=== PATIENT | male | born 1945 | race Caucasian/White ===

== ENCOUNTER 2018-08-02 16:50 | Inpatient (IN) | payer MEDICARE, MEDICAID ==
[2018-08-02 18:24] LABS: BASO % 0.2 % (0.0-1.0); EOS % 0.1 % (0.0-3.0); HEMATOCRIT 28.2 % (42.0-52.0); HEMOGLOBIN 9.2 g/dl (13.5-17.5); IMMATURE GRANULOCYTE % 0.4 % (0-3.0); LYMPH # 0.3 10^3/uL (1.5-4.5); LYMPH % 2.4 % (24.0-44.0); MEAN CORPUSCULAR HEMOGLOBIN 25.1 pg (27.0-33.0); MEAN CORPUSCULAR HGB CONC 32.6 g/dl (32.0-36.5); MONO # 0.5 10^3/uL (0.0-0.8); MONO % 4.7 % (0.0-5.0); NEUTROPHILS # 10.3 10^3/uL (1.8-7.7); NEUTROPHILS % 92.2 % (36.0-66.0); PLATELET COUNT, AUTOMATED 220 10^3/uL (150-450); RED BLOOD COUNT 3.66 10^6/uL (4.30-6.10); RED CELL DISTRIBUTION WIDTH 16.5 % (11.5-14.5); WHITE BLOOD COUNT 11.2 10^3/uL (4.0-10.0)
[2018-08-02 18:55] LABS: LACTIC ACID SEPSIS PROTOCOL 1.3 MMOL/L (0.4-2.0)
[2018-08-02] MEDS: ALBUTEROL SULFATE 2.5 MG/0.5 ML INH NEB SOLN NEB (18:57)
[2018-08-02 19:14] LABS: ALBUMIN 3.1 GM/DL (3.2-5.2); ALKALINE PHOSPHATASE 89 U/L (45-117); ALT/SGPT 19 U/L (12-78); ANION GAP 12 MEQ/L (8-16); AST/SGOT 11 U/L (7-37); BILIRUBIN,DIRECT 0.3 MG/DL (0.0-0.2); BILIRUBIN,TOTAL 0.9 MG/DL (0.2-1.0); BLOOD UREA NITROGEN 28 MG/DL (7-18); CALCIUM LEVEL 9.4 MG/DL (8.8-10.2); CARBON DIOXIDE LEVEL 23 MEQ/L (21-32); CHLORIDE LEVEL 99 MEQ/L (98-107); CPK CREATINE PHOSPHOKINASE 76 U/L (39-308); CREATININE FOR GFR 2.06 MG/DL (0.70-1.30); GLOMERULAR FILTRATION RATE 33.9 (>42); MB/CK RELATIVE INDEX 1.32 (< OR =4); NT-PRO BNP 3080 PG/ML (<125); POSITIVE DIFF POS FLAG; POTASSIUM SERUM 3.5 MEQ/L (3.5-5.1); SODIUM LEVEL 134 MEQ/L (136-145); TOTAL PROTEIN 7.3 GM/DL (6.4-8.2); TROPONIN I 0.03 NG/ML (< 0.10)
[2018-08-02 19:19] LABS: ALBUMIN/GLOBULIN RATIO 0.73 (1.00-1.93)
[2018-08-02 19:24] LABS: KETONE, URINE AUTO RFX NEGATIVE (NEGATIVE); LEUKOCYTE ESTERASE UR AUTO RFX 3+ (NEGATIVE); MUCUS, URINE RFX SMALL (NEGATIVE); NITRITE, URINE AUTO RFX NEGATIVE (NEGATIVE); RBC, URINE AUTO RFX 9 /HPF (0-3); SQUAM EPITHELIAL CELL UR AURFX 0 /HPF (0-6); WBC, URINE AUTO RFX 120 /HPF (0-3)
[2018-08-02] MEDS: PIPERACILLIN/TAZOBACTAM SOD 3.375 GM in D5W MINI-BAG PLUS 50 ML IV (19:48)
[2018-08-02 22:27] LABS: GLUCOSE, FASTING 111 MG/DL (70-100)
[2018-08-02] MEDS: VANCOMYCIN HCL 1,000 MG, VIAL MATE ADAPTER 1 EACH in D5W 250 ML IV (22:53)
[2018-08-03 00:14] LABS: ABG BASE EXCESS -0.8 (-2.0-2.0); ABG HCO3 22.8 MEQ/L (22.0-26.0); ABG O2 SATURATION 91.8 % (95.0-99.0); ABG PARTIAL PRESSURE CO2 32.8 mmHg (35.0-45.0); ABG PARTIAL PRESSURE O2 64.6 mmHg (75.0-100.0); ABG STANDARD HCO3 23.7 MEQ/L (22.0-26.0); ABG TOTAL CO2 23.8 MEQ/L (23.0-31.0); ABG pH (ARTERIAL) 7.459 UNITS (7.350-7.450)
[2018-08-03 01:59] LABS: ANION GAP 8 MEQ/L (8-16); BLOOD UREA NITROGEN 28 MG/DL (7-18); CALCIUM LEVEL 8.6 MG/DL (8.8-10.2); CARBON DIOXIDE LEVEL 27 MEQ/L (21-32); CHLORIDE LEVEL 100 MEQ/L (98-107); CREATININE FOR GFR 2.13 MG/DL (0.70-1.30); GLOMERULAR FILTRATION RATE 32.6 (>42); GLUCOSE, FASTING 119 MG/DL (70-100); POTASSIUM SERUM 3.5 MEQ/L (3.5-5.1); SODIUM LEVEL 135 MEQ/L (136-145)
[2018-08-03] MEDS: ACETAMINOPHEN TAB 650MG DOSE (2X325MG) PO ×3 (03:54→22:18)
[2018-08-03 04:55] LABS: BASO % 0.5 % (0.0-1.0); EOS % 0.1 % (0.0-3.0); HEMATOCRIT 27.2 % (42.0-52.0); HEMOGLOBIN 8.6 g/dl (13.5-17.5); IMMATURE GRANULOCYTE % 0.7 % (0-3.0); LYMPH # 0.3 10^3/uL (1.5-4.5); LYMPH % 3.1 % (24.0-44.0); MEAN CORPUSCULAR HEMOGLOBIN 24.6 pg (27.0-33.0); MEAN CORPUSCULAR HGB CONC 31.6 g/dl (32.0-36.5); MEAN CORPUSCULAR VOLUME 77.7 fl (80.0-96.0); MONO # 0.6 10^3/uL (0.0-0.8); MONO % 6.3 % (0.0-5.0); NEUTROPHILS # 7.9 10^3/uL (1.8-7.7); NEUTROPHILS % 89.3 % (36.0-66.0); PLATELET COUNT, AUTOMATED 183 10^3/uL (150-450); RED CELL DISTRIBUTION WIDTH 16.3 % (11.5-14.5); WHITE BLOOD COUNT 8.9 10^3/uL (4.0-10.0)
[2018-08-03 05:23] LABS: POSITIVE DIFF POS FLAG
[2018-08-03 05:28] LABS: ALBUMIN 2.7 GM/DL (3.2-5.2); ALKALINE PHOSPHATASE 75 U/L (45-117); ALT/SGPT 17 U/L (12-78); ANION GAP 12 MEQ/L (8-16); AST/SGOT 12 U/L (7-37); BILIRUBIN,TOTAL 0.8 MG/DL (0.2-1.0); BLOOD UREA NITROGEN 28 MG/DL (7-18); CALCIUM LEVEL 8.8 MG/DL (8.8-10.2); CARBON DIOXIDE LEVEL 21 MEQ/L (21-32); CHLORIDE LEVEL 101 MEQ/L (98-107); CK-MB VALUE MASS < 1.0 NG/ML (<3.6); CPK CREATINE PHOSPHOKINASE 78 U/L (39-308); CREATININE FOR GFR 2.06 MG/DL (0.70-1.30); GLOMERULAR FILTRATION RATE 33.9 (>42); GLUCOSE, FASTING 111 MG/DL (70-100); MB/CK RELATIVE INDEX 1.28 (< OR =4); POTASSIUM SERUM 3.4 MEQ/L (3.5-5.1); SODIUM LEVEL 134 MEQ/L (136-145); TOTAL PROTEIN 6.8 GM/DL (6.4-8.2); TROPONIN I 0.03 NG/ML (< 0.10)
[2018-08-03 05:37] LABS: ALBUMIN/GLOBULIN RATIO 0.63 (1.00-1.93)
[2018-08-03] MEDS: POTASSIUM CHLORIDE 10% LIQ 20 MEQ/15 ML UDC PO (06:00)
[2018-08-03] MEDS: HEPARIN SOD (PORCINE) 5000 UNITS/ML VIAL SC ×3 (06:00→22:00)
[2018-08-03] MEDS ORDERED: GLUCOSE 4 GM CHEW TABLET PO (07:00)
[2018-08-03] MEDS ORDERED: GLUCAGON FOR INJ 1 MG VIAL (J1610) SC (07:00)
[2018-08-03] MEDS ORDERED: DEXTROSE 50% 50 ML SYRINGE IV (07:00)
[2018-08-03] MEDS: SENOKOT S TAB PO ×2 (09:04→20:18)
[2018-08-03] MEDS: buPROPion **XL** TABLET 150MG (WELLBUTRIN XL) PO (09:05)
[2018-08-03] MEDS: LEVOTHYROXINE 100MCG TABLET (0.1MG) PO (09:05)
[2018-08-03] MEDS: ESCITALOPRAM OXALATE 10 MG TAB (LEXAPRO) PO (09:05)
[2018-08-03] MEDS: FAMOTIDINE 20 MG TAB PO (09:05)
[2018-08-03] MEDS: PANTOPRAZOLE 40MG TAB (PROTONIX) PO (09:05)
[2018-08-03] MEDS: VITAMIN D 1,000 INTERNATIONAL UNITS TABLET PO (09:06)
[2018-08-03] MEDS: HumaLOG INSULIN (NovoLOG) PER UNIT SC ×4 (09:06→20:18)
[2018-08-03] MEDS: PIPERACILLIN/TAZOBACTAM SOD 2.25 GM in D5W MINI-BAG PLUS 50 ML IV ×3 (09:06→20:18)
[2018-08-03] MEDS: TIOTROPIUM INHALER/CAPSULE (SPIRIVA) INH (10:00)
[2018-08-03 11:43] LABS: BEDSIDE GLUCOSE 119 MG/DL (83-110)
[2018-08-03 12:30] LABS: CPK CREATINE PHOSPHOKINASE 114 U/L (39-308); TROPONIN I 0.06 NG/ML (< 0.10)
[2018-08-03] MEDS: IPRATROPIUM 0.5MG/ALBUTEROL 2.5MG INH SOL UD 3ML (DUONEB)(J7620) NEB ×2 (14:00→20:48)
[2018-08-03 17:25] LABS: BEDSIDE GLUCOSE 104 MG/DL (83-110)
[2018-08-03 20:05] LABS: BEDSIDE GLUCOSE 110 MG/DL (83-110)
[2018-08-03] MEDS: TAMSULOSIN 0.4 MG CAP PO (20:18)
[2018-08-03 20:40] LABS: CPK CREATINE PHOSPHOKINASE 141 U/L (39-308); MB/CK RELATIVE INDEX 1.06 (< OR =4); TROPONIN I 0.02 NG/ML (< 0.10)
[2018-08-04] MEDS: PIPERACILLIN/TAZOBACTAM SOD 2.25 GM in D5W MINI-BAG PLUS 50 ML IV ×4 (01:53→20:27)
[2018-08-04] MEDS: IPRATROPIUM 0.5MG/ALBUTEROL 2.5MG INH SOL UD 3ML (DUONEB)(J7620) NEB ×4 (02:00→20:42)
[2018-08-04] MEDS ORDERED: SLF 3 ML SYR IV (05:15)
[2018-08-04 05:55] LABS: BASO # 0.1 10^3/uL (0.0-0.2); BASO % 1.6 % (0.0-1.0); EOS # 0.1 10^3/uL (0.0-0.50); EOS % 0.8 % (0.0-3.0); HEMATOCRIT 26.1 % (42.0-52.0); HEMOGLOBIN 8.2 g/dl (13.5-17.5); IMMATURE GRANULOCYTE % 0.5 % (0-3.0); LYMPH # 0.9 10^3/uL (1.5-4.5); LYMPH % 14.3 % (24.0-44.0); MEAN CORPUSCULAR HEMOGLOBIN 24.6 pg (27.0-33.0); MEAN CORPUSCULAR HGB CONC 31.4 g/dl (32.0-36.5); MEAN CORPUSCULAR VOLUME 78.4 fl (80.0-96.0); MONO # 0.9 10^3/uL (0.0-0.8); MONO % 14.4 % (0.0-5.0); NEUTROPHILS # 4.4 10^3/uL (1.8-7.7); NEUTROPHILS % 68.4 % (36.0-66.0); PLATELET COUNT, AUTOMATED 209 10^3/uL (150-450); RED BLOOD COUNT 3.33 10^6/uL (4.30-6.10); RED CELL DISTRIBUTION WIDTH 16.2 % (11.5-14.5); WHITE BLOOD COUNT 6.4 10^3/uL (4.0-10.0)
[2018-08-04] MEDS: HEPARIN SOD (PORCINE) 5000 UNITS/ML VIAL SC ×3 (05:59→22:00)
[2018-08-04] MEDS: SLF 3 ML SYR IV ×3 (05:59→22:00)
[2018-08-04 06:19] LABS: ALBUMIN 2.4 GM/DL (3.2-5.2); ALBUMIN/GLOBULIN RATIO 0.62 (1.00-1.93); ALKALINE PHOSPHATASE 73 U/L (45-117); ALT/SGPT 21 U/L (12-78); ANION GAP 9 MEQ/L (8-16); AST/SGOT 18 U/L (7-37); BILIRUBIN,TOTAL 0.4 MG/DL (0.2-1.0); BLOOD UREA NITROGEN 28 MG/DL (7-18); CALCIUM LEVEL 8.6 MG/DL (8.8-10.2); CARBON DIOXIDE LEVEL 23 MEQ/L (21-32); CHLORIDE LEVEL 104 MEQ/L (98-107); CREATININE FOR GFR 1.89 MG/DL (0.70-1.30); GLOMERULAR FILTRATION RATE 37.4 (>42); GLUCOSE, FASTING 88 MG/DL (70-100); POTASSIUM SERUM 3.2 MEQ/L (3.5-5.1); SODIUM LEVEL 136 MEQ/L (136-145); TOTAL PROTEIN 6.3 GM/DL (6.4-8.2)
[2018-08-04] MEDS: TIOTROPIUM INHALER/CAPSULE (SPIRIVA) INH (07:40)
[2018-08-04] MEDS: HumaLOG INSULIN (NovoLOG) PER UNIT SC ×4 (07:50→20:27)
[2018-08-04] MEDS: PANTOPRAZOLE 40MG TAB (PROTONIX) PO (08:53)
[2018-08-04] MEDS: VITAMIN D 1,000 INTERNATIONAL UNITS TABLET PO (08:54)
[2018-08-04] MEDS: SENOKOT S TAB PO ×2 (08:54→20:27)
[2018-08-04] MEDS: ESCITALOPRAM OXALATE 10 MG TAB (LEXAPRO) PO (08:54)
[2018-08-04] MEDS: POTASSIUM CHLORIDE 10 MEQ SR TABLET PO (08:54)
[2018-08-04] MEDS: buPROPion **XL** TABLET 150MG (WELLBUTRIN XL) PO (08:54)
[2018-08-04] MEDS: LEVOTHYROXINE 100MCG TABLET (0.1MG) PO (08:54)
[2018-08-04] MEDS: FAMOTIDINE 20 MG TAB PO (08:54)
[2018-08-04] MEDS: INFLUENZA VIRUS VACCINE HIGH DOSE 0.5 ML SYRINGE (90662) IM (08:55)
[2018-08-04 11:35] LABS: BEDSIDE GLUCOSE 100 MG/DL (83-110)
[2018-08-04 17:13] LABS: BEDSIDE GLUCOSE 90 MG/DL (83-110)
[2018-08-04 20:05] LABS: BEDSIDE GLUCOSE 118 MG/DL (83-110)
[2018-08-04] MEDS: TAMSULOSIN 0.4 MG CAP PO (20:27)
[2018-08-05] MEDS: IPRATROPIUM 0.5MG/ALBUTEROL 2.5MG INH SOL UD 3ML (DUONEB)(J7620) NEB ×4 (01:09→20:40)
[2018-08-05] MEDS: PIPERACILLIN/TAZOBACTAM SOD 2.25 GM in D5W MINI-BAG PLUS 50 ML IV ×2 (01:35→08:08)
[2018-08-05] MEDS: SLF 3 ML SYR IV ×3 (05:34→22:47)
[2018-08-05] MEDS: ACETAMINOPHEN TAB 650MG DOSE (2X325MG) PO (05:34)
[2018-08-05] MEDS: HEPARIN SOD (PORCINE) 5000 UNITS/ML VIAL SC ×3 (05:34→22:46)
[2018-08-05 06:03] LABS: BASO # 0.1 10^3/uL (0.0-0.2); BASO % 1.8 % (0.0-1.0); EOS # 0.2 10^3/uL (0.0-0.50); HEMATOCRIT 26.1 % (42.0-52.0); HEMOGLOBIN 8.3 g/dl (13.5-17.5); IMMATURE GRANULOCYTE % 0.8 % (0-3.0); LYMPH # 0.7 10^3/uL (1.5-4.5); LYMPH % 13.7 % (24.0-44.0); MEAN CORPUSCULAR HEMOGLOBIN 24.6 pg (27.0-33.0); MEAN CORPUSCULAR HGB CONC 31.8 g/dl (32.0-36.5); MEAN CORPUSCULAR VOLUME 77.2 fl (80.0-96.0); MONO # 0.8 10^3/uL (0.0-0.8); MONO % 16.3 % (0.0-5.0); NEUTROPHILS # 3.2 10^3/uL (1.8-7.7); NEUTROPHILS % 63.4 % (36.0-66.0); PLATELET COUNT, AUTOMATED 241 10^3/uL (150-450); RED BLOOD COUNT 3.38 10^6/uL (4.30-6.10); RED CELL DISTRIBUTION WIDTH 16.1 % (11.5-14.5)
[2018-08-05 06:51] LABS: ALBUMIN 2.2 GM/DL (3.2-5.2); ALBUMIN/GLOBULIN RATIO 0.54 (1.00-1.93); ALKALINE PHOSPHATASE 70 U/L (45-117); ALT/SGPT 26 U/L (12-78); ANION GAP 11 MEQ/L (8-16); AST/SGOT 21 U/L (7-37); BILIRUBIN,TOTAL 0.4 MG/DL (0.2-1.0); BLOOD UREA NITROGEN 20 MG/DL (7-18); CALCIUM LEVEL 8.5 MG/DL (8.8-10.2); CARBON DIOXIDE LEVEL 22 MEQ/L (21-32); CHLORIDE LEVEL 104 MEQ/L (98-107); GLOMERULAR FILTRATION RATE 52.9 (>42); GLUCOSE, FASTING 96 MG/DL (70-100); POTASSIUM SERUM 3.3 MEQ/L (3.5-5.1); SODIUM LEVEL 137 MEQ/L (136-145); TOTAL PROTEIN 6.3 GM/DL (6.4-8.2)
[2018-08-05] MEDS: TIOTROPIUM INHALER/CAPSULE (SPIRIVA) INH (07:45)
[2018-08-05] MEDS: HumaLOG INSULIN (NovoLOG) PER UNIT SC ×4 (08:06→21:29)
[2018-08-05] MEDS: ESCITALOPRAM OXALATE 10 MG TAB (LEXAPRO) PO (08:07)
[2018-08-05] MEDS: POTASSIUM CHLORIDE 10 MEQ SR TABLET PO (08:07)
[2018-08-05] MEDS: SENOKOT S TAB PO ×2 (08:07→21:28)
[2018-08-05] MEDS: VITAMIN D 1,000 INTERNATIONAL UNITS TABLET PO (08:07)
[2018-08-05] MEDS: FAMOTIDINE 20 MG TAB PO (08:07)
[2018-08-05] MEDS: LEVOTHYROXINE 100MCG TABLET (0.1MG) PO (08:07)
[2018-08-05] MEDS: buPROPion **XL** TABLET 150MG (WELLBUTRIN XL) PO (08:07)
[2018-08-05] MEDS: PANTOPRAZOLE 40MG TAB (PROTONIX) PO (08:07)
[2018-08-05] MEDS: cefTRIAXone SOD 2 GM in D5W MINI-BAG PLUS 50 ML IV (09:59)
[2018-08-05 11:45] LABS: BEDSIDE GLUCOSE 120 MG/DL (83-110)
[2018-08-05] MEDS: amLODIPine 5 MG TAB PO (13:57)
[2018-08-05 17:15] LABS: BEDSIDE GLUCOSE 119 MG/DL (83-110)
[2018-08-05] MEDS: TAMSULOSIN 0.4 MG CAP PO (21:28)
[2018-08-05] MEDS: ACETAMINOPHEN 500 MG TAB PO (21:29)
[2018-08-05 21:33] LABS: BEDSIDE GLUCOSE 145 MG/DL (83-110)
[2018-08-06] MEDS: IPRATROPIUM 0.5MG/ALBUTEROL 2.5MG INH SOL UD 3ML (DUONEB)(J7620) NEB ×4 (02:00→20:43)
[2018-08-06] MEDS: HEPARIN SOD (PORCINE) 5000 UNITS/ML VIAL SC ×3 (05:19→21:11)
[2018-08-06] MEDS: SLF 3 ML SYR IV ×3 (05:20→21:11)
[2018-08-06 05:46] LABS: BASO # 0.1 10^3/uL (0.0-0.2); BASO % 1.5 % (0.0-1.0); EOS # 0.6 10^3/uL (0.0-0.50); EOS % 8.4 % (0.0-3.0); HEMATOCRIT 27.4 % (42.0-52.0); HEMOGLOBIN 8.6 g/dl (13.5-17.5); IMMATURE GRANULOCYTE % 1.5 % (0-3.0); LYMPH % 15.2 % (24.0-44.0); MEAN CORPUSCULAR HEMOGLOBIN 24.4 pg (27.0-33.0); MEAN CORPUSCULAR HGB CONC 31.4 g/dl (32.0-36.5); MEAN CORPUSCULAR VOLUME 77.6 fl (80.0-96.0); MONO # 0.9 10^3/uL (0.0-0.8); MONO % 13.6 % (0.0-5.0); NEUTROPHILS # 3.9 10^3/uL (1.8-7.7); NEUTROPHILS % 59.8 % (36.0-66.0); PLATELET COUNT, AUTOMATED 289 10^3/uL (150-450); RED BLOOD COUNT 3.53 10^6/uL (4.30-6.10); WHITE BLOOD COUNT 6.6 10^3/uL (4.0-10.0)
[2018-08-06 06:06] LABS: ALBUMIN 2.3 GM/DL (3.2-5.2); ALBUMIN/GLOBULIN RATIO 0.55 (1.00-1.93); ALKALINE PHOSPHATASE 77 U/L (45-117); ALT/SGPT 31 U/L (12-78); ANION GAP 9 MEQ/L (8-16); AST/SGOT 21 U/L (7-37); BILIRUBIN,TOTAL 0.3 MG/DL (0.2-1.0); BLOOD UREA NITROGEN 17 MG/DL (7-18); CALCIUM LEVEL 8.6 MG/DL (8.8-10.2); CARBON DIOXIDE LEVEL 23 MEQ/L (21-32); CHLORIDE LEVEL 108 MEQ/L (98-107); CREATININE FOR GFR 1.26 MG/DL (0.70-1.30); GLOMERULAR FILTRATION RATE 59.7 (>42); GLUCOSE, FASTING 101 MG/DL (70-100); POTASSIUM SERUM 3.1 MEQ/L (3.5-5.1); SODIUM LEVEL 140 MEQ/L (136-145); TOTAL PROTEIN 6.5 GM/DL (6.4-8.2)
[2018-08-06] MEDS: TIOTROPIUM INHALER/CAPSULE (SPIRIVA) INH (07:27)
[2018-08-06] MEDS: HumaLOG INSULIN (NovoLOG) PER UNIT SC ×4 (07:30→21:00)
[2018-08-06] MEDS: VITAMIN D 1,000 INTERNATIONAL UNITS TABLET PO (09:00)
[2018-08-06] MEDS: cefTRIAXone SOD 2 GM in D5W MINI-BAG PLUS 50 ML IV (10:07)
[2018-08-06] MEDS: FAMOTIDINE 20 MG TAB PO (10:07)
[2018-08-06] MEDS: SENOKOT S TAB PO ×2 (10:08→21:12)
[2018-08-06] MEDS: amLODIPine 5 MG TAB PO (10:08)
[2018-08-06] MEDS: buPROPion **XL** TABLET 150MG (WELLBUTRIN XL) PO (10:08)
[2018-08-06] MEDS: LEVOTHYROXINE 100MCG TABLET (0.1MG) PO (10:08)
[2018-08-06] MEDS: PANTOPRAZOLE 40MG TAB (PROTONIX) PO (10:08)
[2018-08-06] MEDS: POTASSIUM CHLORIDE 10 MEQ SR TABLET PO ×3 (10:09→21:11)
[2018-08-06] MEDS: ESCITALOPRAM OXALATE 10 MG TAB (LEXAPRO) PO (10:09)
[2018-08-06] MEDS: ACETAMINOPHEN 500 MG TAB PO ×2 (10:09→21:12)
[2018-08-06 11:56] LABS: BEDSIDE GLUCOSE 123 MG/DL (83-110)
[2018-08-06 16:57] LABS: BEDSIDE GLUCOSE 101 MG/DL (83-110)
[2018-08-06 20:04] LABS: BEDSIDE GLUCOSE 148 MG/DL (83-110)
[2018-08-06] MEDS: TAMSULOSIN 0.4 MG CAP PO (21:12)
[2018-08-07] MEDS: IPRATROPIUM 0.5MG/ALBUTEROL 2.5MG INH SOL UD 3ML (DUONEB)(J7620) NEB ×4 (01:35→19:41)
[2018-08-07] MEDS: HEPARIN SOD (PORCINE) 5000 UNITS/ML VIAL SC ×3 (05:46→21:00)
[2018-08-07] MEDS: SLF 3 ML SYR IV ×3 (05:46→21:00)
[2018-08-07 06:40] LABS: BEDSIDE GLUCOSE 120 MG/DL (83-110)
[2018-08-07] MEDS: HumaLOG INSULIN (NovoLOG) PER UNIT SC ×4 (07:30→20:54)
[2018-08-07] MEDS: TIOTROPIUM INHALER/CAPSULE (SPIRIVA) INH (08:19)
[2018-08-07] MEDS: ACETAMINOPHEN 500 MG TAB PO ×2 (09:27→20:52)
[2018-08-07] MEDS: amLODIPine 5 MG TAB PO (09:27)
[2018-08-07] MEDS: ESCITALOPRAM OXALATE 10 MG TAB (LEXAPRO) PO (09:27)
[2018-08-07] MEDS: VITAMIN D 1,000 INTERNATIONAL UNITS TABLET PO (09:28)
[2018-08-07] MEDS: PANTOPRAZOLE 40MG TAB (PROTONIX) PO (09:28)
[2018-08-07] MEDS: buPROPion **XL** TABLET 150MG (WELLBUTRIN XL) PO (09:28)
[2018-08-07] MEDS: LEVOTHYROXINE 100MCG TABLET (0.1MG) PO (09:28)
[2018-08-07] MEDS: cefTRIAXone SOD 2 GM in D5W MINI-BAG PLUS 50 ML IV (09:28)
[2018-08-07] MEDS: POTASSIUM CHLORIDE 10 MEQ SR TABLET PO ×2 (09:28→20:51)
[2018-08-07] MEDS: SENOKOT S TAB PO ×2 (09:28→20:52)
[2018-08-07] MEDS: FAMOTIDINE 20 MG TAB PO (09:28)
[2018-08-07 11:48] LABS: BEDSIDE GLUCOSE 113 MG/DL (83-110)
[2018-08-07 16:23] LABS: BEDSIDE GLUCOSE 112 MG/DL (83-110)
[2018-08-07 20:13] LABS: BEDSIDE GLUCOSE 141 MG/DL (83-110)
[2018-08-07] MEDS: TAMSULOSIN 0.4 MG CAP PO (20:52)
[2018-08-08] MEDS: IPRATROPIUM 0.5MG/ALBUTEROL 2.5MG INH SOL UD 3ML (DUONEB)(J7620) NEB ×4 (01:41→20:12)
[2018-08-08] MEDS: SLF 3 ML SYR IV ×3 (05:09→21:15)
[2018-08-08] MEDS: HEPARIN SOD (PORCINE) 5000 UNITS/ML VIAL SC ×3 (05:09→21:14)
[2018-08-08 05:14] LABS: BEDSIDE GLUCOSE 107 MG/DL (83-110)
[2018-08-08] MEDS: HumaLOG INSULIN (NovoLOG) PER UNIT SC ×4 (07:30→21:00)
[2018-08-08] MEDS: TIOTROPIUM INHALER/CAPSULE (SPIRIVA) INH (08:37)
[2018-08-08] MEDS: MIRALAX *UNIT DOSE* 17GM PACKET PO (09:03)
[2018-08-08] MEDS: amLODIPine 5 MG TAB PO (09:03)
[2018-08-08] MEDS: SENOKOT S TAB PO ×2 (09:04→21:14)
[2018-08-08] MEDS: POTASSIUM CHLORIDE 10 MEQ SR TABLET PO ×2 (09:04→21:14)
[2018-08-08] MEDS: VITAMIN D 1,000 INTERNATIONAL UNITS TABLET PO (09:04)
[2018-08-08] MEDS: ACETAMINOPHEN 500 MG TAB PO ×2 (09:04→21:14)
[2018-08-08] MEDS: buPROPion **XL** TABLET 150MG (WELLBUTRIN XL) PO (09:04)
[2018-08-08] MEDS: LEVOTHYROXINE 100MCG TABLET (0.1MG) PO (09:04)
[2018-08-08] MEDS: ESCITALOPRAM OXALATE 10 MG TAB (LEXAPRO) PO (09:04)
[2018-08-08] MEDS: FAMOTIDINE 20 MG TAB PO (09:04)
[2018-08-08] MEDS: cefTRIAXone SOD 2 GM in D5W MINI-BAG PLUS 50 ML IV (09:05)
[2018-08-08] MEDS: PANTOPRAZOLE 40MG TAB (PROTONIX) PO (09:05)
[2018-08-08 11:16] LABS: BEDSIDE GLUCOSE 111 MG/DL (83-110)
[2018-08-08 16:41] LABS: BEDSIDE GLUCOSE 98 MG/DL (83-110)
[2018-08-08 20:50] LABS: BEDSIDE GLUCOSE 86 MG/DL (83-110)
[2018-08-08] MEDS: TAMSULOSIN 0.4 MG CAP PO (21:15)
[2018-08-09] MEDS: IPRATROPIUM 0.5MG/ALBUTEROL 2.5MG INH SOL UD 3ML (DUONEB)(J7620) NEB ×4 (01:19→20:26)
[2018-08-09] MEDS: SLF 3 ML SYR IV ×3 (05:18→20:59)
[2018-08-09] MEDS: HEPARIN SOD (PORCINE) 5000 UNITS/ML VIAL SC ×3 (05:28→20:58)
[2018-08-09 05:30] LABS: HEMATOCRIT 29.3 % (42.0-52.0); HEMOGLOBIN 9.4 g/dl (13.5-17.5); MEAN CORPUSCULAR HEMOGLOBIN 25.1 pg (27.0-33.0); MEAN CORPUSCULAR HGB CONC 32.1 g/dl (32.0-36.5); MEAN CORPUSCULAR VOLUME 78.3 fl (80.0-96.0); PLATELET COUNT, AUTOMATED 445 10^3/uL (150-450); RED BLOOD COUNT 3.74 10^6/uL (4.30-6.10); RED CELL DISTRIBUTION WIDTH 15.9 % (11.5-14.5); WHITE BLOOD COUNT 8.3 10^3/uL (4.0-10.0)
[2018-08-09 05:33] LABS: ADD MANUAL DIFFER YES; DIFF SLIDE NUMBER 96; POS COUNT POS FLAG; POSITIVE MORPH POS FLAG
[2018-08-09 05:50] LABS: ANION GAP 12 MEQ/L (8-16); BLOOD UREA NITROGEN 15 MG/DL (7-18); CALCIUM LEVEL 8.8 MG/DL (8.8-10.2); CARBON DIOXIDE LEVEL 24 MEQ/L (21-32); CHLORIDE LEVEL 108 MEQ/L (98-107); CREATININE FOR GFR 1.07 MG/DL (0.70-1.30); GLOMERULAR FILTRATION RATE > 60.0 (>42); GLUCOSE, FASTING 98 MG/DL (70-100); POTASSIUM SERUM 3.8 MEQ/L (3.5-5.1); SODIUM LEVEL 144 MEQ/L (136-145)
[2018-08-09 07:06] LABS: ANISOCYTOSIS 1+; ATYPICAL LYMPH 5 % (0-5); BASOPHILS 1 % (0-4); EOSINOPHILS 14 % (0-5); GIANT PLATELETS 1+; LYMPHOCYTES 25 % (16-52); METAMYELOCYTES 1 % (0-0); MONOCYTES 5 % (0-8); MYELOCYTES 3 % (0-0); NEUTROPHILS 46 % (35-75); PLATELET ESTIMATE NORMAL (NORMAL)
[2018-08-09] MEDS: HumaLOG INSULIN (NovoLOG) PER UNIT SC ×4 (07:42→20:39)
[2018-08-09] MEDS: TIOTROPIUM INHALER/CAPSULE (SPIRIVA) INH (07:42)
[2018-08-09] MEDS: buPROPion **XL** TABLET 150MG (WELLBUTRIN XL) PO (10:32)
[2018-08-09] MEDS: ESCITALOPRAM OXALATE 10 MG TAB (LEXAPRO) PO (10:32)
[2018-08-09] MEDS: FAMOTIDINE 20 MG TAB PO (10:32)
[2018-08-09] MEDS: SENOKOT S TAB PO ×2 (10:32→20:57)
[2018-08-09] MEDS: LEVOTHYROXINE 100MCG TABLET (0.1MG) PO (10:33)
[2018-08-09] MEDS: ACETAMINOPHEN 500 MG TAB PO ×2 (10:33→20:58)
[2018-08-09] MEDS: PANTOPRAZOLE 40MG TAB (PROTONIX) PO (10:33)
[2018-08-09] MEDS: POTASSIUM CHLORIDE 10 MEQ SR TABLET PO ×2 (10:33→20:57)
[2018-08-09] MEDS: amLODIPine 5 MG TAB PO (10:33)
[2018-08-09] MEDS: VITAMIN D 1,000 INTERNATIONAL UNITS TABLET PO (10:33)
[2018-08-09] MEDS: cefTRIAXone SOD 2 GM in D5W MINI-BAG PLUS 50 ML IV (10:34)
[2018-08-09] MEDS: BISACODYL 10 MG SUPP PR (10:34)
[2018-08-09 11:50] LABS: BEDSIDE GLUCOSE 121 MG/DL (83-110)
[2018-08-09] MEDS: FUROSEMIDE 40 MG/4 ML VIAL (J1940) IV (15:12)
[2018-08-09 17:24] LABS: BEDSIDE GLUCOSE 96 MG/DL (83-110)
[2018-08-09] MEDS: MIRALAX *UNIT DOSE* 17GM PACKET PO (20:57)
[2018-08-09] MEDS: TAMSULOSIN 0.4 MG CAP PO (20:58)
[2018-08-10] MEDS: IPRATROPIUM 0.5MG/ALBUTEROL 2.5MG INH SOL UD 3ML (DUONEB)(J7620) NEB ×3 (02:00→13:22)
[2018-08-10] MEDS: HEPARIN SOD (PORCINE) 5000 UNITS/ML VIAL SC ×2 (05:08→14:00)
[2018-08-10] MEDS: SLF 3 ML SYR IV ×2 (05:08→14:00)
[2018-08-10 05:49] LABS: HEMATOCRIT 30.6 % (42.0-52.0); HEMOGLOBIN 9.4 g/dl (13.5-17.5); MEAN CORPUSCULAR HEMOGLOBIN 24.2 pg (27.0-33.0); MEAN CORPUSCULAR HGB CONC 30.7 g/dl (32.0-36.5); MEAN CORPUSCULAR VOLUME 78.9 fl (80.0-96.0); PLATELET COUNT, AUTOMATED 456 10^3/uL (150-450); RED BLOOD COUNT 3.88 10^6/uL (4.30-6.10); WHITE BLOOD COUNT 10.4 10^3/uL (4.0-10.0)
[2018-08-10 05:54] LABS: ADD MANUAL DIFFER YES; DIFF SLIDE NUMBER 56; POS COUNT POS FLAG; POSITIVE MORPH POS FLAG
[2018-08-10 06:06] LABS: ANION GAP 10 MEQ/L (8-16); BLOOD UREA NITROGEN 16 MG/DL (7-18); CALCIUM LEVEL 9.1 MG/DL (8.8-10.2); CARBON DIOXIDE LEVEL 25 MEQ/L (21-32); CHLORIDE LEVEL 103 MEQ/L (98-107); CREATININE FOR GFR 1.32 MG/DL (0.70-1.30); GLOMERULAR FILTRATION RATE 56.6 (>42); GLUCOSE, FASTING 103 MG/DL (70-100); POTASSIUM SERUM 4.5 MEQ/L (3.5-5.1); SODIUM LEVEL 138 MEQ/L (136-145)
[2018-08-10 07:08] LABS: BEDSIDE GLUCOSE 137 MG/DL (83-110)
[2018-08-10] MEDS: HumaLOG INSULIN (NovoLOG) PER UNIT SC ×2 (07:30→12:00)
[2018-08-10 07:38] LABS: ANISOCYTOSIS 1+; BASOPHILS 2 % (0-4); EOSINOPHILS 11 % (0-5); LYMPHOCYTES 20 % (16-52); MICROCYTOSIS 1+; MONOCYTES 1 % (0-8); MYELOCYTES 1 % (0-0); NEUTROPHILS 65 % (35-75); PLATELET ESTIMATE NORMAL (NORMAL)
[2018-08-10] MEDS: TIOTROPIUM INHALER/CAPSULE (SPIRIVA) INH (08:00)
[2018-08-10] MEDS: FAMOTIDINE 20 MG TAB PO (08:40)
[2018-08-10] MEDS: PANTOPRAZOLE 40MG TAB (PROTONIX) PO (08:40)
[2018-08-10] MEDS: buPROPion **XL** TABLET 150MG (WELLBUTRIN XL) PO (08:40)
[2018-08-10] MEDS: SENOKOT S TAB PO (08:40)
[2018-08-10] MEDS: ESCITALOPRAM OXALATE 10 MG TAB (LEXAPRO) PO (08:40)
[2018-08-10] MEDS: POTASSIUM CHLORIDE 10 MEQ SR TABLET PO (08:40)
[2018-08-10] MEDS: amLODIPine 5 MG TAB PO (08:41)
[2018-08-10] MEDS: LEVOTHYROXINE 100MCG TABLET (0.1MG) PO (08:41)
[2018-08-10] MEDS: ACETAMINOPHEN 500 MG TAB PO (08:41)
[2018-08-10] MEDS: cefTRIAXone SOD 2 GM in D5W MINI-BAG PLUS 50 ML IV (08:41)
[2018-08-10] MEDS: VITAMIN D 1,000 INTERNATIONAL UNITS TABLET PO (08:41)
[2018-08-10] MEDS: BISACODYL 10 MG SUPP PR (08:42)
[2018-08-11 01:26] LABS: BEDSIDE GLUCOSE 106 MG/DL (83-110)
== END 2018-08-10 14:42 | disposition home or self-care (01) | DRG 690 ==
LOC: M ED INP 08-03 03:38 → M MSPAV 08-09 06:03 → M PCU 08-05 23:42 → M ED 16:50
DX: N39.0 Urinary tract infection, site not specified (principal); N17.9 Acute kidney failure, unspecified; R78.81 Bacteremia; I50.9 Heart failure, unspecified; E66.9 Obesity, unspecified; K21.9 Gastro-esophageal reflux disease without esophagitis; N13.9 Obstructive and reflux uropathy, unspecified; B96.20 Unspecified Escherichia coli [E. coli] as the cause of diseases classified elsewhere; F41.9 Anxiety disorder, unspecified; F32.9 Major depressive disorder, single episode, unspecified; J44.9 Chronic obstructive pulmonary disease, unspecified; E55.9 Vitamin D deficiency, unspecified; E03.9 Hypothyroidism, unspecified; E11.9 Type 2 diabetes mellitus without complications; N40.1 Benign prostatic hyperplasia with lower urinary tract symptoms; D64.9 Anemia, unspecified; Z79.51 Long term (current) use of inhaled steroids; Z79.84 Long term (current) use of oral hypoglycemic drugs; Z79.899 Other long term (current) drug therapy; Z96.652 Presence of left artificial knee joint; Z68.30 Body mass index [BMI] 30.0-30.9, adult

== ENCOUNTER 2018-08-16 09:26 | Inpatient (IN) | payer MEDICARE, MEDICAID ==
[2018-08-16] MEDS: NS 1,000 ML IV ×4 (09:45→22:50)
[2018-08-16 10:00] LABS: BASO # 0.1 10^3/uL (0.0-0.2); BASO % 0.8 % (0.0-1.0); EOS # 0.2 10^3/uL (0.0-0.50); EOS % 1.3 % (0.0-3.0); HEMATOCRIT 30.2 % (42.0-52.0); HEMOGLOBIN 9.3 g/dl (13.5-17.5); LYMPH # 1.2 10^3/uL (1.5-4.5); LYMPH % 9.2 % (24.0-44.0); MEAN CORPUSCULAR HEMOGLOBIN 24.9 pg (27.0-33.0); MEAN CORPUSCULAR HGB CONC 30.8 g/dl (32.0-36.5); MEAN CORPUSCULAR VOLUME 80.7 fl (80.0-96.0); MONO # 1.2 10^3/uL (0.0-0.8); MONO % 8.9 % (0.0-5.0); NEUTROPHILS # 10.6 10^3/uL (1.8-7.7); NEUTROPHILS % 78.8 % (36.0-66.0); PLATELET COUNT, AUTOMATED 320 10^3/uL (150-450); RED BLOOD COUNT 3.74 10^6/uL (4.30-6.10); RED CELL DISTRIBUTION WIDTH 17.3 % (11.5-14.5); WHITE BLOOD COUNT 13.4 10^3/uL (4.0-10.0)
[2018-08-16 10:26] LABS: ALBUMIN 3.3 GM/DL (3.2-5.2); ALBUMIN/GLOBULIN RATIO 0.75 (1.00-1.93); ALKALINE PHOSPHATASE 82 U/L (45-117); ALT/SGPT 22 U/L (12-78); ANION GAP 11 MEQ/L (8-16); AST/SGOT 12 U/L (7-37); BILIRUBIN,DIRECT 0.1 MG/DL (0.0-0.2); BILIRUBIN,TOTAL 0.5 MG/DL (0.2-1.0); BLOOD UREA NITROGEN 53 MG/DL (7-18); CALCIUM LEVEL 10.5 MG/DL (8.8-10.2); CARBON DIOXIDE LEVEL 24 MEQ/L (21-32); CHLORIDE LEVEL 98 MEQ/L (98-107); CK-MB VALUE MASS < 1.0 NG/ML (<3.6); CPK CREATINE PHOSPHOKINASE 42 U/L (39-308); CREATININE FOR GFR 4.35 MG/DL (0.70-1.30); FREE T4 1.38 NG/DL (0.76-1.46); GLOMERULAR FILTRATION RATE 14.3 (>42); GLUCOSE, FASTING 68 MG/DL (70-100); LIPASE 119 U/L (73-393); MB/CK RELATIVE INDEX 2.38 (< OR =4); POTASSIUM SERUM 5.4 MEQ/L (3.5-5.1); SODIUM LEVEL 133 MEQ/L (136-145); TOTAL PROTEIN 7.7 GM/DL (6.4-8.2); TROPONIN I < 0.02 NG/ML (< 0.10)
[2018-08-16] MEDS ORDERED: ACETAMINOPHEN TAB 650MG DOSE (2X325MG) PO (11:45)
[2018-08-16] MEDS ORDERED: traMADol 50 MG TAB PO (12:00)
[2018-08-16] MEDS ORDERED: GLUCAGON FOR INJ 1 MG VIAL (J1610) SC (15:45)
[2018-08-16] MEDS ORDERED: GLUCOSE 4 GM CHEW TABLET PO (15:45)
[2018-08-16] MEDS ORDERED: DEXTROSE 50% 50 ML SYRINGE IV (15:45)
[2018-08-16 15:46] LABS: AMORPHOUS SEDIMENT RFX SMALL (NEGATIVE); KETONE, URINE AUTO RFX NEGATIVE (NEGATIVE); MUCUS, URINE RFX SMALL (NEGATIVE); NITRITE, URINE AUTO RFX NEGATIVE (NEGATIVE); RBC, URINE AUTO RFX 4 /HPF (0-3); SPECIFIC GRAVITY UR AUTO RFX 1.011 (1.002-1.035); SQUAM EPITHELIAL CELL UR AURFX 0 /HPF (0-6); WBC, URINE AUTO RFX 6 /HPF (0-3)
[2018-08-16 15:47] LABS: LEUKOCYTE ESTERASE UR AUTO RFX 1+ (NEGATIVE)
[2018-08-16] MEDS: cefTRIAXone SOD 1 GM in D5W MINI-BAG PLUS 50 ML IV (16:28)
[2018-08-16 17:06] LABS: BEDSIDE GLUCOSE 84 MG/DL (83-110)
[2018-08-16] MEDS: HumaLOG INSULIN (NovoLOG) PER UNIT SC ×2 (17:30→21:00)
[2018-08-16 21:02] LABS: BEDSIDE GLUCOSE 158 MG/DL (83-110)
[2018-08-16] MEDS: ACETAMINOPHEN 500 MG TAB PO (21:02)
[2018-08-16] MEDS: FINASTERIDE 5 MG TAB PO (21:02)
[2018-08-16] MEDS: traMADol 50 MG TAB PO (21:03)
[2018-08-16] MEDS: MAGNESIUM OXIDE 400 MG TAB (MAG-OX) PO (21:03)
[2018-08-16] MEDS: ATORVASTATIN 20 MG TAB PO (21:03)
[2018-08-16] MEDS: ESCITALOPRAM OXALATE 10 MG TAB (LEXAPRO) PO (21:03)
[2018-08-16] MEDS: FLUTICASONE PROP 0.05% NASAL SPRAY 16 GM (FLONASE) (21:04)
[2018-08-16] MEDS: glipiZIDE *XL* 2.5MG TABLET PO (21:04)
[2018-08-16 21:48] LABS: MAGNESIUM LEVEL 2.6 MG/DL (1.8-2.4)
[2018-08-17 05:56] LABS: BASO # 0.1 10^3/uL (0.0-0.2); BASO % 1.1 % (0.0-1.0); EOS # 0.3 10^3/uL (0.0-0.50); EOS % 3.8 % (0.0-3.0); HEMATOCRIT 25.3 % (42.0-52.0); HEMOGLOBIN 7.9 g/dl (13.5-17.5); IMMATURE GRANULOCYTE % 0.8 % (0-3.0); LYMPH # 1.3 10^3/uL (1.5-4.5); LYMPH % 17.8 % (24.0-44.0); MEAN CORPUSCULAR HEMOGLOBIN 24.8 pg (27.0-33.0); MEAN CORPUSCULAR HGB CONC 31.2 g/dl (32.0-36.5); MEAN CORPUSCULAR VOLUME 79.3 fl (80.0-96.0); MONO % 13.1 % (0.0-5.0); NEUTROPHILS # 4.8 10^3/uL (1.8-7.7); NEUTROPHILS % 63.4 % (36.0-66.0); PLATELET COUNT, AUTOMATED 260 10^3/uL (150-450); RED BLOOD COUNT 3.19 10^6/uL (4.30-6.10); RED CELL DISTRIBUTION WIDTH 17.2 % (11.5-14.5); WHITE BLOOD COUNT 7.5 10^3/uL (4.0-10.0)
[2018-08-17 06:25] LABS: ANION GAP 7 MEQ/L (8-16); BLOOD UREA NITROGEN 42 MG/DL (7-18); CALCIUM LEVEL 8.9 MG/DL (8.8-10.2); CARBON DIOXIDE LEVEL 22 MEQ/L (21-32); CHLORIDE LEVEL 103 MEQ/L (98-107); CREATININE FOR GFR 2.91 MG/DL (0.70-1.30); GLOMERULAR FILTRATION RATE 22.7 (>42); GLUCOSE, FASTING 104 MG/DL (70-100); POTASSIUM SERUM 5.4 MEQ/L (3.5-5.1); SODIUM LEVEL 132 MEQ/L (136-145)
[2018-08-17] MEDS: HumaLOG INSULIN (NovoLOG) PER UNIT SC ×4 (08:31→20:14)
[2018-08-17] MEDS: buPROPion **XL** TABLET 150MG (WELLBUTRIN XL) PO (08:32)
[2018-08-17] MEDS: VITAMIN D 1,000 INTERNATIONAL UNITS TABLET PO (08:32)
[2018-08-17] MEDS: glipiZIDE *XL* 2.5MG TABLET PO ×2 (08:32→20:08)
[2018-08-17] MEDS: ACETAMINOPHEN 500 MG TAB PO ×2 (08:33→20:08)
[2018-08-17] MEDS: LEVOTHYROXINE 100MCG TABLET (0.1MG) PO (08:33)
[2018-08-17] MEDS: FLUTICASONE PROP 0.05% NASAL SPRAY 16 GM (FLONASE) ×2 (08:34→20:13)
[2018-08-17] MEDS: MAGNESIUM OXIDE 400 MG TAB (MAG-OX) PO ×2 (08:34→20:10)
[2018-08-17 09:03] LABS: CORTISOL AM 21.2 UG/DL (4.3-22.4)
[2018-08-17 11:15] LABS: BEDSIDE GLUCOSE 95 MG/DL (83-110)
[2018-08-17] MEDS: PATIROMER SORBITEX CALCIUM 8.4 GM POWDER PACKET (VELTASSA) PO (12:43)
[2018-08-17] MEDS: MOM 30ML SUSPENSION UDC PO (15:18)
[2018-08-17] MEDS: cefTRIAXone SOD 1 GM in D5W MINI-BAG PLUS 50 ML IV (15:18)
[2018-08-17 15:50] LABS: HEMATOCRIT 24.6 % (42.0-52.0); HEMOGLOBIN 7.8 g/dl (13.5-17.5)
[2018-08-17 17:01] LABS: BEDSIDE GLUCOSE 103 MG/DL (83-110)
[2018-08-17] MEDS: traMADol 50 MG TAB PO (20:07)
[2018-08-17] MEDS: ATORVASTATIN 20 MG TAB PO (20:07)
[2018-08-17] MEDS: FINASTERIDE 5 MG TAB PO (20:08)
[2018-08-17] MEDS: ESCITALOPRAM OXALATE 10 MG TAB (LEXAPRO) PO (20:10)
[2018-08-17 20:21] LABS: BEDSIDE GLUCOSE 126 MG/DL (83-110)
[2018-08-18 06:44] LABS: BASO # 0.1 10^3/uL (0.0-0.2); BASO % 1.4 % (0.0-1.0); EOS # 0.3 10^3/uL (0.0-0.50); EOS % 4.8 % (0.0-3.0); HEMATOCRIT 26.8 % (42.0-52.0); HEMOGLOBIN 8.4 g/dl (13.5-17.5); IMMATURE GRANULOCYTE % 0.6 % (0-3.0); LYMPH # 1.5 10^3/uL (1.5-4.5); LYMPH % 21.3 % (24.0-44.0); MEAN CORPUSCULAR HEMOGLOBIN 24.7 pg (27.0-33.0); MEAN CORPUSCULAR HGB CONC 31.3 g/dl (32.0-36.5); MEAN CORPUSCULAR VOLUME 78.8 fl (80.0-96.0); MONO # 0.9 10^3/uL (0.0-0.8); MONO % 13.5 % (0.0-5.0); NEUTROPHILS # 4.1 10^3/uL (1.8-7.7); NEUTROPHILS % 58.4 % (36.0-66.0); PLATELET COUNT, AUTOMATED 271 10^3/uL (150-450); WHITE BLOOD COUNT 6.9 10^3/uL (4.0-10.0)
[2018-08-18 07:02] LABS: ANION GAP 11 MEQ/L (8-16); BLOOD UREA NITROGEN 27 MG/DL (7-18); CALCIUM LEVEL 9.7 MG/DL (8.8-10.2); CARBON DIOXIDE LEVEL 21 MEQ/L (21-32); CHLORIDE LEVEL 105 MEQ/L (98-107); CREATININE FOR GFR 1.81 MG/DL (0.70-1.30); GLOMERULAR FILTRATION RATE 39.3 (>42); GLUCOSE, FASTING 88 MG/DL (70-100); MAGNESIUM LEVEL 2.3 MG/DL (1.8-2.4); POTASSIUM SERUM 4.6 MEQ/L (3.5-5.1); SODIUM LEVEL 137 MEQ/L (136-145)
[2018-08-18] MEDS: HumaLOG INSULIN (NovoLOG) PER UNIT SC ×4 (07:45→22:08)
[2018-08-18] MEDS: glipiZIDE *XL* 2.5MG TABLET PO ×2 (09:37→23:49)
[2018-08-18] MEDS: VITAMIN D 1,000 INTERNATIONAL UNITS TABLET PO (09:38)
[2018-08-18] MEDS: LEVOTHYROXINE 100MCG TABLET (0.1MG) PO (09:38)
[2018-08-18] MEDS: ACETAMINOPHEN 500 MG TAB PO ×2 (09:38→22:07)
[2018-08-18] MEDS: buPROPion **XL** TABLET 150MG (WELLBUTRIN XL) PO (09:38)
[2018-08-18] MEDS: FLUTICASONE PROP 0.05% NASAL SPRAY 16 GM (FLONASE) ×2 (09:39→22:08)
[2018-08-18] MEDS: PREVNAR 13 VACCINE SYRINGE (CPT CODE:90670) IM (09:48)
[2018-08-18] MEDS: MOM 30ML SUSPENSION UDC PO (12:05)
[2018-08-18 12:25] LABS: BEDSIDE GLUCOSE 94 MG/DL (83-110)
[2018-08-18 16:56] LABS: BEDSIDE GLUCOSE 66 MG/DL (83-110)
[2018-08-18 21:04] LABS: BEDSIDE GLUCOSE 84 MG/DL (83-110)
[2018-08-18 22:06] LABS: BEDSIDE GLUCOSE 90 MG/DL (83-110)
[2018-08-18] MEDS: ATORVASTATIN 20 MG TAB PO (22:06)
[2018-08-18] MEDS: ESCITALOPRAM OXALATE 10 MG TAB (LEXAPRO) PO (22:06)
[2018-08-18] MEDS: FINASTERIDE 5 MG TAB PO (22:06)
[2018-08-18] MEDS: traMADol 50 MG TAB PO (22:08)
[2018-08-19 05:47] LABS: BASO # 0.1 10^3/uL (0.0-0.2); BASO % 1.4 % (0.0-1.0); EOS # 0.3 10^3/uL (0.0-0.50); EOS % 3.9 % (0.0-3.0); HEMATOCRIT 26.8 % (42.0-52.0); HEMOGLOBIN 8.3 g/dl (13.5-17.5); IMMATURE GRANULOCYTE % 0.4 % (0-3.0); LYMPH # 1.6 10^3/uL (1.5-4.5); MEAN CORPUSCULAR HEMOGLOBIN 24.5 pg (27.0-33.0); MEAN CORPUSCULAR VOLUME 79.1 fl (80.0-96.0); MONO # 1.1 10^3/uL (0.0-0.8); MONO % 13.8 % (0.0-5.0); NEUTROPHILS # 4.5 10^3/uL (1.8-7.7); NEUTROPHILS % 59.5 % (36.0-66.0); PLATELET COUNT, AUTOMATED 283 10^3/uL (150-450); RED BLOOD COUNT 3.39 10^6/uL (4.30-6.10); RED CELL DISTRIBUTION WIDTH 16.7 % (11.5-14.5); WHITE BLOOD COUNT 7.6 10^3/uL (4.0-10.0)
[2018-08-19 06:21] LABS: ANION GAP 9 MEQ/L (8-16); BLOOD UREA NITROGEN 21 MG/DL (7-18); CALCIUM LEVEL 8.9 MG/DL (8.8-10.2); CARBON DIOXIDE LEVEL 23 MEQ/L (21-32); CHLORIDE LEVEL 101 MEQ/L (98-107); CREATININE FOR GFR 1.41 MG/DL (0.70-1.30); GLOMERULAR FILTRATION RATE 52.5 (>42); GLUCOSE, FASTING 93 MG/DL (70-100); POTASSIUM SERUM 4.3 MEQ/L (3.5-5.1); SODIUM LEVEL 133 MEQ/L (136-145)
[2018-08-19] MEDS: MOM 30ML SUSPENSION UDC PO (06:33)
[2018-08-19] MEDS: HumaLOG INSULIN (NovoLOG) PER UNIT SC ×4 (07:30→20:48)
[2018-08-19] MEDS: buPROPion **XL** TABLET 150MG (WELLBUTRIN XL) PO (09:04)
[2018-08-19] MEDS: VITAMIN D 1,000 INTERNATIONAL UNITS TABLET PO (09:04)
[2018-08-19] MEDS: LEVOTHYROXINE 100MCG TABLET (0.1MG) PO (09:04)
[2018-08-19] MEDS: glipiZIDE *XL* 2.5MG TABLET PO ×2 (09:04→20:48)
[2018-08-19] MEDS: ACETAMINOPHEN 500 MG TAB PO ×2 (09:04→20:47)
[2018-08-19] MEDS: FLUTICASONE PROP 0.05% NASAL SPRAY 16 GM (FLONASE) ×2 (09:05→20:55)
[2018-08-19] MEDS: FLEET ENEMA PR (14:09)
[2018-08-19] MEDS: FINASTERIDE 5 MG TAB PO (20:47)
[2018-08-19] MEDS: ESCITALOPRAM OXALATE 10 MG TAB (LEXAPRO) PO (20:47)
[2018-08-19] MEDS: traMADol 50 MG TAB PO (20:47)
[2018-08-19] MEDS: ATORVASTATIN 20 MG TAB PO (20:48)
[2018-08-20 06:10] LABS: BASO # 0.1 10^3/uL (0.0-0.2); BASO % 1.5 % (0.0-1.0); EOS # 0.2 10^3/uL (0.0-0.50); EOS % 2.9 % (0.0-3.0); HEMOGLOBIN 8.3 g/dl (13.5-17.5); IMMATURE GRANULOCYTE % 0.6 % (0-3.0); LYMPH # 1.7 10^3/uL (1.5-4.5); LYMPH % 23.4 % (24.0-44.0); MEAN CORPUSCULAR HEMOGLOBIN 24.6 pg (27.0-33.0); MEAN CORPUSCULAR HGB CONC 31.9 g/dl (32.0-36.5); MEAN CORPUSCULAR VOLUME 76.9 fl (80.0-96.0); MONO # 1.1 10^3/uL (0.0-0.8); MONO % 14.6 % (0.0-5.0); NEUTROPHILS # 4.2 10^3/uL (1.8-7.7); PLATELET COUNT, AUTOMATED 297 10^3/uL (150-450); RED BLOOD COUNT 3.38 10^6/uL (4.30-6.10); RED CELL DISTRIBUTION WIDTH 16.6 % (11.5-14.5); WHITE BLOOD COUNT 7.3 10^3/uL (4.0-10.0)
[2018-08-20 06:25] LABS: ANION GAP 10 MEQ/L (8-16); BLOOD UREA NITROGEN 17 MG/DL (7-18); CALCIUM LEVEL 8.4 MG/DL (8.8-10.2); CARBON DIOXIDE LEVEL 22 MEQ/L (21-32); CHLORIDE LEVEL 100 MEQ/L (98-107); CREATININE FOR GFR 1.28 MG/DL (0.70-1.30); GLOMERULAR FILTRATION RATE 58.6 (>42); GLUCOSE, FASTING 92 MG/DL (70-100); SODIUM LEVEL 132 MEQ/L (136-145)
[2018-08-20] MEDS: HumaLOG INSULIN (NovoLOG) PER UNIT SC ×2 (07:30→12:00)
[2018-08-20] MEDS: VITAMIN D 1,000 INTERNATIONAL UNITS TABLET PO (08:41)
[2018-08-20] MEDS: glipiZIDE *XL* 2.5MG TABLET PO (08:41)
[2018-08-20] MEDS: buPROPion **XL** TABLET 150MG (WELLBUTRIN XL) PO (08:41)
[2018-08-20] MEDS: ACETAMINOPHEN 500 MG TAB PO (08:42)
[2018-08-20] MEDS: LEVOTHYROXINE 100MCG TABLET (0.1MG) PO (08:42)
[2018-08-20] MEDS: FLUTICASONE PROP 0.05% NASAL SPRAY 16 GM (FLONASE) (09:00)
[2018-08-21 11:43] LABS: BEDSIDE GLUCOSE 111 MG/DL (83-110)
[2018-08-21 11:43] LABS: BEDSIDE GLUCOSE 121 MG/DL (83-110)
[2018-08-21 11:43] LABS: BEDSIDE GLUCOSE 87 MG/DL (83-110)
[2018-08-21 11:43] LABS: BEDSIDE GLUCOSE 122 MG/DL (83-110)
[2018-08-21 11:43] LABS: BEDSIDE GLUCOSE 116 MG/DL (83-110)
[2018-08-21 11:44] LABS: BEDSIDE GLUCOSE 102 MG/DL (83-110)
== END 2018-08-20 16:07 | disposition home or self-care (01) | DRG 315 ==
LOC: M MSPAV 08-17 22:42 → M ED 09:26 → M ED INP 11:53 → M PCU 13:15
DX: I95.9 Hypotension, unspecified (principal); N17.9 Acute kidney failure, unspecified; I50.32 Chronic diastolic (congestive) heart failure; I13.0 Hypertensive heart and chronic kidney disease with heart failure and stage 1 through stage 4 chronic kidney disease, or unspecified chronic kidney disease; E87.5 Hyperkalemia; N18.3 Chronic kidney disease, stage 3 (moderate); N40.1 Benign prostatic hyperplasia with lower urinary tract symptoms; N13.9 Obstructive and reflux uropathy, unspecified; J44.9 Chronic obstructive pulmonary disease, unspecified; M19.90 Unspecified osteoarthritis, unspecified site; G47.33 Obstructive sleep apnea (adult) (pediatric); E11.9 Type 2 diabetes mellitus without complications; K21.9 Gastro-esophageal reflux disease without esophagitis; F41.9 Anxiety disorder, unspecified; F32.9 Major depressive disorder, single episode, unspecified; E03.9 Hypothyroidism, unspecified; R33.9 Retention of urine, unspecified; Z96.0 Presence of urogenital implants; Z87.440 Personal history of urinary (tract) infections; Z96.652 Presence of left artificial knee joint; Z79.51 Long term (current) use of inhaled steroids; Z79.84 Long term (current) use of oral hypoglycemic drugs; Z79.891 Long term (current) use of opiate analgesic; Z79.899 Other long term (current) drug therapy

== ENCOUNTER → 2018-09-15 | Outpatient (CLI) | payer MEDICARE, MEDICAID ==
[2018-09-15 13:25] LABS: HEMATOCRIT 38.6 % (42.0-52.0); HEMOGLOBIN 12.2 g/dl (13.5-17.5); MEAN CORPUSCULAR HEMOGLOBIN 26.1 pg (27.0-33.0); MEAN CORPUSCULAR HGB CONC 31.6 g/dl (32.0-36.5); MEAN CORPUSCULAR VOLUME 82.5 fl (80.0-96.0); PLATELET COUNT, AUTOMATED 361 10^3/uL (150-450); RED BLOOD COUNT 4.68 10^6/uL (4.30-6.10); RED CELL DISTRIBUTION WIDTH 17.1 % (11.5-14.5); WHITE BLOOD COUNT 8.9 10^3/uL (4.0-10.0)
[2018-09-15 13:31] LABS: ANION GAP 10 MEQ/L (8-16); BLOOD UREA NITROGEN 23 MG/DL (7-18); CALCIUM LEVEL 10.6 MG/DL (8.8-10.2); CARBON DIOXIDE LEVEL 23 MEQ/L (21-32); CHLORIDE LEVEL 102 MEQ/L (98-107); GLOMERULAR FILTRATION RATE 52.9 (>42); GLUCOSE, FASTING 72 MG/DL (70-100); POTASSIUM SERUM 4.9 MEQ/L (3.5-5.1); SODIUM LEVEL 135 MEQ/L (136-145)
== END ==
LOC: M WUC 09:16
DX: D64.9 Anemia, unspecified (principal); I95.9 Hypotension, unspecified
CPT/HCPCS: 80048

== ENCOUNTER → 2018-09-27 | Outpatient (CLI) | payer MEDICARE, MEDICAID ==
[2018-09-27 08:52] LABS: BASO # 0.1 10^3/uL (0.0-0.2); BASO % 1.2 % (0.0-1.0); EOS # 0.3 10^3/uL (0.0-0.50); EOS % 5.1 % (0.0-3.0); HEMATOCRIT 36.3 % (42.0-52.0); HEMOGLOBIN 11.4 g/dl (13.5-17.5); IMMATURE GRANULOCYTE % 0.1 % (0-3.0); LYMPH # 1.5 10^3/uL (1.5-4.5); LYMPH % 21.9 % (24.0-44.0); MEAN CORPUSCULAR HEMOGLOBIN 25.6 pg (27.0-33.0); MEAN CORPUSCULAR HGB CONC 31.4 g/dl (32.0-36.5); MEAN CORPUSCULAR VOLUME 81.6 fl (80.0-96.0); MONO # 0.4 10^3/uL (0.0-0.8); MONO % 6.6 % (0.0-5.0); NEUTROPHILS # 4.4 10^3/uL (1.8-7.7); NEUTROPHILS % 65.1 % (36.0-66.0); PLATELET COUNT, AUTOMATED 338 10^3/uL (150-450); RED BLOOD COUNT 4.45 10^6/uL (4.30-6.10); RED CELL DISTRIBUTION WIDTH 16.5 % (11.5-14.5); WHITE BLOOD COUNT 6.7 10^3/uL (4.0-10.0)
[2018-09-27 09:21] LABS: ANION GAP 8 MEQ/L (8-16); BLOOD UREA NITROGEN 28 MG/DL (7-18); CALCIUM LEVEL 11.9 MG/DL (8.8-10.2); CARBON DIOXIDE LEVEL 29 MEQ/L (21-32); CHLORIDE LEVEL 100 MEQ/L (98-107); CREATININE FOR GFR 1.69 MG/DL (0.70-1.30); GLOMERULAR FILTRATION RATE 42.6 (>42); GLUCOSE, FASTING 142 MG/DL (70-100); POTASSIUM SERUM 3.7 MEQ/L (3.5-5.1); SODIUM LEVEL 137 MEQ/L (136-145)
== END ==
LOC: M WUC 08:20
DX: D64.9 Anemia, unspecified (principal); I10 Essential (primary) hypertension
CPT/HCPCS: 80048

== ENCOUNTER 2018-10-03 14:05 | Emergency (ER) | payer MEDICARE, MEDICAID ==
[2018-10-03] MEDS: NS 1,000 ML IV (14:45)
[2018-10-03 16:00] LABS: VENOUS BASE EXCESS 4.9 (-2.0-2.0); VENOUS O2 SATURATION 92.8 % (60.0-80.0); VENOUS PARTIAL PRESSURE CO2 46.9 mmHg (38.0-50.0); VENOUS PARTIAL PRESSURE O2 66.7 mmHg (30.0-50.0); VENOUS PH 7.424 UNITS (7.330-7.430); VENOUS STANDARD HCO3 28.8 MEQ/L; VENOUS TOTAL CO2 31.5 MEQ/L (24.0-28.0)
[2018-10-03 16:08] LABS: BASO # 0.1 10^3/uL (0.0-0.2); BASO % 1.4 % (0.0-1.0); EOS # 0.7 10^3/uL (0.0-0.50); EOS % 9.3 % (0.0-3.0); HEMATOCRIT 31.5 % (42.0-52.0); HEMOGLOBIN 10.7 g/dl (13.5-17.5); IMMATURE GRANULOCYTE % 2.4 % (0-3.0); MEAN CORPUSCULAR HEMOGLOBIN 26.2 pg (27.0-33.0); MONO # 0.8 10^3/uL (0.0-0.8); MONO % 10.3 % (0.0-5.0); NEUTROPHILS # 4.1 10^3/uL (1.8-7.7); NEUTROPHILS % 51.6 % (36.0-66.0); RED BLOOD COUNT 4.09 10^6/uL (4.30-6.10); RED CELL DISTRIBUTION WIDTH 16.6 % (11.5-14.5)
[2018-10-03 16:22] LABS: AMMONIA 43 uMOL/L (<32)
[2018-10-03 16:24] LABS: LACTIC ACID SEPSIS PROTOCOL 1.4 MMOL/L (0.4-2.0)
[2018-10-03 16:32] LABS: ALBUMIN 3.1 GM/DL (3.2-5.2); ALBUMIN/GLOBULIN RATIO 0.84 (1.00-1.93); ALKALINE PHOSPHATASE 75 U/L (45-117); ALT/SGPT 17 U/L (12-78); ANION GAP 8 MEQ/L (8-16); AST/SGOT 13 U/L (7-37); BILIRUBIN,DIRECT < 0.1 MG/DL (0.0-0.2); BILIRUBIN,TOTAL 0.3 MG/DL (0.2-1.0); BLOOD UREA NITROGEN 33 MG/DL (7-18); CALCIUM LEVEL 11.6 MG/DL (8.8-10.2); CARBON DIOXIDE LEVEL 29 MEQ/L (21-32); CHLORIDE LEVEL 101 MEQ/L (98-107); CK-MB VALUE MASS < 1.0 NG/ML (<3.6); CPK CREATINE PHOSPHOKINASE 35 U/L (39-308); CREATININE FOR GFR 2.24 MG/DL (0.70-1.30); GLOMERULAR FILTRATION RATE 30.7 (>42); GLUCOSE, FASTING 75 MG/DL (70-100); MB/CK RELATIVE INDEX 2.86 (< OR =4); POTASSIUM SERUM 3.9 MEQ/L (3.5-5.1); SODIUM LEVEL 138 MEQ/L (136-145); TOTAL PROTEIN 6.8 GM/DL (6.4-8.2); TROPONIN I < 0.02 NG/ML (< 0.10)
[2018-10-03 17:25] LABS: AMORPHOUS SEDIMENT RFX LARGE (NEGATIVE); KETONE, URINE AUTO RFX NEGATIVE (NEGATIVE); MUCUS, URINE RFX SMALL (NEGATIVE); NITRITE, URINE AUTO RFX NEGATIVE (NEGATIVE); RBC, URINE AUTO RFX 7 /HPF (0-3); SPECIFIC GRAVITY UR AUTO RFX 1.006 (1.002-1.035); SQUAM EPITHELIAL CELL UR AURFX 0 /HPF (0-6)
[2018-10-03 18:02] LABS: LEUKOCYTE ESTERASE UR AUTO RFX 3+ (NEGATIVE); WBC, URINE AUTO RFX 118 /HPF (0-3)
[2018-10-03] MEDS: cefTRIAXone SOD 1 GM in D5W MINI-BAG PLUS 50 ML IV (18:30)
== END 2018-10-03 19:45 | disposition home or self-care (01) ==
LOC: M ED 14:05
DX: N39.0 Urinary tract infection, site not specified (principal); E11.9 Type 2 diabetes mellitus without complications; J44.9 Chronic obstructive pulmonary disease, unspecified; I50.9 Heart failure, unspecified; E78.5 Hyperlipidemia, unspecified; G47.33 Obstructive sleep apnea (adult) (pediatric); F70 Mild intellectual disabilities; Z96.0 Presence of urogenital implants; Z79.899 Other long term (current) drug therapy; Z79.890 Hormone replacement therapy
CPT/HCPCS: J0696

== ENCOUNTER 2018-10-24 09:07 | Emergency (ER) | payer MEDICARE, MEDICAID ==
[2018-10-24 10:54] LABS: BILIRUBIN, URINE MANUAL NEGATIVE (NEGATIVE); BLOOD URINE MANUAL RFX POSITIVE (NEGATIVE); GLUCOSE, URINE (UA) MANUAL NEGATIVE (NEGATIVE); KETONE, URINE MANUAL NEGATIVE (NEGATIVE); NITRITE, URINE MANUAL RFX POSITIVE (NEGATIVE); PROTEIN, URINE MANUAL REFLEX 3+ mg/dL (NEGATIVE); UROBILINOGEN, URINE MANUAL NORMAL (NORMAL)
[2018-10-24 10:55] LABS: MICROSCOPIC INDICATED? RFX YES (NO)
[2018-10-24 11:01] LABS: WBC, URINE MAN RFX TNTC /hpf (0-3)
[2018-10-24 11:15] LABS: AMORPHOUS SEDIMENT, URINE SMALL AMOUNT (NEGATIVE); BACTERIA, URINE LARGE AMOUNT; HYALINE CAST, URINE NONE SEEN /lpf (0-1); MICROSCOPIC EXAM PERFORMED; SQUAMOUS EPITHELIAL CELL URINE NONE SEEN /hpf (SMALL AMT); TRIPLE PHOSPHATE CRYSTAL,URINE SMALL AMOUNT /hpf
[2018-10-24 11:26] LABS: ANION GAP 10 MEQ/L (8-16); BLOOD UREA NITROGEN 27 MG/DL (7-18); CARBON DIOXIDE LEVEL 28 MEQ/L (21-32); CHLORIDE LEVEL 104 MEQ/L (98-107); CREATININE FOR GFR 1.66 MG/DL (0.70-1.30); GLOMERULAR FILTRATION RATE 43.4 (>42); GLUCOSE, FASTING 118 MG/DL (70-100); POTASSIUM SERUM 3.4 MEQ/L (3.5-5.1); SODIUM LEVEL 142 MEQ/L (136-145)
== END 2018-10-24 11:44 | disposition home or self-care (01) ==
LOC: M ED 09:07
DX: N30.01 Acute cystitis with hematuria (principal); R33.9 Retention of urine, unspecified; E86.0 Dehydration; I50.9 Heart failure, unspecified; J44.9 Chronic obstructive pulmonary disease, unspecified; K21.9 Gastro-esophageal reflux disease without esophagitis; F41.9 Anxiety disorder, unspecified; F70 Mild intellectual disabilities; Z79.899 Other long term (current) drug therapy
CPT/HCPCS: 80048

== ENCOUNTER 2018-12-07 07:24 | Inpatient (IN) | payer MEDICARE, MEDICAID ==
[~2018-12-07] VITALS: Ht 172.7 cm; Wt 87.3 kg
[~2018-12-07 07:24] MED LIST: ACET500T15 PO; ALBU83IN INH; ALBU83IN NEB; AMLO5TAB6 PO; ATOR1TAB21 PO; BUPR150T3 PO; BUPR15TA PO; CALC1TAB30 PO; DAILTAB51 PO; FINA5TAB2 PO; FLOM0.4C39 PO; FLON1SPR; FLON1SPR NARES; FURO20TA2 PO; GLIP2.5T6 PO; GLUC100020 PO; INCR1INH INH; JANU100T PO; KEFL500C17 PO; LEVO100T5 PO; LEVO500T3 PO; LEXA1TAB2 PO; LISI-538 PO; MAGN400C3 PO; MAGN400T5 PO; METF500T13 PO; OYSCTAB3 PO; PEG1POW PO; PROAAER10 INH; RANI150T PO; RANI1TAB6 PO; RISP2TAB3 PO; RISP2TAB32 PO; SYNT100T PO; TRAM50TA2 PO; TYLE500T78 PO; VENTAER INH; VITA-182 PO; VITA100066 PO
[2018-12-07] MEDS ORDERED: ASPI81TA85 PO (07:53)
[2018-12-07] MEDS ORDERED: FURO20TA2 PO (07:53)
[2018-12-07] MEDS ORDERED: MIRA3350 PO (07:53)
[2018-12-07] MEDS ORDERED: LISI10TA4 PO ×2 (07:53→09:03)
[2018-12-07] MEDS ORDERED: FERR324T2 PO (07:53)
--- NOTE | 2018-12-07 08:37 | REP ---
CT Head without contrast HISTORY: Altered mental status COMPARISON: 10/03/2018 Areas of decreased attenuation are present in the basal ganglia and right thalamus. These represent old lacunar infarctions. Areas of decreased attenuation are present in the periventricular and subcortical white matter. This represents small-vessel ischemic disease. There is no intraparenchymal hemorrhage, acute infarct, mass or midline shift. The ventricular system and cortical sulci are dilated consistent with moderate volume loss. There is no extra cerebral collection. There is no fracture. The visualized sinuses are clear. IMPRESSION: 1. Old bilateral basal ganglia and right thalamic lacunar infarctions. 2. Small vessel ischemic disease. 3. Moderate volume loss. Electronically Signed by Rodger Kumar MD 12/07/2018 08:29 A
[2018-12-07 08:43] LABS: BASO # 0.1 10^3/uL (0.0-0.2); BASO % 1.2 % (0.0-1.0); EOS # 0.5 10^3/uL (0.0-0.50); EOS % 8.1 % (0.0-3.0); HEMATOCRIT 30.5 % (42.0-52.0); HEMOGLOBIN 10.1 g/dl (13.5-17.5); LYMPH # 1.6 10^3/uL (1.5-4.5); LYMPH % 24.7 % (24.0-44.0); MEAN CORPUSCULAR HEMOGLOBIN 27.7 pg (27.0-33.0); MEAN CORPUSCULAR HGB CONC 33.1 g/dl (32.0-36.5); MEAN CORPUSCULAR VOLUME 83.8 fl (80.0-96.0); MONO # 0.7 10^3/uL (0.0-0.8); MONO % 10.3 % (0.0-5.0); NEUTROPHILS # 3.6 10^3/uL (1.8-7.7); NEUTROPHILS % 55.4 % (36.0-66.0); PLATELET COUNT, AUTOMATED 373 10^3/uL (150-450); RED BLOOD COUNT 3.64 10^6/uL (4.30-6.10); WHITE BLOOD COUNT 6.4 10^3/uL (4.0-10.0)
--- NOTE | 2018-12-07 08:46 | REP ---
Portable chest x-ray: Single view. History: Chest pain. Comparison study: October 03, 2018. Findings: Moderate cardiomegaly is observed. EKG monitoring electrodes are seen. No infiltrate or pleural effusion is noted. Pulmonary vasculature is not increased. Impression: Cardiomegaly as before. Otherwise no acute disease. Electronically Signed by Av Isaacs MD 12/07/2018 10:45 A
[2018-12-07 08:53] LABS: INR 0.99; PROTHROMBIN TIME 13.2 SECONDS (12.1-14.4)
[2018-12-07] MEDS ORDERED: SYNT125T PO (08:59)
[2018-12-07] MEDS ORDERED: LISI-538 PO (08:59)
[2018-12-07] MEDS ORDERED: SENOKOT S TAB PO SCH (09:00)
[2018-12-07] MEDS ORDERED: cefTRIAXone SOD 1 GM in D5W MINI-BAG PLUS 50 ML IV ONE (09:00)
[2018-12-07 09:25] LABS: ALT/SGPT 15 U/L (12-78); BILIRUBIN,DIRECT 0.1 MG/DL (0.0-0.2); BILIRUBIN,TOTAL 0.3 MG/DL (0.2-1.0); BLOOD UREA NITROGEN 62 MG/DL (7-18); CALCIUM LEVEL 14.6 MG/DL (8.8-10.2); CARBON DIOXIDE LEVEL 33 MEQ/L (21-32); CHLORIDE LEVEL 94 MEQ/L (98-107); CK-MB VALUE MASS < 1.0 NG/ML (<3.6); CPK CREATINE PHOSPHOKINASE 96 U/L (39-308); CREATININE FOR GFR 4.84 MG/DL (0.70-1.30); FREE T4 1.19 NG/DL (0.76-1.46); GLOMERULAR FILTRATION RATE 12.6 (>42); GLUCOSE, FASTING 109 MG/DL (70-100); LIPASE 105 U/L (73-393); MAGNESIUM LEVEL 4.5 MG/DL (1.8-2.4); MB/CK RELATIVE INDEX 1.04 (< OR =4); SODIUM LEVEL 137 MEQ/L (136-145); THYROID STIMULATING HORMONE 0.596 uIU/ML (0.358-3.740); TOTAL PROTEIN 7.7 GM/DL (6.4-8.2); TROPONIN I < 0.02 NG/ML (< 0.10)
[2018-12-07] MEDS ORDERED: NS 1,000 ML IV ONE (10:00)
[2018-12-07] MEDS ORDERED: CALCITONIN SALMON (MIACALCIN) 400INTERNATIONAL UNITS/2ML INJ (J0630) SQ SCH ×2 (10:15→11:00)
[2018-12-07] MEDS ORDERED: BISACODYL 10 MG SUPP PR PRN (10:30)
[2018-12-07] MEDS ORDERED: JANU100T PO (10:33)
[2018-12-07 10:57] LABS: PHOSPHORUS LEVEL 4.5 MG/DL (2.5-4.9)
--- NOTE | 2018-12-07 11:02 | REP ---
CT abdomen and pelvis without IV or oral contrast: History: Rule out obstruction. Acute renal failure. Comparison CT study: August 16, 2018. CT findings: Preliminary digital college director radiograph demonstrates formed stool filling the pelvis in the dilated rectum. There is a moderate amount of formed stool in the remainder the colon consistent with obstipation. On axial CT images. The lung bases show no evidence of infiltrate or pleural effusion. There is however a small pericardial effusion visible. No focal hepatic or splenic lesion is seen on this noncontrast study. No adrenal lesion is observed. The pancreas is unremarkable. No definite abnormality is seen in the gallbladder. There is minimal fullness of the intrarenal collecting system and the ureter on the left side consistent with mild hydronephrosis and hydroureter. Normal caliber aorta. No retroperitoneal mass or adenopathy is seen. There is no evidence of free intraperitoneal air. A normal appendix is noted. Pelvic CT images confirm the presence of fecal impaction obstipation. Stool filled rectum occupies the entire pelvis. The urinary bladder is displaced anteriorly and contains a Rodriguez catheter. There is some edema in the perirectal fat and mild rectal wall thickening raise the question of stercoral colitis. No abdominal wall defect is seen. Bone window settings show degenerative spondylosis changes in the lumbar spine. No bony destructive lesion. Impression: Fecal impaction pattern. Perirectal fat streaking and mild rectal wall thickening suggestive of stercoral colitis. Mild hydronephrosis left kidney likely related to mass effect from the dilated rectum. No urinary tract calculus. Otherwise negative. Electronically Signed by Av Isaacs MD 12/07/2018 05:59 P
[2018-12-07] MEDS ORDERED: ALBUTEROL SULFATE 2.5 MG/0.5 ML INH NEB SOLN NEB PRN (11:15)
[2018-12-07 12:58] VITALS: BP 143/68
[2018-12-07] MEDS: SENOKOT S TAB PO SCH ×2 (13:26→21:31)
[2018-12-07] MEDS: HEPARIN SOD (PORCINE) 5000 UNITS/ML VIAL SC SCH ×2 (13:27→21:28)
[2018-12-07] MEDS: MIRALAX *UNIT DOSE* 17GM PACKET PO SCH ×2 (13:27→21:27)
[2018-12-07] MEDS: BISACODYL 10 MG SUPP PR SCH (13:27)
[2018-12-07 14:05] LABS: PTH INTACT 15.1 PG/ML (18.5-88.0)
[2018-12-07 14:06] LABS: TOTAL 25(OH) VITAMIN D 64.2 NG/ML (30.0-100.0)
[2018-12-07] MEDS ORDERED: GLUCOSE 4 GM CHEW TABLET PO PRN (14:45)
[2018-12-07] MEDS ORDERED: GLUCAGON FOR INJ 1 MG VIAL (J1610) SC PRN (14:45)
[2018-12-07] MEDS ORDERED: DEXTROSE 50% 50 ML SYRINGE IV PRN (14:45)
[2018-12-07] MEDS: NS 1,000 ML IV SCH ×2 (15:30→19:58)
[2018-12-07 16:00] VITALS: BP 187/86
[2018-12-07 16:44] VITALS: BP 130/60
[2018-12-07] MEDS: HumaLOG INSULIN (NovoLOG) PER UNIT SC SCH ×2 (17:30→21:00)
[2018-12-07 18:54] LABS: CREATININE FOR GFR 4.67 MG/DL (0.70-1.30); GLOMERULAR FILTRATION RATE 13.2 (>42); PHOSPHORUS LEVEL 4.9 MG/DL (2.5-4.9)
[2018-12-07] MEDS ORDERED: POTASSIUM CHLORIDE 10 MEQ SR TABLET PO ONE ×2 (19:15→20:15)
--- NOTE | 2018-12-07 19:54 | ECGEPIP ---
Stationary ECG Study [facility] - ED Test Date: 2018-12-07 Pat Name: STEVEN LOZOYA Department: Room: - Gender: M Splunk Architect: rosalee : 1945 Requested By: Maddison Webb Order Number: [id number] Reading MD: Maddison Webb Measurements Intervals [place] Rate: 47 P: 91 TX: 265 QRS: -38 QRSD: 176 T: 0 QT: 324 QTc: 288 Interpretive Statements SINUS BRADYCARDIA WITH SINUS ARRHYTHMIA WITH FIRST DEGREE AV BLOCK MARKED LEFT AXIS DEVIATION RIGHT BUNDLE BRANCH BLOCK CW 10/03/[address] T WAVE CHANGES Electronically Signed On 12-07-2018 19:54:29 EST by Maddison Webb
[2018-12-07 20:00] VITALS: BP 132/58
[2018-12-07] MEDS: ATORVASTATIN 20 MG TAB PO SCH (21:28)
[2018-12-07] MEDS: CALCITONIN SALMON (MIACALCIN) 400INTERNATIONAL UNITS/2ML INJ (J0630) SQ SCH (21:28)
[2018-12-07] MEDS: TAMSULOSIN 0.4 MG CAP PO SCH (21:29)
[2018-12-07] MEDS: ESCITALOPRAM OXALATE 10 MG TAB (LEXAPRO) PO SCH (21:29)
[2018-12-07] MEDS: ACETAMINOPHEN 500 MG TAB PO SCH (21:30)
[2018-12-07] MEDS: FINASTERIDE 5 MG TAB PO SCH (21:31)
[2018-12-07] MEDS: traMADol 50 MG TAB PO SCH (21:31)
[2018-12-07] MEDS ORDERED: FUROSEMIDE 20 MG/2 ML VIAL (J1940) IV ONE (21:45)
[2018-12-07] MEDS: KCL 20MEQ IN 0.45NS 1000ML 1,000 ML IV SCH (22:26)
[2018-12-07] MEDS: ALBUTEROL SULFATE 2.5 MG/0.5 ML INH NEB SOLN NEB SCH (22:46)
[2018-12-07] MEDS ORDERED: PILL CRUSHER/CUTTER 1 EACH XX PRN (23:45)
--- NOTE | 2018-12-07 23:50 | HPEPDOC ---
General Date of Admission Dec 07, 2018 at 10:19 Attending Physician: BEATRIZ CAPUTO MD Chief Complaint The patient is a 73-year-old male admitted with a reason for visit of Acute Kidney Injury Hypercalcemia. Source: Patient, [facility] Caregiver/Aid Exam Limitations: No limitations Associated Symptoms: Weakness History of Present Illness This is a 73-year-old obese male who is a resident of [facility] with PMH of COPD with chronic hypoxic respiratory failure, TEREZA, BPH with h/o acute urinary retention has chronic dumont in place last changed on 12/05/17, diabetes, GERD, hypothyroid, anxiety and depression , left knee osteoarthritis with h/o replacement several years back now with chronic pain and swelling for many months was supposed to have a second knee replacement done in August 2018 but surgery but has not yet been medically cleared for surgery, diastolic CHF was sent from [facility] for persistent bradycardia from yesterday. Pulse yesterday was noted to be in 40s but this morning was in 30s. Patient was also f elt to be a little confused by [facility] staff so was sent to the ED. In the ED he was in sinus bradycardia . Labs were significant for hypercalcemia and Isaac on CKD. Pateint admitted for hypercalcia and ISAAC on CKD. Home Medications Scheduled (Calcium 500+D 500-200 mg-Unit) 1 Tab Tab, 1 TAB PO BID, (Reported) (Risperidone) 2 Mg Tab, 2 MG PO QHS, (Reported) (Incruse Ellipta) 62.5 Mcg/Inh Inh, 62.5 MCG INH QPM, (Reported) (Daily [place]) 1 Tab Tab, 1 TAB PO DAILY, (Reported) Acetaminophen (Tylenol Extra Strength) 500 Mg Tab, 1,000 MG PO BID, (Reported) Albuterol Sulfate (Albuterol Sulfate) 2.5 Mg/3 Ml Nebu, 2.5 MG INH BID, (Repor mari) Aspirin (Aspir-81) 81 Mg Tab, 81 MG PO DAILY, (Reported) Atorvastatin Calcium (Atorvastatin Calcium) 20 Mg Tab, 20 MG PO QHS, (Reported) Bupropion Hcl (Bupropion HCl Xl) 150 Mg Tab, 150 MG PO DAILY, (Reported) Cholecalciferol (Vitamin D) 1,000 Unit Tab, 1,000 UNIT PO DAILY, (Reported) Escitalopram Oxalate (Lexapro) 20 Mg Tab, 20 MG PO QHS, (Reported) Ferrous Sulfate (Ferrous Sulfate) 324 Mg Tab, 324 MG PO DAILY, (Reported) Finasteride (Finasteride) 5 Mg Tab, 5 MG PO QHS, (Reported) Furosemide (Furosemide) 20 Mg Tab, 20 MG PO Q2D, (Reported) Glucosamine Sulfate (Glucosamine) 1,000 Mg Cap, 1,000 MG PO DAILY, (Reported) Levothyroxine Sodium (Synthroid) 125 Mcg Tab, 125 MCG PO DAILY, (Reported) Lisinopril (Lisinopril) 10 Mg Tab, 5 MG PO DAILY, (Reported) Magnesium Oxide (Magnesium Oxide 400) 400 Mg Tab, 400 MG PO BID, (Reported) Ranitidine HCl (Ranitidine HCl) 150 Mg Tab, 1 TAB PO DAILY, (Reported) Sitagliptin Phosphate (Januvia) 100 Mg Tab, 100 MG PO QHS, (Reported) Tamsulosin Hydrochloride (Flomax) 0.4 Mg Cap, 0.8 MG PO QHS, (Reported) Tramadol HCl (Tramadol HCl) 50 Mg Tab, 50 MG PO QHS, (Reported) Scheduled PRN Albuterol Sulfate (Ventolin Hfa) 108 Mcg/Act Aer, 2 PUFFS INH QID PRN for SHORTNESS OF BREATH, (Reported) Fluticasone Propionate (Flonase Allergy Relief) 50 Mcg/Act Spr, 1 SPRAY NA BID PRN for NASAL CONGESTION, (Reported) Polyethylene Glycol (Miralax) 1 Pow Pow, 17 GRAM PO DAILY PRN for CONSTIPATION, (Reported) Allergies Coded Allergies: No Known Drug Allergy (Verified Allergy, Unknown, 08/02/18) Past Medical History Medical History COPD with chronic hypoxic respiratory failure, TEREZA, BPH with h/o acute urinary retention has chronic dumont in place, diabetes, GERD, hypothyroid, anxiety and depression , left knee osteoarthritis with h/o replacement several years back now with chronic pain and swelling for many months, diastolic CHF Surgical History Left knee replacement x 3 Review of Systems Constitutional: Reports: Weakness, Fatigue; Denies: Chills, Fever, Malaise, Other Pulmonary: Denies: Dyspnea, Cough, Pleuritic Chest Pain Cardiovascular: Denies: Chest Pain, Palpitations, Orthopnea, Paroxysmal Noc. Dyspnea, Edema, Lt Headedness, Other Symptoms Gastrointestinal: Reports: Constipation; Denies: Nausea, Vomiting, Abdominal Pain, Diarrhea, Melena, Hematochezia, Other Symptoms Genitourinary: Reports: Retention Musculoskeletal: Reports: Arm Pain, Joint Pain (left knee joint) Neurological: Reports: Weakness Physical Examination General Exam: Positive: Alert, Cooperative, No Acute Distress Eye Exam: Positive: PERRLA, Conjunctiva & lids normal, EOMI; Negative: Sclera icteric ENT Exam: Positive: Atraumatic Neck Exam: Positive: Supple; Negative: JVD, thyromegaly Chest Exam: Positive: Clear to auscultation, Normal air movement Telemetry: Positive: Sinus, Bradycardia, AV Block Abdomen Exam: Positive: Normal bowel sounds, Soft Extremity Exam: Positive: Tenderness (left knee), Swelling (left knee); Negative: Clubbing, Cyanosis, Edema, Normal pulses, Other Neuro Exam: Positive: Normal Speech Vital Signs Vital Signs Date Time Temp Pulse Resp B/P (MAP) Pulse Ox O2 Delivery O2 Flow Rate FiO2 12/07/18 21:31 18 12/07/18 20:00 98.1 50 132/58 (82) 98 Nasal Cannula 2.0 Laboratory Data Labs 24H Laboratory Tests 2 12/07/18 07:51: Urine Color YELLOW, Urine Appearance TURBIDH, Urine pH 8.0, Urine Specific [place] 1.008, Urine Protein 1+H, Urine Glucose (UA) NEGATIVE, Urine Ketones NEGATIVE, Urine Blood 1+H, Urine Nitrite NEGATIVE, Urine Bilirubin NEGATIVE, Urine Urobilinogen 0.2, Urine Leukocyte Esterase 3+H, Urine WBC (Auto) 13H, Urine RBC (Auto) 14H, Urine Hyaline Casts (Auto) 0, Urine Bacteria (Auto) 1+H, Urine Squamous Epithelial Cells 0, Urine Triple Phosphate Cryst (Auto) LARGE, Urine Amorphous Sediment MODERATEH, Urine Mucus (Auto) SMALL, Urine Sperm (Auto) 12/07/18 08:05: Bedside Glucose (Misc Panel) 121H 12/07/18 08:30: Immature Granulocyte % (Auto) 0.3, White Blood Count 6.4, Red Blood Count 3.64L, Hemoglobin 10.1L, Hematocrit 30.5L, Mean Corpuscular Volume 83.8, Mean C orpuscular Hemoglobin 27.7, Mean Corpuscular Hemoglobin Concent 33.1, Red Cell Distribution Width 13.9, Platelet Count 373, Neutrophils (%) (Auto) 55.4, Lymphocytes (%) (Auto) 24.7, Monocytes (%) (Auto) 10.3H, Eosinophils (%) (Auto) 8.1H, Basophils (%) (Auto) 1.2H, Neutrophils # (Auto) 3.6, Lymphocytes # (Auto) 1.6, Monocytes # (Auto) 0.7, Eosinophils # (Auto) 0.5, Basophils # (Auto) 0.1, Nucleated Red Blood Cells % (auto) 0.0, Differential Slide Review Report, Peripheral Blood Smear Path Consult PERIPHERAL SMEAR, Prothrombin Time 13.2, Prothromb Time International Ratio 0.99, Activated Partial Thromboplast Time 20.0L, Anion Gap 10, Glomerular Filtration Rate 12.6L, Lactic Acid Level 1.5, Ca lcium Level 14.6*H, Phosphorus Level 4.5, Magnesium Level 4.5H, Aspartate Amino Transf (AST/SGOT) 11, Alanine Aminotransferase (ALT/SGPT) 15, Alkaline Phosphatase 76, Total Bilirubin 0.3, Direct Bilirubin 0.1, Ammonia 17, Total Creatine Kinase 96, Creatine Kinase MB < 1.0, Creatine Kinase MB Relative Index 1.04, Troponin I < 0.02, Total Protein 7.7, Albumin 4.0, Albumin/Globulin Ratio 1.08, Lipase 105, Thyroid Stimulating Hormone (TSH) 0.596, Free Thyroxine 1.19 12/07/18 10:43: Whole Blood Ionized Calcium 6.8*H, Total Protein (PEP) 7.0, 25-Hydroxy Vitamin D Total 64.2, Parathyroid Hormone (Intact) 15.1L 12/07/18 17:06: Bedside Glucose (Misc Panel) 98 12/07/18 18:13: Anion Gap 9, Glomerular Filtration Rate 13.2L, Blood Urea Nitrogen 56H, Creatinine 4.67H, Sodium Level 140, Potassium Level 3.0L, Chloride Level 100, Carbon Dioxide Level 31, Calcium Level 13.0H, Whole Blood Ionized Calcium 6.5*H, Phosphorus Level 4.9 12/07/18 21:26: Bedside Glucose (Misc Panel) 137H CBC/BMP Laboratory Tests 12/07/18 08:30 Red Blood Count 3.64 L, Mean Corpuscular Volume 83.8, Mean Corpuscular Hemoglob in 27.7, Mean Corpuscular Hemoglobin Concent 33.1, Red Cell Distribution Width 13.9, Neutrophils (%) (Auto) 55.4, Lymphocytes (%) (Auto) 24.7, Monocytes (%) (Auto) 10.3 H, Eosinophils (%) (Auto) 8.1 H, Basophils (%) (Auto) 1.2 H, Neutrophils # (Auto) 3.6, Lymphocytes # (Auto) 1.6, Monocytes # (Auto) 0.7, Eosinophils # (Auto) 0.5, Basophils # (Auto) 0.1 12/07/18 18:13 Calcium Level 13.0 H Microbiology Microbiology 12/07/18 Blood Culture, Received Pending 12/07/18 Blood Culture, Received Pending 12/07/18 Urine Culture, Received Pending Assessment/Plan This is a 73-year-old obese male who is a resident of [facility] with PMH of COPD with chronic hypoxic respiratory failure, TEREZA not on CPAP, BPH with h/o acute urinary retention has chronic dumont in place last changed on 12/05/17, diabetes, GERD, hypothyroid, anxiety and depression , left knee osteoarthritis with h/o replacement several years back now with chronic pain and swelling for many months was supposed to have a second knee replacement done in August 2018 but surgery but has not yet been medically cleared for surgery, diastolic CHF, chronic anemia, vit d deficiency was sent from [facility] for i ntermittent bradycardia from yesterday. Pulse yesterday was noted to be in 40s but this morning was in 30s. Patient was also felt to be a little confused by [facility] staff so was sent to the ED. In the ED he was in sinus bradycardia . Labs were significant for hypercalcemia and Isaac on CKD. Pateint admitted for hypercalcia and ISAAC on CKD. Sinus Bradycardia with 1st degree A-V block. this is probably due to hypercalcemia will stop magnesium, check phosphorus. continue treatment for hypercalcemia monitor on telemetry. Hypercalcemia will order work up stop calcium and vit d supplements. start IVF and calcitonin will add lasix later after hydration Metabolic encephalopathy due to hypercalcemia and dehydration now seems to be better. ISAAC on CKD CT abdomen pelvis no obstruction though there is mild left hydronephrosis which is felt to be due to loaded colon probably due to hypercalcemia and dehydration continue IVF and management of hypercalcemia need to rule out other causes like MM. stop lisinopril Nephrology consult. Rectal fecal stasis with stercoral colitis will start the patient on aggressive bowel regimen with miralax, senkot-s, dulcolax. Diastolic Congestive heart failure (CHF). at present pateint hypovolemic will hold diuretics and lisinopril COPD with chronic respiratory failure with hypoxia will continue albuterol nebs and give spiriva. with oxygen supplementation TEREZA on CPAP restart CPAP if available. Benign prostatic hypertrophy (BPH) with h/o urinary retention: Dumont catheter in place. Continue Flomax and finasteride. Last changed on 12/05/18. Had blockage 3 times in the past 1 month. Left knee status post history of replacement Now with chronic knee swelling and pain, WC bound, praveena lift. will continue with tylenol and tramadol for pain control. Diabetes Will hold januvia. Insulin as per sliding scale. Gastroesophageal reflux disease (GERD) on ranitidine at home , here will give famotidine Anxiety and depression Continue Lexapro, Wellbutrin. Hypothyroidism Continue Synthroid. TSH is therapeutic. Hyperlipidemia will continue statin Deep venous thrombosis (DVT) prophylaxis: Heparin subcutaneous. Plan / VTE VTE Prophylaxis Ordered?: Yes BEATRIZ CAPUTO MD Dec 07, 2018 23:50
[2018-12-08] VITALS: BP 137/66
[2018-12-08] MEDS: risperiDONE 2 MG TAB PO SCH ×2 (01:12→21:19)
[2018-12-08 04:00] VITALS: BP 150/72
[2018-12-08] MEDS: KCL 20MEQ IN 0.45NS 1000ML 1,000 ML IV SCH ×3 (05:18→19:38)
[2018-12-08] MEDS: LEVOTHYROXINE 125MCG TABLET (0.125MG) PO SCH (05:19)
[2018-12-08 05:34] LABS: HEMATOCRIT 27.4 % (42.0-52.0); MEAN CORPUSCULAR HEMOGLOBIN 27.9 pg (27.0-33.0); MEAN CORPUSCULAR HGB CONC 32.8 g/dl (32.0-36.5); MEAN CORPUSCULAR VOLUME 84.8 fl (80.0-96.0); PLATELET COUNT, AUTOMATED 330 10^3/uL (150-450); RED BLOOD COUNT 3.23 10^6/uL (4.30-6.10); WHITE BLOOD COUNT 7.7 10^3/uL (4.0-10.0)
[2018-12-08 05:58] LABS: CALCIUM LEVEL 12.3 MG/DL (8.8-10.2); CREATININE FOR GFR 4.65 MG/DL (0.70-1.30); GLOMERULAR FILTRATION RATE 13.2 (>42); POTASSIUM SERUM 3.2 MEQ/L (3.5-5.1)
[2018-12-08] MEDS: HumaLOG INSULIN (NovoLOG) PER UNIT SC SCH ×4 (07:16→21:00)
[2018-12-08 07:41] VITALS: BP 125/65
[2018-12-08] MEDS: FAMOTIDINE 20 MG TAB PO SCH (08:01)
[2018-12-08] MEDS: buPROPion **XL** TABLET 150MG (WELLBUTRIN XL) PO SCH (08:01)
[2018-12-08] MEDS: BISACODYL 10 MG SUPP PR SCH (08:01)
[2018-12-08] MEDS: SENOKOT S TAB PO SCH ×2 (08:01→20:21)
[2018-12-08] MEDS: HEPARIN SOD (PORCINE) 5000 UNITS/ML VIAL SC SCH ×2 (08:01→21:20)
[2018-12-08] MEDS: MIRALAX *UNIT DOSE* 17GM PACKET PO SCH ×2 (08:01→20:21)
[2018-12-08] MEDS: ACETAMINOPHEN 500 MG TAB PO SCH ×2 (08:02→21:19)
--- NOTE | 2018-12-08 08:33 | CR ---
DATE OF CONSULTATION: 12/07/2018 REQUESTING PHYSICIAN: Dr. Laura Olivas and the ER physician REASON FOR CONSULTATION: Management of hypercalcemia and acute renal failure. CHIEF COMPLAINT: Patient was sent for abnormal labs. Note history of was obtained from the chart and from medical team, patient was unable to provide any reliable history. HISTORY OF PRESENT ILLNESS: Mr. Gary Angeles is a 73-year-old male with past medical history of chronic kidney disease stage 3 at the best baseline creatinine of around 1.2, chronic indwelling Rodriguez catheter secondary to obstructive uropathy, recurrent urinary tract infections (UTIs), multiple other comorbidities as mentioned below, he was brought to the hospital with altered mental status, confusion, he was found to have brachycardia as well. Further evaluation in the emergency room showed that he was in renal failure with a creatinine of 4.8 and a calcium of 14.6. I was contacted by the emergency room (ER) physician for further help in the management of hypercalcemia. Case was discussed with the physician over the phone, decision was made without start the patient on IV fluid hydration with salvador saline and to give him small dose of Lasix if needed if he gets fluid overloaded because he has history of prior diastolic congestive heart failure as well. Patient was also started on calcitonin 4 units per kg subcutaneous 12 hours. Because of the acute renal failure the decision was made not to give the patient zoledronic acid and patient would also need secondary causes of hypercalcemia work-up. PAST MEDICAL HISTORY: Chronic kidney disease stage 3, best baseline creatinine of around 1.2. History of benign prostatic hyperplasia (BPH). Chronic obstructive uropathy and indwelling Rodriguez catheter. Recurrent urinary tract infections (UTIs). Diabetes mellitus type 2. Hypothyroidism. Chronic obstructive pulmonary artery disease (COPD). Arthritis. Chronic diastolic congestive heart failure. Obstructive sleep apnea. Anxiety and depression. PAST SURGICAL HISTORY: Status post left knee replacement. ALLERGIES: Patient has no known drug allergies. FAMILY HISTORY: No significant family history of end-stage renal disease requiring hemodialysis. SOCIAL HISTORY: Patient lives at [facility]. There is no history of illicit drug abuse or alcohol abuse. He is dependent on the Jorje lift. REVIEW OF SYSTEMS: Patient was unable to provide any reliable review of systems to me at this point. PHYSICAL EXAMINATION: GENERAL: The patient is awake, alert, oriented times two, sitting up in the bed, no apparent distress. VITAL SIGNS: Temperature is 98.1 degrees Fahrenheit, blood pressure 132/58, pulse is 50, respiratory rate of 18, saturating 98% on nasal cannula at 2 liters. HEAD AND NECK EXAM: Extraocular muscles intact. Pupils equal, round, and reactive to light. Mucous membranes are dry. NECK: Supple. There is mildly elevated jugular venous distention (JVD). CARDIOVASCULAR: S1, S2. Regular rate. EXTREMITIES: Trace edema of the bilateral lower extremities. RESPIRATORY: Mildly decreased breath sounds at the bases with mild crepitations with deep respiration. ABDOMEN: Soft, positive bowel sounds, nontender, no organomegaly. GENITOURINARY: He has an indwelling Rodriguez catheter. No hernia was noted. MUSCULOSKELETAL: No clubbing or stenosis. Pulses are 2+. CENTRAL NERVOUS SYSTEM (CODING ANALYST): Patient is oriented times two. He follows commands and moves extremities. SKIN: No rashes or ulcers. LABORATORY REVIEW: CBC showed a WBC of 6.4, hemoglobin is 10.1, platelets are 373. Urinalysis showed 1+ protein, 1+ blood, 3+ leukocyte esterase. BMP on arrival showed sodium 137, potassium 3, chloride 94, bicarbonate 33, BUN 62, creatinine 6.8, calcium 14.6, lactic acid 1.5, phosphorus 4.5, magnesium 4.52, TSH 0.5, lipase 105, free T4 is 1.19, ionized calcium was 6.8. PTS level is 15.1. IMMUNOLOGY: Pending. MICROBIOLOGY: Blood cultures and urine cultures are pending. IMAGING: A CAT scan of the abdomen and pelvis without contrast was done, it showed fecal impaction, mild left hydronephrosis likely related to fecal impaction. CAT scan of the head without contrast was done which showed old basal ganglia and right thalamic lacunar infarcts. HOME MEDICATIONS: Include: - Tylenol as needed - Ventolin as needed - aspirin 81 mg daily - Lipitor 20 mg at bedtime - Bupropion 150 mg daily - calcium one tablet by mouth twice a day - vitamin D 1000 units by mouth daily - multivitamin daily - Lexapro 20 mg at bedtime - iron tablets 324 mg by mouth daily - finasteride 5 mg at bedtime - Lasix 20 mg by mouth every other day - glucosamine 1000 milligram daily - Ellipta - levothyroxine 125 microgram daily - lisinopril 5 mg daily - magnesium 400 mg by mouth twice a day - polyethylene glycol - ranitidine one tablet by mouth daily - risperidone 2 mg at bedtime - Januvia 100 mg at bedtime - Flomax 0.8 mg at bedtime - tramadol 50 mg at bedtime ASSESSMENT: 73-year-old male with acute renal failure, hypercalcemia, metabolic encephalopathy, hyperkalemia. PLAN: 1. Hypercalcemia. Patient has severe hypercalcemia, serum calcium is more than 14. He was already started on IV normal saline, it was running at 200 mL an hour when I saw him. I have changed the fluid to KCl 20 mEq and half normal saline at 150 mL a hour because of hypercalcemia. I have also given the patient the patient a small dose of Lasix 20 mg IV because of history of diastolic congestive heart failure. I agree with starting the patient on calcitonin 300 units subcutaneous 12 hourly. He is not a candidate for zoledronic acid because of acute renal failure. If I do not see any improvement of the calcium levels over the next 24 hours I will give the patient a dose of denosumab 120 mg IV times one dose. 2. Acute renal failure. It is most likely secondary to a combination of use of ONIEL inhibitors, dehydration, and use of diuretic at home and hypercalcemia and dehydration. I stopped the ONIEL inhibitors at this time, stopped the diuretics daily dose. Patient would only need as needed diuretics because of aggressive IV fluid hydration. Continue the IV fluid. Continue the urine output monitoring. No urgent need of hemodialysis at this point. 3. Hypokalemia. Patient was also already given an order for potassium and I have added potassium to the IV fluids as well. 4. Metabolic alkalosis. It is secondary to dehydration. Bicarbonate level is already improving with IV fluid hydration. 5. Hypermagnesemia. It is secondary to user magnesium at rehabilitation center. Oral magnesium as been held. Magnesium level is expected to improve with IV fluid hydration. 6. Sinus bradycardia. Patient was bradycardiac on arrival because of hypercalcemia. Continue the treatment of the hypercalcemia as mentioned above. Patient is asymptomatic at this point. 7. Fecal stasis. He has been started on bowel regimen with MiraLAX, Senokot, and Doculax by primary team. 8. Chronic diastolic congestive heart failure. Patient is aggressively being hydrated. I have given him a dose of Lasix IV tonight, if needed he will be given another dose tomorrow morning. 9. Chronic urinary retention. Continue the Rodriguez catheter at this point. Patient is also on Flomax and finasteride. If patient is chronically is on Rodriguez, probably he does not need the Flomax, however, I would continue with it at this point until patient is reevaluated tomorrow morning. Thank you for involving me in the care of this patient. I shall be happy to follow the patient along with you tomorrow morning. MTDD
--- NOTE | 2018-12-08 08:45 | ECGEPIP ---
Stationary ECG Study [facility] Test Date: 2018-12-07 Pat Name: STEVEN LOZOYA Department: Room: [place] [address] Gender: M Shellfish Manager: JULIO : 1945 Requested By: BEATRIZ CAPUTO Order Number: [id number] Reading MD: David Lassiter Measurements Intervals [place] Rate: 45 P: [place]: 0 QRS: -44 QRSD: 165 T: 21 QT: 338 QTc: 294 Interpretive Statements Suspect sinus bradycardia with baseline artifact masking some low voltage p waves MARKED LEFT AXIS DEVIATION RIGHT BUNDLE BRANCH BLOCK Electronically Signed On 12-08-2018 8:45:19 EST by David Lassiter
[2018-12-08] MEDS ORDERED: ONDANSETRON 4MG/2ML VIAL (J2405) IV PRN (11:15)
[2018-12-08 11:41] VITALS: BP 112/62
[2018-12-08] MEDS: CALCITONIN SALMON (MIACALCIN) 400INTERNATIONAL UNITS/2ML INJ (J0630) SQ SCH (11:57)
[2018-12-08] MEDS: TIOTROPIUM INHALER/CAPSULE (SPIRIVA) INH SCH (12:02)
[2018-12-08] MEDS: ALBUTEROL SULFATE 2.5 MG/0.5 ML INH NEB SOLN NEB SCH ×2 (12:02→20:45)
--- NOTE | 2018-12-08 12:24 | IPNPDOC ---
Subjective Date Seen The patient was seen on 12/08/18. Subjective Chief Complaint/HPI bradycardia, confusion Events since last encounter Patient had a restless night requiring a sitter. No significant change in labs. Denies any SOB or cough, Denies any chest pain or palpitation , no abdominal pain though does complain of some nausea. had 2 smears of hard stool yesterday. Objective Physical Examination General Exam: Positive: Alert, Cooperative, No Acute Distress Eye Exam: Positive: PERRLA, Conjunctiva & lids normal, EOMI; Negative: Sclera icteric ENT Exam: Positive: Atraumatic Neck Exam: Positive: Supple; Negative: JVD, thyromegaly Chest Exam: Positive: Clear to auscultation, Normal air movement Telemetry: Positive: Sinus, Bradycardia, AV Block Abdomen Exam: Positive: Normal bowel sounds, Soft Extremity Exam: Positive: Tenderness (left knee), Swelling (left knee); Negative: Clubbing, Cyanosis, Edema, Normal pulses, Other Neuro Exam: Positive: Normal Speech Assessment /Plan Assessment This is a 73-year-old obese male who is a resident of [facility] with PMH of COPD with chronic hypoxic respiratory failure, TEREZA not on CPAP, BPH with h/o acute urinary retention has chronic dumont in place last changed on 12/05/17, diabetes, GERD, hypothyroid, anxiety and depression , left knee osteoarthritis with h/o replacement several years back now with chronic pain and swelling for many months was supposed to have a second knee replacement done in August 2018 but surgery but has not yet been medically cleared for surgery, diastolic CHF, chronic anemia, vit d deficiency was sent from [facility] for intermittent bradycardia from yesterday. Pulse yesterday was noted to be in 40s but this morning was in 30s. Patient was also felt to be a little confused by [facility] staff so was sent to the ED. In the ED he was in sinus bradycardia . Labs were significant for hypercalcemia and Isaac on CKD. Pateint admitted for hypercalcia and ISAAC on CKD. Sinus Bradycardia with 1st degree A-V block. this is probably due to hypercalcemia will stop magnesium, check phosphorus. continue treatment for hypercalcemia monitor on telemetry. Hypercalcemia will order work up stop calcium and vit d supplements. continue IVF and calcitonin Lasix prn as per volume status Metabolic encephalopathy due to hypercalcemia and dehydration now seems to be better. ISAAC on CKD CT abdomen pelvis no obstruction though there is mild left hydronephrosis which is felt to be due to loaded colon probably due to hypercalcemia and dehydration continue IVF and management of hypercalcemia need to rule out other causes like MM. stop lisinopril Nephrology consult. Rectal fecal stasis with stercoral colitis will start the patient on aggressive bowel regimen with miralax, senkot-s, dulcolax. Diastolic Congestive heart failure (CHF). at present patient is euvolemic diuretics as needed. COPD with chronic respiratory failure with hypoxia will continue albuterol nebs and give spiriva. with oxygen supplementation TEREZA on CPAP restart CPAP if available. Benign prostatic hypertrophy (BPH) with h/o urinary retention: Dumont catheter in place. Continue Flomax and finasteride. Last changed on 12/05/18. Had blockage 3 times in the past 1 month. Left knee status post history of replacement Now with chronic knee swelling and pain, WC bound, praveena lift. will continue with tylenol and tramadol for pain control. Diabetes Will hold januvia. Insulin as per sliding scale. Gastroesophageal reflux disease (GERD) on ranitidine at home , here will give famotidine Anxiety and depression Continue Lexapro, Wellbutrin. Hypothyroidism Continue Synthroid. TSH is therapeutic. Hyperlipidemia will continue statin Deep venous thrombosis (DVT) prophylaxis: Heparin subcutaneous. Plan/VTE VTE Prophylaxis Ordered?: Yes VS, I&O, 24H, Fishbone Vital Signs/I&O Vital Signs Date Time Temp Pulse Resp B/P (MAP) Pulse Ox O2 Delivery O2 Flow Rate FiO2 12/08/18 12:00 2.0 12/08/18 11:41 98.2 67 18 112/62 (79) 98 Nasal Cannula I&O- Last 24 Hours up to 6 AM 12/08/18 05:59 Intake Total 3010 ml Output Total 2400 ml Balance 610 ml Laboratory Data 24H LABS Laboratory Tests 2 12/07/18 17:06: Bedside Glucose (Misc Panel) 98 12/07/18 18:13: Anion Gap 9, Glomerular Filtration Rate 13.2L, Blood Urea Nitrogen 56H, Creatinine 4.67H, Sodium Level 140, Potassium Level 3.0L, Chloride Level 100, Carbon Dioxide Level 31, Calcium Level 13.0H, Whole Blood Ionized Calcium 6.5*H, Phosphorus Level 4.9 12/07/18 21:26: Bedside Glucose (Misc Panel) 137H 12/08/18 05:22: Anion Gap 8, Glomerular Filtration Rate 13.2L, Blood Urea Nitrogen 53H, Creatinine 4.65H, Sodium Level 142, Potassium Level 3.2L, Chloride Level 104, Carbon Dioxide Level 30, Calcium Level 12.3H, Whole Blood Ionized Calcium 6.3*H, Nucleated Red Blood Cells % (auto) 0.0 12/08/18 11:26: Bedside Glucose (Misc Panel) 104 CBC/BMP Laboratory Tests 12/07/18 18:13 Calcium Level 13.0 H 12/08/18 05:22 Calcium Level 12.3 H, Red Blood Count 3.23 L, Mean Corpuscular Volume 84.8, Mean Corpuscular Hemoglobin 27.9, Mean Corpuscular Hemoglobin Concent 32.8, Red Cell Distribution Width 14.0 Microbiology Microbiology 12/07/18 Blood Culture - Preliminary, Resulted No growth after 24 hours . All specim... 12/07/18 Blood Culture - Preliminary, Resulted No growth after 24 hours . All specim... 12/07/18 Urine Culture, Received Pending BEATRIZ CAPUTO MD Dec 08, 2018 12:24
[2018-12-08] MEDS ORDERED: POTASSIUM CHLORIDE 10% LIQ 20 MEQ/15 ML UDC PO ONE (12:45)
[2018-12-08] MEDS ORDERED: FUROSEMIDE 20 MG/2 ML VIAL (J1940) IV ONE (13:00)
[2018-12-08 15:48] VITALS: BP 130/77
[2018-12-08 18:03] LABS: CALCIUM LEVEL 11.7 MG/DL (8.8-10.2); CREATININE FOR GFR 4.51 MG/DL (0.70-1.30); GLOMERULAR FILTRATION RATE 13.7 (>42); POTASSIUM SERUM 3.4 MEQ/L (3.5-5.1)
[2018-12-08 20:00] VITALS: BP 128/63
[2018-12-08] MEDS: FINASTERIDE 5 MG TAB PO SCH (21:18)
[2018-12-08] MEDS: TAMSULOSIN 0.4 MG CAP PO SCH (21:19)
[2018-12-08] MEDS: ESCITALOPRAM OXALATE 10 MG TAB (LEXAPRO) PO SCH (21:20)
[2018-12-08] MEDS: ATORVASTATIN 20 MG TAB PO SCH (21:20)
[2018-12-08] MEDS: traMADol 50 MG TAB PO SCH (21:20)
[2018-12-09] VITALS (8 sets, daily range): BP systolic 132–168; BP diastolic 60–81
[2018-12-09 00:10] LABS: FREE KAPPA LIGHT CHAINS SERUM 62.7 mg/L (3.3-19.4); FREE LAMBDA LIGHT CHAINS SERUM 44.9 mg/L (5.7-26.3); KAPPA/LAMBDA RATIO SERUM 1.4 (0.26-1.65)
[2018-12-09] MEDS: CALCITONIN SALMON (MIACALCIN) 400INTERNATIONAL UNITS/2ML INJ (J0630) SQ SCH ×3 (00:19→23:00)
[2018-12-09] MEDS: KCL 20MEQ IN 0.45NS 1000ML 1,000 ML IV SCH ×4 (02:25→23:22)
[2018-12-09] MEDS: LEVOTHYROXINE 125MCG TABLET (0.125MG) PO SCH (05:42)
[2018-12-09 06:07] LABS: HEMATOCRIT 26.7 % (42.0-52.0); HEMOGLOBIN 8.8 g/dl (13.5-17.5); MEAN CORPUSCULAR HEMOGLOBIN 27.8 pg (27.0-33.0); MEAN CORPUSCULAR VOLUME 84.5 fl (80.0-96.0); PLATELET COUNT, AUTOMATED 342 10^3/uL (150-450); RED BLOOD COUNT 3.16 10^6/uL (4.30-6.10)
[2018-12-09 06:35] LABS: CALCIUM LEVEL 11.3 MG/DL (8.8-10.2); CREATININE FOR GFR 4.19 MG/DL (0.70-1.30); GLOMERULAR FILTRATION RATE 14.9 (>42); POTASSIUM SERUM 3.5 MEQ/L (3.5-5.1)
[2018-12-09] MEDS: HumaLOG INSULIN (NovoLOG) PER UNIT SC SCH ×4 (07:25→21:00)
[2018-12-09] MEDS: TIOTROPIUM INHALER/CAPSULE (SPIRIVA) INH SCH (07:29)
[2018-12-09] MEDS: ALBUTEROL SULFATE 2.5 MG/0.5 ML INH NEB SOLN NEB SCH ×2 (07:29→21:02)
[2018-12-09 07:30] LABS: MAGNESIUM LEVEL 3.6 MG/DL (1.8-2.4)
[2018-12-09] MEDS: buPROPion **XL** TABLET 150MG (WELLBUTRIN XL) PO SCH (08:06)
[2018-12-09] MEDS: ACETAMINOPHEN 500 MG TAB PO SCH ×2 (08:06→20:10)
[2018-12-09] MEDS: FAMOTIDINE 20 MG TAB PO SCH (08:06)
[2018-12-09] MEDS: SENOKOT S TAB PO SCH ×2 (08:07→21:00)
[2018-12-09] MEDS: MIRALAX *UNIT DOSE* 17GM PACKET PO SCH ×2 (08:07→20:00)
[2018-12-09] MEDS: HEPARIN SOD (PORCINE) 5000 UNITS/ML VIAL SC SCH ×2 (08:07→20:13)
[2018-12-09] MEDS: BISACODYL 10 MG SUPP PR SCH (08:08)
[2018-12-09] MEDS: cefTRIAXone SOD 1 GM in D5W MINI-BAG PLUS 50 ML IV SCH (09:59)
[2018-12-09] MEDS ORDERED: FUROSEMIDE 20 MG/2 ML VIAL (J1940) IV ONE ×2 (10:00→10:45)
--- NOTE | 2018-12-09 10:28 | IPN ---
DATE OF SERVICE: 12/08/2018 SUBJECTIVE: The patient was seen and examined at the bedside today morning. He continues on IV fluid hydration. His renal function is slightly improving today as compared with yesterday. Calcium level is also slowing coming down. He was given a small dose of Lasix yesterday because of history of diastolic congestive heart failure. The patient has persistent hypokalemia despite potassium in the IV fluids. He denies any active complaints at this time. OBJECTIVE: Vital Signs: Temperature 98.2 degrees Fahrenheit. Blood pressure 112/62. Pulse 67. Respiratory rate 18. Saturating 98% on nasal cannula at 2 liters. Intake and Output: Urine output recorded as 2.1 liters yesterday, 2.3 liters so far today since overnight. Weight on the bed scale is 90.4 kg. PHYSICAL EXAMINATION: General: The patient is awake, alert and oriented times two, sitting up in the bed in no apparent distress. Head and Neck Exam: Extraocular muscles intact. Pupils equally round and reactive to light. Mucous membranes are moist. Neck is supple. There is no jugular venous distention (JVD). Cardiovascular: S1, S2. Regular rate. No murmur, rub or gallop. Respiratory: Mildly decreased breath sounds at the bases with mild crepitations on deep inspiration. Abdomen: Soft. Positive bowel sounds. Nontender. No organomegaly. Genitourinary: He has an indwelling Rodriguez catheter. Musculoskeletal: No clubbing or stenosis. Pulses 2+. Central Nervous System: He is oriented times two, otherwise he follows commands and moves bilateral upper extremities. LAB REVIEW: CBC showed a WBC of 7.7, hemoglobin 9, and platelets 330. BMP showed sodium 140, potassium 3.4, chloride 104, bicarbonate 29, BUN 50, creatinine 4.5, calcium 11.7. MICROBIOLOGY: Blood cultures are negative so far. CURRENT INPATIENT MEDICATIONS: Patient's medications were all reviewed by me. He is currently on KCl 20 mEq and 1/2 normal saline at 150 mL/hr. He was given another dose of Lasix 20 mg IV times one dose. He continues to be on calcitonin 300 units subcutaneous every 12 hours. No other change in the medications today as compared with yesterday. ASSESSMENT AND PLAN: 1. Hypercalcemia. Patient had severe hypercalcemia on arrival. He continues to be on IV fluid with very small doses of Lasix. Calcium level is totally trending down. He is not a candidate for zoledronic acid because of acute renal failure. Since calcium level is improving, I would hold off on use of denosumab at this point. 2. Acute renal failure. It is secondary to a combination of hypercalcemia, dehydration and use of ONIEL inhibitors at home. The patient continues to be on IV fluid hydration. Renal function is very slowly improving. Continue to monitor for now. 3. Hypokalemia. It is secondary to aggressive use of IV fluids. The patient was given oral potassium 40 mEq today morning. He is also getting potassium in the IV fluids. 4. Anemia. Hemoglobin is 9, which is slightly suboptimal. His multiple myeloma work up is still pending. SPEP and UPEP have not arrived yet. [place] lambda light chain is still pending as well. 5. History of chronic diastolic congestive heart failure. The patient got a small dose of Lasix 20 mg IV yesterday. I also gave him another dose of Lasix 20 mg IV today to prevent congestive heart failure exacerbation because he is getting aggressive IV fluid hydration for hypercalcemia.
[2018-12-09 11:14] LABS: ALBUMIN 3.76 GM/DL (3.29-5.55); ALBUMIN % 53.7 % (55.8-66.1); ALPHA-1-GLOBULIN % 5.6 % (2.9-4.9); ALPHA-1-GLOBULINS 0.39 GM/DL (0.17-0.41); ALPHA-2-GLOBULINS 0.92 GM/DL (0.42-0.99); ALPHA-2-GLOBULINS % 13.1 % (7.1-11.8); BETA-1-GLOBULINS 0.34 GM/DL (0.28-0.60); BETA-1-GLOBULINS % 4.9 % (4.7-7.2); BETA-2-GLOBULINS 0.43 GM/DL (0.19-0.55); BETA-2-GLOBULINS % 6.1 % (3.2-6.5); GAMMA GLOBULIN % 16.6 % (11.1-18.8); GAMMA GLOBULINS 1.16 GM/DL (0.65-1.58)
--- NOTE | 2018-12-09 14:52 | IPNPDOC ---
Subjective Date Seen The patient was seen on 12/09/18. Subjective Chief Complaint/HPI confusion and bradycardia Events since last encounter Had a good night, slept better, no complaints this morning. Objective Physical Examination General Exam: Positive: Alert, Cooperative, No Acute Distress Eye Exam: Positive: PERRLA, Conjunctiva & lids normal, EOMI; Negative: Sclera icteric ENT Exam: Positive: Atraumatic Neck Exam: Positive: Supple; Negative: JVD, thyromegaly Chest Exam: Positive: Clear to auscultation, Normal air movement Telemetry: Positive: Sinus, Bradycardia, AV Block Abdomen Exam: Positive: Normal bowel sounds, Soft Extremity Exam: Positive: Tenderness (left knee), Swelling (left knee); Negative: Clubbing, Cyanosis, Edema, Normal pulses, Other Neuro Exam: Positive: Normal Speech Assessment /Plan Assessment This is a 73-year-old obese male who is a resident of [facility] with PMH of COPD with chronic hypoxic respiratory failure, TEREZA not on CPAP, BPH with h/o acute urinary retention has chronic dumont in place last changed on 12/05/17, diabetes, GERD, hypothyroid, anxiety and depression , left knee osteoarthritis with h/o replacement several years back now with chronic pain and swelling for many months was supposed to have a second knee replacement done in August 2018 but surgery but has not yet been medically cleared for surgery, diastolic CHF, chronic anemia, vit d deficiency was sent from [facility] for intermittent bradycardia from yesterday. Pulse yesterday was noted to be in 40s but this morning was in 30s. Patient was also felt to be a little confused by [facility] staff so was sent to the ED. In the ED he was in sinus bradycardia . Labs were significant for hypercalcemia and Isaac on CKD. Pateint admitted for hypercalcia and ISAAC on CKD. Sinus Bradycardia with 1st degree A-V block. this is probably due to hypercalcemia now improved with better calcium levels. Hypercalcemia work up in progress. stop calcium and vit d supplements. continue IVF and calcitonin Lasix prn as per volume status no monoclonal bands, kappa/ lamda ratio normal , ONIEL not elevated, Vit 25 D in normal range, PTh is appropriately low. Metabolic encephalopathy due to hypercalcemia and dehydration now seems to be better. ISAAC on CKD CT abdomen pelvis no obstruction though there is mild left hydronephrosis which is felt to be due to loaded colon probably due to hypercalcemia and dehydration continue IVF and management of hypercalcemia need to rule out other causes like MM. stop lisinopril Nephrology consult. Rectal fecal stasis with stercoral colitis will start the patient on aggressive bowel regimen with miralax, senkot-s, dulcolax. Diastolic Congestive heart failure (CHF). at present patient is euvolemic diuretics as needed. COPD with chronic respiratory failure with hypoxia will continue albuterol nebs and give spiriva. with oxygen supplementation TEREZA on CPAP restart CPAP if available. Benign prostatic hypertrophy (BPH) with h/o urinary retention: Dumont catheter in place. Continue Flomax and finasteride. Last changed on 12/05/18. Had blockage 3 times in the past 1 month. Left knee status post history of replacement Now with chronic knee swelling and pain, WC bound, praveena lift. will continue with tylenol and tramadol for pain control. Diabetes Will hold januvia. Insulin as per sliding scale. Gastroesophageal reflux disease (GERD) on ranitidine at home , here will give famotidine Anxiety and depression Continue Lexapro, Wellbutrin. Hypothyroidism Continue Synthroid. TSH is therapeutic. Hyperlipidemia will continue statin Deep venous thrombosis (DVT) prophylaxis: Heparin subcutaneous. Plan/VTE VTE Prophylaxis Ordered?: Yes VS, I&O, 24H, Fishbone Vital Signs/I&O Vital Signs Date Time Temp Pulse Resp B/P (MAP) Pulse Ox O2 Delivery O2 Flow Rate FiO2 12/09/18 12:00 2.0 12/09/18 11:20 99.1 74 19 134/70 (91) 98 Nasal Cannula I&O- Last 24 Hours up to 6 AM 12/09/18 06:00 Intake Total 3850 ml Output Total 4350 ml Balance -500 ml Laboratory Data 24H LABS Laboratory Tests 2 12/08/18 17:07: Bedside Glucose (Misc Panel) 115H 12/08/18 17:29: Anion Gap 7L, Glomerular Filtration Rate 13.7L, Blood Urea Nitrogen 50H, Creatinine 4.51H, Sodium Level 140, Potassium Level 3.4L, Chloride Level 104, Carbon Dioxide Level 29, Calcium Level 11.7H 12/08/18 21:10: Bedside Glucose (Misc Panel) 99 12/09/18 05:09: Anion Gap 8, Glomerular Filtration Rate 14.9L, Blood Urea Nitrogen 46H, Creatinine 4.19H, Sodium Level 140, Potassium Level 3.5, Chloride Level 104, Carbon Dioxide Level 28, Calcium Level 11.3H, Nucleated Red Blood Cells % (auto) 0.0, Whole Blood Ionized Calcium 6.1H, Magnesium Level 3.6H 12/09/18 11:44: Bedside Glucose (Misc Panel) 107 CBC/BMP Laboratory Tests 12/08/18 17:29 Calcium Level 11.7 H 12/09/18 05:09 Calcium Level 11.3 H, Red Blood Count 3.16 L, Mean Corpuscular Volume 84.5, Mean Corpuscular Hemoglobin 27.8, Mean Corpuscular Hemoglobin Concent 33.0, Red Cell Distribution Width 14.3 Microbiology Microbiology 12/07/18 Blood Culture - Preliminary, Resulted No Growth after 48 hours. All Specime... 12/07/18 Blood Culture - Preliminary, Resulted No Growth after 48 hours. All Specime... 12/07/18 Urine Culture - Final, Complete Proteus Mirabilis BEATRIZ CAPUTO MD Dec 09, 2018 14:52
[2018-12-09 17:40] LABS: CREATININE FOR GFR 3.85 MG/DL (0.70-1.30); GLOMERULAR FILTRATION RATE 16.5 (>42); POTASSIUM SERUM 3.1 MEQ/L (3.5-5.1)
[2018-12-09] MEDS ORDERED: POTASSIUM CHLORIDE 10 MEQ SR TABLET PO ONE (19:00)
[2018-12-09] MEDS: ESCITALOPRAM OXALATE 10 MG TAB (LEXAPRO) PO SCH (20:08)
[2018-12-09] MEDS: ATORVASTATIN 20 MG TAB PO SCH (20:10)
[2018-12-09] MEDS: FINASTERIDE 5 MG TAB PO SCH (20:10)
[2018-12-09] MEDS: risperiDONE 2 MG TAB PO SCH (20:13)
[2018-12-09] MEDS: traMADol 50 MG TAB PO SCH (21:00)
[2018-12-10] VITALS (7 sets, daily range): BP systolic 137–167; BP diastolic 72–91; O2SAT 94
[2018-12-10] MEDS ORDERED: ONDANSETRON 4MG/2ML VIAL (J2405) IV PRN (02:45)
[2018-12-10] MEDS: TAMSULOSIN 0.4 MG CAP PO SCH ×2 (03:10→20:31)
[2018-12-10] MEDS: KCL 20MEQ IN 0.45NS 1000ML 1,000 ML IV SCH ×2 (05:53→15:00)
[2018-12-10] MEDS: LEVOTHYROXINE 125MCG TABLET (0.125MG) PO SCH (05:57)
[2018-12-10 06:01] LABS: HEMATOCRIT 25.1 % (42.0-52.0); HEMOGLOBIN 8.2 g/dl (13.5-17.5); MEAN CORPUSCULAR HGB CONC 32.7 g/dl (32.0-36.5); MEAN CORPUSCULAR VOLUME 85.7 fl (80.0-96.0); PLATELET COUNT, AUTOMATED 300 10^3/uL (150-450); RED BLOOD COUNT 2.93 10^6/uL (4.30-6.10); WHITE BLOOD COUNT 11.9 10^3/uL (4.0-10.0)
[2018-12-10 06:23] LABS: CALCIUM LEVEL 10.4 MG/DL (8.8-10.2); CREATININE FOR GFR 3.49 MG/DL (0.70-1.30); GLOMERULAR FILTRATION RATE 18.4 (>42); POTASSIUM SERUM 3.1 MEQ/L (3.5-5.1)
[2018-12-10] MEDS: TIOTROPIUM INHALER/CAPSULE (SPIRIVA) INH SCH (07:59)
[2018-12-10] MEDS: ALBUTEROL SULFATE 2.5 MG/0.5 ML INH NEB SOLN NEB SCH ×2 (07:59→19:34)
[2018-12-10] MEDS: HumaLOG INSULIN (NovoLOG) PER UNIT SC SCH ×4 (08:53→20:33)
[2018-12-10] MEDS: HEPARIN SOD (PORCINE) 5000 UNITS/ML VIAL SC SCH ×2 (09:26→20:33)
[2018-12-10] MEDS: MIRALAX *UNIT DOSE* 17GM PACKET PO SCH (09:26)
[2018-12-10] MEDS: BISACODYL 10 MG SUPP PR SCH (09:27)
[2018-12-10] MEDS: SENOKOT S TAB PO SCH (09:27)
[2018-12-10] MEDS: ACETAMINOPHEN 500 MG TAB PO SCH ×2 (09:27→20:31)
[2018-12-10] MEDS: cefTRIAXone SOD 1 GM in D5W MINI-BAG PLUS 50 ML IV SCH (09:28)
[2018-12-10] MEDS: FAMOTIDINE 20 MG TAB PO SCH (09:28)
[2018-12-10] MEDS: buPROPion **XL** TABLET 150MG (WELLBUTRIN XL) PO SCH (09:28)
--- NOTE | 2018-12-10 09:53 | IPN ---
DATE: 12/09/2018 SUBJECTIVE: Patient was seen and examined at the bedside today morning. Patient is afebrile, hemodynamically stable. He continues to be on IV fluid hydration. His renal function is slowly improving. Creatinine is down to 4.1 today. Calcium is also slowly trending down. It is 11.3 today. Patient has a good urine output, and he is getting daily low-dose Lasix to prevent fluid overload. OBJECTIVE: Vital signs: Temperature is 99.1 degrees Fahrenheit, blood pressure 134/70, pulse is 74, respiratory rate of 19, saturating 98% on nasal cannula at 2 liters. Intake and output: Urine output recorded at 3.5 liters yesterday, 4.2 liters so far today since overnight. Weight on the bed scale is 90.9 kg. PHYSICAL EXAMINATION: General: Patient is awake, alert, oriented times two, sitting up in the bed, in no apparent distress. Head and neck exam: Extraocular muscles intact. Pupils equally round and reactive to light. Mucous membranes are moist. Neck: Is supple. There is no jugular venous distention (JVD). Cardiovascular: S1, S2. Regular rate. No edema of the bilateral lower extremities. Respiratory: Mildly decreased breath sounds at the bases. Mild crepitations at the bases on deep inspiration. Abdomen: Is soft. Positive bowel sounds. Nontender. No organomegaly. Genitourinary: He has an indwelling Rodriguez catheter. Musculoskeletal: No clubbing or cyanosis. Pulses are 2+. Central nervous system ([employer]): No focal deficit. Is oriented times two. Power is 5/5 in bilateral upper extremities. LAB REVIEW: CBC showed a WBC of 15, hemoglobin is 8.8, platelets are 342. BMP showed sodium 138, potassium 3.1, chloride 105, bicarbonate 28, BUN 44, creatinine is 3.8, calcium is 11. Whole blood ionized calcium today morning was 6.1. Immunology: Immunotyping showed no monoclonal band. Free kappa and lambda chain are high, but ratio is normal. Serum protein electrophoresis showed no M spike. PTH-related protein is pending. IMAGING: No new imaging is available. CURRENT INPATIENT MEDICATIONS: Patient's medications are all reviewed by me. He continues to be on IV fluid with potassium. He was again given a dose of furosemide 20 mg IV times two doses. He was given a dose of potassium chloride 40 mEq. ASSESSMENT AND PLAN: 1. Hypercalcemia. Patient came in with severe hypercalcemia. He continues to be on IV fluid hydration. Calcium level is slowly trending down. Continue current dose of IV fluids and intermittent Lasix dosages. Continue calcitonin 300 units subcutaneously every 12 hours. Serum protein electrophoresis (SPEP) and urine protein electrophoresis (UPEP) have been negative for multiple myeloma. I still highly suspect that patient has some malignancy going on. 2. Hypokalemia. Patient was already given potassium chloride 40 mEq by mouth. He is also getting potassium in the IV fluids as well. 3. Acute kidney injury superimposed on chronic kidney disease. Patient is getting IV fluid hydration and Lasix dosages. His creatinine level is slowly improving. 4. Chronic diastolic congestive heart failure. Patient is requiring IV fluids for hypercalcemia. He was given two doses of Lasix today morning. He has a good urine output. Volume status is optimized. 5. Anemia. I am going to check his iron levels, and I will given him Venofer if iron levels are low. SPEP and UPEP have been normal. No evidence of multiple myeloma on the workup so far.
[2018-12-10] MEDS: CALCITONIN SALMON (MIACALCIN) 400INTERNATIONAL UNITS/2ML INJ (J0630) SQ SCH (12:51)
[2018-12-10] MEDS: POTASSIUM CHLORIDE 10% LIQ 20 MEQ/15 ML UDC PO SCH ×2 (12:51→20:31)
[2018-12-10] MEDS ORDERED: LIDOCAINE 1% MDV 20ML VIAL As Ordered ONE (15:35)
--- NOTE | 2018-12-10 16:56 | IPNPDOC ---
Subjective Date Seen The patient was seen on 12/10/18. Subjective Chief Complaint/HPI confusion and bradycardia Events since last encounter Patient had a good night no issues overnight expect for multiple bowel movements. He is complaining of soreness of his bottom from the multiple bowel movements, Bradycardia has resolved, No events on telemetry, No chest pain ro sob. Continues to have left knee pain. Fecal impaction seems to have resolved. will dc laxatives and make them prn. Objective Physical Examination General Exam: Positive: Alert, Cooperative, No Acute Distress Eye Exam: Positive: PERRLA, Conjunctiva & lids normal, EOMI; Negative: Sclera icteric ENT Exam: Positive: Atraumatic Neck Exam: Positive: Supple; Negative: JVD, thyromegaly Chest Exam: Positive: Clear to auscultation, Normal air movement Telemetry: Positive: Sinus, Bradycardia, AV Block Abdomen Exam: Positive: Normal bowel sounds, Soft Extremity Exam: Positive: Tenderness (left knee), Swelling (left knee); Negative: Clubbing, Cyanosis, Edema, Normal pulses, Other Neuro Exam: Positive: Normal Speech Assessment /Plan Assessment This is a 73-year-old obese male who is a resident of [facility] with PMH of COPD with chronic hypoxic respiratory failure, TEREZA not on CPAP, BPH with h/o acute urinary retention has chronic dumont in place last changed on 12/05/17, diabetes, GERD, hypothyroid, anxiety and depression , left knee osteoarthritis with h/o replacement several years back now with chronic pain and swelling for many months was supposed to have a second knee replacement done in August 2018 but surgery but has not yet been medically cleared for surgery, diastolic CHF, chronic anemia, vit d deficiency was sent from [facility] for intermittent bradycardia from yesterday. Pulse yesterday was noted to be in 40s but this morning was in 30s. Patient was also felt to be a little confused by [facility] staff so was sent to the ED. In the ED he was in sinus bradycardia . Labs were significant for hypercalcemia and Isaac on CKD. Pateint admitted for hy percalcia and ISAAC on CKD. Sinus Bradycardia with 1st degree A-V block. this is probably due to hypercalcemia now improved with better calcium levels. Hypercalcemia work up in progress. stop calcium and vit d supplements. continue IVF and calcitonin Lasix prn as per volume status no monoclonal bands, kappa/ lamda ratio normal , ONIEL not elevated, Vit 25 D in normal range, PTh is appropriately low. Metabolic encephalopathy due to hypercalcemia and dehydration now seems to be better. ISAAC on CKD CT abdomen pelvis no obstruction though there is mild left hydronephrosis which is felt to be due to loaded colon probably due to hypercalcemia and dehydration continue IVF and management of hypercalcemia need to rule out other causes like MM. stop lisinopril Nephrology consult. Rectal fecal stasis with stercoral colitis will start the patient on aggressive bowel regimen with miralax, senkot-s, dulcolax. Diastolic Congestive heart failure (CHF). at present patient is euvolemic diuretics as needed. COPD with chronic respiratory failure with hypoxia will continue albuterol nebs and give spiriva. with oxygen supplementation TEREZA on CPAP restart CPAP if available. Benign prostatic hypertrophy (BPH) with h/o urinary retention: Dumont catheter in place. Continue Flomax and finasteride. Last changed on 12/05/18. Had blockage 3 times in the past 1 month. Left knee status post history of replacement Now with chronic knee swelling and pain, WC bound, praveena lift. will continue with tylenol and tramadol for pain control. Diabetes Will hold januvia. Insulin as per sliding scale. Gastroesophageal reflux disease (GERD) on ranitidine at home , here will give famotidine Anxiety and depression Continue Lexapro, Wellbutrin. Hypothyroidism Continue Synthroid. TSH is therapeutic. Hyperlipidemia will continue statin Deep venous thrombosis (DVT) prophylaxis: Heparin subcutaneous. Plan/VTE VTE Prophylaxis Ordered?: Yes VS, I&O, 24H, Fishbone Vital Signs/I&O Vital Signs Date Time Temp Pulse Resp B/P (MAP) Pulse Ox O2 Delivery O2 Flow Rate FiO2 12/10/18 12:00 99.3 69 18 137/72 (93) 97 Room Air 12/10/18 08:02 2.0 I&O- Last 24 Hours up to 6 AM 12/10/18 06:00 Intake Total 4630 ml Output Total 4475 ml Balance 155 ml Laboratory Data 24H LABS Laboratory Tests 2 12/09/18 16:58: Anion Gap 5L, Glomerular Filtration Rate 16.5L, Blood Urea Nitrogen 44H, Creatinine 3.85H, Sodium Level 138, Potassium Level 3.1L, Chloride Level 105, Carbon Dioxide Level 28, Calcium Level 11.0H 12/09/18 17:01: Bedside Glucose (Misc Panel) 89 12/09/18 20:05: Bedside Glucose (Misc Panel) 92 12/10/18 05:47: Anion Gap 7L, Glomerular Filtration Rate 18.4L, Blood Urea Nitrogen 40H, Creatinine 3.49H, Sodium Level 139, Potassium Level 3.1L, Chloride Level 107, Carbon Dioxide Level 25, Calcium Level 10.4H, Nucleated Red Blood Cells % (auto) 0.0, Whole Blood Ionized Calcium 5.5H, Iron Level 25L, Total Iron Binding Capacity 167L, Transferrin % Saturation 15.0L, Ferritin 272 12/10/18 11:24: Bedside Glucose (Misc Panel) 90 CBC/BMP Laboratory Tests 12/09/18 16:58 Calcium Level 11.0 H 12/10/18 05:47 Calcium Level 10.4 H, Red Blood Count 2.93 L, Mean Corpuscular Volume 85.7, Mean Corpuscular Hemoglobin 28.0, Mean Corpuscular Hemoglobin Concent 32.7, Red Cell Distribution Width 14.4 Microbiology Microbiology 12/07/18 Blood Culture - Preliminary, Resulted No Growth after 72 hours. All specime... 12/07/18 Blood Culture - Preliminary, Resulted No Growth after 72 hours. All specime... 12/10/18 Stool Occult Blood (ESVIN) - Final, Complete 12/07/18 Urine Culture - Final, Complete Proteus Mirabilis BEATRIZ CAPUTO MD Dec 10, 2018 16:56
[2018-12-10] MEDS ORDERED: SODIUM CHLORIDE 0.9% INJ 10 ML SYR IV PRN (17:15)
[2018-12-10] MEDS: SODIUM CHLORIDE 0.9% INJ 10 ML SYR IV SCH (18:00)
--- NOTE | 2018-12-10 19:56 | REP ---
Procedure: PICC line insertion with May The procedure was performed under the direct supervision of Dr. Isaacs. The risks and benefits of the procedure were explained and informed consent was obtained by the healthcare proxy. The right basilic vein was localized using ultrasound guidance. The skin was prepped and draped in a sterile fashion. 2% lidocaine was used as a local anesthetic. Using ultrasound guidance the basilic vein was cannulated and a 0.018 guidewire was inserted and advanced to the SVC using fluoroscopic guidance. The needle was removed and a 4.5 Argentine dilator and peel-away sheath was inserted over the guide wire. A 4.5 Argentine single lumen catheter was cut to length of 44 cm. The dilator was removed and the catheter was inserted over the guide wire with the tip ending in the SVC. The peel-away sheath was removed and the catheter was flushed with heparinized saline as per Hospital protocol. The catheter was affixed to the skin and a sterile dressing was applied. The patient tolerated the procedure well and there were no immediate complications. 0.2 minutes of fluoro time was utilized for this procedure. Reviewed by DINAH Brown 12/10/2018 05:09 P Electronically Signed by Av Isaacs MD 12/10/2018 07:47 P
[2018-12-10] MEDS: FINASTERIDE 5 MG TAB PO SCH (20:32)
[2018-12-10] MEDS: ESCITALOPRAM OXALATE 10 MG TAB (LEXAPRO) PO SCH (20:32)
[2018-12-10] MEDS: ATORVASTATIN 20 MG TAB PO SCH (20:32)
[2018-12-10] MEDS: risperiDONE 2 MG TAB PO SCH (20:32)
[2018-12-10] MEDS: traMADol 50 MG TAB PO SCH (20:33)
[2018-12-10] MEDS ORDERED: FUROSEMIDE 20 MG/2 ML VIAL (J1940) IV ONE (21:15)
[2018-12-11] VITALS (9 sets, daily range): BP systolic 122–166; BP diastolic 58–86
[2018-12-11] MEDS: KCL 20MEQ IN 0.45NS 1000ML 1,000 ML IV SCH ×2 (00:02→09:25)
[2018-12-11] MEDS: CALCITONIN SALMON (MIACALCIN) 400INTERNATIONAL UNITS/2ML INJ (J0630) SQ SCH (00:02)
[2018-12-11 00:07] LABS: PTH RELATED PEPTIDE < 2.0 pmol/L (.); VITAMIN D 1,25 DIHYDROXY 45.2 pg/mL (19.9-79.3)
[2018-12-11 05:06] LABS: HEMATOCRIT 24.8 % (42.0-52.0); HEMOGLOBIN 8.1 g/dl (13.5-17.5); MEAN CORPUSCULAR HEMOGLOBIN 28.2 pg (27.0-33.0); MEAN CORPUSCULAR HGB CONC 32.7 g/dl (32.0-36.5); MEAN CORPUSCULAR VOLUME 86.4 fl (80.0-96.0); PLATELET COUNT, AUTOMATED 310 10^3/uL (150-450); RED BLOOD COUNT 2.87 10^6/uL (4.30-6.10); WHITE BLOOD COUNT 6.4 10^3/uL (4.0-10.0)
[2018-12-11 05:30] LABS: CALCIUM LEVEL 9.4 MG/DL (8.8-10.2); CREATININE FOR GFR 3.02 MG/DL (0.70-1.30); GLOMERULAR FILTRATION RATE 21.8 (>42); POTASSIUM SERUM 3.5 MEQ/L (3.5-5.1)
[2018-12-11] MEDS: SODIUM CHLORIDE 0.9% INJ 10 ML SYR IV SCH ×2 (06:00→18:00)
[2018-12-11] MEDS: LEVOTHYROXINE 125MCG TABLET (0.125MG) PO SCH (06:19)
[2018-12-11] MEDS: TIOTROPIUM INHALER/CAPSULE (SPIRIVA) INH SCH (07:16)
[2018-12-11] MEDS: ALBUTEROL SULFATE 2.5 MG/0.5 ML INH NEB SOLN NEB SCH ×2 (07:16→20:19)
[2018-12-11] MEDS: HumaLOG INSULIN (NovoLOG) PER UNIT SC SCH ×4 (07:25→20:44)
[2018-12-11] MEDS ORDERED: IRON SUCROSE 100MG 5ML VIAL (J1756 PER 1MG) IV SCH (09:00)
[2018-12-11] MEDS ORDERED: BISACODYL 10 MG SUPP PR PRN (09:00)
[2018-12-11] MEDS ORDERED: IRON SUCROSE 25 MG in NS 50 ML IV ONE (09:00)
[2018-12-11] MEDS: cefTRIAXone SOD 1 GM in D5W MINI-BAG PLUS 50 ML IV SCH (09:26)
[2018-12-11] MEDS: POTASSIUM CHLORIDE 10% LIQ 20 MEQ/15 ML UDC PO SCH (09:27)
[2018-12-11] MEDS: HEPARIN SOD (PORCINE) 5000 UNITS/ML VIAL SC SCH ×2 (09:27→20:43)
[2018-12-11] MEDS: buPROPion **XL** TABLET 150MG (WELLBUTRIN XL) PO SCH (09:28)
[2018-12-11] MEDS: FAMOTIDINE 20 MG TAB PO SCH (09:28)
[2018-12-11] MEDS: ACETAMINOPHEN 500 MG TAB PO SCH ×2 (09:28→20:42)
[2018-12-11] MEDS ORDERED: IRON SUCROSE 175 MG in NS 100 ML IV ONE (10:00)
--- NOTE | 2018-12-11 12:49 | IPN ---
DATE OF SERVICE: 12/10/2018 SUBJECTIVE: The patient was seen and examined at the bedside today morning. He is afebrile and hemodynamically stable. His calcium level continues to improve. Renal function is stable and improving. Creatinine is down to 3.4 today. He continues to be on IV fluid hydration. He still has mild persistent hypokalemia. He denies any active complaints at this time. OBJECTIVE: Vital Signs: Temperature 99.3 degrees Fahrenheit. Blood pressure 137/72. Pulse 69. Respiratory rate 18. Saturating 96% on room air. Intake and Output: Urine output recorded as 2.5 liters so far today since overnight. Weight on the bed scale is 90.9 kg. PHYSICAL EXAMINATION: General: The patient is laying in bed, drowsy and sleepy. Otherwise follows commands. Head and Neck Exam: Extraocular muscles intact. Pupils equally round and reactive to light. Mucous membranes are moist. Neck is supple. There is no jugular venous distention (JVD). Cardiovascular: S1, S2. Regular rate. No edema of the bilateral lower extremities. Respiratory: Mildly decreased breath sounds at the bases, otherwise no active rales or rhonchi. Abdomen: Soft. Positive bowel sounds. Nontender. No organomegaly. Genitourinary: He has an indwelling Rodriguez catheter. Musculoskeletal: No clubbing or stenosis. Pulses 2+. Central Nervous System: No focal deficit. He is oriented times two. He moves his extremities. LAB REVIEW: CBC showed a WBC of 11.9, hemoglobin 8.2, and platelets 300. BMP showed sodium 139, potassium 3.1, chloride 107, bicarbonate 25, BUN 40, creatinine 3.4. Ionized calcium is 5.5 today. Total calcium 10.4. Iron studies showed iron is 25, TIBC 167, transferrin saturation 15%. Ferritin is 272. CURRENT INPATIENT MEDICATIONS: Patient's medications were all reviewed by me. He continues to be on KCl 20 mEq and 1/2 normal saline at 100 mL/hr. He was given another dose of Lasix today. No other change in the medications today as compared with yesterday. ASSESSMENT AND PLAN: 1. Hypercalcemia. Patient's calcium levels are improving. SPEP and UPEP did not show any abnormality. Continue current dose of IV 1/2 normal saline with potassium. The patient was given another dose of Lasix today. Calcium level is improving within the acceptable range now. No need of Xgeva at this point. 2. Hypokalemia. It is secondary to aggressive IV fluid hydration and diuresis. The patient has been started on potassium chloride 40 mEq by mouth twice a day. He also has potassium in the IV fluids as well. 3. Acute kidney injury superimposed on chronic kidney disease. The patient's renal function is slowly improving with the IV fluid hydration. 4. Chronic diastolic congestive heart failure. Volume status is optimized. He is needing fluid for hypercalcemia. He is getting daily doses of IV Lasix and is responding well. 5. Iron deficiency anemia. I have started the patient on IV Venofer 200 mg daily for a total of three doses.
--- NOTE | 2018-12-11 17:55 | IPNPDOC ---
Subjective Date Seen The patient was seen on 12/11/18. Subjective Chief Complaint/HPI bradycardia and confusion Events since last encounter No issues overnight. No issues on telemetry, his bradycardia has resolved. Denies any abdominal pain , Had numerous large bowel movements over the past 3 days so now i have reduced and stopped some of his bowel meds. Will continue to aim for 2 to 3 bowel movements a day. Confusion has resolved. No fever or chills. Objective Physical Examination General Exam: Positive: Alert, Cooperative, No Acute Distress Eye Exam: Positive: PERRLA, Conjunctiva & lids normal, EOMI; Negative: Sclera icteric ENT Exam: Positive: Atraumatic Neck Exam: Positive: Supple; Negative: JVD, thyromegaly Chest Exam: Positive: Clear to auscultation, Normal air movement Telemetry: Positive: Sinus, Bradycardia, AV Block Abdomen Exam: Positive: Normal bowel sounds, Soft Extremity Exam: Positive: Tenderness (left knee), Swelling (left knee); Negative: Clubbing, Cyanosis, Edema, Normal pulses, Other Neuro Exam: Positive: Normal Speech Assessment /Plan Assessment This is a 73-year-old obese male who is a resident of [facility] with PMH of COPD with chronic hypoxic respiratory failure, TEREZA not on CPAP, BPH with h/o acute urinary retention has chronic dumont in place last changed on 12/05/17, diabetes, GERD, hypothyroid, anxiety and depression , left knee osteoarthritis with h/o replacement several years back now with chronic pain and swelling for many months was supposed to have a second knee replacement done in August 2018 but surgery but has not yet been medically cleared for surgery, diastolic CHF, chronic anemia, vit d deficiency was sent from [facility] for intermittent bradycardia from yesterday. Pulse yesterday was noted to be in 40s but this morning was in 30s. Patient was also felt to be a little confused by [facility] staff so was sent to the ED. In the ED he was in sinus bradycardia . Labs w ere significant for hypercalcemia and Isaac on CKD. Pateint admitted for hypercalcia and ISAAC on CKD. Sinus Bradycardia with 1st degree A-V block. resolved due to hypercalcemia will dc telemetry Hypercalcemia work up in progress. stop calcium and vit d supplements. continue IVF and calcitonin Lasix prn as per volume status no monoclonal bands, kappa/ lamda ratio normal , ONIEL not elevated, Vit 25 D in normal range, PTh is appropriately low. Metabolic encephalopathy due to hypercalcemia and dehydration now better. ISAAC on CKD CT abdomen pelvis no obstruction though there is mild left hydronephrosis which is felt to be due to loaded colon probably due to hypercalcemia and dehydration continue IVF and management of hypercalcemia need to rule out other causes like MM. stop lisinopril appreciate Nephrology input. Rectal fecal stasis with stercoral colitis aggressive bowel regimen with miralax, senkot-s, dulcolax. now seems like has resolved. Diastolic Congestive heart failure (CHF). at present patient is euvolemic diuretics as needed. COPD with chronic respiratory failure with hypoxia will continue albuterol nebs and give spiriva. with oxygen supplementation TEREZA on CPAP restart CPAP if available. Benign prostatic hypertrophy (BPH) with h/o urinary retention: Dumont catheter in place. Continue Flomax and finasteride. Last changed on 12/05/18. Had blockage 3 times in the past 1 month. Left knee status post history of replacement Now with chronic knee swelling and pain, WC bound, praveena lift. will continue with tylenol and tramadol for pain control. Diabetes Will hold januvia. Insulin as per sliding scale. Gastroesophageal reflux disease (GERD) on ranitidine at home , here will give famotidine Anxiety and depression Continue Lexapro, Wellbutrin. Hypothyroidism Continue Synthroid. TSH is therapeutic. Hyperlipidemia will continue statin Deep venous thrombosis (DVT) prophylaxis: Heparin subcutaneous. Plan/VTE VTE Prophylaxis Ordered?: Yes VS, I&O, 24H, Fishbone Vital Signs/I&O Vital Signs Date Time Temp Pulse Resp B/P (MAP) Pulse Ox O2 Delivery O2 Flow Rate FiO2 12/11/18 16:00 99.2 68 20 141/70 (93) 95 Room Air 12/10/18 19:24 2.0 I&O- Last 24 Hours up to 6 AM 12/11/18 06:00 Intake Total 4510 ml Output Total 3775 ml Balance 735 ml Laboratory Data 24H LABS Laboratory Tests 2 12/10/18 20:18: Bedside Glucose (Misc Panel) 102 12/11/18 04:40: Nucleated Red Blood Cells % (auto) 0.0, Anion Gap 7L, Glomerular Filtration Rate 21.8L, Blood Urea Nitrogen 32H, Creatinine 3.02H, Sodium Level 141, Potassium Level 3.5, Chloride Level 109H, Carbon Dioxide Level 25, Calcium Level 9.4, Whole Blood Ionized Calcium 5.5H 12/11/18 11:25: Bedside Glucose (Misc Panel) 144H CBC/BMP Laboratory Tests 12/11/18 04:40 Red Blood Count 2.87 L, Mean Corpuscular Volume 86.4, Mean Corpuscular Hemoglobin 28.2, Mean Corpuscular Hemoglobin Concent 32.7, Red Cell Distribution Width 14.5, Calcium Level 9.4 Microbiology Microbiology 12/07/18 Blood Culture - Preliminary, Resulted No Growth after 72 hours. All specime... 12/07/18 Blood Culture - Preliminary, Resulted No Growth after 72 hours. All specime... 12/10/18 Stool Occult Blood (ESVIN) - Final, Complete 12/07/18 Urine Culture - Final, Complete Proteus Mirabilis BEATRIZ CAPUTO MD Dec 11, 2018 17:55
[2018-12-11] MEDS: FINASTERIDE 5 MG TAB PO SCH (20:42)
[2018-12-11] MEDS: risperiDONE 2 MG TAB PO SCH (20:43)
[2018-12-11] MEDS: ESCITALOPRAM OXALATE 10 MG TAB (LEXAPRO) PO SCH (20:43)
[2018-12-11] MEDS: ATORVASTATIN 20 MG TAB PO SCH (20:43)
[2018-12-11] MEDS: traMADol 50 MG TAB PO SCH (20:46)
[2018-12-11] MEDS: TAMSULOSIN 0.4 MG CAP PO SCH (20:46)
[2018-12-12 04:00] VITALS: BP 159/76
[2018-12-12] MEDS: LEVOTHYROXINE 125MCG TABLET (0.125MG) PO SCH ×2 (05:20→05:41)
[2018-12-12 05:30] VITALS: BP 158/70
[2018-12-12] MEDS: SODIUM CHLORIDE 0.9% INJ 10 ML SYR IV SCH ×2 (05:41→12:32)
[2018-12-12 06:03] LABS: HEMATOCRIT 25.1 % (42.0-52.0); HEMOGLOBIN 8.1 g/dl (13.5-17.5); MEAN CORPUSCULAR HEMOGLOBIN 27.8 pg (27.0-33.0); MEAN CORPUSCULAR HGB CONC 32.3 g/dl (32.0-36.5); MEAN CORPUSCULAR VOLUME 86.3 fl (80.0-96.0); PLATELET COUNT, AUTOMATED 309 10^3/uL (150-450); RED BLOOD COUNT 2.91 10^6/uL (4.30-6.10); WHITE BLOOD COUNT 5.7 10^3/uL (4.0-10.0)
[2018-12-12 06:24] LABS: CALCIUM LEVEL 9.2 MG/DL (8.8-10.2); CREATININE FOR GFR 2.85 MG/DL (0.70-1.30); GLOMERULAR FILTRATION RATE 23.3 (>42); POTASSIUM SERUM 3.2 MEQ/L (3.5-5.1)
[2018-12-12] MEDS: HumaLOG INSULIN (NovoLOG) PER UNIT SC SCH ×4 (07:30→21:00)
[2018-12-12] MEDS: ALBUTEROL SULFATE 2.5 MG/0.5 ML INH NEB SOLN NEB SCH ×2 (07:53→21:39)
[2018-12-12] MEDS: TIOTROPIUM INHALER/CAPSULE (SPIRIVA) INH SCH (07:54)
[2018-12-12] MEDS: buPROPion **XL** TABLET 150MG (WELLBUTRIN XL) PO SCH (08:28)
[2018-12-12] MEDS: FAMOTIDINE 20 MG TAB PO SCH (08:28)
[2018-12-12] MEDS: cefTRIAXone SOD 1 GM in D5W MINI-BAG PLUS 50 ML IV SCH (08:28)
[2018-12-12] MEDS: HEPARIN SOD (PORCINE) 5000 UNITS/ML VIAL SC SCH ×2 (08:28→21:03)
[2018-12-12] MEDS: ACETAMINOPHEN 500 MG TAB PO SCH ×2 (08:29→21:01)
[2018-12-12] MEDS: IRON SUCROSE 200 MG in NS 100 ML OVER 1 HR IV SCH (12:32)
[2018-12-12 12:56] LABS: URIC ACID 3.9 MG/DL (3.5-7.2)
[2018-12-12 14:00] VITALS: BP 152/71
--- NOTE | 2018-12-12 14:31 | IPN ---
DATE OF SERVICE: 12/11/2018 SUBJECTIVE: The patient was seen and examined at the bedside today morning. He is afebrile and hemodynamically stable. He has a very good urine output. Renal function is stable. Creatinine is down to 3. He continues to be on IV fluid. Calcium levels are improving towards normal. OBJECTIVE: Vital Signs: Temperature 98.7 degrees Fahrenheit. Blood pressure 148/83. Pulse 68. Respiratory rate 18. Saturating 92% on room air. Intake and Output: Urine output recorded as 3.6 liters yesterday and 1.7 liters so far today since overnight. Weight on the bed scale is not available. PHYSICAL EXAMINATION: General: The patient is awake, alert and oriented times two, laying in bed, in no apparent distress. Head and Neck Exam: Extraocular muscles intact. Pupils equally round and reactive to light. Mucous membranes are moist. Neck is supple. There is no jugular venous distention (JVD). Cardiovascular: S1, S2. Regular rate. No edema of the bilateral lower extremities. Respiratory: Chest is clear to auscultation bilaterally. Bilateral equal air entry. No rales or rhonchi. Abdomen: Soft. Positive bowel sounds. Nontender. No organomegaly. Genitourinary: He has an indwelling Rodriguez catheter. Musculoskeletal: No clubbing or stenosis. Pulses 2+. Central Nervous System: No focal deficit. He moves bilateral upper extremities. LAB REVIEW: CBC showed a WBC of 6.4, hemoglobin 8.1, and platelets 310. BMP showed sodium 141, potassium 3.5, chloride 109, bicarbonate 25, BUN 32, creatinine 3 and it was 3.4 yesterday. Calcium 9.4. Ionized calcium is 5.5. CURRENT INPATIENT MEDICATIONS: Patient's medications were all reviewed by me. His IV fluids are stopped today morning. Calcitonin was stopped today morning. He was given a dose of Lasix 20 mg IV yesterday. ASSESSMENT AND PLAN: 1. Hypercalcemia. Calcium level is improving. Multiple myeloma was ruled out. IV fluids are being stopped today. Calcitonin was also stopped today morning. 2. Hypokalemia. The patient was given oral potassium. Potassium level is improved within the normal range. 3. Acute kidney injury superimposed on chronic kidney disease. Renal function continues to improve. Creatinine is down to 3. 4. Chronic diastolic congestive heart failure. The patient was given a dose of Lasix IV yesterday. Volume status is optimized. 5. Iron deficiency anemia. The patient is getting IV Venofer. He will get it for a total of three doses.
--- NOTE | 2018-12-12 16:09 | IPNPDOC ---
Text Note Date of Service The patient was seen on 12/12/18. NOTE Subjective: Patient states he feels well. Notes that he fell on his left knee prior to admission and stated has been swollen. Objective: Vitals: (see below) General: No acute distress, laying comfortably in bed. HEENT: Moist mucous membranes. Neck: No JVD or lymphadenopathy Cardiac: RRR, No murmurs Pulm: Clear to auscultation b/l. No wheezing, rhonchi Abd: NT/ND + BS Ext: No cyanosis. Left knee swollen. No erythema. No warmth. Full range of motion. Distal pulses intact Rodriguez in place. No gross hematuria noted. Labs (see below) Images: Left knee x-ray pending Assessment/Plan 1. Hypercalcemia improved. Calcium and vitamin D supplements discontinued. Status post IV fluids and calcitonin. Lasix as needed. Appreciate nephrology input. 2. Metabolic encephalopathy resolved likely secondary to hypercalcemia and dehydration. 3. Acute kidney injury and chronic kidney disease improved. Patient did have mild left hydronephrosis due to fecal impaction. Appreciate frontal. 4. Fecal stasis and sterile calls colitis- resolving. Patient is having bowel movements with current bowel regimen. Constipation likely worsened by. Hypercalcemia. 5. History of diastolic heart failure compensated. Diuretics as needed. 6. History of COPD with chronic respiratory failure and hypoxia. Continue nebs as needed. Continue Spiriva. 7. Left knee pain status post fall. Patient was history of knee replacement. X- ray pending. Pain control. Will apply ice. 8. Diabetes mellitus hold Januvia. Sliding scale insulin. 9. History of GERD will need outpatient follow-up 10. History of anxiety and depression continue home meds 11. History of hypothyroidism on Synthroid 12. History of hyperlipidemia on statin 13. BPH with history of urinary retention. Rodriguez in place. On Flomax and finasteride. Last changed on 12/05/18. Had blockages 3 times in the past 1 month. Will need outpatient urology follow-up. DVT prophy: Heparin subcutaneous We'll need outpatient urology follow-up. Overall prognosis guarded. Physical therapy consulted. VS,Fishbone, I+O VS, Fishbone, I+O Laboratory Tests 12/12/18 05:48 Red Blood Count 2.91 L, Mean Corpuscular Volume 86.3, Mean Corpuscular Hemoglobin 27.8, Mean Corpuscular Hemoglobin Concent 32.3, Red Cell Distribution Width 14.3, Calcium Level 9.2 Vital Signs Date Time Temp Pulse Resp B/P (MAP) Pulse Ox O2 Delivery O2 Flow Rate FiO2 12/12/18 14:00 98.2 63 18 152/71 (98) 95 Room Air 12/10/18 19:24 2.0 I&O- Last 24 Hours up to 6 AM 12/12/18 06:00 Intake Total 2789 ml Output Total 2875 ml Balance -86 ml FELIBERTO TINAJERO MD Dec 12, 2018 16:09
[2018-12-12 16:32] LABS: URINE TOTAL PROTEIN 51.3 MG/DL (0-12)
[2018-12-12] MEDS ORDERED: POTASSIUM CHLORIDE 10 MEQ SR TABLET PO ONE (17:00)
[2018-12-12] MEDS: traMADol 50 MG TAB PO SCH (21:01)
[2018-12-12] MEDS: FINASTERIDE 5 MG TAB PO SCH (21:02)
[2018-12-12] MEDS: ESCITALOPRAM OXALATE 10 MG TAB (LEXAPRO) PO SCH (21:02)
[2018-12-12] MEDS: ATORVASTATIN 20 MG TAB PO SCH (21:02)
[2018-12-12] MEDS: TAMSULOSIN 0.4 MG CAP PO SCH (21:03)
[2018-12-12] MEDS: risperiDONE 2 MG TAB PO SCH (21:05)
[2018-12-12 22:00] VITALS: BP 157/75
[2018-12-13] MEDS: SODIUM CHLORIDE 0.9% INJ 10 ML SYR IV SCH ×2 (05:47→18:15)
[2018-12-13 06:00] VITALS: BP 162/81
[2018-12-13] MEDS: LEVOTHYROXINE 125MCG TABLET (0.125MG) PO SCH (06:00)
[2018-12-13 06:09] LABS: HEMATOCRIT 24.8 % (42.0-52.0); HEMOGLOBIN 8.2 g/dl (13.5-17.5); MEAN CORPUSCULAR HGB CONC 33.1 g/dl (32.0-36.5); MEAN CORPUSCULAR VOLUME 84.6 fl (80.0-96.0); PLATELET COUNT, AUTOMATED 320 10^3/uL (150-450); RED BLOOD COUNT 2.93 10^6/uL (4.30-6.10); WHITE BLOOD COUNT 5.4 10^3/uL (4.0-10.0)
[2018-12-13 06:42] LABS: CALCIUM LEVEL 8.8 MG/DL (8.8-10.2); CREATININE FOR GFR 2.63 MG/DL (0.70-1.30); GLOMERULAR FILTRATION RATE 25.5 (>42); POTASSIUM SERUM 3.3 MEQ/L (3.5-5.1)
--- NOTE | 2018-12-13 07:40 | REP ---
LEFT KNEE, COMPLETE: 12/12/2018. Clinical history: Left knee pain and swelling. Findings: No prior studies. Five views were provided. A right total knee arthroplasty is evident. There is very large joint effusion seen on the cross-table lateral and suprapatellar bursa and extending into the joint and also seen distending into the capsule posteriorly. I do not see osteolysis in the distal femur or proximal tibia. There is asymmetry in width of the medial and lateral compartments of the medial joint line opened on the frontal view. This suggests medial collateral ligament injury. Proximally and distally along the course of that ligament there are ossific densities that may reflect prior and current injury. I do not see acute fracture. There is heavy vascular calcification in the femoral popliteal artery and branches in the proximal calf. Impression: 1. Status post left total knee arthroplasty with evidence of a significant and very large joint effusion distending the joint capsule in the suprapatellar bursa and posterior to the knee. There is abnormal widening of the medial aspect of the knee joint suggesting ligamentous disruption. This may be acute and/or chronic. Whether the fluid in the knee represents simple joint effusion, hemorrhage and/or infection is unknown. 2. No evidence of acute fracture. No osteolysis suggested along the prosthetic components and the adjacent tibial plateau and femoral condyle. 3. Heavy vascular calcifications throughout arteries in the field of view. Electronically Signed by Fabrice Cherry MD 12/13/2018 01:01 P
[2018-12-13] MEDS: HumaLOG INSULIN (NovoLOG) PER UNIT SC SCH ×4 (07:49→21:00)
[2018-12-13] MEDS: ALBUTEROL SULFATE 2.5 MG/0.5 ML INH NEB SOLN NEB SCH ×2 (08:51→20:03)
[2018-12-13] MEDS: TIOTROPIUM INHALER/CAPSULE (SPIRIVA) INH SCH (08:51)
[2018-12-13] MEDS: FAMOTIDINE 20 MG TAB PO SCH (08:57)
[2018-12-13] MEDS: buPROPion **XL** TABLET 150MG (WELLBUTRIN XL) PO SCH (08:57)
[2018-12-13] MEDS: ACETAMINOPHEN 500 MG TAB PO SCH ×2 (08:58→21:43)
[2018-12-13] MEDS: HEPARIN SOD (PORCINE) 5000 UNITS/ML VIAL SC SCH ×2 (08:59→21:41)
[2018-12-13] MEDS ORDERED: POTASSIUM CHLORIDE 10 MEQ SR TABLET PO ONE (09:00)
[2018-12-13] MEDS: IRON SUCROSE 200 MG in NS 100 ML OVER 1 HR IV SCH (09:00)
[2018-12-13] MEDS: SENOKOT S TAB PO SCH ×2 (09:42→21:42)
[2018-12-13 10:56] LABS: ERYTHROCYTE SEDIMENTATION RATE 81 mm/hr (0-20)
[2018-12-13 10:59] LABS: C REACTIVE PROTEIN QUANTITATIV 2.81 MG/DL (0.00-0.30)
[2018-12-13] MEDS: cefTRIAXone SOD 1 GM in D5W MINI-BAG PLUS 50 ML IV SCH (11:27)
[2018-12-13 14:00] VITALS: BP 127/74
--- NOTE | 2018-12-13 15:36 | CR ---
DATE OF CONSULTATION: 12/13/2017 CHIEF COMPLAINT: Left knee pain. HISTORY OF PRESENT ILLNESS: This man was admitted on 12/07/[address] Laura Olivas due to hypercalcemia and acute renal failure. He has a number medical comorbidities. Apparently, he had had a left total knee arthroplasty done a number years ago in [facility]. No one is aware of the surgeon that I can tell. The patient is not aware and he is quite a poor historian. From what I can tell, he might have had a fall onto the left knee and is experiencing some amount of knee pain. On review of systems, it does not seem like he has any fever, chills, sweats at night, increased redness of the knee, but does feel like it is a little bit painful and clicking around. PAST MEDICAL HISTORY: Includes: 1. Chronic kidney disease, stage III. 2. Benign prostatic hypertrophy (BPH). 3. Chronic obstructive uropathy. 4. Recurrent urinary tract infections. 5. Type 2 diabetes. 6. Hypothyroidism. 7. Chronic obstructive pulmonary disease (COPD). 8. Arthritis. 9. Chronic diastolic congestive heart failure. 10. Obstructive sleep apnea. 11. Anxiety. 12. Depression. MEDICATIONS: Bisacodyl, heparin, ceftriaxone, ondansetron, bupropion, famotidine, tiotropium, levothyroxine sodium, Risperdal, atorvastatin, Lexapro, finasteride, tamsulosin, tramadol, insulin, albuterol. ALLERGIES: No known drug allergies. PAST SURGICAL HISTORY: Left total knee replacement. Unknown surgeon. Unknown how long ago this was or if he had any problems postoperatively. SOCIAL HISTORY: The patient lives at [facility]. No history of illicit drug abuse or alcohol use. He is dependent on the Jorje lift. REVIEW OF SYSTEMS: The patient unable to really provide much in the way of this but it sounds like it was negative for fever, chills, sweats at night, or flu-like illnesses. PHYSICAL EXAMINATION: VITAL SIGNS: Temperature 97.9, blood pressure 168/81 at 64, 99% on room air with respiratory rate 18. Inspection of his left knee reveals a moderate to severe amount of swelling compared to the right side. Active range of motion on the right side 0-110 degrees, left side very minimal. He is minimally able to use his left knee. Passively 0-100 degrees. Normal sensation throughout both lower extremities, L2-S1, and throughout the feet. Feet are well-perfused and warm. Good pedal pulses. Stability testing of the patella revealed it to be quite unstable medial to lateral. There was lots of clunking and clicking going on. He had a large size effusion but no overlying redness or warmth to the knee. Medial to lateral was quite unstable as well with lots of clicking and sensations of instability anterior, posterior, and medial to lateral. Completely unstable. Radiographs were reviewed. This shows a total knee arthroplasty on the left side. On the lateral side, it looks like the polyethelene is either displaced or almost completely worn out. There is chronic gapping. There is valgus alignment. I do not see any subsidence of the tibial component but the femoral component may be loosening or malrotated. The patella appears to be quite low with patella baja or else not in the groove, but unfortunately there is no sunrise view to really compare this. There is a severe amount of soft tissue swelling about the knee and vascular calcifications. LABORATORY DATA: WBC 5.4, ESR 81, and CRP 2.8. ASSESSMENT AND PLAN: This 73-year-old man with relatively low demands, dependent on a Jorje lift. I am unsure if this is a new or old problem given that this man is a difficult historian. Certainly, he could have had a fall and is experiencing some instability or loosening of the components on an acute or chronic basis. I do not think this is infected, although certainly this could be the case but there does not appear to be any overlying redness, drainage, problems with the incision, or warmth to the knee. I would like to obtain a CT scan to really look at the components and look at the alignment of the entire arthroplasty as a first step. I do not think that we should go ahead and do an aspirate as of yet. I will obtain the CT scan first and also get an opinion of an arthroplasty surgeon once I have that. We will follow along as well with serial inflammatory markers.
--- NOTE | 2018-12-13 15:39 | IPNPDOC ---
Text Note Date of Service The patient was seen on 12/13/18. NOTE Subjective: Patient notes only slight improvement in left knee pain. No eryth niranjan/warmth noted. Objective: Vitals: (see below) General: No acute distress, laying comfortably in bed. HEENT: Moist mucous membranes. Neck: No JVD or lymphadenopathy Cardiac: RRR, No murmurs Pulm: Clear to auscultation b/l. No wheezing, rhonchi Abd: NT/ND + BS Ext: No cyanosis. Left knee swollen. No erythema. No warmth. Full range of motion. Distal pulses intact Rodriguez in place. No gross hematuria noted. Labs (see below) Images: Left knee x-ray pending Assessment/Plan 1. s/p Hypercalcemia improved. Calcium and vitamin D supplements discontinued. Status post IV fluids and calcitonin. Lasix as needed. Appreciate nephrology input. 2. Metabolic encephalopathy resolved likely secondary to hypercalcemia and dehydration. 3. Acute kidney injury and chronic kidney disease improved. Patient did have mild left hydronephrosis due to fecal impaction. Appreciate frontal. 4. Fecal stasis and sterile calls colitis- resolving. Patient is having bowel movements with current bowel regimen. Constipation likely worsened by. Hypercalcemia. 5. History of diastolic heart failure compensated. Diuretics as needed. 6. History of COPD with chronic respiratory failure and hypoxia. Continue nebs as needed. Continue Spiriva. 7. Left knee pain status post fall. Patient was history of knee replacement. X- ray noted. Pain control. Will apply ice. Ortho consulted. 8. Diabetes mellitus hold Januvia. Sliding scale insulin. 9. History of GERD will need outpatient follow-up 10. History of anxiety and depression continue home meds 11. History of hypothyroidism on Synthroid 12. History of hyperlipidemia on statin 13. BPH with history of urinary retention. Rodriguez in place. On Flomax and finasteride. Last changed on 12/05/18. Had blockages 3 times in the past 1 month. Will need outpatient urology follow-up. DVT prophy: Heparin subcutaneous We'll need outpatient urology follow-up. Overall prognosis guarded. Physical therapy consulted. VS,Fishbone, I+O VS, Fishbone, I+O Laboratory Tests 12/13/18 05:48 Red Blood Count 2.93 L, Mean Corpuscular Volume 84.6, Mean Corpuscular Hemoglobin 28.0, Mean Corpuscular Hemoglobin Concent 33.1, Red Cell Distribution Width 14.2, Calcium Level 8.8 Vital Signs Date Time Temp Pulse Resp B/P (MAP) Pulse Ox O2 Delivery O2 Flow Rate FiO2 12/13/18 14:00 98.4 70 18 127/74 (91) 100 Room Air 12/10/18 19:24 2.0 I&O- Last 24 Hours up to 6 AM 12/13/18 06:00 Intake Total 1650 ml Output Total 3900 ml Balance -2250 ml FELIBERTO TINAJERO MD Dec 13, 2018 15:39
--- NOTE | 2018-12-13 18:19 | REP ---
CT study of the left knee without contrast: History: Check for component loosening total knee arthroplasty. Swelling. Technique: Helical scanning is acquired and 2 mm axial images are generated. Coronal and sagittal multiplanar re-formation images are generated and reviewed. CT findings: There is considerable spray artifact from the femoral and tibial metallic components of the knee arthroplasty. However, it can be seen at the bony patella is laterally subluxed. There is a large suprapatellar joint effusion. Within the joint effusion there is a radiolucent a rectangular body which is dissociated from the bony patella. There is marked chronic synovial thickening and indeed some calcification in the wall of the suprapatellar bursa. Otherwise, the rectangular lucent filling defect is surrounded by fluid. The findings are compatible with dissociation of the radiolucent patellar prosthetic component from the [place] patella. Prosthetic component presents as a loose body and a fluid distended suprapatellar bursa. The bursa has chronic synovitis wall thickening. Impression: Findings compatible with dissociation of the patellar prosthetic component from the [place] patella. Large joint effusion. Chronic synovitis picture with thickening. Findings discussed by telephone with Dr. Alison Fitch, the referring provider. Electronically Signed by Av Isaacs MD 12/13/2018 06:20 P
--- NOTE | 2018-12-13 18:47 | IPNPDOC ---
Text Note Date of Service The patient was seen on 12/13/18. NOTE SUBJECTIVE: Patient was examined at bedside. He has been afebrile, he has been hemodynamically stable. He had no acute complaints. Renal function is recovering with excellent urine output to dumont. He requests more fluids at bedside. Denies chest pain, denies nausea, denied vomiting, denies shortness of breath. OBJECTIVE: Vital Signs:See below PHYSICAL EXAMINATION: General: Elderly gentleman, no acute distress, resting comfortably in bed Head and Neck Exam: No JVD, supple neck, pupils are round and reactive. Head is atraumatic Cardiovascular: S1, S2, present. Regular rate and rhythm rhythm Respiratory: CTAP. No wheezing, no rhonchi Abdomen: Soft, bowel sounds present, no organomegaly, no guarding, no rebound tenderness Musculoskeletal: No clubbing or stenosis. No edema Genitourinary: dumont catheter in place LAB REVIEW: Labs reviewed, see below ASSESSMENT AND PLAN: 1. s/p Hypercalcemia treated with IVF and calcitonin. Now with normocalcemia. Workup was negative, including Vit D, Vit D1,25, spep, SFLC, ONIEL, PTH, PTHrp. UPEP is pending. Hypercalcemia was most likely due to excess calcium intake and dehydration. Please keep him off calcium supplements. 2. Hypokalemia. Likely due to renal recovery with significant urine output. Oral supplementation provided. 3. Acute kidney injury superimposed on chronic kidney disease. BUN and creatinine continue to improve but not yet at baseline. Beverages at bedside as he is having some mild polyuria of renal recovery. Hold home ACEi. 4. Chronic diastolic congestive heart failure. Volume status is acceptable. Hold lasix. 5. Iron deficiency anemia. He received a 3 doses of Venofer. H&H is currently stable. Continue to monitor. VS,Fishbone, I+O VS, Fishbone, I+O Laboratory Tests 12/13/18 05:48 Red Blood Count 2.93 L, Mean Corpuscular Volume 84.6, Mean Corpuscular Hemoglobin 28.0, Mean Corpuscular Hemoglobin Concent 33.1, Red Cell Distribution Width 14.2, Calcium Level 8.8 Vital Signs Date Time Temp Pulse Resp B/P (MAP) Pulse Ox O2 Delivery O2 Flow Rate FiO2 12/13/18 14:00 98.4 70 18 127/74 (91) 100 Room Air 12/10/18 19:24 2.0 I&O- Last 24 Hours up to 6 AM 12/13/18 06:00 Intake Total 1650 ml Output Total 3900 ml Balance -2250 ml GME ATTESTATION GME ATTESTATION My faculty preceptor for this patient encounter was physically present during the encounter and was fully available. All aspects of the patient interview, examination, medical decision making process, and medical care plan development were reviewed and approved by the faculty preceptor. The faculty preceptor is aware and concurs with the plan as stated in the body of this note and will attest to such by his/her cosignature. CLAUDIA SWARTZ DO Dec 13, 2018 18:47 TY AC DO Dec 13, 2018 20:53
--- NOTE | 2018-12-13 19:04 | IPN ---
DATE: 12/12/2018 SUBJECTIVE: The patient is seen and examined this morning at the bedside. He is eating. He says he has no complaints. He feels well. Reports that he has been thirsty and requests more beverages at the bedside. VITAL SIGNS: Temperature 98.2, pulse 63, respiratory rate 18, blood pressure 152/71, saturating 95% on room air. Intake yesterday was 2.8 liters. Urine output yesterday was 3.4 liters, net negative 500 mL. Weight in the bed scale today is not recorded. GENERAL: Patient is seen sitting up in bed eating, awake, alert, comfortable in no acute distress. Tongue is moist. NECK: Supple. Jugular veins are not elevated. CARDIAC: Regular rate and rhythm. S1, S2. No edema in the peripheries or in the dependent area. LUNGS: Clear to auscultation bilaterally. No crackles, wheeze, or rale. ABDOMEN: Soft and nontender. GENITOURINARY: Shows Rodriguez catheter with a lot of urine. ABDOMEN: Soft and nontender. EXTREMITIES: Negative for edema. NEUROLOGIC: He is interactive, conversational, and appropriate and follows commands. LABORATORY DATA: Sodium 139, potassium 3.2, bicarbonate 26, BUN 32, creatinine 2.8, calcium 9.2. Hemoglobin 8.1, platelets 309. INPATIENT MEDICATIONS: Reviewed by myself. He received a dose of oral potassium 40 mEq times one today. His remainder of medications are unchanged from prior. PROBLEMS: 1. Hypercalcemia. Calcium was 14.6 on arrival. It has now improved to 9.2 today. He is normocalcemic. He is status post intravenous (IV) fluids and status post calcitonin. As far as the workup for his hypercalcemia, it has returned negative so far, including vitamin D, vitamin D125, thyroid-stimulating hormone (TSH), parathyroid hormine, parathyroid hormone-related protein, serum protein electrophoresis (SPEP), serum free light chains, and angiotensin-converting enzyme. The only test still pending is his urine protein electrophoresis (UPEP). At this point, given that the workup is negative, I feel the hypercalcemia may have been related to his twice-daily calcium supplements that he was on and ISAAC, and he should not be resumed on calcium supplement in the outpatient setting. 2. Acute kidney injury (ISAAC) superimposed on chronic kidney disease (CKD), stage III. His baseline renal function appears to be in the mid 1's, although he has had multiple acute kidney injuries in the recent past. His renal function is improving. Creatinine is down to 2.8 today from initially 4.8 on admission, and he is having urine output of greater than 3 liters daily. 3. History of chronic diastolic congestive heart failure. Volume status is acceptable today, and I held off on further diuretics. He is in net-negative fluid balance the past 2 days. He may be in the polyuric phase of renal recovery. 4. Iron deficiency anemia. He is getting a total of three doses of intravenous (IV) Venofer. His hemoglobin is suboptimal but stable in the 8's, and his transferrin saturation was low at 15%. 5. History of urinary retention with BPH. He continues with indwelling Rodriguez and is on Flomax and finasteride. [facility]
[2018-12-13] MEDS: TAMSULOSIN 0.4 MG CAP PO SCH (21:41)
[2018-12-13] MEDS: FINASTERIDE 5 MG TAB PO SCH (21:41)
[2018-12-13] MEDS: ESCITALOPRAM OXALATE 10 MG TAB (LEXAPRO) PO SCH (21:42)
[2018-12-13] MEDS: ATORVASTATIN 20 MG TAB PO SCH (21:43)
[2018-12-13] MEDS: risperiDONE 2 MG TAB PO SCH (21:43)
[2018-12-13] MEDS: traMADol 50 MG TAB PO SCH (21:43)
[2018-12-13 22:00] VITALS: BP 142/73
[2018-12-14] MEDS: SODIUM CHLORIDE 0.9% INJ 10 ML SYR IV SCH ×2 (05:14→18:08)
[2018-12-14] MEDS: LEVOTHYROXINE 125MCG TABLET (0.125MG) PO SCH (05:14)
[2018-12-14 05:30] LABS: HEMATOCRIT 23.6 % (42.0-52.0); MEAN CORPUSCULAR HEMOGLOBIN 27.9 pg (27.0-33.0); MEAN CORPUSCULAR HGB CONC 33.9 g/dl (32.0-36.5); MEAN CORPUSCULAR VOLUME 82.2 fl (80.0-96.0); PLATELET COUNT, AUTOMATED 323 10^3/uL (150-450); RED BLOOD COUNT 2.87 10^6/uL (4.30-6.10); WHITE BLOOD COUNT 9.1 10^3/uL (4.0-10.0)
[2018-12-14 05:51] LABS: ERYTHROCYTE SEDIMENTATION RATE 106 mm/hr (0-20)
[2018-12-14 05:58] LABS: C REACTIVE PROTEIN QUANTITATIV 3.55 MG/DL (0.00-0.30); CALCIUM LEVEL 8.6 MG/DL (8.8-10.2); CREATININE FOR GFR 2.51 MG/DL (0.70-1.30); POTASSIUM SERUM 3.5 MEQ/L (3.5-5.1)
[2018-12-14 06:00] VITALS: BP 144/71
[2018-12-14] MEDS: ALBUTEROL SULFATE 2.5 MG/0.5 ML INH NEB SOLN NEB SCH ×2 (07:14→19:23)
[2018-12-14] MEDS: TIOTROPIUM INHALER/CAPSULE (SPIRIVA) INH SCH (07:14)
[2018-12-14] MEDS: HumaLOG INSULIN (NovoLOG) PER UNIT SC SCH ×4 (07:30→20:52)
[2018-12-14] MEDS: IRON SUCROSE 200 MG in NS 100 ML OVER 1 HR IV SCH (08:53)
[2018-12-14] MEDS: buPROPion **XL** TABLET 150MG (WELLBUTRIN XL) PO SCH (08:54)
[2018-12-14] MEDS: SENOKOT S TAB PO SCH ×2 (08:54→20:49)
[2018-12-14] MEDS: ACETAMINOPHEN 500 MG TAB PO SCH ×2 (08:54→20:47)
[2018-12-14] MEDS: FAMOTIDINE 20 MG TAB PO SCH (08:54)
[2018-12-14] MEDS: cefTRIAXone SOD 1 GM in D5W MINI-BAG PLUS 50 ML IV SCH (10:26)
--- NOTE | 2018-12-14 13:04 | IPN ---
DATE: 12/14/2018 CHIEF COMPLAINT: 73-year-old man with painful and swollen left total knee arthroplasty. HISTORY OF PRESENT ILLNESS: This 73-year-old man who has developmental disabilities was seen today in hospital follow-up for his painful left total knee. The financial services director who is managing this man for dehydration and hypercalcemia asked me to see him for his left knee. This has a remote history of total knee arthroplasty done apparently two times in [place]. I did talk to a Shalom Rivas who has been involved in his care. He is apparently a friend for the last 50 years. This man thinks that Gary is competent to make his own medical decisions and did not seem overly interested in coming into the hospital or helping out with the decision making, about what should be done with regards to his left knee. When I spoke to Gary this morning, he is really unsure about what was going on with his knee and unsure about what he wanted to do in terms of brace versus surgery. It is very difficult to communicate with this man. Temperature 98.3, blood pressure 144/71, pulse rate 65, 99% on room air. Inspection of his left knee again reveals a severe amount of swelling intra-articular. Quite a bit of looseness to the knee medial to lateral and AP. There was quite a bit of clunking and catching to the knee. CT scan was reviewed of his left knee. This shows a large intra-articular knee effusion and synovitis. The radiologist thought that the patellar component polyethylene was completely dissociated from the [place] patella. There was also an obvious amount of extreme polyethylene wear on the lateral side of the tibial femoral compartment. The patella itself sits extremely laterally and not anywhere close to being in the femoral trochlear groove of the component. The tibial and femoral components do appear to be solidly in place without evidence of obvious osteolysis or loosening. Difficult to comment on the rotation. No obvious fractures that I can see. ASSESSMENT/PLAN: This 73-year-old man who has developmental disabilities and difficult to exactly tease out how much he was weightbearing before as well as what he would like done. I think the best next step would be to try a hinged knee brace which we will have our nurse practitioner Urmila order and obtain for this patient. It sounds like for at least a year they have been a total lift with a Jorje. As such, I do not think that given his cognitive difficulties and lack of formal decision maker, I do not think we should be rushing into surgery. I did get the opinion of Dr. Mckeon, one of our arthroplasty surgeons at [facility] and if anything needs to be done surgically, it would be a third time revision and his suggestion would be to send it to Dr. Reaves at [facility]. For now, we will get him fitted for the brace and see if that can help his pain and instability of his knee.
--- NOTE | 2018-12-14 13:24 | IPNPDOC ---
Text Note Date of Service The patient was seen on 12/14/18. NOTE Subjective: Pt notes his knee is still swollen, however pain is controlled. D enies any other complaints. Objective: Vitals: (see below) General: No acute distress, laying comfortably in bed. HEENT: Moist mucous membranes. Neck: No JVD or lymphadenopathy Cardiac: RRR, No murmurs Pulm: Clear to auscultation b/l. No wheezing, rhonchi Abd: NT/ND + BS Ext: No cyanosis. Left knee swollen. No erythema. No warmth. Full range of motion. Distal pulses intact Rodriguez in place. No gross hematuria noted. Labs (see below) Images: CT of the left knee 12/14/18 Impression: Findings compatible with dissociation of the patellar prosthetic component from the [place] patella. Large joint effusion. Chronic synovitis picture with thickening. Findings discussed by telephone with Dr. Alison Fitch, the referring provider. Assessment/Plan 1. Left knee pain status post fall. Patient was history of knee replacement. CT (see above) Pain control. Will apply ice. Ortho consulted. Appreciate Dr. Fitch's input. 2. Metabolic encephalopathy resolved likely secondary to hypercalcemia and dehydration. 3. Acute kidney injury and chronic kidney disease improved. Patient did have mild left hydronephrosis due to fecal impaction. Appreciate frontal. 4. Fecal stasis and sterile calls colitis- resolving. Patient is having bowel movements with current bowel regimen. Constipation likely worsened by. Hypercalcemia. 5. History of diastolic heart failure compensated. Diuretics as needed. 6. History of COPD with chronic respiratory failure and hypoxia. Continue nebs as needed. Continue Spiriva. 7. s/p Hypercalcemia improved. Calcium and vitamin D supplements discontinued. Status post IV fluids and calcitonin. Lasix as needed. Appreciate nephrology input. 8. Diabetes mellitus hold Januvia. Sliding scale insulin. 9. History of GERD will need outpatient follow-up 10. History of anxiety and depression continue home meds 11. History of hypothyroidism on Synthroid 12. History of hyperlipidemia on statin 13. BPH with history of urinary retention. Rodriguez in place. On Flomax and finasteride. Last changed on 12/05/18. Had blockages 3 times in the past 1 month. Will need outpatient urology follow-up. DVT prophy: Heparin subcutaneous We'll need outpatient urology follow-up. Overall prognosis guarded. Physical therapy consulted. VS,Fishbone, I+O VS, Fishbone, I+O Laboratory Tests 12/14/18 05:20 Red Blood Count 2.87 L, Mean Corpuscular Volume 82.2, Mean Corpuscular Hemoglobin 27.9, Mean Corpuscular Hemoglobin Concent 33.9, Red Cell Distribution Width 14.1, Calcium Level 8.6 L Vital Signs Date Time Temp Pulse Resp B/P (MAP) Pulse Ox O2 Delivery O2 Flow Rate FiO2 12/14/18 06:00 98.3 65 20 144/71 (95) 99 Room Air 12/10/18 19:24 2.0 I&O- Last 24 Hours up to 6 AM 12/14/18 06:00 Intake Total 3780 ml Output Total 3175 ml Balance 605 ml FELIBERTO TINAJERO MD Dec 14, 2018 13:24
[2018-12-14 14:00] VITALS: BP 130/74
--- NOTE | 2018-12-14 18:17 | IPNPDOC ---
Text Note Date of Service The patient was seen on 12/14/18. NOTE SUBJECTIVE: Patient was examined at bedside. He had no acute pain. Denied any breathing difficulty, denied any chest pain. Patient did state that he was thirsty and asked for water. He continues to make excellent urine volume by urinary catheter. He is currently hemodynamically stable with continued improved renal function. He remains afebrile OBJECTIVE: Vital Signs:See below PHYSICAL EXAMINATION: General: Elderly gentleman, resting comfortably, no acute distress, orientated to person, place and situation Head and Neck Exam: No JVD, Head is atraumatic, neck is supple Cardiovascular: S1, S2, present. RRR, no murmur Respiratory: CTAB. No wheezing, no rhonchi Abdomen: Soft, bowel sounds present, no guarding Genitourinary: dumont catheter in place Extremities: Right knee brace, no edema, no cyanosis, no extremity deformity LAB REVIEW: Labs reviewed, see below ASSESSMENT AND PLAN: 1. s/p Hypercalcemia treated with IVF and calcitonin. Patient currently has a calcium level of 8.6. This decreased in calcium is expected due to patient's continued improvement in renal function, and excellent urinary output. Patient's hypercalcemia on presentation was most likely secondary to excessive supplement intake as well as dehydration. In hospital work-up including Vit D, Vit D1,25, spep, SFLC, ONIEL, PTH, PTHrp has been negative. UPEP is pending. Please has be co unseled on supplementation cessation 2. Hypokalemia. Likely due to renal recovery with significant urine output. Oral supplementation provided. Current potassium is within normal limits 3. Acute kidney injury superimposed on chronic kidney disease. BUN and creatinine continue to improve towards baseline. Beverages at bedside as he is having some mild polyuria of renal recovery. Hold home ACEi. 4. Chronic diastolic congestive heart failure. Volume status is acceptable. Hold lasix. 5. Iron deficiency anemia. He received a 3 doses of Venofer. H&H is currently stable. Continue to monitor. VS,Fishbone, I+O VS, Fishbone, I+O Laboratory Tests 12/14/18 05:20 Red Blood Count 2.87 L, Mean Corpuscular Volume 82.2, Mean Corpuscular Hemoglobin 27.9, Mean Corpuscular Hemoglobin Concent 33.9, Red Cell Distribution Width 14.1, Calcium Level 8.6 L Vital Signs Date Time Temp Pulse Resp B/P (MAP) Pulse Ox O2 Delivery O2 Flow Rate FiO2 12/14/18 14:00 98.5 70 18 130/74 (92) 97 Room Air 12/10/18 19:24 2.0 I&O- Last 24 Hours up to 6 AM 12/14/18 06:00 Intake Total 3780 ml Output Total 3175 ml Balance 605 ml GME ATTESTATION GME ATTESTATION My faculty preceptor for this patient encounter was physically present during the encounter and was fully available. All aspects of the patient interview, examination, medical decision making process, and medical care plan development were reviewed and approved by the faculty preceptor. The faculty preceptor is aware and concurs with the plan as stated in the body of this note and will attest to such by his/her cosignature. CLAUDIA SWARTZ DO Dec 14, 2018 18:17
[2018-12-14] MEDS: TAMSULOSIN 0.4 MG CAP PO SCH (20:47)
[2018-12-14] MEDS: ESCITALOPRAM OXALATE 10 MG TAB (LEXAPRO) PO SCH (20:47)
[2018-12-14] MEDS: FINASTERIDE 5 MG TAB PO SCH (20:48)
[2018-12-14] MEDS: traMADol 50 MG TAB PO SCH (20:48)
[2018-12-14] MEDS: risperiDONE 2 MG TAB PO SCH (20:49)
[2018-12-14] MEDS: ATORVASTATIN 20 MG TAB PO SCH (20:49)
[2018-12-14 22:00] VITALS: BP 154/64
[2018-12-15] MEDS: LEVOTHYROXINE 125MCG TABLET (0.125MG) PO SCH (05:31)
[2018-12-15] MEDS: SODIUM CHLORIDE 0.9% INJ 10 ML SYR IV SCH ×2 (05:32→18:28)
[2018-12-15 06:00] VITALS: BP 127/63
[2018-12-15 06:06] LABS: ERYTHROCYTE SEDIMENTATION RATE 95 mm/hr (0-20)
[2018-12-15] MEDS: HumaLOG INSULIN (NovoLOG) PER UNIT SC SCH ×4 (07:39→21:00)
[2018-12-15] MEDS: ALBUTEROL SULFATE 2.5 MG/0.5 ML INH NEB SOLN NEB SCH ×2 (07:47→20:00)
[2018-12-15] MEDS: TIOTROPIUM INHALER/CAPSULE (SPIRIVA) INH SCH (07:47)
[2018-12-15 09:06] LABS: CALCIUM LEVEL 8.7 MG/DL (8.8-10.2); CREATININE FOR GFR 2.46 MG/DL (0.70-1.30); GLOMERULAR FILTRATION RATE 27.6 (>42); POTASSIUM SERUM 3.5 MEQ/L (3.5-5.1)
[2018-12-15 09:08] LABS: HEMATOCRIT 24.1 % (42.0-52.0); HEMOGLOBIN 8.1 g/dl (13.5-17.5); MEAN CORPUSCULAR HEMOGLOBIN 28.3 pg (27.0-33.0); MEAN CORPUSCULAR HGB CONC 33.6 g/dl (32.0-36.5); MEAN CORPUSCULAR VOLUME 84.3 fl (80.0-96.0); PLATELET COUNT, AUTOMATED 330 10^3/uL (150-450); RED BLOOD COUNT 2.86 10^6/uL (4.30-6.10); WHITE BLOOD COUNT 8.5 10^3/uL (4.0-10.0)
[2018-12-15] MEDS: FAMOTIDINE 20 MG TAB PO SCH (09:14)
[2018-12-15] MEDS: buPROPion **XL** TABLET 150MG (WELLBUTRIN XL) PO SCH (09:15)
[2018-12-15] MEDS: ACETAMINOPHEN 500 MG TAB PO SCH ×2 (09:15→21:38)
[2018-12-15] MEDS: SENOKOT S TAB PO SCH ×2 (09:15→21:36)
--- NOTE | 2018-12-15 13:11 | IPNPDOC ---
Text Note Date of Service The patient was seen on 12/15/18. NOTE Subjective: Aye is still swollen, pain controlled. Denies any pain. Is in good spirits. No acute changes overnight. Objective: Vitals: (see below) General: No acute distress, laying comfortably in bed. HEENT: Moist mucous membranes. Neck: No JVD or lymphadenopathy Cardiac: RRR, No murmurs Pulm: Clear to auscultation b/l. No wheezing, rhonchi Abd: NT/ND + BS Ext: No cyanosis. Left knee swollen. No erythema. No warmth. Full range of motion. Distal pulses intact Rodriguez in place. No gross hematuria noted. Labs (see below) Images: CT of the left knee 12/14/18 Impression: Findings compatible with dissociation of the patellar prosthetic component from the [place] patella. Large joint effusion. Chronic synovitis picture with thickening. Findings discussed by telephone with Dr. Alison Fitch, the referring provider. Assessment/Plan 1. Left knee pain status post fall. Patient was history of knee replacement. CT (see above) Pain control. Will apply ice. Ortho consulted. Appreciate Dr. Fitch's input. 2. Metabolic encephalopathy resolved likely secondary to hypercalcemia and dehydration. 3. Acute kidney injury and chronic kidney disease improved. Patient did have mild left hydronephrosis due to fecal impaction. Appreciate frontal. 4. Fecal stasis and sterile calls colitis- resolving. Patient is having bowel movements with current bowel regimen. Constipation likely worsened by. Hypercalcemia. 5. History of diastolic heart failure compensated. Diuretics as needed. 6. History of COPD with chronic respiratory failure and hypoxia. Continue nebs as needed. Continue Spiriva. 7. s/p Hypercalcemia improved. Calcium and vitamin D supplements discontinued. Status post IV fluids and calcitonin. Lasix as needed. Appreciate nephrology input. 8. Diabetes mellitus hold Januvia. Sliding scale insulin. 9. History of GERD will need outpatient follow-up 10. History of anxiety and depression continue home meds 11. History of hypothyroidism on Synthroid 12. History of hyperlipidemia on statin 13. BPH with history of urinary retention. Rodriguez in place. On Flomax and finasteride. Last changed on 12/05/18. Had blockages 3 times in the past 1 month. Will need outpatient urology follow-up. DVT prophy: Heparin subcutaneous We'll need outpatient urology follow-up. Overall prognosis guarded. Physical therapy consulted, pending clearance. VS,Fishbone, I+O VS, Fishbone, I+O Laboratory Tests 12/14/18 19:17 12/15/18 05:38 Red Blood Count 2.86 L, Mean Corpuscular Volume 84.3, Mean Corpuscular Hemoglobin 28.3, Mean Corpuscular Hemoglobin Concent 33.6, Red Cell Distribution Width 14.2, Calcium Level 8.7 L Vital Signs Date Time Temp Pulse Resp B/P (MAP) Pulse Ox O2 Delivery O2 Flow Rate FiO2 12/15/18 06:00 98.1 62 24 127/63 (84) 96 Room Air 12/10/18 19:24 2.0 I&O- Last 24 Hours up to 6 AM 12/15/18 06:00 Intake Total 2408 ml Output Total 3580 ml Balance -1172 ml FELIBERTO TINAJERO MD Dec 15, 2018 13:11
[2018-12-15 13:29] LABS: ABG BASE EXCESS -2.1 (-2.0-2.0); ABG HCO3 21.6 MEQ/L (22.0-26.0); ABG O2 SATURATION 98.1 % (95.0-99.0); ABG PARTIAL PRESSURE CO2 32.8 mmHg (35.0-45.0); ABG PARTIAL PRESSURE O2 98.4 mmHg (75.0-100.0); ABG STANDARD HCO3 22.7 MEQ/L (22.0-26.0); ABG TOTAL CO2 22.6 MEQ/L (23.0-31.0); ABG pH (ARTERIAL) 7.436 UNITS (7.350-7.450)
[2018-12-15 14:00] VITALS: BP 142/70
--- NOTE | 2018-12-15 18:52 | IPNPDOC ---
Text Note Date of Service The patient was seen on 12/15/18. NOTE SUBJECTIVE: Patient was examined at bedside. He was in deep sleep and very hard to awake. He would moan with shaking, but he was not able to hold a conversation, or answer questions. He is still making copious urine volume, no events overnight and he remains afebrile. OBJECTIVE: Vital Signs:See below PHYSICAL EXAMINATION: General: Sleeping in bed, very difficult to arouse, no acute or respiratory distress Head and Neck Exam: No JVD, Cardiovascular: S1, S2, no murmurs, Respiratory: CTAB. No apparent respiratory distress Abdomen: Soft, bowel sounds present Genitourinary: dumont catheter in place Extremities: Right knee brace, no edema, no cyanosis, no extremity deformity LAB REVIEW: Labs reviewed, see below ASSESSMENT AND PLAN: 1. s/p Hypercalcemia treated with IVF and calcitonin. Work-up including Vit D, Vit D1,25, spep, SFLC, ONIEL, PTH, PTHrp has been negative. UPEP is indicative of acute inflammation. Current calcium level is within acceptable range. His hypercalcemia was due to excess supplementation. He has been counseled on stopping the use of supplementation. 2. Altered mental status, secondary to polypharmacy, his tramadol has been DC's. Consider infectious workup if patient's mentation does not improve. 3.Hypokalemia. Likely due to renal recovery with significant urine output. Oral supplementation provided. Current potassium is within normal limits. We'll continue to monitor 4. Acute kidney injury superimposed on chronic kidney disease. BUN and creatinine continue to improve. Continue to hold home ONIEL inhibitor 4. Chronic diastolic congestive heart failure. Volume status is acceptable. Hold lasix. 5. Iron deficiency anemia. He received a 3 doses of Venofer. Started on Aranesp today. Will continue to monitor H and H VS,Fishbone, I+O VS, Fishbone, I+O Laboratory Tests 12/14/18 19:17 12/15/18 05:38 Red Blood Count 2.86 L, Mean Corpuscular Volume 84.3, Mean Corpuscular Hemog lobin 28.3, Mean Corpuscular Hemoglobin Concent 33.6, Red Cell Distribution Width 14.2, Calcium Level 8.7 L Vital Signs Date Time Temp Pulse Resp B/P (MAP) Pulse Ox O2 Delivery O2 Flow Rate FiO2 1/23/19 14:00 97.9 64 22 142/70 (94) 98 Room Air 12/10/18 19:24 2.0 I&O- Last 24 Hours up to 6 AM 12/15/18 06:00 Intake Total 2408 ml Output Total 3580 ml Balance -1172 ml GME ATTESTATION GME ATTESTATION My faculty preceptor for this patient encounter was physically present during the encounter and was fully available. All aspects of the patient interview, examination, medical decision making process, and medical care plan development were reviewed and approved by the faculty preceptor. The faculty preceptor is aware and concurs with the plan as stated in the body of this note and will attest to such by his/her cosignature. CLAUDIA SWARTZ DO Dec 15, 2018 15:53
[2018-12-15] MEDS: risperiDONE 2 MG TAB PO SCH (21:36)
[2018-12-15] MEDS: ATORVASTATIN 20 MG TAB PO SCH (21:36)
[2018-12-15] MEDS: ESCITALOPRAM OXALATE 10 MG TAB (LEXAPRO) PO SCH (21:36)
[2018-12-15] MEDS: TAMSULOSIN 0.4 MG CAP PO SCH (21:38)
[2018-12-15] MEDS: FINASTERIDE 5 MG TAB PO SCH (21:38)
[2018-12-15 22:00] VITALS: BP 147/70
[2018-12-16] MEDS: LEVOTHYROXINE 125MCG TABLET (0.125MG) PO SCH (05:31)
[2018-12-16] MEDS: SODIUM CHLORIDE 0.9% INJ 10 ML SYR IV SCH ×2 (05:32→17:37)
[2018-12-16 05:46] LABS: HEMATOCRIT 24.9 % (42.0-52.0); HEMOGLOBIN 8.4 g/dl (13.5-17.5); MEAN CORPUSCULAR HEMOGLOBIN 28.8 pg (27.0-33.0); MEAN CORPUSCULAR HGB CONC 33.7 g/dl (32.0-36.5); MEAN CORPUSCULAR VOLUME 85.3 fl (80.0-96.0); PLATELET COUNT, AUTOMATED 328 10^3/uL (150-450); RED BLOOD COUNT 2.92 10^6/uL (4.30-6.10); WHITE BLOOD COUNT 6.8 10^3/uL (4.0-10.0)
[2018-12-16 06:00] VITALS: BP 148/67
[2018-12-16 06:07] LABS: C REACTIVE PROTEIN QUANTITATIV 3.61 MG/DL (0.00-0.30); CALCIUM LEVEL 8.6 MG/DL (8.8-10.2); CREATININE FOR GFR 2.49 MG/DL (0.70-1.30); GLOMERULAR FILTRATION RATE 27.2 (>42); POTASSIUM SERUM 3.6 MEQ/L (3.5-5.1)
[2018-12-16 06:40] LABS: ERYTHROCYTE SEDIMENTATION RATE 105 mm/hr (0-20)
[2018-12-16] MEDS: ALBUTEROL SULFATE 2.5 MG/0.5 ML INH NEB SOLN NEB SCH ×2 (07:07→19:42)
[2018-12-16] MEDS: TIOTROPIUM INHALER/CAPSULE (SPIRIVA) INH SCH (07:07)
[2018-12-16] MEDS: HumaLOG INSULIN (NovoLOG) PER UNIT SC SCH ×4 (07:30→21:00)
[2018-12-16] MEDS: FAMOTIDINE 20 MG TAB PO SCH (08:10)
[2018-12-16] MEDS: SENOKOT S TAB PO SCH ×2 (08:10→21:02)
[2018-12-16] MEDS: buPROPion **XL** TABLET 150MG (WELLBUTRIN XL) PO SCH (08:11)
[2018-12-16] MEDS: ACETAMINOPHEN 500 MG TAB PO SCH ×2 (08:11→21:04)
[2018-12-16] MEDS: DARBEPOETIN 100 MCG/0.5 ML *NON-DIALYSIS* SYRINGE (J0881) SC SCH (11:25)
--- NOTE | 2018-12-16 12:54 | IPNPDOC ---
Text Note Date of Service The patient was seen on 12/16/18. NOTE Subjective: Patient complains of nonspecific right lower quadrant pain. No ra diation. Unable to describe it. Otherwise tolerating breakfast. Left knee pain controlled. Objective: Vitals: (see below) General: No acute distress, laying comfortably in bed. HEENT: Moist mucous membranes. Neck: No JVD or lymphadenopathy Cardiac: RRR, No murmurs Pulm: Clear to auscultation b/l. No wheezing, rhonchi Abd: Mild tenderness to palpation right lower quadrant. No rebound guarding or rigidity. ND + BS Ext: No cyanosis. Left knee swollen. No erythema. No warmth. Full range of judd on. Distal pulses intact Rodriguez in place. No gross hematuria noted. 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 Large joint effusion. Chronic synovitis picture with thickening. Findings discussed by telephone with Dr. Alison Fitch, the referring provider. CT abdomen pelvis pending. Assessment/Plan 1. Left knee pain status post fall. Patient was history of knee replacement. CT (see above) Pain control. Will apply ice. Ortho consulted. Appreciate Dr. Fitch's input. 2. Metabolic encephalopathy resolved likely secondary to hypercalcemia and dehydration. 3. Acute kidney injury and chronic kidney disease improved. Patient did have mild left hydronephrosis due to fecal impaction. Appreciate frontal. 4. Fecal stasis and sterile calls colitis- resolving. Patient is having bowel movements with current bowel regimen. Constipation likely worsened by. Hypercalcemia. 5. History of diastolic heart failure compensated. Diuretics as needed. 6. History of COPD with chronic respiratory failure and hypoxia. Continue nebs as needed. Continue Spiriva. 7. s/p Hypercalcemia improved. Calcium and vitamin D supplements discontinued. Status post IV fluids and calcitonin. Lasix as needed. Appreciate nephrology input. 8. Diabetes mellitus hold Januvia. Sliding scale insulin. 9. History of GERD will need outpatient follow-up 10. History of anxiety and depression continue home meds 11. History of hypothyroidism on Synthroid 12. History of hyperlipidemia on statin 13. BPH with history of urinary retention. Rodriguez in place. On Flomax and finasteride. Last changed on 12/05/18. Had blockages 3 times in the past 1 month. Will need outpatient urology follow-up. 14. Nonspecific right lower quadrant pain. Tolerating diet. CT abdomen and pelvis pending. DVT prophy: Heparin subcutaneous We'll need outpatient urology follow-up. Overall prognosis guarded. Physical therapy consulted, pending clearance. VS,Fishbone, I+O VS, Fishbone, I+O Laboratory Tests 12/16/18 05:31 Red Blood Count 2.92 L, Mean Corpuscular Volume 85.3, Mean Corpuscular Hemoglobin 28.8, Mean Corpuscular Hemoglobin Concent 33.7, Red Cell Distribution Width 14.6 H, Calcium Level 8.6 L Vital Signs Date Time Temp Pulse Resp B/P (MAP) Pulse Ox O2 Delivery O2 Flow Rate FiO2 12/16/18 06:00 98.4 65 19 148/67 (94) 93 Room Air 12/10/18 19:24 2.0 I&O- Last 24 Hours up to 6 AM 12/16/18 06:00 Intake Total 2980 ml Output Total 4125 ml Balance -1145 ml FELIBERTO TINAJERO MD Dec 16, 2018 12:54
[2018-12-16 14:00] VITALS: BP 138/74
[2018-12-16 15:02] LABS: UPEP INTERPRETATION NO M-SPIKE NOTED; URINE VOLUME RANDOM ML
--- NOTE | 2018-12-16 15:26 | REP ---
CT abdomen and pelvis without IV or oral contrast: History: Right lower quadrant pain. Comparison study: December 07, 2018. CT findings: Preliminary digital supervisor paint roller covers radiograph again demonstrates moderate stool in the rectum and right colon. There is patchy atelectasis in the lower lobes bilaterally. There is again evidence of a pericardial effusion, small to moderate in size increased somewhat from the prior study. No focal hepatic or splenic lesion is seen. No definite gallstone is seen. No pancreatic lesion is seen. No adrenal abnormalities observed. There are cortical cysts affecting both kidneys. No hydronephrosis or calculus is seen in either kidney. Rodriguez catheter is seen in the urinary bladder. Colonic stool persists moderate in amount throughout the colon. The rectum remains dilated with formed stool. This is improved however. Transverse dimension of the rectum today is 8.2 cm, previously 10.1 centimeters. Perirectal edema persists. No other significant finding. Impression: Obstipation fecal impaction pattern persists although slightly improved. Pericardial effusion some slightly increased. Otherwise unchanged. Electronically Signed by Av Isaacs MD 12/16/2018 05:24 P
--- NOTE | 2018-12-16 16:41 | IPNPDOC ---
Text Note Date of Service The patient was seen on 12/16/18. NOTE SUBJECTIVE: Patient was examined at bedside. He was resting comfortably, he was orientated to person, place, year and president. He was also very conversation, a remarkable change from his presentation yesterday. He had no acute complaints. There was no over night fevers. He continues to make excellent urine output. Denies chest pain and breathing difficulty. OBJECTIVE: Vital Signs:See below PHYSICAL EXAMINATION: General: Alert and orientated 3x, no acute distress, pleasant Head and Neck Exam: No JVD, neck is supple Cardiovascular: S1, S2, no murmurs, Respiratory: CTAB. No apparent respiratory distress Abdomen: Soft, bowel sounds present, obese Genitourinary: dumont catheter in place Extremities: Right knee brace LAB REVIEW: Labs reviewed, see below ASSESSMENT AND PLAN: 1. s/p Hypercalcemia treated with IVF and calcitonin. Work-up including Vit D, Vit D1,25, spep, SFLC, ONIEL, PTH, PTHrp has been negative. UPEP is indicative of acute inflammation. Current calcium level is 8.6. His hypercalcemia was due to excess supplementation. He has been counseled on stopping the use of supplementation. 2. Altered mental status, secondary to polypharmacy: His tramadol was discontinued yesterday. He has improved mentation and is orientated and alert. 3.Hypokalemia. Likely due to renal recovery with significant urine output. Oral supplementation provided. We'll continue to monitor 4. Acute kidney injury superimposed on chronic kidney disease. Continue to hold home ONIEL inhibitor. He has significantly improved renal function 4. Chronic diastolic congestive heart failure. Volume status is acceptable. Hold lasix. 5. Iron deficiency anemia. He received a 3 doses of Venofer. Started on Aranesp on 12/15/17. Will continue to monitor H and H VS,Fishbone, I+O VS, Fishbone, I+O Laboratory Tests 12/16/18 05:31 Red Blood Count 2.92 L, Mean Corpuscular Volume 85.3, Mean Corpuscular Hemoglobin 28.8, Mean Corpuscular Hemoglobin Concent 33.7, Red Cell Distribution Width 14.6 H, Calcium Level 8.6 L Vital Signs Date Time Temp Pulse Resp B/P (MAP) Pulse Ox O2 Delivery O2 Flow Rate FiO2 12/16/18 14:00 97.9 62 17 138/74 (95) 99 Room Air 12/10/18 19:24 2.0 I&O- Last 24 Hours up to 6 AM 12/16/18 06:00 Intake Total 2980 ml Output Total 4125 ml Balance -1145 ml GME ATTESTATION GME ATTESTATION My faculty preceptor for this patient encounter was physically present during the encounter and was fully available. All aspects of the patient interview, examination, medical decision making process, and medical care plan development were reviewed and approved by the faculty preceptor. The faculty preceptor is aware and concurs with the plan as stated in the body of this note and will attest to such by his/her cosignature. CLAUDIA SWARTZ DO Dec 16, 2018 16:41
[2018-12-16] MEDS: TAMSULOSIN 0.4 MG CAP PO SCH (21:04)
[2018-12-16] MEDS: traMADol 50 MG TAB PO SCH (21:04)
[2018-12-16] MEDS: ATORVASTATIN 20 MG TAB PO SCH (21:04)
[2018-12-16] MEDS: risperiDONE 2 MG TAB PO SCH (21:04)
[2018-12-16] MEDS: ESCITALOPRAM OXALATE 10 MG TAB (LEXAPRO) PO SCH (21:05)
[2018-12-16] MEDS: FINASTERIDE 5 MG TAB PO SCH (21:05)
[2018-12-16 22:00] VITALS: BP 152/78
[2018-12-17] MEDS: LEVOTHYROXINE 125MCG TABLET (0.125MG) PO SCH (05:11)
[2018-12-17] MEDS: SODIUM CHLORIDE 0.9% INJ 10 ML SYR IV SCH ×2 (05:11→18:00)
[2018-12-17 05:29] LABS: HEMATOCRIT 25.5 % (42.0-52.0); HEMOGLOBIN 8.4 g/dl (13.5-17.5); MEAN CORPUSCULAR HEMOGLOBIN 28.5 pg (27.0-33.0); MEAN CORPUSCULAR HGB CONC 32.9 g/dl (32.0-36.5); MEAN CORPUSCULAR VOLUME 86.4 fl (80.0-96.0); PLATELET COUNT, AUTOMATED 340 10^3/uL (150-450); RED BLOOD COUNT 2.95 10^6/uL (4.30-6.10); WHITE BLOOD COUNT 12.3 10^3/uL (4.0-10.0)
[2018-12-17 05:50] LABS: CALCIUM LEVEL 8.6 MG/DL (8.8-10.2); CREATININE FOR GFR 2.44 MG/DL (0.70-1.30); GLOMERULAR FILTRATION RATE 27.9 (>42); POTASSIUM SERUM 3.3 MEQ/L (3.5-5.1)
[2018-12-17 06:00] VITALS: BP 13/68
[2018-12-17] MEDS: ALBUTEROL SULFATE 2.5 MG/0.5 ML INH NEB SOLN NEB SCH ×2 (07:21→20:17)
[2018-12-17] MEDS: TIOTROPIUM INHALER/CAPSULE (SPIRIVA) INH SCH (07:21)
[2018-12-17] MEDS ORDERED: POTASSIUM CHLORIDE 10 MEQ SR TABLET PO ONE (08:00)
[2018-12-17] MEDS ORDERED: FLEET ENEMA PR ONE (08:00)
[2018-12-17] MEDS: HumaLOG INSULIN (NovoLOG) PER UNIT SC SCH ×4 (08:42→22:51)
[2018-12-17] MEDS: FAMOTIDINE 20 MG TAB PO SCH (08:43)
[2018-12-17] MEDS: ACETAMINOPHEN 500 MG TAB PO SCH ×2 (08:43→20:27)
[2018-12-17] MEDS: buPROPion **XL** TABLET 150MG (WELLBUTRIN XL) PO SCH (08:43)
[2018-12-17] MEDS: SENOKOT S TAB PO SCH ×2 (08:44→20:28)
[2018-12-17] MEDS: MIRALAX *UNIT DOSE* 17GM PACKET PO SCH ×2 (08:44→20:26)
--- NOTE | 2018-12-17 13:07 | IPNPDOC ---
Text Note Date of Service The patient was seen on 12/17/18. NOTE Subjective: Abdominal pain resolved. Patient having bowel movements. Left knee pain controlled. Objective: Vitals: (see below) General: No acute distress, laying comfortably in bed. HEENT: Moist mucous membranes. Neck: No JVD or lymphadenopathy Cardiac: RRR, No murmurs Pulm: Clear to auscultation b/l. No wheezing, rhonchi Abd: Nontender/ND + BS Ext: No cyanosis. Left knee swollen. No erythema. No warmth. Full range of motion. Distal pulses intact Rodriguez in place. No gross hematuria noted. 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 Large joint effusion. Chronic synovitis picture with thickening. Findings discussed by telephone with Dr. Alison Fitch, the referring provider. CT abdomen pelvis with significant constipation. 12/16/18 Impression: Obstipation fecal impaction pattern persists although slightly improved. Pericardial effusion some slightly increased. Otherwise unchanged. Assessment/Plan 1. Left knee pain status post fall. Patient was history of knee replacement. CT (see above) Pain control. Will apply ice. Ortho consulted. Appreciate Dr. Fitch's input. 2. Metabolic encephalopathy resolved likely secondary to hypercalcemia and dehydration. 3. Acute kidney injury and chronic kidney disease improved. Patient did have mild left hydronephrosis due to fecal impaction. Appreciate frontal. 4. Fecal stasis and sterile calls colitis- resolving. Patient is having bowel movements with current bowel regimen. Constipation likely worsened by hypercalcemia. They'll regimen optimized. 5. History of diastolic heart failure compensated. Diuretics as needed. 6. History of COPD with chronic respiratory failure and hypoxia. Continue nebs as needed. Continue Spiriva. 7. s/p Hypercalcemia improved. Calcium and vitamin D supplements discontinued. Status post IV fluids and calcitonin. Lasix as needed. Appreciate nephrology inp ut. 8. Diabetes mellitus hold Januvia. Sliding scale insulin. 9. History of GERD will need outpatient follow-up 10. History of anxiety and depression continue home meds 11. History of hypothyroidism on Synthroid 12. History of hyperlipidemia on statin 13. BPH with history of urinary retention. Rodriguez in place. On Flomax and finasteride. Last changed on 12/05/18. Had blockages 3 times in the past 1 month. Will need outpatient urology follow-up. 14. Nonspecific right lower quadrant pain. Tolerating diet. CT abdomen and pelvis pending. DVT prophy: Heparin subcutaneous We'll need outpatient urology follow-up. Overall prognosis guarded. Physical therapy consulted, pending clearance. VS,Fishbone, I+O VS, Fishbone, I+O Laboratory Tests 12/17/18 05:17 Red Blood Count 2.95 L, Mean Corpuscular Volume 86.4, Mean Corpuscular Hemoglobin 28.5, Mean Corpuscular Hemoglobin Concent 32.9, Red Cell Distribution Width 14.5, Calcium Level 8.6 L Vital Signs Date Time Temp Pulse Resp B/P (MAP) Pulse Ox O2 Delivery O2 Flow Rate FiO2 12/17/18 06:00 98.3 58 20 13/68 (50) 98 Room Air I&O- Last 24 Hours up to 6 AM0 12/17/18 05:59 Intake Total 2220 ml Output Total 2250 ml Balance -30 ml FELIBERTO TINAJERO MD Dec 17, 2018 13:07
[2018-12-17 14:00] VITALS: BP 132/66
[2018-12-17] MEDS: FINASTERIDE 5 MG TAB PO SCH (20:26)
[2018-12-17] MEDS: ESCITALOPRAM OXALATE 10 MG TAB (LEXAPRO) PO SCH (20:27)
[2018-12-17] MEDS: risperiDONE 2 MG TAB PO SCH (20:28)
[2018-12-17] MEDS: TAMSULOSIN 0.4 MG CAP PO SCH (20:28)
[2018-12-17] MEDS: traMADol 50 MG TAB PO SCH (20:28)
[2018-12-17] MEDS: ATORVASTATIN 20 MG TAB PO SCH (20:28)
[2018-12-17 22:00] VITALS: BP 153/82
[2018-12-18] MEDS: SODIUM CHLORIDE 0.9% INJ 10 ML SYR IV SCH ×2 (05:15→18:45)
[2018-12-18] MEDS: LEVOTHYROXINE 125MCG TABLET (0.125MG) PO SCH (05:15)
[2018-12-18 05:28] LABS: HEMATOCRIT 24.2 % (42.0-52.0); MEAN CORPUSCULAR HEMOGLOBIN 28.3 pg (27.0-33.0); MEAN CORPUSCULAR HGB CONC 33.1 g/dl (32.0-36.5); MEAN CORPUSCULAR VOLUME 85.5 fl (80.0-96.0); PLATELET COUNT, AUTOMATED 331 10^3/uL (150-450); RED BLOOD COUNT 2.83 10^6/uL (4.30-6.10); WHITE BLOOD COUNT 9.4 10^3/uL (4.0-10.0)
[2018-12-18 05:55] VITALS: BP 117/65
[2018-12-18 05:58] LABS: CALCIUM LEVEL 8.8 MG/DL (8.8-10.2); CREATININE FOR GFR 2.15 MG/DL (0.70-1.30); GLOMERULAR FILTRATION RATE 32.2 (>42); POTASSIUM SERUM 3.9 MEQ/L (3.5-5.1)
[2018-12-18] MEDS: ALBUTEROL SULFATE 2.5 MG/0.5 ML INH NEB SOLN NEB SCH ×2 (06:24→20:11)
[2018-12-18] MEDS: HumaLOG INSULIN (NovoLOG) PER UNIT SC SCH ×4 (07:30→20:42)
[2018-12-18] MEDS: TIOTROPIUM INHALER/CAPSULE (SPIRIVA) INH SCH (08:00)
[2018-12-18] MEDS: buPROPion **XL** TABLET 150MG (WELLBUTRIN XL) PO SCH (08:58)
[2018-12-18] MEDS: ACETAMINOPHEN 500 MG TAB PO SCH ×2 (08:59→20:42)
[2018-12-18] MEDS: FAMOTIDINE 20 MG TAB PO SCH (08:59)
[2018-12-18] MEDS: SENOKOT S TAB PO SCH ×2 (08:59→20:42)
[2018-12-18] MEDS: MIRALAX *UNIT DOSE* 17GM PACKET PO SCH ×2 (08:59→20:42)
[2018-12-18] MEDS ORDERED: FLEET ENEMA PR ONE (10:15)
--- NOTE | 2018-12-18 12:45 | IPNPDOC ---
Text Note Date of Service The patient was seen on 12/18/18. NOTE Subjective: Had 2 BM yesterday, 1 today. No knee pain today. No acute changes overnight. Objective: Vitals: (see below) General: No acute distress, laying comfortably in bed. HEENT: Moist mucous membranes. Neck: No JVD or lymphadenopathy Cardiac: RRR, No murmurs Pulm: Clear to auscultation b/l. No wheezing, rhonchi Abd: Nontender/ND + BS Ext: No cyanosis. Left knee swollen. No erythema. No warmth. Full range of motion. Distal pulses intact Rodriguez in place. No gross hematuria noted. 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 Large joint effus ion. Chronic synovitis picture with thickening. Findings discussed by telephone with Dr. Alison Fitch, the referring provider. CT abdomen pelvis with significant constipation. 12/16/18 Impression: Obstipation fecal impaction pattern persists although slightly improved. Pericardial effusion some slightly increased. Otherwise unchanged. Assessment/Plan 1. Left knee pain status post fall. Patient was history of knee replacement. CT (see above) Pain control. Will apply ice. Ortho consulted. Appreciate Dr. Fitch's input. 2. Metabolic encephalopathy resolved likely secondary to hypercalcemia and dehydration. 3. Acute kidney injury and chronic kidney disease improved. Patient did have mild left hydronephrosis due to fecal impaction. Appreciate frontal. 4. Fecal stasis and sterile calls colitis- resolving. Patient is having bowel movements with current bowel regimen. Constipation likely worsened by hypercalcemia. bowel regimen optimized. 5. History of diastolic heart failure compensated. Diuretics as needed. 6. History of COPD with chronic respiratory failure and hypoxia. Continue nebs as needed. Continue Spiriva. 7. s/p Hypercalcemia improved. Calcium and vitamin D supplements discontinued. Status post IV fluids and calcitonin. Lasix as needed. Appreciate nephrology input. 8. Diabetes mellitus hold Januvia. Sliding scale insulin. 9. History of GERD will need outpatient follow-up 10. History of anxiety and depression continue home meds 11. History of hypothyroidism on Synthroid 12. History of hyperlipidemia on statin 13. BPH with history of urinary retention. Rodriguez in place. On Flomax and finasteride. Last changed on 12/05/18. Had blockages 3 times in the past 1 month. Will need outpatient urology follow-up. 14. Nonspecific right lower quadrant pain. Tolerating diet. CT abdomen and pelvis pending. DVT prophy: Heparin subcutaneous We'll need outpatient urology follow-up. Overall prognosis guarded. Physical therapy consulted, pending clearance. VS,Fishbone, I+O VS, Fishbone, I+O Laboratory Tests 12/18/18 05:14 Red Blood Count 2.83 L, Mean Corpuscular Volume 85.5, Mean Corpuscular Hemoglobin 28.3, Mean Corpuscular Hemoglobin Concent 33.1, Red Cell Distribution Width 14.4, Calcium Level 8.8 Vital Signs Date Time Temp Pulse Resp B/P (MAP) Pulse Ox O2 Delivery O2 Flow Rate FiO2 12/18/18 05:55 97.7 84 14 117/65 (82) 96 Room Air I&O- Last 24 Hours up to 6 AM 12/18/18 06:00 Intake Total 1920 ml Output Total 4350 ml Balance -2430 ml FELIBERTO TINAJERO MD Dec 18, 2018 12:45
--- NOTE | 2018-12-18 13:29 | IPN ---
DATE: 12/17/2018 SUBJECTIVE: Gary is seen and examined this morning at the bedside. The director of emergency nursing was cleaning him up at the time of my visit. I noted that he was having black stool. Patient otherwise denies any complaint. VITAL SIGNS: Temperature 98.3, pulse 58, respiratory rate 20, blood pressure 132/66, saturating 98% on room air. Intake yesterday was 1620, urine output yesterday was 3500, net negative 1880. Weight on the bed scale today is not recorded. General: The patient is seen lying in bed, getting cleaned up by the nursing staff. Extraocular muscles are intact. Tongue is moist. Neck is supple. He is not in any respiratory distress. No jugular venous distention. Cardiac: Regular rate and rhythm. No murmur. Lungs: Clear to auscultation bilaterally. No wheezing, rhonchi. Abdomen: Soft and nontender. Genitourinary: Shows chronic indwelling Rodriguez. Extremities: The left knee is swollen. There is pedal edema bilaterally. LABORATORY: White count 12.3, hemoglobin 8.4. Sodium 137, potassium 3.3, creatinine 2.4. INPATIENT MEDICATIONS: Reviewed by myself. He was started on MiraLAX. Remainder of medications are unchanged from prior. PROBLEMS: 1. Status post hypercalcemia with negative workup (vitamin D, vitamin D125, TSH, PTH, PTHRP, SPEP, serum-free light chains, ONIEL, UPEP). Given negative workup and ongoing normocalcemia, I feel his prior hypercalcemia was related to the twice daily calcium supplements in the setting of acute kidney injury (ISAAC), and he should not be resumed on calcium supplement in the outpatient setting. 2. Acute kidney injury on chronic kidney disease stage III. His renal function continues to improve. He is in polyuric phase of renal recovery. Creatinine is down to 2.4. From 4.8 on admission, and urine output remains grater than 3 liters daily. His diuretic remains on hold. 3. History of chronic diastolic congestive heart failure. His daily weights are down trending. As he is polyuric from the renal recovery, hold off on his chronic diuretic. 4. Iron deficiency anemia. He got three doses of IV Venofer. His hemoglobin is stable in the 8s, and he was started on Aranesp. His stools are black, but his fecal occult was negative, and the dark stool may just be related to the iron. 5. History of urinary retention. Continues with indwelling Rodriguez and is on Flomax and finasteride.
[2018-12-18 14:00] VITALS: BP 154/72
[2018-12-18] MEDS: TAMSULOSIN 0.4 MG CAP PO SCH (20:40)
[2018-12-18] MEDS: FINASTERIDE 5 MG TAB PO SCH (20:41)
[2018-12-18] MEDS: traMADol 50 MG TAB PO SCH (20:41)
[2018-12-18] MEDS: ATORVASTATIN 20 MG TAB PO SCH (20:42)
[2018-12-18] MEDS: risperiDONE 2 MG TAB PO SCH (20:42)
[2018-12-18] MEDS: ESCITALOPRAM OXALATE 10 MG TAB (LEXAPRO) PO SCH (20:42)
--- NOTE | 2018-12-18 20:56 | IPN ---
DATE: 12/18/2018 Mr. Angeles is seen this morning on his bedside. He is feeling well and denies any complaints at present. He has a Rodriguez catheter in place, and his urine bag is almost full. The patient was admitted with acute renal failure superimposed on chronic kidney disease and severe hypercalcemia. With intravenous (IV) fluids and Rodriguez catheter, his kidney function has improved and hypercalcemia has also improved. In the meantime, the patient reports good appetite and has been tolerating his diet well. He has no dyspnea, chest pain, or leg edema. PHYSICAL EXAMINATION: Temperature 97.7 degrees Fahrenheit, heart rate 84 per minute, respiratory rate 14 per minute, blood pressure 117/65 mm of mercury, and oxygen saturation 96% on room air. Intake and output records from yesterday show total intake 2520 and output 4750 mL. His head is atraumatic. Neck is supple and without jugular venous distention (JVD) or thyroid enlargement. Heart sounds are regular, and lungs sound clear to auscultation. Abdomen is soft and bowel sounds are normal. Extremities have no cyanosis or clubbing. Neurologically, he has no focal deficit and seems to be doing well. Today's labs show sodium 136, potassium 3.9, CO2 of 23, BUN 32, and creatinine 2.15. Glucose 86 and calcium 8.8. WBC count is 9.4, hemoglobin 8.0, and hematocrit 24.2. Platelets 331. PROBLEMS: 1. Acute renal failure superimposed on chronic kidney disease. At present, kidney function is improving, and patient seems to be in diuretic phase of acute renal failure. We will continue to encourage with liberal fluid intake and monitor his kidney function. At present, his kidney function is improving daily. 2. Anemia. His anemia is more or less stable. The patient does not wish transfusions per his scientologist preferences. He is being given Aranesp 100 mcg once a week and has also received intravenous iron. We will continue to monitor closely and give him further doses of intravenous iron as appropriate. 3. Hypercalcemia has been corrected and stable, and no intervention is indicated at this time.
[2018-12-18 22:00] VITALS: BP 147/72
[2018-12-19] MEDS: LEVOTHYROXINE 125MCG TABLET (0.125MG) PO SCH (05:26)
[2018-12-19] MEDS: SODIUM CHLORIDE 0.9% INJ 10 ML SYR IV SCH ×2 (05:27→17:00)
[2018-12-19 05:59] LABS: HEMATOCRIT 25.5 % (42.0-52.0); HEMOGLOBIN 8.4 g/dl (13.5-17.5); MEAN CORPUSCULAR HEMOGLOBIN 28.2 pg (27.0-33.0); MEAN CORPUSCULAR HGB CONC 32.9 g/dl (32.0-36.5); MEAN CORPUSCULAR VOLUME 85.6 fl (80.0-96.0); PLATELET COUNT, AUTOMATED 340 10^3/uL (150-450); RED BLOOD COUNT 2.98 10^6/uL (4.30-6.10); WHITE BLOOD COUNT 6.4 10^3/uL (4.0-10.0)
[2018-12-19 06:00] VITALS: BP 127/70
[2018-12-19] MEDS: ALBUTEROL SULFATE 2.5 MG/0.5 ML INH NEB SOLN NEB SCH ×2 (06:11→20:32)
[2018-12-19 06:12] LABS: CALCIUM LEVEL 8.5 MG/DL (8.8-10.2); CREATININE FOR GFR 1.97 MG/DL (0.70-1.30); GLOMERULAR FILTRATION RATE 35.7 (>42); POTASSIUM SERUM 4.1 MEQ/L (3.5-5.1)
[2018-12-19] MEDS: HumaLOG INSULIN (NovoLOG) PER UNIT SC SCH ×4 (07:30→20:25)
[2018-12-19] MEDS: TIOTROPIUM INHALER/CAPSULE (SPIRIVA) INH SCH (08:18)
[2018-12-19] MEDS: MIRALAX *UNIT DOSE* 17GM PACKET PO SCH ×2 (08:56→20:23)
[2018-12-19] MEDS: FAMOTIDINE 20 MG TAB PO SCH (08:56)
[2018-12-19] MEDS: SENOKOT S TAB PO SCH ×2 (08:56→20:24)
[2018-12-19] MEDS: buPROPion **XL** TABLET 150MG (WELLBUTRIN XL) PO SCH (08:56)
[2018-12-19] MEDS: ACETAMINOPHEN 500 MG TAB PO SCH ×2 (08:56→20:24)
--- NOTE | 2018-12-19 11:22 | IPNPDOC ---
Text Note Date of Service The patient was seen on 12/19/18. NOTE Subjective: Pt feels well. No acute changes overnight. Objective: Vitals: (see below) General: No acute distress, laying comfortably in bed. HEENT: Moist mucous membranes. Neck: No JVD or lymphadenopathy Cardiac: RRR, No murmurs Pulm: Clear to auscultation b/l. No wheezing, rhonchi Abd: Nontender/ND + BS Ext: No cyanosis. Left knee swollen. No erythema. No warmth. Full range of motion. Distal pulses intact Rodriguez in place. No gross hematuria noted. 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 Large joint effusion. Chronic synovitis picture with thickening. Findings discussed by telephone with Dr. Alison Fitch, the referring provider. CT abdomen pelvis with significant constipation. 12/16/18 Impression: Obstipation fecal impaction pattern persists although slightly improved. Pericardial effusion some slightly increased. Otherwise unchanged. Assessment/Plan 1. Left knee pain status post fall. Patient was history of knee replacement. CT (see above) Pain control. Will apply ice. Ortho consulted. Appreciate Dr. Fitch's input. 2. Metabolic encephalopathy resolved likely secondary to hypercalcemia and dehydration. 3. Acute kidney injury and chronic kidney disease improved. Patient did have mild left hydronephrosis due to fecal impaction. Appreciate frontal. 4. Fecal stasis and sterile calls colitis- resolving. Patient is having bowel movements with current bowel regimen. Constipation likely worsened by hypercalcemia. bowel regimen optimized. 5. History of diastolic heart failure compensated. Diuretics as needed. 6. History of COPD with chronic respiratory failure and hypoxia. Continue nebs as needed. Continue Spiriva. 7. s/p Hypercalcemia improved. Calcium and vitamin D supplements discontinued. Status post IV fluids and calcitonin. Lasix as needed. Appreciate nephrology input. 8. Diabetes mellitus hold Januvia. Sliding scale insulin. 9. History of GERD will need outpatient follow-up 10. History of anxiety and depression continue home meds 11. History of hypothyroidism on Synthroid 12. History of hyperlipidemia on statin 13. BPH with history of urinary retention. Rodriguez in place. On Flomax and finasteride. Last changed on 12/05/18. Had blockages 3 times in the past 1 month. Will need outpatient urology follow-up. 14. Nonspecific right lower quadrant pain. Tolerating diet. CT abdomen and pelvis pending. DVT prophy: Heparin subcutaneous We'll need outpatient urology follow-up. Overall prognosis guarded. Physical therapy consulted, pending clearance. VS,Fishbone, I+O VS, Fishbone, I+O Laboratory Tests 12/19/18 05:25 Red Blood Count 2.98 L, Mean Corpuscular Volume 85.6, Mean Corpuscular Hemoglobin 28.2, Mean Corpuscular Hemoglobin Concent 32.9, Red Cell Distribution Width 14.4, Calcium Level 8.5 L Vital Signs Date Time Temp Pulse Resp B/P (MAP) Pulse Ox O2 Delivery O2 Flow Rate FiO2 12/19/18 06:00 98.9 67 18 127/70 (89) 95 Room Air I&O- Last 24 Hours up to 6 AM 12/19/18 06:00 Intake Total 3720 ml Output Total 5550 ml Balance -1830 ml FELIBERTO TINAJERO MD Dec 19, 2018 11:22
[2018-12-19] MEDS: KCL 20MEQ in NS 1000ML 1,000 ML IV SCH ×2 (13:15→22:03)
[2018-12-19 14:00] VITALS: BP 128/67
[2018-12-19] MEDS: TAMSULOSIN 0.4 MG CAP PO SCH (20:23)
[2018-12-19] MEDS: risperiDONE 2 MG TAB PO SCH (20:24)
[2018-12-19] MEDS: FINASTERIDE 5 MG TAB PO SCH (20:24)
[2018-12-19] MEDS: ATORVASTATIN 20 MG TAB PO SCH (20:24)
[2018-12-19] MEDS: traMADol 50 MG TAB PO SCH (20:24)
[2018-12-19] MEDS: ESCITALOPRAM OXALATE 10 MG TAB (LEXAPRO) PO SCH (20:24)
[2018-12-19 22:00] VITALS: BP 149/79
--- NOTE | 2018-12-20 05:21 | IPN ---
DATE: 12/19/2018 Mr. Angeles is seen this morning on his bedside. He was resting and I woke him up. He denies any nausea, vomiting, dyspnea or chest pain. He was admitted with severe hypercalcemia and acute renal failure superimposed on chronic kidney disease. With treatment his hypercalcemia has resolved and kidney function is improving. However, he is noticed to have spontaneous diuresis with negative fluid balance and he is more than 6 liters negative since admission. His oral intake is reasonable. However, he is not able to keep up with his urinary losses. He has a Rodriguez catheter in place with almost 5 liters urine output daily for last couple of days while he had 3.524 liters urine output daily prior to that. In any event, the patient is feeling well and is tolerating his oral intake. PHYSICAL EXAMINATION: Temperature is 98.8 degrees Fahrenheit, heart rate 67 per minute and respiratory rate 18 per minute. Blood pressure 127/70 mmHg and oxygen saturation 95% on room air. HEENT: His head is atraumatic. Neck is supple and jugular venous distention (JVD) is not elevated. There is no oral thrush or ulcers. HEART: His heart sounds are regular. LUNGS: Lungs clear to auscultation. ABDOMEN: Abdomen is soft and nontender and without a palpable organomegaly. Bowel sounds are normal. EXTREMITIES: Extremities have no cyanosis or clubbing. SKIN: Skin has no rash or ulcers. NEUROLOGICAL: Neurologically he is awake, alert and oriented x3. Today's labs show sodium 139, potassium 4.1, CO2 25, BUN 28 and creatinine 1.97. Hemoglobin is 8.4 and hematocrit 25.5. Platelets are 340. PROBLEMS: 1. Acute renal failure superimposed on chronic kidney disease. Kidney function is improving despite a negative fluid balance every day for last several days. I am going to put him on intravenous (IV) fluid with normal saline 100 mL per hour and will recheck his renal profile tomorrow. 2. Anemia. His anemia has been stable and we will continue to monitor without any urgent intervention. He is receiving Aranesp 100 mcg once a week. 3. Urinary retention, status post Rodriguez catheter placement. At present he is just recovering from acute kidney injury and also has excessive amount of urine output. I am going to leave the Rodriguez catheter in. 4. Hypercalcemia. His hypercalcemia has completely corrected and resolved. No intervention is indicated at this time.
[2018-12-20] MEDS: SODIUM CHLORIDE 0.9% INJ 10 ML SYR IV SCH ×2 (05:28→13:02)
[2018-12-20] MEDS: LEVOTHYROXINE 125MCG TABLET (0.125MG) PO SCH (05:28)
[2018-12-20 05:46] LABS: HEMATOCRIT 26.2 % (42.0-52.0); HEMOGLOBIN 8.5 g/dl (13.5-17.5); MEAN CORPUSCULAR HGB CONC 32.4 g/dl (32.0-36.5); MEAN CORPUSCULAR VOLUME 86.2 fl (80.0-96.0); PLATELET COUNT, AUTOMATED 337 10^3/uL (150-450); RED BLOOD COUNT 3.04 10^6/uL (4.30-6.10); WHITE BLOOD COUNT 6.2 10^3/uL (4.0-10.0)
[2018-12-20 06:00] VITALS: BP 138/72
[2018-12-20 06:07] LABS: CALCIUM LEVEL 8.6 MG/DL (8.8-10.2); CREATININE FOR GFR 1.96 MG/DL (0.70-1.30); GLOMERULAR FILTRATION RATE 35.9 (>42); POTASSIUM SERUM 4.5 MEQ/L (3.5-5.1)
[2018-12-20 06:11] LABS: PERCENT SATURATION 25.8 % (19.7-50.0)
[2018-12-20] MEDS: HumaLOG INSULIN (NovoLOG) PER UNIT SC SCH ×4 (07:21→21:00)
[2018-12-20] MEDS: TIOTROPIUM INHALER/CAPSULE (SPIRIVA) INH SCH (07:35)
[2018-12-20] MEDS: ALBUTEROL SULFATE 2.5 MG/0.5 ML INH NEB SOLN NEB SCH ×2 (07:35→21:28)
[2018-12-20] MEDS: MIRALAX *UNIT DOSE* 17GM PACKET PO SCH ×2 (08:00→22:29)
[2018-12-20] MEDS: KCL 20MEQ in NS 1000ML 1,000 ML IV SCH ×2 (08:00→17:12)
[2018-12-20] MEDS: SENOKOT S TAB PO SCH ×2 (08:00→22:28)
[2018-12-20] MEDS: buPROPion **XL** TABLET 150MG (WELLBUTRIN XL) PO SCH (08:01)
[2018-12-20] MEDS: ACETAMINOPHEN 500 MG TAB PO SCH ×2 (08:01→22:27)
[2018-12-20] MEDS: FAMOTIDINE 20 MG TAB PO SCH (08:01)
--- NOTE | 2018-12-20 13:34 | IPN ---
DATE: 12/20/2018 Mr. Angeles is seen this morning on his bedside. He is feeling well and denies any new complaints. He still has a Rodriguez catheter with large volume of urine output. Yesterday he did 5.5 liters urine and the day before yesterday was 5.1 liters. He has been a negative fluid balance of 8.4 liters now since admission. The patient denies any nausea, vomiting, dyspnea or chest pain. PHYSICAL EXAMINATION: Temperature 98.9 degrees Fahrenheit, heart rate 76 per minute and respiratory rate 18 per minute. Blood pressure 138/72 mmHg and oxygen saturation 93-98% on room air. His head is atraumatic. Neck is supple and without JVD or thyroid enlargement. Heart: Sounds are regular and lungs sound clear to auscultation. Abdomen: Soft and nontender and bowel sounds are present. Extremities: Have no cyanosis or clubbing. Neurologically he is awake and seems to be at about his baseline mentation. Today's labs show WBC count 6.2, hemoglobin 8.5 and hematocrit 26.2. Platelets 337. Sodium 141, potassium 4.5, CO2 24, BUN 28 and creatinine 1.96. Iron level is 50 and ferritin 582. PROBLEMS: Acute renal failure superimposed on chronic kidney disease gradually improving kidney function. No significant change from yesterday. However, the patient was also in negative fluid balance. We have already started normal saline 100 mL per hour. We will check his renal profile again tomorrow. He is being encouraged to continue with liberal fluid intake. 2. Anemia. At present anemia is stable and we will continue with current management. He is receiving Aranesp 100 mcg once a week. 3. Polyuria. Most likely related to recovery of acute renal failure and previous hypercalcemia. Unfortunately, we are not matching up with his urine output. At this point we will continue with IV fluid 100 per hour and liberal fluid intake. Once his urine output slows down then we will consider to stop the IV fluid and discharge him home. He is not medically stable for discharge at this point.
--- NOTE | 2018-12-20 13:41 | IPNPDOC ---
Text Note Date of Service The patient was seen on 12/20/18. NOTE Subjective: Pt denies any pain. No complaints. Still has polyuria. Objective: Vitals: (see below) General: No acute distress, laying comfortably in bed. HEENT: Moist mucous membranes. Neck: No JVD or lymphadenopathy Cardiac: RRR, No murmurs Pulm: Clear to auscultation b/l. No wheezing, rhonchi Abd: Nontender/ND + BS Ext: No cyanosis. Left knee swollen. No erythema. No warmth. Full range of motion. Distal pulses intact Rodriguez in place. No gross hematuria noted. 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 Large joint effusion. Chronic synovitis picture with thickening. Findings discussed by telephone with Dr. Alison Fitch, the referring provider. CT abdomen pelvis with significant constipation. 12/16/18 Impression: Obstipation fecal impaction pattern persists although slightly improved. Pericardial effusion some slightly increased. Otherwise unchanged. Assessment/Plan 1. Left knee pain status post fall. Patient was history of knee replacement. CT (see above) Pain control. Will apply ice. Ortho consulted. Appreciate Dr. Fitch's input. 2. Metabolic encephalopathy resolved likely secondary to hypercalcemia and dehydration. 3. Acute kidney injury and chronic kidney disease improved. Patient did have mild left hydronephrosis due to fecal impaction. Appreciate frontal. 4. Fecal stasis and sterile calls colitis- resolving. Patient is having bowel movements with current bowel regimen. Constipation likely worsened by hypercalce [place]. bowel regimen optimized. 5. History of diastolic heart failure compensated. Diuretics as needed. 6. History of COPD with chronic respiratory failure and hypoxia. Continue nebs as needed. Continue Spiriva. 7. s/p Hypercalcemia improved. Calcium and vitamin D supplements discontinued. Status post IV fluids and calcitonin. Lasix as needed. Appreciate nephrology input. 8. Diabetes mellitus hold Januvia. Sliding scale insulin. 9. History of GERD will need outpatient follow-up 10. History of anxiety and depression continue home meds 11. History of hypothyroidism on Synthroid 12. History of hyperlipidemia on statin 13. BPH with history of urinary retention. Rodriguez in place. On Flomax and finas teride. Last changed on 12/05/18. Had blockages 3 times in the past 1 month. Will need outpatient urology follow-up. 14. Polyuria - On IVF per nephro. Not cleared for d/c yet. DVT prophy: Heparin subcutaneous We'll need outpatient urology follow-up. Overall prognosis guarded. Pending improvement of polyuria. VS,Fishbone, I+O VS, Fishbone, I+O Laboratory Tests 12/20/18 05:27 Red Blood Count 3.04 L, Mean Corpuscular Volume 86.2, Mean Corpuscular He moglobin 28.0, Mean Corpuscular Hemoglobin Concent 32.4, Red Cell Distribution Width 14.6 H, Calcium Level 8.6 L Vital Signs Date Time Temp Pulse Resp B/P (MAP) Pulse Ox O2 Delivery O2 Flow Rate FiO2 12/20/18 06:00 98.9 75 15 138/72 (94) 93 Room Air I&O- Last 24 Hours up to 6 AM 12/20/18 06:00 Intake Total 4980 ml Output Total 5650 ml Balance -670 ml FELIBERTO TINAJERO MD Dec 20, 2018 13:41
[2018-12-20 14:00] VITALS: BP 147/78
[2018-12-20 22:00] VITALS: BP 151/78
[2018-12-20] MEDS: ATORVASTATIN 20 MG TAB PO SCH (22:27)
[2018-12-20] MEDS: ESCITALOPRAM OXALATE 10 MG TAB (LEXAPRO) PO SCH (22:27)
[2018-12-20] MEDS: FINASTERIDE 5 MG TAB PO SCH (22:27)
[2018-12-20] MEDS: TAMSULOSIN 0.4 MG CAP PO SCH (22:28)
[2018-12-20] MEDS: risperiDONE 2 MG TAB PO SCH (22:28)
[2018-12-20] MEDS: traMADol 50 MG TAB PO SCH (22:29)
[2018-12-21] MEDS: KCL 20MEQ in NS 1000ML 1,000 ML IV SCH ×2 (02:44→10:34)
[2018-12-21 06:00] VITALS: BP 151/78
[2018-12-21] MEDS: SODIUM CHLORIDE 0.9% INJ 10 ML SYR IV SCH ×2 (06:00→17:43)
[2018-12-21] MEDS: LEVOTHYROXINE 125MCG TABLET (0.125MG) PO SCH (06:37)
[2018-12-21] MEDS: HumaLOG INSULIN (NovoLOG) PER UNIT SC SCH ×4 (07:30→21:00)
[2018-12-21] MEDS: ALBUTEROL SULFATE 2.5 MG/0.5 ML INH NEB SOLN NEB SCH ×2 (07:55→21:07)
[2018-12-21] MEDS: TIOTROPIUM INHALER/CAPSULE (SPIRIVA) INH SCH (07:55)
[2018-12-21 07:59] LABS: HEMATOCRIT 25.4 % (42.0-52.0); HEMOGLOBIN 8.3 g/dl (13.5-17.5); MEAN CORPUSCULAR HEMOGLOBIN 28.1 pg (27.0-33.0); MEAN CORPUSCULAR HGB CONC 32.7 g/dl (32.0-36.5); MEAN CORPUSCULAR VOLUME 86.1 fl (80.0-96.0); PLATELET COUNT, AUTOMATED 350 10^3/uL (150-450); RED BLOOD COUNT 2.95 10^6/uL (4.30-6.10); WHITE BLOOD COUNT 6.2 10^3/uL (4.0-10.0)
[2018-12-21 08:19] LABS: ALBUMIN 3.1 GM/DL (3.2-5.2); CALCIUM LEVEL 8.5 MG/DL (8.8-10.2); CREATININE FOR GFR 1.99 MG/DL (0.70-1.30); GLOMERULAR FILTRATION RATE 35.2 (>42); PHOSPHORUS LEVEL 3.2 MG/DL (2.5-4.9); POTASSIUM SERUM 4.8 MEQ/L (3.5-5.1)
[2018-12-21] MEDS: FAMOTIDINE 20 MG TAB PO SCH (10:32)
[2018-12-21] MEDS: SENOKOT S TAB PO SCH ×2 (10:32→21:39)
[2018-12-21] MEDS: HEPARIN SOD (PORCINE) 5000 UNITS/ML VIAL SQ SCH ×2 (10:32→21:41)
[2018-12-21] MEDS: ACETAMINOPHEN 500 MG TAB PO SCH ×2 (10:33→21:42)
[2018-12-21] MEDS: buPROPion **XL** TABLET 150MG (WELLBUTRIN XL) PO SCH (10:33)
[2018-12-21] MEDS: MIRALAX *UNIT DOSE* 17GM PACKET PO SCH ×2 (10:34→21:44)
[2018-12-21] MEDS: NS 1,000 ML IV SCH ×2 (12:21→21:44)
[2018-12-21 14:00] VITALS: BP 173/75
--- NOTE | 2018-12-21 20:42 | IPN ---
DATE: 12/21/2018 Patient seen and examined. No acute events overnight. Denies any chest pain, pressure, or discomfort. No fevers or chills. The patient is a very poor historian. VITAL SIGNS: Temperature 98.2, pulse 61, respirations 18, blood pressure 151/78, pulse oximetry 98% on room air. LABORATORY: WBC 6.2, hemoglobin and hematocrit 8.3 over 25.4, platelets 350. Chemistry: Sodium 138, potassium 4.8, chloride 107, bicarbonate 23, BUN 25, creatinine 1.99. PHYSICAL EXAMINATION: GENERAL: Patient alert, comfortable, in no acute distress. Moist mucous membranes. NECK: Supple. No jugular venous distention (JVD). CARDIAC: Regular, S1, S2. PULMONARY: Bilaterally clear. ABDOMEN: Soft, nontender. EXTREMITIES: 1+ bilateral lower extremity edema. ASSESSMENT AND PLAN: This is a 73-year-old male patient from [facility] ([facility]) with underlying medical history of chronic hypoxic respiratory failure, chronic obstructive pulmonary disease (COPD), obstructive sleep apnea, BPH, with a history of urinary retention, chronic Rodriguez, last changed 12/05/2018, diabetes mellitus, gastroesophageal reflux disease (GERD), hypothyroidism, anxiety, depression, left knee arthritis, history of replacement several years back, now with chronic pain and swelling, admitted for hypercalcemia, acute on chronic renal insufficiency. PROBLEMS: 1. Left knee pain, status post fall. History of knee replacement. CT showing dissociation of patella prosthesis component to the [place] patella. Orthopedics consulted. Will need outpatient followup with [facility]. 2. Metabolic encephalopathy, resolved. Likely secondary to hypercalcemia and dehydration. IV fluids as per nephrology. 3. Acute on chronic renal insufficiency, improved. Did have mild left-sided hydronephrosis due to fecal impaction. Nephrology consulted. IV fluids. 4. Fecal stasis, resolved. Bowel regimen as prescribed. Likely due to hypercalcemia. 5. History of diastolic congestive heart failure, compensated. Diuretic has been on hold given large volume of urine output. 6. Diabetes mellitus, Insulin was ordered. 7. Hypercalcemia. Calcium and vitamin D supplementation discontinued. IV fluids, calcitonin. Nephrology consulted. 8. Gastroesophageal reflux disease (GERD). Followup as an outpatient. 9. Anxiety/depression. Continue current medication. 10. Hypothyroidism. Continue Synthroid. 11. Dyslipidemia. Continue statin. 12. BPH. Patient has a Rodriguez catheter. Continue Flomax and finasteride. 13. Polyuria. IV fluids. Further recommendation as per nephrology. 14. Obstructive sleep apnea. Obstructive sleep apnea (TEREZA) protocol. 15. Chronic obstructive pulmonary disease. Continue current medication. 16. Deep vein thrombosis (DVT) prophylaxis. Heparin subcu. DISPOSITION: Pending further nephrology input.
[2018-12-21] MEDS: TAMSULOSIN 0.4 MG CAP PO SCH (21:40)
[2018-12-21] MEDS: risperiDONE 2 MG TAB PO SCH (21:40)
[2018-12-21] MEDS: FINASTERIDE 5 MG TAB PO SCH (21:40)
[2018-12-21] MEDS: ESCITALOPRAM OXALATE 10 MG TAB (LEXAPRO) PO SCH (21:40)
[2018-12-21] MEDS: ATORVASTATIN 20 MG TAB PO SCH (21:40)
[2018-12-21] MEDS: traMADol 50 MG TAB PO SCH (21:43)
[2018-12-21 22:00] VITALS: BP 166/79
[2018-12-22 06:00] VITALS: BP 129/77
--- NOTE | 2018-12-22 06:27 | IPN ---
DATE OF VISIT: 12/21/2018 Mr. Angeles is seen this morning on his bedside. He denies any complaints and has been feeling well. His discharge is on hold due to excessive amount of urine output and risk of dehydration. He has been on IV fluid for the last 24 hours due to a negative fluid balance of about 8 liters. The patient has no diarrhea or vomiting and is tolerating oral intake well, however, he is not able to drink as much liquids to keep up with his urine output. On physical examination, temperature 98.2 degrees Fahrenheit, heart rate 60 per minute and respiratory rate 18 per minute. Blood pressure 151/78 mmHg and oxygen saturation 98% on room air. Head is atraumatic. Neck is supple and without jugular venous distention (JVD) or thyroid enlargement. There is no oral thrush or ulcers. Heart sounds are regular and lungs clear to auscultation. Abdomen: Soft and nontender and bowel sounds are normal. Extremities have no cyanosis or clubbing. Skin has no rash or ulcers. Neurologically, he is at his baseline mentation. Today's labs show WBC count 6.2, hemoglobin 8.3 and hematocrit 25.4. Sodium 138 and potassium 4.8. BUN is 25 and creatinine 1.99. PROBLEMS: 1. Acute kidney injury superimposed on chronic kidney disease. Kidney function seems to be leveled off and this is probably his baseline function. He has no uremic symptoms and electrolytes are within normal range. 2. Polyuria. The patient has developed excessive urine output with 5 liters of urine a day and has developed a negative fluid balance of almost 8 liters. At present, we have started IV fluid 100 mL per hour and going to cut it down to 75 mL per hour to see if we can just stay even with the volume. Once his urine output slows down, then probably he can be discharged back to [facility] care. 3. Anemia. No significant change and his iron studies were checked. He has been on Aranesp 100 mcg once a week.
[2018-12-22] MEDS: LEVOTHYROXINE 125MCG TABLET (0.125MG) PO SCH (06:31)
[2018-12-22] MEDS: SODIUM CHLORIDE 0.9% INJ 10 ML SYR IV SCH ×2 (06:32→18:00)
[2018-12-22 07:12] LABS: HEMATOCRIT 26.1 % (42.0-52.0); HEMOGLOBIN 8.4 g/dl (13.5-17.5); MEAN CORPUSCULAR HEMOGLOBIN 28.1 pg (27.0-33.0); MEAN CORPUSCULAR HGB CONC 32.2 g/dl (32.0-36.5); MEAN CORPUSCULAR VOLUME 87.3 fl (80.0-96.0); PLATELET COUNT, AUTOMATED 319 10^3/uL (150-450); RED BLOOD COUNT 2.99 10^6/uL (4.30-6.10); WHITE BLOOD COUNT 7.2 10^3/uL (4.0-10.0)
[2018-12-22] MEDS: HumaLOG INSULIN (NovoLOG) PER UNIT SC SCH ×4 (07:30→20:08)
[2018-12-22 07:35] LABS: ALBUMIN 3.1 GM/DL (3.2-5.2); CALCIUM LEVEL 8.6 MG/DL (8.8-10.2); CREATININE FOR GFR 1.9 MG/DL (0.70-1.30); GLOMERULAR FILTRATION RATE 37.2 (>42); MAGNESIUM LEVEL 1.5 MG/DL (1.8-2.4); PHOSPHORUS LEVEL 3.4 MG/DL (2.5-4.9); POTASSIUM SERUM 4.4 MEQ/L (3.5-5.1)
[2018-12-22] MEDS: TIOTROPIUM INHALER/CAPSULE (SPIRIVA) INH SCH (07:55)
[2018-12-22] MEDS: ALBUTEROL SULFATE 2.5 MG/0.5 ML INH NEB SOLN NEB SCH ×2 (07:55→20:17)
[2018-12-22] MEDS: HEPARIN SOD (PORCINE) 5000 UNITS/ML VIAL SQ SCH ×2 (09:41→20:09)
[2018-12-22] MEDS: MIRALAX *UNIT DOSE* 17GM PACKET PO SCH ×2 (09:41→20:05)
[2018-12-22] MEDS: SENOKOT S TAB PO SCH ×2 (09:41→20:06)
[2018-12-22] MEDS: ACETAMINOPHEN 500 MG TAB PO SCH ×2 (09:42→20:06)
[2018-12-22] MEDS: FAMOTIDINE 20 MG TAB PO SCH (09:42)
[2018-12-22] MEDS: buPROPion **XL** TABLET 150MG (WELLBUTRIN XL) PO SCH (09:43)
--- NOTE | 2018-12-22 12:46 | IPN ---
DATE: 12/22/2018 Mr. Angeles is seen this morning on his bedside. He is feeling well and denies any complaints. His urine output seems to be decreasing. He is still getting IV fluid at 75 mL per hour. The patient denies any nausea, vomiting, dyspnea or chest pain. PHYSICAL EXAMINATION: Temperature 98.3 degrees Fahrenheit, heart rate 72 per minute and respiratory rate 18 per minute. Blood pressure 129/77 mmHg and oxygen saturation 99% on room air. Head is atraumatic. Neck is supple and without jugular venous distention (JVD) or thyroid enlargement. Heart sounds are regular and lungs are clear to auscultation. Abdomen is soft and nontender. Bowel sounds are normal. Extremities are without any cyanosis or clubbing. Today's labs show WBC count 7.2, hemoglobin 8.4 and hematocrit 26.1. Platelets 319. Sodium 139, potassium 4.4, CO2 of 21, BUN 24 and creatinine 1.9. PROBLEMS: 1. Acute kidney injury superimposed on chronic kidney disease. Kidney function seems to be stable at baseline. His electrolytes are within normal range. 2. Polyuria. Polyuria seems to have slowed down and we are going to stop his IV fluid. 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 We will watch for the next 24 hours. Nursing staff is being advised to continue with liberal oral fluid intake and he should not be on any fluid restriction. 3. Hypomagnesemia. The patient will be given one dose of magnesium sulfate 1 gram today. DISPOSITION: From a renal standpoint, the patient seems to be doing much better and we anticipate that he will be ready for discharge tomorrow.
[2018-12-22] MEDS ORDERED: MAG SULF 1GM/100ML (MAG RUN) 1 GM in APPROPRIATE DILUENT 1 EA IV ONE (13:00)
[2018-12-22 14:00] VITALS: BP 147/72
--- NOTE | 2018-12-22 16:38 | IPNPDOC ---
Text Note Date of Service The patient was seen on 12/22/18. NOTE Patient seen and examined. No acute events overnight. Denies any chest pain, pressure, or discomfort. No fevers or chills. The patient is a very poor historian. PHYSICAL EXAMINATION: GENERAL: Patient alert, comfortable, in no acute distress. Moist mucous membranes. NECK: Supple. No jugular venous distention (JVD). CARDIAC: Regular, S1, S2. PULMONARY: Bilaterally clear. ABDOMEN: Soft, nontender. EXTREMITIES: 1+ bilateral lower extremity edema. ASSESSMENT AND PLAN: This is a 73-year-old male patient from [facility] ([facility]) with underlying medical history of chronic hypoxic respiratory failure, chronic obstructive pulmonary disease (COPD), obstructive sleep apnea, BPH, with a history of urinary retention, chronic Rodriguez, diabetes mellitus, gastroesophageal reflux disease (GERD), hypothyroidism, anxiety, depression, left knee arthritis, history of replacement several years back, now with chronic pain and swelling, admitted for hypercalcemia, acute on chronic renal insufficiency. PROBLEMS: 1. Left knee pain, status post fall. History of knee replacement. CT showing dissociation of patella prosthesis component to the [place] patella. Orthopedics consulted. Will need outpatient followup with [facility]. 2. Metabolic encephalopathy, resolved. Likely secondary to hypercalcemia and dehydration. off IVF 3. Acute on chronic renal insufficiency, improved. Did have mild left-sided hydronephrosis due to fecal impaction. Nephrology consulted. off IV fluids. 4. Fecal stasis, resolved. Bowel regimen as prescribed. Likely due to hypercalcemia. 5. History of diastolic congestive heart failure, compensated. Diuretic has been on hold given large volume of urine output. 6. Diabetes mellitus, Insulin was ordered. 7. Hypercalcemia. Calcium and vitamin D supplementation discontinued. treated with IVF calcitonin. Nephrology consulted. 8. Gastroesophageal reflux disease (GERD). Followup as an outpatient. 9. Anxiety/depression. Continue current medication. 10. Hypothyroidism. Continue Synthroid. 11. Dyslipidemia. Continue statin. 12. BPH. Patient has a Rodriguez catheter. Continue Flomax and finasteride. 13. 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 Further recommendation as per nephrology. improved 14. Obstructive sleep apnea. Obstructive sleep apnea (TEREZA) protocol. 15. Chronic obstructive pulmonary disease. Continue current medication. 16. Deep vein thrombosis (DVT) prophylaxis. Heparin subcu. DISPOSITION: Pending further nephrology input. VS,Fishbone, I+O VS, Fishbone, I+O Laboratory Tests 12/22/18 06:36 Red Blood Count 2.99 L, Mean Corpuscular Volume 87.3, Mean Corpuscular Hemoglobin 28.1, Mean Corpuscular Hemoglobin Concent 32.2, Red Cell Distribution Width 14.7 H 12/22/18 06:37 Anion Gap 10 Vital Signs Date Time Temp Pulse Resp B/P (MAP) Pulse Ox O2 Delivery O2 Flow Rate FiO2 12/22/18 14:00 98.4 56 20 147/72 (97) 96 12/22/18 06:00 Room Air I&O- Last 24 Hours up to 6 AM 12/22/18 06:00 Intake Total 2645 ml Output Total 4000 ml Balance -1355 ml RADHA POWELL MD Dec 22, 2018 16:38
[2018-12-22] MEDS: ATORVASTATIN 20 MG TAB PO SCH (20:08)
[2018-12-22] MEDS: TAMSULOSIN 0.4 MG CAP PO SCH (20:08)
[2018-12-22] MEDS: traMADol 50 MG TAB PO SCH (20:08)
[2018-12-22] MEDS: FINASTERIDE 5 MG TAB PO SCH (20:08)
[2018-12-22] MEDS: ESCITALOPRAM OXALATE 10 MG TAB (LEXAPRO) PO SCH (20:09)
[2018-12-22] MEDS: risperiDONE 2 MG TAB PO SCH (20:56)
[2018-12-23] MEDS: LEVOTHYROXINE 125MCG TABLET (0.125MG) PO SCH (05:02)
[2018-12-23] MEDS: SODIUM CHLORIDE 0.9% INJ 10 ML SYR IV SCH (05:03)
[2018-12-23 05:31] LABS: HEMATOCRIT 25.7 % (42.0-52.0); HEMOGLOBIN 8.5 g/dl (13.5-17.5); MEAN CORPUSCULAR HEMOGLOBIN 28.6 pg (27.0-33.0); MEAN CORPUSCULAR HGB CONC 33.1 g/dl (32.0-36.5); MEAN CORPUSCULAR VOLUME 86.5 fl (80.0-96.0); PLATELET COUNT, AUTOMATED 318 10^3/uL (150-450); RED BLOOD COUNT 2.97 10^6/uL (4.30-6.10); WHITE BLOOD COUNT 6.9 10^3/uL (4.0-10.0)
[2018-12-23 05:55] LABS: ALBUMIN 3.1 GM/DL (3.2-5.2); CALCIUM LEVEL 8.8 MG/DL (8.8-10.2); CREATININE FOR GFR 1.95 MG/DL (0.70-1.30); GLOMERULAR FILTRATION RATE 36.1 (>42); MAGNESIUM LEVEL 1.7 MG/DL (1.8-2.4); PHOSPHORUS LEVEL 3.9 MG/DL (2.5-4.9); POTASSIUM SERUM 4.2 MEQ/L (3.5-5.1)
[2018-12-23] MEDS: ALBUTEROL SULFATE 2.5 MG/0.5 ML INH NEB SOLN NEB SCH ×2 (07:31→20:07)
[2018-12-23] MEDS: TIOTROPIUM INHALER/CAPSULE (SPIRIVA) INH SCH (07:31)
[2018-12-23] MEDS: HumaLOG INSULIN (NovoLOG) PER UNIT SC SCH ×4 (07:45→21:21)
[2018-12-23] MEDS ORDERED: MAG SULF 1GM/100ML (MAG RUN) 1 GM in APPROPRIATE DILUENT 1 EA IV ONE (08:15)
[2018-12-23] MEDS: DARBEPOETIN 100 MCG/0.5 ML *NON-DIALYSIS* SYRINGE (J0881) SC SCH (08:59)
[2018-12-23] MEDS: ACETAMINOPHEN 500 MG TAB PO SCH ×2 (09:00→20:22)
[2018-12-23] MEDS: buPROPion **XL** TABLET 150MG (WELLBUTRIN XL) PO SCH (09:01)
[2018-12-23] MEDS: SENOKOT S TAB PO SCH ×2 (09:01→20:21)
[2018-12-23] MEDS: FAMOTIDINE 20 MG TAB PO SCH (09:01)
[2018-12-23] MEDS: MIRALAX *UNIT DOSE* 17GM PACKET PO SCH ×2 (09:02→20:21)
[2018-12-23] MEDS: HEPARIN SOD (PORCINE) 5000 UNITS/ML VIAL SQ SCH ×2 (09:02→20:21)
[2018-12-23] MEDS ORDERED: SENN8.6T7 PO (11:28)
[2018-12-23 14:00] VITALS: BP 157/88
--- NOTE | 2018-12-23 15:20 | DSES ---
DATE OF ADMISSION: 12/07/2018 DATE OF DISCHARGE: 12/23/2018 PRIMARY CARE PROVIDER: Dr. 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 HISTORY OF PRESENT ILLNESS: This is a 73-year-old male patient from [facility] who has a past medical history of COPD with chronic oxygen at home, chronic hypoxia, obstructive sleep apnea, BPH, history of urinary retention with chronic Rodriguez, diabetes, GERD, hypothyroidism, anxiety, depression, left knee osteoarthritis, history of replacement several years back with chronic pain and swelling for a couple of months who was supposed to have second knee replacement in August 2018. The surgery has been delayed because patient is not medially optimized. Patient has diastolic congestive heart failure sent in from [facility] with persistent bradycardia. Pulses noted to be in the 40's, lowest in the 30's. Patient was also felt to be mildly confused and not at baseline. Labs show significant for hyperkalemia, acute on chronic renal insufficiency. Patient admitted to the hospital and nephrology consulted and given IV fluids, supportive care. X-ray of the knee show dissociation of patella prosthesis. Orthopedics on consult. Patient's diuretic has been on hold. Patient's fluid and urine is monitored. Bowel regimen given. Patient has been having bowel movements. Insulin prescribed for diabetes. Patient's condition gradually improved. 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 Able to hydrate himself with normal electrolytes and stable kidney function. Case discussed with nephrology who believes the patient is ready for discharge for further care as outpatient. Currently patient is back to baseline ready to be discharged for further care as outpatient. VITAL SIGNS: Temperature 98.4, pulse 56, respirations 20, blood pressure 147/72, pulse ox 96% on room air. LABORATORY: WBC 6.9, hemoglobin and hematocrit 8.5 over 25.7, platelets 318. Chemistry: Sodium 138, potassium 4.2, chloride 106, bicarbonate 24, BUN 25, creatinine 1.95. GENERAL: Patient alert, comfortable in no acute distress. Moist mucous membranes. NECK: Supple. No JVD. CARDIAC: Regular S1, S2. PULMONARY: Bilateral clear. ABDOMEN: Soft and nontender. DISCHARGE MEDICATIONS: Senna S 2 tablets by mouth twice a day, acetaminophen 1,000 mg by mouth twice a day, Ventolin inhaler four times a day as needed, albuterol nebulizer, twice a day, aspirin 81 mg by mouth daily, Lipitor 20 mg by mouth at bedtime, bupropion 150 mg by mouth daily, vitamin D 1,000 units by mouth daily, daily vitamin by mouth daily, Lexapro 20 mg by mouth at bedtime, ferrous sulfate 324 mg by mouth daily, Finasteride 5 mg by mouth at bedtime, Flonase twice a day as needed, glucosamine 1,000 by mouth daily, Ellipta inhalation daily, Synthroid 125 mcg by mouth daily, magnesium oxide 400 mg by mouth twice a day, MiraLAX 17 grams by mouth daily as needed, ranitidine 150 mg by mouth daily, risperidone 2 mg by mouth at bedtime, Januvia 100 mg by mouth at bedtime, Flomax 0.8 mg by mouth at bedtime, Tramadol 50 mg by mouth at bedtime. DISCHARGE INSTRUCTIONS: Please followup with nephrology, cardiology, orthopedics and urology in 1-2 weeks. Return to the hospital if symptoms worsen. Rodriguez until patient evaluated by urology.
--- NOTE | 2018-12-23 16:07 | IPNPDOC ---
Text Note Date of Service The patient was seen on 12/23/18. NOTE Patient seen and examined. No acute events overnight. Denies any chest pain, pressure, or discomfort. No fevers or chills. The patient is a very poor historian. off ivf PHYSICAL EXAMINATION: GENERAL: Patient alert, comfortable, in no acute distress. Moist mucous membranes. NECK: Supple. No jugular venous distention (JVD). CARDIAC: Regular, S1, S2. PULMONARY: Bilaterally clear. ABDOMEN: Soft, nontender. EXTREMITIES: 1+ bilateral lower extremity edema. ASSESSMENT AND PLAN: This is a 73-year-old male patient from [facility] ([facility]) with underlying medical history of chronic hypoxic respiratory failure, chronic obstructive pulmonary disease (COPD), obstructive sleep apnea, BPH, with a history of urinary retention, chronic Rodriguez, diabetes mellitus, gastroesophageal reflux disease (GERD), hypothyroidism, anxiety, depression, left knee arthritis, history of replacement several years back, now with chronic pain and swelling, admitted for hypercalcemia, acute on chronic renal insufficiency. PROBLEMS: 1. Left knee pain, status post fall. History of knee replacement. CT showing dissociation of patella prosthesis component to the northway patella. Orthopedics consulted. Will need outpatient followup with [facility]. 2. Metabolic encephalopathy, resolved. Likely secondary to hypercalcemia and dehydration. off IVF 3. Acute on chronic renal insufficiency, improved. Did have mild left-sided hydronephrosis due to fecal impaction. Nephrology consulted. off IV fluids. 4. Fecal stasis, resolved. Bowel regimen as prescribed. Likely due to hypercalcemia. 5. History of diastolic congestive heart failure, compensated. Diuretic has been on hold given large volume of urine output. 6. Diabetes mellitus, Insulin was ordered. 7. Hypercalcemia. Calcium and vitamin D supplementation discontinued. treated with IVF calcitonin. Nephrology consulted. 8. Gastroesophageal reflux disease (GERD). Followup as an outpatient. 9. Anxiety/depression. Continue current medication. 10. Hypothyroidism. Continue Synthroid. 11. Dyslipidemia. Continue statin. 12. BPH. Patient has a Rodriguez catheter. Continue Flomax and finasteride. 13. 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 Further recommendation as per nephrology. improved 14. Obstructive sleep apnea. Obstructive sleep apnea (TEREZA) protocol. 15. Chronic obstructive pulmonary disease. Continue current medication. 16. Deep vein thrombosis (DVT) prophylaxis. Heparin subcu. DISPOSITION: DC delayed due to weather hazard, no transport VS,[place], I+O VS, [place], I+O Laboratory Tests 12/23/18 05:04 Red Blood Count 2.97 L, Mean Corpuscular Volume 86.5, Mean Corpuscular Hemoglobin 28.6, Mean Corpuscular Hemoglobin Concent 33.1, Red Cell Distribution Width 14.8 H, Anion Gap 8 Vital Signs Date Time Temp Pulse Resp B/P (MAP) Pulse Ox O2 Delivery O2 Flow Rate FiO2 12/23/18 14:00 98.4 83 17 157/88 (111) 96 12/22/18 06:00 Room Air I&O- Last 24 Hours up to 6 AM 12/23/18 06:00 Intake Total 3910 ml Output Total 5975 ml Balance -2065 ml RADHA POWELL MD Dec 23, 2018 16:07
--- NOTE | 2018-12-23 17:22 | IPN ---
DATE: 12/23/2018 Mr. Angeles is seen this morning on his bedside. He is feeling well and denies any complaints. He is eating and drinking very well and IV fluid was stopped yesterday. The patient denies any nausea, vomiting, dyspnea, chest pain, fever, chills or abdominal pain. He has a Rodriguez catheter which is draining clear urine as usual. He still had significant urine output even yesterday, though he had slowed down the day before. Yesterday, his urine output was 900 mL more than his total intake. PHYSICAL EXAMINATION: The patient is awake and without any acute distress. Temperature 98.4 degrees Fahrenheit, heart rate 80 per minute and respiratory rate 20 per minute. Blood pressure 157/88 mmHg and oxygen saturation 96%. Head is atraumatic. Neck is supple and without jugular venous distention (JVD) or thyroid enlargement. Heart sounds are regular. Lungs are clear to auscultation. Abdomen is soft and nontender and bowel sounds are normal. Extremities have no cyanosis or clubbing. Neurologically, he is at his baseline mentation. LABORATORY DATA: Today's laboratories show WBC count 6.9, hemoglobin 8.5 and hematocrit 25.7. Platelets 318. Sodium 138, potassium 4.2, CO2 24, BUN 25 and creatinine 1.95. PROBLEMS: 1. Acute renal failure, superimposed on chronic kidney disease. His creatinine has remained stable between 1.95 and 1.99 for the last four days. This is probably his baseline kidney function. 2. Polyuria. 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 He is drinking well and I have encouraged him to continue with liberal fluid intake. He still fell short by about 900 mL yesterday. Nursing staff is being advised to keep fluid supplies on his bedside and keep encouraging him to drink. He should be discharged with the same instructions and followup in my office within a week. So far, his electrolytes have remained stable and he does not seem to have any significant evidence for dehydration, even though he has been negative fluid balance for several days. We will not restart IV fluid at this point. 3. Anemia. His anemia is chronic and stable and will need followup as an outpatient. No emergent indication for a transfusion.
[2018-12-23] MEDS: FINASTERIDE 5 MG TAB PO SCH (20:21)
[2018-12-23] MEDS: ATORVASTATIN 20 MG TAB PO SCH (20:21)
[2018-12-23] MEDS: ESCITALOPRAM OXALATE 10 MG TAB (LEXAPRO) PO SCH (20:21)
[2018-12-23] MEDS: risperiDONE 2 MG TAB PO SCH (20:21)
[2018-12-23] MEDS: TAMSULOSIN 0.4 MG CAP PO SCH (20:21)
[2018-12-23] MEDS: traMADol 50 MG TAB PO SCH (20:23)
[2018-12-23 22:00] VITALS: BP 167/82
[2018-12-24] MEDS: LEVOTHYROXINE 125MCG TABLET (0.125MG) PO SCH (05:32)
[2018-12-24 06:00] VITALS: BP 126/75
[2018-12-24 06:09] LABS: HEMATOCRIT 27.1 % (42.0-52.0); MEAN CORPUSCULAR HEMOGLOBIN 28.8 pg (27.0-33.0); MEAN CORPUSCULAR HGB CONC 33.2 g/dl (32.0-36.5); MEAN CORPUSCULAR VOLUME 86.9 fl (80.0-96.0); PLATELET COUNT, AUTOMATED 350 10^3/uL (150-450); RED BLOOD COUNT 3.12 10^6/uL (4.30-6.10); WHITE BLOOD COUNT 6.9 10^3/uL (4.0-10.0)
[2018-12-24 06:32] LABS: ALBUMIN 3.1 GM/DL (3.2-5.2); CALCIUM LEVEL 9.2 MG/DL (8.8-10.2); CREATININE FOR GFR 1.85 MG/DL (0.70-1.30); GLOMERULAR FILTRATION RATE 38.3 (>42); MAGNESIUM LEVEL 1.9 MG/DL (1.8-2.4); PHOSPHORUS LEVEL 3.7 MG/DL (2.5-4.9); POTASSIUM SERUM 3.8 MEQ/L (3.5-5.1)
[2018-12-24] MEDS: ALBUTEROL SULFATE 2.5 MG/0.5 ML INH NEB SOLN NEB SCH (07:15)
[2018-12-24] MEDS: TIOTROPIUM INHALER/CAPSULE (SPIRIVA) INH SCH (07:15)
[2018-12-24] MEDS: HumaLOG INSULIN (NovoLOG) PER UNIT SC SCH ×2 (07:27→12:00)
[2018-12-24] MEDS: SENOKOT S TAB PO SCH (08:31)
[2018-12-24] MEDS: buPROPion **XL** TABLET 150MG (WELLBUTRIN XL) PO SCH (08:31)
[2018-12-24] MEDS: HEPARIN SOD (PORCINE) 5000 UNITS/ML VIAL SQ SCH (08:31)
[2018-12-24] MEDS: FAMOTIDINE 20 MG TAB PO SCH (08:31)
[2018-12-24] MEDS: MIRALAX *UNIT DOSE* 17GM PACKET PO SCH (08:32)
[2018-12-24] MEDS: ACETAMINOPHEN 500 MG TAB PO SCH (08:32)
--- NOTE | 2018-12-24 14:30 | IPN ---
DATE OF VISIT: 12/24/2018 Mr. Angeles is seen this morning on his bedside. He is feeling well and denies any complaints. He has no dyspnea, chest pain, nausea or vomiting. He remained in negative fluid balance again yesterday. He could not be discharged yesterday due to weather related issues. On physical exam today, temperature 97.8 degrees Fahrenheit, heart rate 84 and respiratory rate 20 per minute. Blood pressure 126/75 mmHg and oxygen saturation 95% on room air. Intake and output records are probably not accurate as his intake was only recorded 2039 and output 0. It is important to note that his weight has not changed over last 5 days. He has weighed between 86 and 87.3 kg. There was no weight recorded today. His head is atraumatic. Neck is supple and without jugular venous distention (JVD) or thyroid enlargement. Heart sounds are regular and lungs clear to auscultation. Abdomen: Soft and nontender. Extremities without any cyanosis or clubbing. Today's labs show WBC count 6.9, hemoglobin 9.0 and hematocrit 27.1. Sodium 137, potassium 3.8, CO2 22, BUN 24 and creatinine 1.85. PROBLEMS: 1. Acute on chronic kidney disease. Kidney function is stable at baseline and electrolytes are also stable. The patient will be followed up as an outpatient in my clinic. 2. Polyuria. Most likely, he has partial nephrogenic diabetes insipidus. The patient is being encouraged to drink fluids liberally. Nursing staff is also being advised to make sure he has adequate oral intake to compensate for his urinary losses. He is being discharged back to [facility] ([facility]) today and I have again advised the nursing staff to instruct his caregivers for adequate oral intake to compensate for his urinary losses. So far, he does not have any electrolyte abnormalities and kidney function is stable at baseline. He will follow up in my office next week. 3. Anemia. His anemia is stable and will also need to monitor closely. He should continue with iron supplement.
== END 2018-12-24 12:55 | disposition home or self-care (01) | DRG 640 ==
LOC: EDBD 07:24 → M ED 07:24 → M ED INP 10:19 → M PCU 12:30 → M MSPAV 12-12 05:27
PROVIDERS: ADMIT Internal Medicine Nephrology; ATTEND Hospitalist
PROC: 02HV33Z Insertion of Infusion Device into Superior Vena Cava, Percutaneous Approach (ICD-10-PCS; principal; 2018-12-10)
DX: E83.52 Hypercalcemia (principal); G93.41 Metabolic encephalopathy; I50.32 Chronic diastolic (congestive) heart failure; N17.9 Acute kidney failure, unspecified; T84.023A Instability of internal left knee prosthesis, initial encounter; N25.1 Nephrogenic diabetes insipidus; J96.11 Chronic respiratory failure with hypoxia; N39.0 Urinary tract infection, site not specified; I44.0 Atrioventricular block, first degree; K21.9 Gastro-esophageal reflux disease without esophagitis; F41.9 Anxiety disorder, unspecified; F32.9 Major depressive disorder, single episode, unspecified; E78.5 Hyperlipidemia, unspecified; E03.9 Hypothyroidism, unspecified; N40.0 Benign prostatic hyperplasia without lower urinary tract symptoms; G47.33 Obstructive sleep apnea (adult) (pediatric); J44.9 Chronic obstructive pulmonary disease, unspecified; E86.0 Dehydration; F70 Mild intellectual disabilities; R33.9 Retention of urine, unspecified; M17.12 Unilateral primary osteoarthritis, left knee; Z96.652 Presence of left artificial knee joint; Z79.899 Other long term (current) drug therapy; N18.3 Chronic kidney disease, stage 3 (moderate); Z79.82 Long term (current) use of aspirin; E87.6 Hypokalemia; E83.41 Hypermagnesemia; D50.9 Iron deficiency anemia, unspecified; B96.4 Proteus (mirabilis) (morganii) as the cause of diseases classified elsewhere

== ENCOUNTER 2018-12-28 10:44 | Emergency (ER) | payer MEDICARE, MEDICAID ==
[~2018-12-28] VITALS: Ht 175.3 cm; Wt 88.6 kg
[~2018-12-28 10:44] MED LIST changes: +ASPI81TA85 PO; +FERR324T2 PO; +LISI10TA4 PO; +MIRA3350 PO; +SENN8.6T7 PO; +SYNT125T PO
[2018-12-28 12:15] LABS: BASO # 0.1 10^3/uL (0.0-0.2); BASO % 1.4 % (0.0-1.0); EOS # 0.4 10^3/uL (0.0-0.50); EOS % 5.2 % (0.0-3.0); HEMATOCRIT 31.5 % (42.0-52.0); HEMOGLOBIN 10.3 g/dl (13.5-17.5); LYMPH # 1.6 10^3/uL (1.5-4.5); LYMPH % 22.7 % (24.0-44.0); MEAN CORPUSCULAR HEMOGLOBIN 28.7 pg (27.0-33.0); MEAN CORPUSCULAR HGB CONC 32.7 g/dl (32.0-36.5); MEAN CORPUSCULAR VOLUME 87.7 fl (80.0-96.0); MONO # 0.6 10^3/uL (0.0-0.8); MONO % 8.4 % (0.0-5.0); NEUTROPHILS # 4.3 10^3/uL (1.8-7.7); PLATELET COUNT, AUTOMATED 290 10^3/uL (150-450); RED BLOOD COUNT 3.59 10^6/uL (4.30-6.10)
[2018-12-28] MEDS: GASTROGRAFIN SOLUTION 30ML PO SCH ×2 (12:38→13:00)
[2018-12-28 12:47] LABS: ALBUMIN 3.7 GM/DL (3.2-5.2); BILIRUBIN,TOTAL 0.4 MG/DL (0.2-1.0); C REACTIVE PROTEIN QUANTITATIV 1.4 MG/DL (0.00-0.30); CALCIUM LEVEL 10.8 MG/DL (8.8-10.2); CREATININE FOR GFR 1.81 MG/DL (0.70-1.30); GLOMERULAR FILTRATION RATE 39.3 (>42); POTASSIUM SERUM 3.9 MEQ/L (3.5-5.1); TOTAL PROTEIN 7.6 GM/DL (6.4-8.2)
[2018-12-28] MEDS ORDERED: ISOVUE-370 76% 100ML VIAL (Q9967) As Ordered ONE (14:02)
--- NOTE | 2018-12-28 14:38 | REP ---
CT abdomen and pelvis without IV but with oral contrast: History: Lower abdominal pain. Question constipation versus obstruction. Comparison CT study: December 16, 2018. CT findings: Preliminary digital manager mass radiograph demonstrates moderate distension of the proximal colon. There is no evidence of pleural effusion. The lung bases show mild bilateral lower lobe linear fibrosis. There is however a small pericardial effusion. Vascular calcification is noted. No abnormalities noted in the gallbladder. The liver and spleen are normal in size and homogeneous in texture. Normal adrenal glands are seen bilaterally. No pancreatic abnormalities observed. The kidneys show no evidence of hydronephrosis. There is a low-density lesion in the lower pole of the left kidney measuring 3.1 cm in diameter. This is unchanged from August 16, [address] study. No renal calculus is observed. There is a smaller cyst in the upper pole of the left kidney. A small hyperdense cyst is seen posteriorly in the right mid kidney unchanged. A Rodriguez catheter is noted in the otherwise empty urinary bladder. There is a small quantity of bladder air. No small bowel dilation or small bowel obstructive lesion is seen. A normal appendix is noted partially filled with oral contrast. No appendiceal inflammation is seen. There is however diffuse distension of the colon with low density colonic stool moderate in degree. No obstructive colonic lesion is seen. There is low density stool in the rectum and rectosigmoid with dilation and mild mural thickening. No obstructive lesion is seen. No evidence of free air or abnormal fluid collection. Impression: Diffuse colonic distension with gas and low density stool throughout. Mild colonic mural thickening question enterocolitis. No obstructive lesion seen. Normal appendix. Bilateral renal cysts. Rodriguez catheter. Pericardial effusion. The pericardial effusion is essentially unchanged from December 16, 2018 and December 07, [address] studies. Unreviewed
[2018-12-28 15:05] VITALS: BP 122/65
== END 2018-12-28 16:12 | disposition home or self-care (01) ==
LOC: M ED 10:44
DX: I31.3 Pericardial effusion (noninflammatory) (principal); I11.0 Hypertensive heart disease with heart failure; I50.9 Heart failure, unspecified; J44.9 Chronic obstructive pulmonary disease, unspecified; K21.9 Gastro-esophageal reflux disease without esophagitis; E03.9 Hypothyroidism, unspecified; F41.9 Anxiety disorder, unspecified; D64.9 Anemia, unspecified; F70 Mild intellectual disabilities; G47.30 Sleep apnea, unspecified; Z86.19 Personal history of other infectious and parasitic diseases; Z96.0 Presence of urogenital implants; F10.20 Alcohol dependence, uncomplicated; Z79.899 Other long term (current) drug therapy; Z79.890 Hormone replacement therapy; Z79.82 Long term (current) use of aspirin
CPT/HCPCS: 36415; 74176; 80053; 85025; 86140; 99284; Q9963

== ENCOUNTER → 2019-01-05 | Outpatient (REF) | payer MEDICARE, MEDICAID ==
[2019-01-05 13:29] LABS: PERCENT SATURATION 16.8 % (19.7-50.0)
== END ==
LOC: M LAB REF 12:44
PROVIDERS: ATTEND Internal Medicine Nephrology
DX: D64.9 Anemia, unspecified (principal)

== ENCOUNTER → 2019-01-24 | Outpatient (CLI) | payer MEDICARE, MEDICAID ==
[2019-01-24 12:36] LABS: CHOLESTEROL RISK RATIO 3.87 (<5); PERCENT SATURATION 22.3 % (19.7-50.0)
[2019-01-24 12:43] LABS: HEMOGLOBIN A1c 4.7 %
== END ==
LOC: M SMT 08:53
PROVIDERS: ATTEND Family Medicine
DX: D64.9 Anemia, unspecified (principal); E11.9 Type 2 diabetes mellitus without complications

== ENCOUNTER → 2019-02-01 | Outpatient (REF) | payer MEDICARE, MEDICAID ==
[~2019-02-01] MED LIST changes: +ACET-683 PO; +ACET-897 PO; +ASPI81TA26 PO; +FERR32TA PO; +GUAI5EL PO; +MAG400TA PO; +MAGN400T PO; +MAGN400T2 PO; +POTA20EL PO; +SENN18TA PO; +SENN1TAB41 PO; -SENN8.6T7 PO; +SIME180C PO; +SITA50TAB PO; +[UNRECOGNIZED DRUG - CODE] EXT
[2019-02-01 19:05] LABS: URINE TOTAL PROTEIN 67.3 MG/DL (0-12)
[2019-02-03 13:30] LABS: UPEP INTERPRETATION NO M-SPIKE NOTED; URINE VOLUME RANDOM ML
== END ==
LOC: M LAB REF 18:05
PROVIDERS: ATTEND Internal Medicine Nephrology
DX: E83.52 Hypercalcemia (principal)

== ENCOUNTER → 2019-03-04 | Outpatient (CLI) | payer MEDICARE, MEDICAID ==
[~2019-03-04] MED LIST changes: -ACET-683 PO; -ACET-897 PO; -ASPI81TA26 PO; -FERR32TA PO; -GUAI5EL PO; -MAG400TA PO; -MAGN400T PO; -MAGN400T2 PO; -POTA20EL PO; -SENN18TA PO; -SIME180C PO; -SITA50TAB PO; -[UNRECOGNIZED DRUG - CODE] EXT
== END ==
LOC: M LAB 12:07
PROVIDERS: ATTEND Internal Medicine Nephrology
DX: E83.52 Hypercalcemia (principal)

== ENCOUNTER 2019-03-10 09:01 | Inpatient (IN) | payer MEDICARE, MEDICAID ==
[~2019-03-10] VITALS: Ht 175.3 cm; Wt 87.2 kg
[~2019-03-10 09:01] MED LIST changes: +MAGN400T2 PO; +POTA20EL PO
[2019-03-10] MEDS ORDERED: SENN18TA PO (09:47)
[2019-03-10] MEDS ORDERED: ALBU83IN INH (09:47)
[2019-03-10] MEDS ORDERED: ACET-683 PO (09:47)
[2019-03-10] MEDS ORDERED: ACET-897 PO (09:47)
[2019-03-10] MEDS ORDERED: GUAI5EL PO (09:47)
[2019-03-10] MEDS ORDERED: NS 1,000 ML IV SCH (10:15)
--- NOTE | 2019-03-10 10:16 | REP ---
Acute abdominal series three views including PA chest and supine upright abdomen: PA chest: Comparison is 10/03/2018. There is chronic elevation of the right hemidiaphragm, unchanged. The right lung is otherwise clear. The left lung is clear. There is no free subdiaphragmatic air. Cardiac size is enlarged, unchanged. Impression: No free subdiaphragmatic air. No interval change. Abdomen, supine and cross-table lateral views: There are multiple air-fluid levels in significantly dilated bowel loops compatible with bowel obstruction. Impression: Bowel obstruction. Electronically Signed by Jordan Coy MD 03/10/2019 10:08 A
[2019-03-10 11:02] LABS: BASO # 0.1 10^3/uL (0.0-0.2); BASO % 0.9 % (0.0-1.0); EOS # 0.1 10^3/uL (0.0-0.50); EOS % 1.9 % (0.0-3.0); HEMATOCRIT 31.7 % (42.0-52.0); HEMOGLOBIN 10.5 g/dl (13.5-17.5); LYMPH # 1.7 10^3/uL (1.5-4.5); LYMPH % 24.2 % (24.0-44.0); MEAN CORPUSCULAR HEMOGLOBIN 27.9 pg (27.0-33.0); MEAN CORPUSCULAR HGB CONC 33.1 g/dl (32.0-36.5); MEAN CORPUSCULAR VOLUME 84.3 fl (80.0-96.0); MONO # 0.6 10^3/uL (0.0-0.8); MONO % 9.2 % (0.0-5.0); NEUTROPHILS # 4.4 10^3/uL (1.8-7.7); NEUTROPHILS % 63.5 % (36.0-66.0); PLATELET COUNT, AUTOMATED 313 10^3/uL (150-450); RED BLOOD COUNT 3.76 10^6/uL (4.30-6.10); WHITE BLOOD COUNT 6.9 10^3/uL (4.0-10.0)
[2019-03-10 11:26] LABS: CALCIUM LEVEL 9.6 MG/DL (8.8-10.2); CREATININE FOR GFR 1.45 MG/DL (0.70-1.30); GLOMERULAR FILTRATION RATE 50.8 (>42); POTASSIUM SERUM 2.9 MEQ/L (3.5-5.1)
[2019-03-10] MEDS ORDERED: KCL 10MEQ/100ML SWI (KRUN) 10 MEQ in APPROPRIATE DILUENT 1 EA IV ONE (11:45)
[2019-03-10] MEDS ORDERED: ISOVUE-370 76% 100ML VIAL (Q9967) As Ordered ONE (11:49)
--- NOTE | 2019-03-10 12:57 | REP ---
CT abdomen and pelvis with IV and without oral contrast: History: Bowel obstruction. Comparison CT study December 28, 2018. CT findings: Preliminary [place] radiograph demonstrates abdominal distension with multiple dilated air filled loops of colon and small bowel throughout the abdomen. Axial CT images demonstrate bilateral lower lobe discoid atelectasis. There is a tiny sliver of right pleural fluid. There is a moderate-sized pericardial effusion visible today. This is not new but is somewhat increased. There is a small amount of abdominal ascites. This appears to be a new finding. A normal appendix is seen. No hepatic or splenic lesion is seen. Nasogastric tube is seen in the gastric fundus. There is gas and liquid stool throughout the dilated colon. No obstructive lesion is appreciated. There is mural thickening seen in much of the colon as on previous studies. Multiple dilated loops of small intestine are noted as well interspersed. No evidence of free intraperitoneal air. Rodriguez catheter is seen in the empty bladder. There are small cortical cysts affecting both kidneys. No hepatic or splenic or pancreatic abnormality is seen. The gallbladder is unremarkable. Impression: Enterocolitis picture with mural thickening and moderate diffuse colonic distension through to the rectum. There are dilated small bowel loops as well. No obstructive lesion is seen. There is mild ascites visible today. Increased pericardial effusion. Very small right pleural effusion. Normal appendix. NG tube in the stomach and Rodriguez catheter in place. Electronically Signed by Av Isaacs MD 03/16/2019 04:08 P
[2019-03-10] MEDS ORDERED: KCL 40MEQ in NS 1000ML 1,000 ML IV SCH (14:30)
[2019-03-10] MEDS ORDERED: hydrALAZINE INJ 20 MG/ML VIAL IV PRN ×2 (14:30→18:30)
[2019-03-10 14:57] VITALS: BP 186/95
[2019-03-10] MEDS: FAMOTIDINE IV BAG 20 MG in APPROPRIATE DILUENT 1 EA IV SCH (15:24)
--- NOTE | 2019-03-10 16:22 | CR ---
DATE OF CONSULTATION: 03/10/2019 CONSULTATION REPORT FOR: Dr. Braydon Choe REASON FOR CONSULTATION: Enterocolitis. HISTORY OF PRESENT ILLNESS: This is a 73-year-old gentleman who is a resident of [facility] ([facility] [[email or web address] He is accompanied by one of the [facility] [[email or web address] workers from whom most of the history is obtained. He has had some belly pain and distension for about a day. The distension was particularly noticeable this morning. The pain is mostly in the lower abdomen. He has had loose stools daily for several weeks but has had no vomiting, nausea or blood in his stools. He has been afebrile and has no known sick contacts. An nasogastric (NG) tube was placed in the emergency department and has been draining brownish contents. He does have a chronic Rodriguez. REVIEW OF SYSTEMS: Difficult to achieve as the patient has some trouble verbalizing answers. However, he has not appeared to have any respiratory, cardiovascular, genitourinary, neurologic or musculoskeletal complaints. Staff has not noticed if he has been febrile. PAST MEDICAL HISTORY: 1. Intellectual disability. 2. Hypertension. 3. Diabetes mellitus, type 2. 4. Diastolic dysfunction. 5. Chronic obstructive pulmonary disease (COPD). 6. Hyperlipidemia. 7. Hypothyroidism. 8. Arthritis. 9. Depression. 10. 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 11. Benign prostatic hypertrophy (BPH). 12. History of acute kidney injury (ISAAC). 13. Obstructive sleep apnea with nighttime oxygen, not using continuous positive airway pressure (CPAP). 14. Hypercalcemia. 15. Hypokalemia. 16. Chronic anemia, currently being worked by oncology. PAST SURGICAL HISTORY: Left knee replacement times three and right knee arthroscopy per the patient. He also admits to having a hernia repaired which may have been umbilical. SOCIAL HISTORY: The patient is a nonsmoker. He has been sober from alcohol for 13 years. He does not do drugs. He lives at [facility] ([facility] [[email or web address] and there has been no one there with similar symptoms. ALLERGIES: No known drug allergies. PHYSICAL EXAMINATION: VITAL SIGNS: Temperature 97.9, pulse 78 and regular, respiratory rate 16, blood pressure 145/70, 92% on room air. GENERAL: Elderly male in no acute distress. HEENT: Nasogastric (NG) tube in place, draining reddish brown contents with some mucus. The patient is a mouth breather. However, his nasal mucous membranes are moist. His head is atraumatic, normocephalic. Extraocular eye movements are intact. NECK: Supple. No masses. LUNGS: Clear to auscultation bilaterally. No wheezes, rhonchi or rales. HEART: Regular rate and rhythm. No murmurs, gallops or rubs. ABDOMEN: Distended but soft. Hyperactive bowel sounds are heard in the lower quadrants. There is no pain to palpation, however, bowel loops are distinctly palpable along the superior aspect of the abdominal wall. He does have a scar inferior to his umbilicus from previous abdominal surgery. GENITOURINARY: Rodriguez catheter is in place and draining mildly dark yellow urine. LABORATORY DATA: CBC: WBC 6.9, hemoglobin 10.5, hematocrit 31.7, platelets 313. Chemistry: Sodium 142, potassium 2.9, chloride 106, carbon dioxide 28, anion gap 8, BUN 14, creatinine 1.45, fasting glucose 108, calcium 9.6, magnesium 2.0. Microbiology: None. Pathology: None. IMAGING STUDIES: Abdominal x-ray shows chronic elevation of the right hemidiaphragm with clear lungs bilaterally. No free subdiaphragmatic air. Cardiac size is enlarged which is unchanged. Multiple air-fluid levels and significantly dilated bowel loops compatible with a bowel obstruction. Abdomen and pelvis CT with IV contrast shows enterocolitis with mural thickening and moderate diffuse colonic distension through to the rectum with dilated small bowel loops as well. Mild ascites is visible with an increased pericardial effusion and a very small right pleural effusion, NG tube in the stomach and a Rodriguez catheter in place. IMPRESSION: This is a 73-year-old [facility] ([facility] [[email or web address] patient who appears to have a diffuse enterocolitis. Differential would include bacterial, viral or possibly other source such as a urinary tract infection. PLAN: 1. Enterocolitis: Agree with nasogastric (NG) tube decompression. The patient can be started on IV antibiotics. Agree with testing the patient's stool as he has had several weeks of loose stools. NG tube decompression should be done for at least 72 hours and then we can reevaluate to see if surgical intervention is necessary. My faculty preceptor for this patient encounter was physically present during the encounter and was fully available. All aspects of the patient interview, examination, medical decision making process, and medical care plan development were reviewed and approved by the faculty preceptor. The faculty preceptor is aware and concurs with the plan as stated in the body of this note and will attest to such by his/her co-signature.
[2019-03-10] MEDS ORDERED: GLUCOSE 4 GM CHEW TABLET PO PRN (17:15)
[2019-03-10] MEDS ORDERED: GLUCAGON FOR INJ 1 MG VIAL (J1610) SC PRN (17:15)
[2019-03-10] MEDS ORDERED: DEXTROSE 50% 50 ML SYRINGE IV PRN (17:15)
[2019-03-10] MEDS ORDERED: HumaLOG INSULIN (NovoLOG) PER UNIT SC SCH ×2 (17:30→21:00)
[2019-03-10 18:15] VITALS: BP 128/78
[2019-03-10] MEDS: KCL 40MEQ IN D5/0.45NS 1000ML 1,000 ML IV SCH (18:26)
[2019-03-10] MEDS ORDERED: ALBUTEROL SULFATE 2.5 MG/0.5 ML INH NEB SOLN INH PRN (18:30)
[2019-03-10 20:00] VITALS: BP 133/74
[2019-03-10] MEDS: ALBUTEROL SULFATE 2.5 MG/0.5 ML INH NEB SOLN INH SCH (20:20)
--- NOTE | 2019-03-10 20:37 | HPEPDOC ---
General Date of Admission Mar 10, 2019 at 13:23 Chief Complaint The patient is a 73-year-old male admitted with a reason for visit of Enterocol itis,Uncontrolled Hypertension. Source: Patient History of Present Illness The patient is a 73-year-old gentleman who currently resides at [facility] and who presents to the ER with complains of persistent diarrhea ongoing for a few weeks associated with abdominal distention. The patient denies any associated nausea or vomiting. Denies any sick contacts. Reports his abdomen usually is not this distended. Reports some associated on and off abdominal pain. Denies any associated fevers/chills or sweats. Reports he had been tolerating by mouth intake. Denies any problems with headache or dizziness. No chest pain or shortness of breath. Denies any cough. Has chronic indwelling Rodriguez catheter. Home Medications Scheduled Acetaminophen (Acetaminophen) 500 Mg Tablet, 1,000 MG PO BID, (Reported) AM AND 1600 Albuterol Sulf (Albuterol Sulfate) 2.5 Mg/3 Ml Nebu, 2.5 MG INH BID, (Reported) AM AND 1600 Aspirin (Aspir 81) 81 Mg Tab, 81 MG PO DAILY, (Reported) Atorvastatin Calcium (Atorvastatin Calcium) 20 Mg Tab, 20 MG PO QHS, (Reported) Bupropion Hcl (Bupropion Xl) 150 Mg Tab, 150 MG PO DAILY, (Reported) Escitalopram Oxalate (Lexapro) 20 Mg Tab, 20 MG PO QHS, (Reported) Ferrous Sulfate (Ferrous Sulfate) 324 Mg Tab, 324 MG PO DAILY, (Reported) PUT ON HOLD STARTING 03/09/19 FOR 5 DAYS - LABS TO BE DRAWN 03/15/19 Fluticasone Propionate (Flonase Allergy Relief) 50 Mcg/Act Spr, 1 SPRAY NA BID, (Reported) Levothyroxine Sodium (Synthroid) 125 Mcg Tab, 125 MCG PO DAILY, (Reported) Magnesium Oxide (Magnesium Oxide) 400 Mg Tablet, 400 MG PO BID, (Reported) Potassium Chloride (Potassium Chloride) 20 Meq/15 Ml Liquid, 15 ML PO BID, (Reported) DILUTE IN DRINK - DOSE CHANGED ON 03/09/19 Ranitidine HCl (Ranitidine HCl) 150 Mg Tab, 1 TAB PO DAILY, (Reported) Risperidone (Risperidone) 2 Mg Tab, 2 MG PO QHS, (Reported) Sitagliptin Phosphate (Januvia) 100 Mg Tab, 50 MG PO QHS, (Reported) Umeclidinium [place] (Incruse Ellipta) 62.5 Mcg/Inh Inh, 62.5 MCG INH QPM, (Reported) Scheduled PRN Acetaminophen (Tylenol Extra Strength) 500 Mg Tablet, 1,000 MG PO DAILY PRN for PAIN, (Reported) Albuterol Sulf (Albuterol Sulfate) 2.5 Mg/3 Ml Vial.neb, 2.5 MG INH Q4H PRN for SHORTNESS OF BREATH, (Reported) Albuterol Sulfate (Ventolin Hfa) 108 Mcg/Act Aer, 2 PUFFS INH QID PRN for SHORTNESS OF BREATH, (Reported) Guaifenesin (Guaifenesin) 100 Mg/5 Ml Liquid, 10 ML PO Q6H PRN for COUGH, ( Reported) Polyethylene Glycol 3350 (Miralax) 1 Pow Pow, 17 GRAM PO DAILY PRN for CONSTIPATION, (Reported) Senna (Senna Lax) 8.6 Mg Tablet, 2 TAB PO QHS PRN for CONSTIPATION, (Reported) Tramadol HCl (Tramadol HCl) 50 Mg Tab, 50 MG PO QHS PRN for PAIN, (Reported) Allergies Coded Allergies: No Known Allergies (Unverified , 02/25/19) Past Medical History Medical History COPD, obstructive sleep apnea not on CPAP, intellectual disability, chronic kidney disease stage III, hypercalcemia, hypokalemia, 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 Rodriguez catheter, hypothyroidism, diabetes mellitus type 2 not on long-term insulin, GERD, anxiety and depression, osteoarthritis of left knee with 3 previous replacements and chronic swelling in 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 Nonambulatory at baselinereports Jorje lift needs to be used to get him out of bed. Review of Systems Other systems Negative for 10 systems except as noted above under history of present illness Physical Examination General Exam: Positive: Alert, Cooperative, No Acute Distress Eye Exam: Positive: PERRLA ENT Exam: Positive: Other ENT (NG tube in place) Chest Exam: Positive: Clear to auscultation, Normal air movement; Negative: Rales, Rhonchi, Wheezing Heart Exam: Positive: Rate Normal, Normal S1, Normal S2 Abdomen Exam: Positive: Other (protuberant/distended, nontender. Bowel sounds are present. Quite tympanic to percussion. No guarding or rigidity.) Extremity Exam: Positive: Other (left knee swelling as well as edema below the left knee in the left wristthis is chronic) Skin Exam: Positive: Nl turgor and temperature Neuro Exam: Positive: Other (awake, alert, oriented 4. Answering questions appropriately. Moving all 4 extremities.) Psych Exam: Positive: Mental status NL Vital Signs Vital Signs Date Time Temp Pulse Resp B/P (MAP) Pulse Ox O2 Delivery O2 Flow Rate FiO2 03/10/19 18:15 98.8 83 16 128/78 (95) 97 03/10/19 17:45 Room Air Laboratory Data Labs 24H Laboratory Tests 2 03/10/19 10:48: Immature Granulocyte % (Auto) 0.3, White Blood Count 6.9, Red Blood Count 3.76L, Hemoglobin 10.5L, Hematocrit 31.7L, Mean Corpuscular Volume 84.3, Mean Corpuscular Hemoglobin 27.9, Mean Corpuscular Hemoglobin Concent 33.1, Red Cell Distribution Width 14.1, Platelet Count 313, Neutrophils (%) (Auto) 63.5, Lymphocytes (%) (Auto) 24.2, Monocytes (%) (Auto) 9.2H, Eosinophils (%) (Auto) 1.9, Basophils (%) (Auto) 0.9, Neutrophils # (Auto) 4.4, Lymphocytes # (Auto) 1.7, Monocytes # (Auto) 0.6, Eosinophils # (Auto) 0.1, Basophils # (Auto) 0.1, Nucleated Red Blood Cells % (auto) 0.0, Anion Gap 8, Glomerular Filtration Rate 50.8, Blood Urea Nitrogen 14, Creatinine 1.45H, Sodium Level 142, Potassium Level 2.9*L, Chloride Level 106, Carbon Dioxide Level 28, Calcium Level 9.6, Magnesium Level 2.0 03/10/19 18:29: Bedside Glucose (Misc Panel) 87 CBC/BMP Laboratory Tests 03/10/19 10:48 Red Blood Count 3.76 L, Mean Corpuscular Volume 84.3, Mean Corpuscular Hemoglobin 27.9, Mean Corpuscular Hemoglobin Concent 33.1, Red Cell Distribution Width 14.1, Neutrophils (%) (Auto) 63.5, Lymphocytes (%) (Auto) 24.2, Monocytes (%) (Auto) 9.2 H, Eosinophils (%) (Auto) 1.9, Basophils (%) (Auto) 0.9, Neutrophils # (Auto) 4.4, Lymphocytes # (Auto) 1.7, Monocytes # (Auto) 0.6, Eosinophils # (Auto) 0.1, Basophils # (Auto) 0.1, Calcium Level 9.6 RAD Interpretation STUDY: Abdomen pelvis CT: Enterocolitis picture with mural thickening and moderate diffuse colonic distention through to the rectum. Assessment/Plan Diarrhea secondary to enterocolitis with associated abdominal distention: -Stool studies ordered including lactoferrin as well as GI panel and C. difficile -Once stool studies obtained, we will start patient on IV ciprofloxacin and Flagyl -Case was discussed with Dr. Chand from Gen. surgeryno indication for surgical intervention -Continue NG tube to suction -IV fluids -When necessary Zofran DM type II not on long-term insulin: -Sliding-scale insulin for now while patient is nothing by mouth Hypertension, uncontrolled with hypertensive urgency: -When necessary IV hydralazine as patient is nothing by mouth COPD not in exacerbation -Continue scheduled and when necessary albuterol nebs Hypothyroidism: -IV levothyroxine Hypokalemia: -Replete the IV fluids and recheck. Check mag. Chronic kidney disease stage III: -Monitor -Continue IV fluids BPH with urinary retention with chronic indwelling Rodriguez catheter: -Continue Rodriguez catheter GERD -IV famotidine Chronic diastolic congestive heart failure: -Watch for fluid overload GI/DVT prophylaxis: -Famotidine/Subcutaneous heparin CODE STATUS: -Full code per my discussion with the patient Disposition: -Admit to PCU with telemetry. Anticipated length of stay more than 2 midnights. Anticipate eventual discharge back to [facility] once medically stable. Plan / VTE VTE Prophylaxis Ordered?: Yes LAM GARCÍA MD Mar 10, 2019 20:37
[2019-03-10] MEDS ORDERED: HEPARIN SOD (PORCINE) 5000 UNITS/ML VIAL SQ SCH (21:00)
--- NOTE | 2019-03-10 21:46 | ECGEPIP ---
Stationary ECG Study [facility] - ED Test Date: 2019-03-10 Pat Name: STEVEN LOZOYA Department: Room: - Gender: M Front Office Help: : 1945 Requested By: Guillermo Cool Order Number: [id number] Reading MD: Yuli Bruce Measurements Intervals [place] Rate: 68 P: -23 KS: 196 QRS: -21 QRSD: 161 T: 25 QT: 458 QTc: 491 Interpretive Statements SINUS RHYTHM BORDERLINE LEFT AXIS DEVIATION RIGHT BUNDLE BRANCH BLOCK PROLONGED QTC COMPARED 12/07/18 CLINICAL CORRELATION Electronically Signed On 03-10-2019 21:45:43 EDT by Yuli Bruce
[2019-03-10] MEDS: risperiDONE 2 MG TAB PO SCH (21:55)
[2019-03-10] MEDS: ESCITALOPRAM OXALATE 10 MG TAB (LEXAPRO) PO SCH (21:55)
[2019-03-10] MEDS: FLUTICASONE PROP 0.05% NASAL SPRAY 16 GM (FLONASE) SCH (21:56)
[2019-03-11] VITALS (7 sets, daily range): BP systolic 132–175; BP diastolic 70–92
[2019-03-11] MEDS: ACETAMINOPHEN TAB 650MG DOSE (2X325MG) PO PRN ×2 (00:50→20:30)
[2019-03-11] MEDS: HumaLOG INSULIN (NovoLOG) PER UNIT SC SCH ×4 (00:53→17:32)
[2019-03-11] MEDS: KCL 40MEQ IN D5/0.45NS 1000ML 1,000 ML IV SCH ×2 (04:34→23:15)
[2019-03-11] MEDS: FAMOTIDINE IV BAG 20 MG in APPROPRIATE DILUENT 1 EA IV SCH ×2 (05:20→16:09)
[2019-03-11 05:27] LABS: HEMATOCRIT 31.6 % (42.0-52.0); HEMOGLOBIN 10.3 g/dl (13.5-17.5); MEAN CORPUSCULAR HEMOGLOBIN 27.5 pg (27.0-33.0); MEAN CORPUSCULAR HGB CONC 32.6 g/dl (32.0-36.5); MEAN CORPUSCULAR VOLUME 84.5 fl (80.0-96.0); PLATELET COUNT, AUTOMATED 300 10^3/uL (150-450); RED BLOOD COUNT 3.74 10^6/uL (4.30-6.10); WHITE BLOOD COUNT 7.1 10^3/uL (4.0-10.0)
[2019-03-11 05:48] LABS: BILIRUBIN,TOTAL 0.4 MG/DL (0.2-1.0); CALCIUM LEVEL 9.1 MG/DL (8.8-10.2); CREATININE FOR GFR 1.33 MG/DL (0.70-1.30); GLOMERULAR FILTRATION RATE 56.1 (>42); MAGNESIUM LEVEL 1.8 MG/DL (1.8-2.4); POTASSIUM SERUM 2.9 MEQ/L (3.5-5.1); TOTAL PROTEIN 6.3 GM/DL (6.4-8.2)
[2019-03-11] MEDS: KCL 10MEQ/100ML SWI (KRUN) 10 MEQ in APPROPRIATE DILUENT 1 EA IV SCH ×4 (07:04→11:02)
[2019-03-11] MEDS: ALBUTEROL SULFATE 2.5 MG/0.5 ML INH NEB SOLN INH SCH ×2 (07:21→19:38)
[2019-03-11] MEDS: LEVOTHYROXINE 100 MCG (0.1MG) VIAL IV SCH (09:44)
[2019-03-11] MEDS: ENOXAPARIN 40 MG/0.4 ML SYRINGE (J1650) SC SCH (09:44)
[2019-03-11] MEDS: buPROPion **XL** TABLET 150MG (WELLBUTRIN XL) PO SCH (09:44)
[2019-03-11] MEDS: FLUTICASONE PROP 0.05% NASAL SPRAY 16 GM (FLONASE) SCH ×2 (09:45→20:31)
--- NOTE | 2019-03-11 10:28 | IPNPDOC ---
Subjective Date Seen The patient was seen on 03/11/19. Subjective Chief Complaint/HPI patient reports continued abdominal discomfort Constitutional: Denies: Chills ENT: Denies: Head Aches Pulmonary: Denies: Dyspnea, Cough Cardiovascular: Denies: Chest Pain, Palpitations Gastrointestinal: Reports: Abdominal Pain (reports lower abdominal discomfort) Hematologic: Denies: Bruising Neurological: Denies: Change in speech Psych: Reports: Mood Normal Objective Physical Examination General Exam: Positive: Alert, Cooperative, No Acute Distress Eye Exam: Positive: PERRLA, EOMI ENT Exam: Positive: Other ENT Chest Exam: Positive: Clear to auscultation, Normal air movement Heart Exam: Positive: Rate Normal, Normal S1, Normal S2 Abdomen Exam: Positive: Tenderness (bilateral lower abdominal discomfort with palpation), Other Extremity Exam: Positive: Other Skin Exam: Positive: Nl turgor and temperature Neuro Exam: Positive: Normal Speech, Other Psych Exam: Positive: Mental status NL Assessment /Plan Problems (1) Gaseous distention of intestine determined by X-ray Status: Acute Response to Treatment: Stable, Uncontrolled Problem Specific Plan: Consult Specialist Problem Text: NG in place still reports abdominal discomfort. especially bilateral lower abdomen. marked distention of bowel loops on CT. changes of enterocolitis reported on CT. Will start cipro + metronidazole pending cultures or confirmation of etiology. Dr. Chand consulted (2) Pericardial effusion Problem Text: Echo ordered for additional eval (3) Ascending aortic aneurysm Status: Chronic Problem Text: echo ordered. was 4.2 cm aortic root on most recent CT of chest (4) Essential hypertension Status: Chronic Problem Text: pressure were high and placed on IV hydralazine for control. continues with same due to NPO status. (5) Coronary artery disease Status: Chronic Response to Treatment: Stable Problem Text: SPECT[facility]CT at [facility] 09/02/18 showed reversible ischemia involving basal inferoseptal wall. and small ischemic reversible defect involving wall and apex. LVEF was 68% Plan/VTE VTE Prophylaxis Ordered?: Yes VS, I&O, 24H, Fishbone Vital Signs/I&O Vital Signs Date Time Temp Pulse Resp B/P (MAP) Pulse Ox O2 Delivery O2 Flow Rate FiO2 03/11/19 08:00 98.7 73 20 148/85 (106) 94 03/10/19 17:45 Room Air I&O- Last 24 Hours up to 6 AM 03/11/19 06:00 Intake Total 1900 ml Output Total 1650 ml Balance 250 ml Laboratory Data 24H LABS Laboratory Tests 2 03/10/19 10:48: Immature Granulocyte % (Auto) 0.3, White Blood Count 6.9, Red Blood Count 3.76L, Hemoglobin 10.5L, Hematocrit 31.7L, Mean Corpuscular Volume 84.3, Mean Corpuscular Hemoglobin 27.9, Mean Corpuscular Hemoglobin Concent 33.1, Red Cell Distribution Width 14.1, Platelet Count 313, Neutrophils (%) (Auto) 63.5, Lymphocytes (%) (Auto) 24.2, Monocytes (%) (Auto) 9.2H, Eosinophils (%) (Auto) 1.9, Basophils (%) (Auto) 0.9, Neutrophils # (Auto) 4.4, Lymphocytes # (Auto) 1.7, Monocytes # (Auto) 0.6, Eosinophils # (Auto) 0.1, Basophils # (Auto) 0.1, Nucleated Red Blood Cells % (auto) 0.0, Anion Gap 8, Glomerular Filtration Rate 50.8, Blood Urea Nitrogen 14, Creatinine 1.45H, Sodium Level 142, Potassium Level 2.9*L, Chloride Level 106, Carbon Dioxide Level 28, Calcium Level 9.6, Magnesium Level 2.0 03/10/19 18:29: Bedside Glucose (Misc Panel) 87 03/11/19 00:45: Bedside Glucose (Misc Panel) 113H 03/11/19 05:08: Nucleated Red Blood Cells % (auto) 0.0, Anion Gap 7L, Glomerular Filtration Rate 56.1, Blood Urea Nitrogen 13, Creatinine 1.33H, Sodium Level 143, Potassium Level 2.9*L, Chloride Level 111H, Carbon Dioxide Level 25, Calcium Level 9.1, Magnesium Level 1.8, Aspartate Amino Transf (AST/SGOT) 7, Alanine Aminotransferase (ALT/SGPT) 13, Alkaline Phosphatase 58, Total Bilirubin 0.4, Total Protein 6.3L, Albumin 3.0L, Albumin/Globulin Ratio 0.91L 03/11/19 06:20: Bedside Glucose (Misc Panel) 103 CBC/BMP Laboratory Tests 03/10/19 10:48 Red Blood Count 3.76 L, Mean Corpuscular Volume 84.3, Mean Corpuscular Hemoglobin 27.9, Mean Corpuscular Hemoglobin Concent 33.1, Red Cell Distribution Width 14.1, Neutrophils (%) (Auto) 63.5, Lymphocytes (%) (Auto) 24.2, Monocytes (%) (Auto) 9.2 H, Eosinophils (%) (Auto) 1.9, Basophils (%) (Auto) 0.9, Neutrophils # (Auto) 4.4, Lymphocytes # (Auto) 1.7, Monocytes # (Auto) 0.6, Eosinophils # (Auto) 0.1, Basophils # (Auto) 0.1, Calcium Level 9.6 03/11/19 05:08 Red Blood Count 3.74 L, Mean Corpuscular Volume 84.5, Mean Corpuscular Hemoglobin 27.5, Mean Corpuscular Hemoglobin Concent 32.6, Red Cell Distribution Width 14.1, Calcium Level 9.1, Aspartate Amino Transf (AST/SGOT) 7, Alanine Aminotransferase (ALT/SGPT) 13, Alkaline Phosphatase 58, Total Bilirubin 0.4, To sudheer Protein 6.3 L, Albumin 3.0 L Microbiology Microbiology 03/11/19 Gastrointestinal Tract Panel (PCR), Received Pending 03/11/19 Stool Lactoferrin - Final, Complete Cesar Nance MD Mar 11, 2019 10:28
[2019-03-11] MEDS: metroNIDAZOLE 500 MG in APPROPRIATE DILUENT 1 EA IV SCH ×2 (12:09→19:00)
[2019-03-11] MEDS: CIPROFLOXACIN 400 MG in APPROPRIATE DILUENT 1 EA IV SCH (13:12)
[2019-03-11 15:14] LABS: CALCIUM LEVEL 9.6 MG/DL (8.8-10.2); CREATININE FOR GFR 1.37 MG/DL (0.70-1.30); GLOMERULAR FILTRATION RATE 54.2 (>42)
[2019-03-11] MEDS: risperiDONE 2 MG TAB PO SCH (20:30)
[2019-03-11] MEDS: ESCITALOPRAM OXALATE 10 MG TAB (LEXAPRO) PO SCH (20:30)
--- NOTE | 2019-03-11 22:47 | IPNPDOC ---
Text Note Date of Service The patient was seen on 03/11/19. NOTE No acute events overnight. NG output is thin and yellow. He denies problems with nausea, emesis, fevers, or abd pains. He is still distended, and denies any bowel movements or flatus yet. VSSAF NAD abd - soft, distended, nontender labs - below A) 73y/o male with abd distention likely related to an infectious vs. inflammatory process. P) npo except ice chips and sips of water NGT to LIS ambulate abx reglan if no improvement in 72 hours then we will consider further imaging, and possible endoscopy Satish Chand DO VS,Fishbone, I+O VS, [place], I+O Laboratory Tests 03/11/19 05:08 Red Blood Count 3.74 L, Mean Corpuscular Volume 84.5, Mean Corpuscular Hemoglobin 27.5, Mean Corpuscular Hemoglobin Concent 32.6, Red Cell Distribution Width 14.1, Calcium Level 9.1, Aspartate Amino Transf (AST/SGOT) 7, Alanine Aminotransferase (ALT/SGPT) 13, Alkaline Phosphatase 58, Total Bilirubin 0.4, Total Protein 6.3 L, Albumin 3.0 L 03/11/19 14:21 Calcium Level 9.6 Vital Signs Date Time Temp Pulse Resp B/P (MAP) Pulse Ox O2 Delivery O2 Flow Rate FiO2 03/11/19 20:00 98.2 82 18 175/82 (113) 92 03/10/19 17:45 Room Air I&O- Last 24 Hours up to 6 AM 03/11/19 06:00 Intake Total 1900 ml Output Total 1650 ml Balance 250 ml ANALISA CHAND DO Mar 11, 2019 22:47
[2019-03-12] MEDS: KCL 40MEQ IN D5/0.45NS 1000ML 1,000 ML IV SCH ×2 (00:09→09:26)
[2019-03-12] MEDS: METOCLOPRAMIDE 5 MG TAB PO SCH ×4 (00:11→17:46)
[2019-03-12] MEDS: CIPROFLOXACIN 400 MG in APPROPRIATE DILUENT 1 EA IV SCH ×2 (00:11→12:32)
[2019-03-12] MEDS: HumaLOG INSULIN (NovoLOG) PER UNIT SC SCH ×4 (00:12→18:00)
[2019-03-12] MEDS: metroNIDAZOLE 500 MG in APPROPRIATE DILUENT 1 EA IV SCH ×3 (03:03→19:33)
[2019-03-12 04:00] VITALS: BP 145/61
[2019-03-12] MEDS: FAMOTIDINE IV BAG 20 MG in APPROPRIATE DILUENT 1 EA IV SCH ×2 (04:50→17:46)
[2019-03-12 05:50] LABS: HEMATOCRIT 29.8 % (42.0-52.0); HEMOGLOBIN 9.8 g/dl (13.5-17.5); MEAN CORPUSCULAR HEMOGLOBIN 27.9 pg (27.0-33.0); MEAN CORPUSCULAR HGB CONC 32.9 g/dl (32.0-36.5); MEAN CORPUSCULAR VOLUME 84.9 fl (80.0-96.0); PLATELET COUNT, AUTOMATED 262 10^3/uL (150-450); RED BLOOD COUNT 3.51 10^6/uL (4.30-6.10); WHITE BLOOD COUNT 5.6 10^3/uL (4.0-10.0)
[2019-03-12 06:15] LABS: CALCIUM LEVEL 8.9 MG/DL (8.8-10.2); CREATININE FOR GFR 1.45 MG/DL (0.70-1.30); GLOMERULAR FILTRATION RATE 50.8 (>42)
[2019-03-12] MEDS: ALBUTEROL SULFATE 2.5 MG/0.5 ML INH NEB SOLN INH SCH ×2 (07:26→18:10)
--- NOTE | 2019-03-12 07:35 | ECHO ---
DATE OF STUDY: 03/11/2019 AGE: 73 REFERRING PROVIDER: Dr. Cesar Nance PATIENT LOCATION: Room 3218 REASON FOR ECHOCARDIOGRAM: Pericardial effusion. 2D MEASUREMENTS: IVS: 1.1 cm LV: 4.5 cm LVPW: 1.1 cm LA: 3.7 cm Aorta: 3.8 cm DOPPLER MEASUREMENTS: Peak velocity across the aortic valve: 1.3 m/s Peak velocity across the LVOT: 1.1 m/s Mitral E: 0.49 Mitral A: 1.1 with a ratio of 0.4 Maximum tricuspid valve velocity: 2.7 m/s 2D COMMENTS: 1. Normal left ventricular size, wall thickness and normal global left ventricular systolic function. The estimated global left ventricular systolic ejection fraction is 60-65%. 2. Normal left atrium. Normal right atrium and right ventricle. 3. The atrial septum appeared to be normal without evidence of defect or shunt. 4. Normal aortic root. 5. Small to moderate pericardial effusion noted. No evidence of cardiac tamponade. This was particularly seen laterally and anteriorly. Pleural effusion also noted. 6. Mildly calcified aortic valve with normal leaflet excursion. Mildly calcified mitral annulus with normal anterior mitral valve leaflet motion. Normal tricuspid valve and pulmonic valve. 7. The inferior vena cava was not well visualized. Doppler, it detects trace mitral regurgitation, mild tricuspid regurgitation, and trace pulmonic regurgitation. The calculated pulmonary artery systolic pressure varies between 30 to 40 mmHg. Abnormal relaxation pattern was noted across the mitral valve leaflets as well as the mitral valve annulus consistent with features of left ventricular diastolic dysfunction. IMPRESSION: 1. Normal global left ventricular systolic function. There were some features of left ventricular diastolic dysfunction manifested by impaired relaxation. 2. Aortic valve sclerosis without stenosis or aortic regurgitation. 3. Mitral annulus calcification with trace mitral regurgitation. 4. Mild tricuspid regurgitation with mild pulmonary hypertension. 5. Trace pulmonic regurgitations. 6. Small to moderate pericardial effusion noted, no evidence of cardiac tamponade. Pleural effusion also was noted. 7. The inferior vena cava was not visualized.
[2019-03-12 08:00] VITALS: BP 140/82
[2019-03-12] MEDS: FLUTICASONE PROP 0.05% NASAL SPRAY 16 GM (FLONASE) SCH ×2 (09:25→20:37)
[2019-03-12] MEDS: LEVOTHYROXINE 100 MCG (0.1MG) VIAL IV SCH (09:25)
[2019-03-12] MEDS: ENOXAPARIN 40 MG/0.4 ML SYRINGE (J1650) SC SCH (09:25)
[2019-03-12] MEDS: buPROPion **XL** TABLET 150MG (WELLBUTRIN XL) PO SCH (09:25)
[2019-03-12 12:00] VITALS: BP 148/81
[2019-03-12] MEDS: POTASSIUM CHLORIDE 10 MEQ SR TABLET PO SCH ×2 (12:20→20:37)
--- NOTE | 2019-03-12 14:45 | IPN ---
DATE: 03/12/2019 The patient is seen today on PCU. He was signed out to me this morning by Dr. Magaña. He had been admitted 2 days ago with diarrhea, abdominal distension, was said to have some elevated blood pressures, did have some electrolyte abnormalities. His admission abdominal pelvis CT showed enterocolitis picture with mural thickening and moderate diffuse colonic distension through the rectum. He still has a nasogastric (NG) tube in which is not draining a lot; it is clamped at times and some medicines are being given to him via NG tube. He says he has some vague abdominal discomfort but not much. He is passing some gas. He is not doing any burping from his recollection. He is not having any coughing or shortness of breath, chest pains or palpitations, lower extremity pains. His current medication regimen is Reglan, which he is getting scheduled every 6 hours. He is on Cipro and metronidazole given the enterocolitis picture. He is on Wellbutrin 150 mg daily, Synthroid 60 mcg daily, Lovenox 40 mg subcu daily. He is on Humalog insulin coverage, Lexapro, risperidone, albuterol nebulizers Apresoline. He is on as-needed medications for wheezing. He is getting some intravenous (IV) famotidine. ON EXAMINATION: His temperature is 97.5, blood pressure 148/81, pulse 62, respirations 18, oxygen saturation (O2) saturation on room air is 95%. He is alert, pleasant, and cooperative, not in any distress. His eyes are clear. There is no facial weakness. Mucous membranes are moist. He has a nasogastric tube in. His lungs sound clear. Heart: Has a regular rhythm. Not hearing any murmur, click or gallop. Abdomen is nontender, somewhat distended. He has high-pitched bowel sounds. No edema. No calf tenderness. Labs today showed a hemoglobin of 9.8, WBCs 5600, BUN is 13, creatinine 1.45 which is where it was when he was admitted, potassium is 3.0. It was 3.0 yesterday morning, and he received four runs of potassium yesterday. ASSESSMENT: 1. Abdominal distension. Appears to be due to the enterocolitis. He is on antibiotics for this as well as an NG tube, and he has had surgical consultation. 2. Concern for pericardial effusion. He had an echocardiogram that showed no tamponade. There is a small to moderate effusion noted and some pleural effusion. This does not appear to require any treatment at this time. 3. History of aortic aneurysm. 4. Hypertension. 5. History of coronary artery disease. PLAN: The patient will be given some oral potassium to address his hypokalemia, which in and of itself can contribute to hypomotility of the bowel. Continue his NG tube. Continue his antibiotics. Since the patient is passing gas, is not febrile or having leukocytosis, or severe pain, we need not magaña to do anything, but should he not resolve his abdominal distension, may require some intervention, endoscopy or the like. . DAYD
[2019-03-12 16:00] VITALS: BP 146/81
--- NOTE | 2019-03-12 18:27 | IPN ---
DATE: 03/12/2019 HISTORY: The patient is a consult of Dr. Vargas, who was admitted by medicine and is currently on the family practice service. He was admitted with a diagnosis of enterocolitis, although his imaging shows air distension of the colon but not much in the way of inflammation. He has a nasogastric tube in place and has been receiving maintenance fluid. Vital signs: The patient has been afebrile over the past 24 hours. His pulse has been in the 60s to low 80s. Blood pressure is acceptable with a normal room air oxygen saturation. Intake and output show that yesterday he had 3600 in with 3500 out. His urine output was 1500 mL, and he had 2000 mL of emesis recorded. The patient has been noted to have three bowel movements today, which were described as small to moderate amounts. PHYSICAL EXAMINATION: The patient appears fairly comfortable with a nasogastric tube in place. He is alert and responsive. He reports that he has been passing some gas. He does not recall having a bowel movement. He is not having any significant pain currently. Heart exam shows a regular rhythm. The abdomen is distended. He has bowel sounds present. The abdomen is soft, and there is no significant tenderness to palpation. He does not have any evident hernia. Laboratory studies show a white count of 5.6 with a hemoglobin of 10, hematocrit of 30, and a platelet count of 262,000. Chemistry profile shows a sodium of 143, potassium 3.0, chloride 110, CO2 of 26, BUN of 13, creatinine 1.45, and glucose of 85. IMPRESSION: The patient has normal complete blood count (CBC), and his electrolytes are fairly unremarkable with the exception of a low potassium. He appears comfortable, and his abdomen is distended but soft and without significant tenderness. He reports he is passing a lot of gas. RECOMMENDATIONS: At this point, I would recommend continuing his current treatment. The low potassium is being addressed by family medicine. He should remain on some maintenance fluid. Once his abdomen decompresses somewhat more, then removal of his nasogastric (NG) tube and initiation of some clear liquids to start would be appropriate.
[2019-03-12 20:00] VITALS: BP_SYST 164; BP_SYST 180; BP_DIAS 72; BP_DIAS 79
[2019-03-12] MEDS: ESCITALOPRAM OXALATE 10 MG TAB (LEXAPRO) PO SCH (20:37)
[2019-03-12] MEDS: risperiDONE 2 MG TAB PO SCH (20:37)
[2019-03-12 23:59] VITALS: BP 148/70
[2019-03-13] MEDS: METOCLOPRAMIDE 5 MG TAB PO SCH ×4 (00:38→18:22)
[2019-03-13] MEDS: CIPROFLOXACIN 400 MG in APPROPRIATE DILUENT 1 EA IV SCH ×2 (00:39→12:00)
[2019-03-13] MEDS: KCL 40MEQ IN D5/0.45NS 1000ML 1,000 ML IV SCH ×3 (00:39→14:41)
[2019-03-13] MEDS: metroNIDAZOLE 500 MG in APPROPRIATE DILUENT 1 EA IV SCH ×3 (03:08→18:22)
[2019-03-13 04:00] VITALS: BP 157/79
[2019-03-13] MEDS: FAMOTIDINE IV BAG 20 MG in APPROPRIATE DILUENT 1 EA IV SCH ×2 (04:49→16:39)
[2019-03-13 05:58] LABS: HEMATOCRIT 28.9 % (42.0-52.0); HEMOGLOBIN 9.3 g/dl (13.5-17.5); MEAN CORPUSCULAR HEMOGLOBIN 27.4 pg (27.0-33.0); MEAN CORPUSCULAR HGB CONC 32.2 g/dl (32.0-36.5); MEAN CORPUSCULAR VOLUME 85.3 fl (80.0-96.0); PLATELET COUNT, AUTOMATED 270 10^3/uL (150-450); RED BLOOD COUNT 3.39 10^6/uL (4.30-6.10); WHITE BLOOD COUNT 5.2 10^3/uL (4.0-10.0)
[2019-03-13] MEDS: HumaLOG INSULIN (NovoLOG) PER UNIT SC SCH ×5 (06:00→23:52)
[2019-03-13 06:22] LABS: CALCIUM LEVEL 9.1 MG/DL (8.8-10.2); CREATININE FOR GFR 1.45 MG/DL (0.70-1.30); GLOMERULAR FILTRATION RATE 50.8 (>42); POTASSIUM SERUM 3.4 MEQ/L (3.5-5.1)
[2019-03-13] MEDS: ALBUTEROL SULFATE 2.5 MG/0.5 ML INH NEB SOLN INH SCH ×2 (07:08→20:19)
[2019-03-13 08:00] VITALS: BP 155/83
[2019-03-13] MEDS: ENOXAPARIN 40 MG/0.4 ML SYRINGE (J1650) SC SCH (09:01)
[2019-03-13] MEDS: buPROPion **XL** TABLET 150MG (WELLBUTRIN XL) PO SCH (09:02)
[2019-03-13] MEDS: POTASSIUM CHLORIDE 10 MEQ SR TABLET PO SCH ×2 (09:02→20:32)
[2019-03-13] MEDS: FLUTICASONE PROP 0.05% NASAL SPRAY 16 GM (FLONASE) SCH ×2 (09:02→20:32)
[2019-03-13] MEDS: LEVOTHYROXINE 100 MCG (0.1MG) VIAL IV SCH (09:02)
[2019-03-13 12:00] VITALS: BP 151/83
[2019-03-13 16:00] VITALS: BP 154/80
[2019-03-13 20:00] VITALS: BP 164/72
[2019-03-13] MEDS: risperiDONE 2 MG TAB PO SCH (20:32)
[2019-03-13] MEDS: ESCITALOPRAM OXALATE 10 MG TAB (LEXAPRO) PO SCH (20:32)
--- NOTE | 2019-03-13 21:44 | IPN ---
DATE: 03/13/2019 HISTORY: This is a consult of Dr. Chand's who is on the family practice service with abdominal distension and a history of some nausea and vomiting and a diagnosis of enterocolitis. He has an NG tube in place which has put out very little over the last 24 hours. The patient apparently had several bowel movements recorded yesterday. He denies any abdominal pain and reports that he is hungry. Vital signs show that he has been afebrile over the past 24 hours. Pulses in the 60s and 70s and his blood pressure is good with a good pulse oximetry. Intake and output shows that yesterday he had 2650 recorded in with 1330 recorded out. His NG tube had 480 recorded out yesterday and only 100 mL out overnight. PHYSICAL EXAMINATION: The patient is lying quietly in the hospital bed. He is alert and responsive. Abdomen is distended but soft and without any tenderness on palpation. He has some bowel sounds present. Laboratory studies show white count of 5, hemoglobin 9, hematocrit 29 and platelet count of 270,000. Chemistry profile shows a sodium of 144, potassium 3.4, chloride 111, CO2 of 25, BUN of 12, creatinine 1.4 and a glucose of 95. IMPRESSION: The patient has had little out of his NG tube over the last 24-48 hours. He reportedly is having some flatus. His abdomen is soft and nontender. RECOMMENDATIONS: I would recommend (cut off). After 4-6 hours we can check for residual and if there is no significant residual I would recommend taking the tube out and advancing him to some liquids. I suspect that he would tolerate this. It may be of no great clinical significance but I do not know what his abdomen looks like at baseline.
[2019-03-13 23:59] VITALS: BP 140/71
[2019-03-14] MEDS: CIPROFLOXACIN 400 MG in APPROPRIATE DILUENT 1 EA IV SCH ×2 (00:12→12:38)
[2019-03-14] MEDS: METOCLOPRAMIDE 5 MG TAB PO SCH ×5 (00:12→23:13)
[2019-03-14] MEDS: metroNIDAZOLE 500 MG in APPROPRIATE DILUENT 1 EA IV SCH ×2 (02:48→11:24)
[2019-03-14 04:00] VITALS: BP 124/80
[2019-03-14] MEDS: FAMOTIDINE IV BAG 20 MG in APPROPRIATE DILUENT 1 EA IV SCH (04:04)
[2019-03-14 05:25] LABS: HEMATOCRIT 29.4 % (42.0-52.0); HEMOGLOBIN 9.5 g/dl (13.5-17.5); MEAN CORPUSCULAR HEMOGLOBIN 27.9 pg (27.0-33.0); MEAN CORPUSCULAR HGB CONC 32.3 g/dl (32.0-36.5); MEAN CORPUSCULAR VOLUME 86.2 fl (80.0-96.0); PLATELET COUNT, AUTOMATED 256 10^3/uL (150-450); RED BLOOD COUNT 3.41 10^6/uL (4.30-6.10); WHITE BLOOD COUNT 4.6 10^3/uL (4.0-10.0)
[2019-03-14 05:43] LABS: CALCIUM LEVEL 8.7 MG/DL (8.8-10.2); CREATININE FOR GFR 1.44 MG/DL (0.70-1.30); GLOMERULAR FILTRATION RATE 51.2 (>42); POTASSIUM SERUM 3.7 MEQ/L (3.5-5.1)
[2019-03-14] MEDS: HumaLOG INSULIN (NovoLOG) PER UNIT SC SCH ×4 (05:51→21:00)
--- NOTE | 2019-03-14 06:11 | IPN ---
DATE OF VISIT: 03/13/2019 Resident is seen today on progressive care unit (PCU). He has been seen by the surgeon. He still has a nasogastric tube in. The surgeon has recommend that this be clamped. He indicates he is not having any abdominal pain or nausea. He actually feels hungry. He says that he has passed some stool and he is passing some gas. He does indicate that he has some chest congestion. He has not had any chills or fever. CURRENT MEDICATIONS: He remains on: - potassium - Reglan - Cipro - metronidazole - Wellbutrin - Synthroid - Lovenox - sliding scale insulin - Lexapro - Flonase - risperidone - hydralazine - albuterol which he has scheduled and as needed - his intravenous (IV) D5 half-normal saline with 40 of KCl at 100 mL an hour - famotidine. PHYSICAL EXAMINATION: VITAL SIGNS: Temperature is 97.2, blood pressure 155/83, pulse 70 and regular, respirations 18, O2 saturation is 93% on room air. GENERAL: He seems reasonably treer this morning. HEENT: Has a nasogastric tube in. His eyes are clear. Mucous membranes are moist. Mouth and throat are unremarkable. Tongue is midline. NECK: There is no neck masses, tenderness or adenopathy. No carotid bruits. LUNGS: Lungs show some scattered rhonchi. HEART: Heart has regular rhythm without any murmur, click or gallop. ABDOMEN: Abdomen is still protuberant but nontender. Bowel sounds are diminished. EXTREMITIES: There is no edema. Manipulative Therapy Specialist are symmetric. LABORATORY DATA: Today, hemoglobin is 9.3, WBCs 50-100. His BUN is 12, creatinine 1.45, sodium 144, potassium 344 which is the best reading that he has had since his admission. IMAGING: He has not had any new imaging. I should note that his in and out (I and O) yesterday showed a net positive. ASSESSMENT: 1. Abdominal distension and possible enterocolitis. He remains on antibiotics and a nasogastric tube. 2. Concern for pericardial effusion. There is a small one on his echocardiogram and nothing that requires intervention at this time. 3. Coronary artery disease, stable. 4. Hypertension stable. 5. History of aortic aneurysm, stable. 6. Chronic mental health issues. He is getting his chronic medications for this. 7. Hypokalemia 8. Chest congestion. PLAN: Per Dr. Roberts, continue the current treatment. He is going to have his nasogastric (NG) clamped for six hours. I am going to back off on his IV fluids a bit given the fact of his chest congestion. I am not sure that it does have to do with the extra fluid in use and positive fluid balance but would not want to get him overloaded. He has bronchodilators ordered but will also order some incentive spirometry. His hypokalemia is improved. CHARLY
[2019-03-14] MEDS: KCL 40MEQ IN D5/0.45NS 1000ML 1,000 ML IV SCH (07:41)
[2019-03-14] MEDS ORDERED: MAGNESIUM CITRATE 300 ML BTL PO ONE (07:45)
[2019-03-14 08:00] VITALS: BP 160/80
--- NOTE | 2019-03-14 08:07 | IPNPDOC ---
Text Note Date of Service The patient was seen on 03/14/19. NOTE No acute events over the weekend. He denies problems with nausea, emesis, fev ers, or abd pains. He is still distended, but he is having flatus and BMs. VSSAF NAD abd - soft, distended, nontender labs - below A) 73y/o male with abd distention likely related to an infectious vs. inflammatory process that is resolving P) flq diet 1/2 bottle mag citrate simethicone ambulate abx reglan will follow as needed. Satish Chand DO VS,Fishbone, I+O VS, Fishbone, I+O Laboratory Tests 03/14/19 05:12 Red Blood Count 3.41 L, Mean Corpuscular Volume 86.2, Mean Corpuscular Hemoglobin 27.9, Mean Corpuscular Hemoglobin Concent 32.3, Red Cell Distribution Width 13.5, Calcium Level 8.7 L Vital Signs Date Time Temp Pulse Resp B/P (MAP) Pulse Ox O2 Delivery O2 Flow Rate FiO2 03/14/19 04:00 97.9 63 20 124/80 (95) 95 03/10/19 17:45 Room Air I&O- Last 24 Hours up to 6 AM 03/14/19 06:00 Intake Total 2591 ml Output Total 2375 ml Balance 216 ml ANALISA CHAND DO Mar 14, 2019 08:07
[2019-03-14] MEDS: LEVOTHYROXINE 100 MCG (0.1MG) VIAL IV SCH (08:26)
[2019-03-14] MEDS: POTASSIUM CHLORIDE 10 MEQ SR TABLET PO SCH ×2 (08:26→22:08)
[2019-03-14] MEDS: ENOXAPARIN 40 MG/0.4 ML SYRINGE (J1650) SC SCH (08:26)
[2019-03-14] MEDS: buPROPion **XL** TABLET 150MG (WELLBUTRIN XL) PO SCH (08:26)
[2019-03-14] MEDS: SIMETHICONE 80 MG CHEW TAB PO SCH ×3 (08:26→22:08)
[2019-03-14] MEDS: FLUTICASONE PROP 0.05% NASAL SPRAY 16 GM (FLONASE) SCH ×2 (08:27→22:09)
[2019-03-14] MEDS: ALBUTEROL SULFATE 2.5 MG/0.5 ML INH NEB SOLN INH SCH ×2 (08:37→20:43)
--- NOTE | 2019-03-14 08:57 | IPNPDOC ---
Subjective Date Seen The patient was seen on 03/14/19. Subjective Chief Complaint/HPI abdominal pain/entercolitis Events since last encounter Patient states he's feeling well. denies bad pain. + flatus. + large BM today. Surgery has advanced diet. Drinking well. Constitutional: Denies: Chills, Fever Pulmonary: Denies: Dyspnea, Cough Cardiovascular: Denies: Chest Pain, Palpitations Gastrointestinal: Reports: Diarrhea; Denies: Nausea, Vomiting, Abdominal Pain Objective Physical Examination General Exam: Positive: Alert, Cooperative, No Acute Distress Eye Exam: Positive: PERRLA, EOMI Chest Exam: Positive: Clear to auscultation, Normal air movement Heart Exam: Positive: Rate Normal, Normal S1, Normal S2 Abdomen Exam: Positive: BS Hyperactive (some higher pitch tones noted, indicati ng the residual possibility of a partial obstruction); Negative: Tenderness Extremity Exam: Positive: Other Skin Exam: Positive: Nl turgor and temperature Neuro Exam: Positive: Normal Speech Psych Exam: Positive: Mental status NL Assessment /Plan Problems (1) Gaseous distention of intestine determined by X-ray Status: Acute Response to Treatment: Stable, Uncontrolled Problem Specific Plan: Consult Specialist Problem Text: 03/14/19: NGT has been DC'd. slowly advance diet today. DC IVF. 03/13/19: NG in place still reports abdominal discomfort. especially bilateral lower abdomen. marked distention of bowel loops on CT. changes of enterocolitis reported on CT. Will start cipro + metronidazole pending cultures or confirmation of etiology. Dr. Chand consulted (2) Enterocolitis Status: Acute Response to Treatment: Improving Problem Specific Plan: Monitor Clinically Problem Text: This is the presumed cause of his ileus and subsequent gaseous distention. He is currently on Cipro and Flagyl, however his GI panel is negative and his stool lactoferrin is also negative. Therefore I will stop the antibiotics today. (3) Pericardial effusion Permanent Comment: ECHO: IMPRESSION: 1. Normal global left ventricular systolic function. There were some features of left ventricular diastolic dysfunction manifested by impaired relaxation. 2. Aortic valve sclerosis without stenosis or aortic regurgitation. 3. Mitral annulus calcification with trace mitral regurgitation. 4. Mild tricuspid regurgitation with mild pulmonary hypertension. 5. Trace pulmonic regurgitations. 6. Small to moderate pericardial effusion noted, no evidence of cardiac tamponade. Pleural effusion also was noted. 7. The inferior vena cava was not visualized. DD: NASREEN CHARLES MD 03/12/19 0118 Last Edited By: Carlee Herrera NP on Mar 14, 2019 08:57 (4) Essential hypertension Status: Chronic Problem Text: 03/14/19: stable pressures. DC IVF. 03/13/19: pressure were high and placed on IV hydralazine for control. continues with same due to NPO status. (5) Ascending aortic aneurysm Status: Chronic Problem Text: echo ordered. was 4.2 cm aortic root on most recent CT of chest (6) Coronary artery disease Permanent Comment: 09/02/18: SPECT-CT at [facility] showed reversible ischemia involving basal inferoseptal wall. and small ischemic reversible defect involving wall and apex. LVEF was 68% Last Edited By: Edson Ayala MD on Mar 14, 2019 14:47 Status: Chronic Response to Treatment: Stable Plan/VTE VTE Prophylaxis Ordered?: Yes (Lovenox) Plan Family Medicine Attending Note: I saw and examined Mr. Angeles, discussed with MAGALY Garcia. Agree with her note as documented. The patient reports she is doing well and is quite pleased to gets to eat again. He has been given magnesium citrate per surgery today (even though nursing reports he's had a number of large bowel movements while he's been here) reportedly to "get him really cleaned out." We'll monitor his situation including his electrolytes tomorrow. 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) VS, I&O, 24H, Fishbone Vital Signs/I&O Vital Signs Date Time Temp Pulse Resp B/P (MAP) Pulse Ox O2 Delivery O2 Flow Rate FiO2 03/14/19 08:00 98.5 64 16 160/80 (106) 94 03/10/19 17:45 Room Air I&O- Last 24 Hours up to 6 AM 03/14/19 05:59 Intake Total 2678 ml Output Total 2475 ml Balance 203 ml Laboratory Data 24H LABS Laboratory Tests 2 03/13/19 11:56: Bedside Glucose (Misc Panel) 98 03/13/19 18:17: Bedside Glucose (Misc Panel) 87 03/13/19 23:44: Bedside Glucose (Misc Panel) 92 03/14/19 05:12: Nucleated Red Blood Cells % (auto) 0.0, Anion Gap 6L, Glomerular Filtration Rate 51.2, Blood Urea Nitrogen 10, Creatinine 1.44H, Sodium Level 142, Potassium Level 3.7, Chloride Level 111H, Carbon Dioxide Level 25, Calcium Level 8.7L CBC/BMP Laboratory Tests 03/14/19 05:12 Red Blood Count 3.41 L, Mean Corpuscular Volume 86.2, Mean Corpuscular Hemoglobin 27.9, Mean Corpuscular Hemoglobin Concent 32.3, Red Cell Distribution Width 13.5, Calcium Level 8.7 L Microbiology Microbiology 03/11/19 Gastrointestinal Tract Panel (PCR) - Final, Complete 03/11/19 Stool Lactoferrin - Final, Complete Carlee Herrera Mar 14, 2019 08:57 Edson Ayala MD Mar 14, 2019 14:56
[2019-03-14] MEDS ORDERED: SLF 3 ML SYR IV PRN (11:00)
[2019-03-14 12:00] VITALS: BP 159/83
[2019-03-14] MEDS: SLF 3 ML SYR IV SCH ×2 (12:39→22:09)
[2019-03-14 16:00] VITALS: BP 166/91
[2019-03-14 17:34] VITALS: BP 150/80
[2019-03-14 20:07] VITALS: BP 158/82
[2019-03-14] MEDS: risperiDONE 2 MG TAB PO SCH (22:08)
[2019-03-14] MEDS: ESCITALOPRAM OXALATE 10 MG TAB (LEXAPRO) PO SCH (22:08)
[2019-03-15] VITALS: BP 124/58
[2019-03-15 04:00] VITALS: BP 130/77
[2019-03-15] MEDS: METOCLOPRAMIDE 5 MG TAB PO SCH ×2 (05:26→12:11)
[2019-03-15] MEDS: SLF 3 ML SYR IV SCH ×3 (05:26→20:57)
[2019-03-15 06:10] LABS: HEMATOCRIT 29.1 % (42.0-52.0); HEMOGLOBIN 9.4 g/dl (13.5-17.5); MEAN CORPUSCULAR HEMOGLOBIN 27.6 pg (27.0-33.0); MEAN CORPUSCULAR HGB CONC 32.3 g/dl (32.0-36.5); MEAN CORPUSCULAR VOLUME 85.3 fl (80.0-96.0); PLATELET COUNT, AUTOMATED 275 10^3/uL (150-450); RED BLOOD COUNT 3.41 10^6/uL (4.30-6.10); WHITE BLOOD COUNT 6.6 10^3/uL (4.0-10.0)
[2019-03-15 06:30] LABS: CREATININE FOR GFR 1.57 MG/DL (0.70-1.30); GLOMERULAR FILTRATION RATE 46.3 (>42); POTASSIUM SERUM 3.4 MEQ/L (3.5-5.1)
[2019-03-15 08:00] VITALS: BP 147/85
[2019-03-15] MEDS: buPROPion **XL** TABLET 150MG (WELLBUTRIN XL) PO SCH (08:22)
[2019-03-15] MEDS: SIMETHICONE 80 MG CHEW TAB PO SCH ×3 (08:22→20:29)
[2019-03-15] MEDS: HumaLOG INSULIN (NovoLOG) PER UNIT SC SCH ×4 (08:23→20:29)
[2019-03-15] MEDS: LEVOTHYROXINE 100 MCG (0.1MG) VIAL IV SCH (08:23)
[2019-03-15] MEDS: ENOXAPARIN 40 MG/0.4 ML SYRINGE (J1650) SC SCH (08:23)
[2019-03-15] MEDS: POTASSIUM CHLORIDE 10 MEQ SR TABLET PO SCH ×2 (08:23→20:28)
[2019-03-15] MEDS: FLUTICASONE PROP 0.05% NASAL SPRAY 16 GM (FLONASE) SCH ×2 (08:29→20:29)
--- NOTE | 2019-03-15 08:52 | IPNPDOC ---
Subjective Date Seen The patient was seen on 03/15/19. Subjective Chief Complaint/HPI enterocolitis Events since last encounter Tolerating regular diet. Multiple BMs yesterday. High urine output noted. Constitutional: Denies: Chills, Fever, Night Sweats Pulmonary: Denies: Dyspnea, Cough Cardiovascular: Denies: Chest Pain, Palpitations, Orthopnea, Paroxysmal Noc. Dyspnea, Lt Headedness Gastrointestinal: Reports: Other Symptoms (loose stools); Denies: Nausea, Vomiting, Abdominal Pain, Diarrhea, Constipation Objective Physical Examination General Exam: Positive: Alert, Cooperative, No Acute Distress Eye Exam: Positive: PERRLA, EOMI Chest Exam: Positive: Clear to auscultation, Normal air movement Heart Exam: Positive: Rate Normal, Normal S1, Normal S2 Abdomen Exam: Positive: Normal bowel sounds, Other (abdomen is protuberent, but this may be his baseline. He seems comfortable.); Negative: Tenderness Extremity Exam: Positive: Other Skin Exam: Positive: Nl turgor and temperature Neuro Exam: Positive: Normal Speech Psych Exam: Positive: Mental status NL Assessment /Plan Problems (1) Gaseous distention of intestine determined by X-ray Status: Acute Response to Treatment: Stable, Uncontrolled Problem Specific Plan: Consult Specialist Problem Text: 03/15/19: diet advanced and tolerating well. 03/14/19: NGT has been DC'd. slowly advance diet today. DC IVF. 03/13/19: NG in place still reports abdominal discomfort. especially bilateral lower abdomen. marked distention of bowel loops on CT. changes of enterocolitis reported on CT. Will start cipro + metronidazole pending cultures or confirmation of etiology. Dr. Chand consulted (2) Enterocolitis Status: Acute Response to Treatment: Improving Problem Specific Plan: Monitor Clinically Problem Text: 03/15/19:L received call from Nayeli Nava at [facility] requesting patient have colonoscopy as recommended by oncology. Spoke with oncology, Dr. Shah and states it was an outpatient recommendation for iron deficiency anemia. Patient can wait until after DC and enterocolitis has completely resolved. 03/14: This is the presumed cause of his ileus and subsequent gaseous distention. He is currently on Cipro and Flagyl, however his GI panel is negative and his stool lactoferrin is also negative. Therefore I will stop the antibiotics today. (3) Hypokalemia Status: Acute Problem Text: Potassium 3.4 today. Due to high stool and urine output. Replaced with an extra 20 meq today. (4) Hypomagnesemia Status: Acute Problem Specific Plan: Repeat Labs Problem Text: He is mildly hypomagnesemic today. Again likely related to significant BMs yesterday with the magnesium citrate. We added Ma,g Ox 400mg BID today, although we will be careful as this certainly has some cathartic effect on its own. Monitor labs. (5) Pericardial effusion Permanent Comment: ECHO: IMPRESSION: 1. Normal global left ventricular systolic function. There were some features of left ventricular diastolic dysfunction manifested by impaired relaxation. 2. Aortic valve sclerosis without stenosis or aortic regurgitation. 3. Mitral annulus calcification with trace mitral regurgitation. 4. Mild tricuspid regurgitation with mild pulmonary hypertension. 5. Trace pulmonic regurgitations. 6. Small to moderate pericardial effusion noted, no evidence of cardiac tamponade. Pleural effusion also was noted. 7. The inferior vena cava was not visualized. DD: NASREEN CHARLES MD 03/12/19 0118 Last Edited By: Carlee Herrera NP on Mar 14, 2019 08:57 (6) Essential hypertension Status: Chronic Problem Text: 03/14/19: stable pressures. DC IVF. 03/13/19: pressure were high and placed on IV hydralazine for control. continues with same due to NPO status. (7) Ascending aortic aneurysm Status: Chronic Problem Text: echo ordered. was 4.2 cm aortic root on most recent CT of chest (8) Coronary artery disease Permanent Comment: 09/02/18: SPECT[facility]CT at [facility] showed reversible ischemia involving basal inferoseptal wall. and small ischemic reversible defect involving wall and apex. LVEF was 68% Last Edited By: Edson Ayala MD on Mar 14, 2019 14:47 Status: Chronic Response to Treatment: Stable Plan/VTE VTE Prophylaxis Ordered?: Yes (Lovenox) Plan Family Medicine Attending Note: I saw and examined , discussed with MAGALY Garcia. Agree with their note as documented. Gary seems to be basically back to his baseline. Assuming his electrolyte abnormalities are not a major problem tomorrow, I'd anticipate he will be discharged back to [facility]. (gut carrier) VS, I&O, 24H, Fishbone Vital Signs/I&O Vital Signs Date Time Temp Pulse Resp B/P (MAP) Pulse Ox O2 Delivery O2 Flow Rate FiO2 03/15/19 08:00 98.5 58 18 147/85 (105) 96 03/10/19 17:45 Room Air I&O- Last 24 Hours up to 6 AM 03/15/19 06:00 Intake Total 2070 ml Output Total 3850 ml Balance -1780 ml Laboratory Data 24H LABS Laboratory Tests 2 03/14/19 11:22: Bedside Glucose (Misc Panel) 128H 03/14/19 17:03: Bedside Glucose (Misc Panel) 97 03/14/19 21:44: Bedside Glucose (Misc Panel) 159H 03/15/19 05:39: Nucleated Red Blood Cells % (auto) 0.0, Anion Gap 8, Glomerular Filtration Rate 46.3, Blood Urea Nitrogen 11, Creatinine 1.57H, Sodium Level 139, Potassium Level 3.4L, Chloride Level 107, Carbon Dioxide Level 24, Calcium Level 9.0 CBC/BMP Laboratory Tests 03/15/19 05:39 Red Blood Count 3.41 L, Mean Corpuscular Volume 85.3, Mean Corpuscular Hemoglobin 27.6, Mean Corpuscular Hemoglobin Concent 32.3, Red Cell Distribution Width 13.6, Calcium Level 9.0 Microbiology Microbiology 03/11/19 Gastrointestinal Tract Panel (PCR) - Final, Complete 03/11/19 Stool Lactoferrin - Final, Complete Carlee Herrera ICT PROJECT MANAGER Mar 15, 2019 08:52 Edson Ayala MD Mar 15, 2019 21:47
[2019-03-15] MEDS: ALBUTEROL SULFATE 2.5 MG/0.5 ML INH NEB SOLN INH SCH ×2 (08:58→19:40)
[2019-03-15 09:07] LABS: MAGNESIUM LEVEL 1.5 MG/DL (1.8-2.4)
[2019-03-15] MEDS ORDERED: POTASSIUM CHLORIDE 10 MEQ SR TABLET PO ONE (10:00)
[2019-03-15] MEDS: MAGNESIUM OXIDE 400 MG TAB (MAG-OX) PO SCH ×2 (15:04→20:29)
--- NOTE | 2019-03-15 18:13 | IPN ---
DATE: 03/15/2019 SUBJECTIVE: The patient is seen at bedside and appears well. He denies any nausea, emesis, fevers or abdominal pains. He is still distended; however, he had approximately five bowel movements overnight since he was seen last. He is passing flatus. He states that his abdomen feels a lot better. OBJECTIVE: VITAL SIGNS: Temperature 98.5, pulse 58 and regular, respiratory rate 18, blood pressure 147/85, pulse oximetry is 96% on room air. GENERAL: Awake, alert and eating breakfast, in no acute distress. HEENT: Mucous membranes are moist. Head is atraumatic, normocephalic. HEART: Regular rate and rhythm. No murmurs, gallops or rubs. LUNGS: Clear to auscultation bilaterally. No wheezes, rhonchi or rales. ABDOMEN: Still distended. However, the patient's abdomen is a lot softer today. Bowel loops are still palpable along the right lateral aspect of the abdominal wall. The patient has positive bowel sounds. No guarding, rigidity or peritoneal signs are appreciated. LABORATORY DATA: CBC: WBC 6.6, hemoglobin 9.4, hematocrit 29.1 platelets 275. Chemistry: Sodium 139, potassium 3.4, chloride 107, carbon dioxide 24, BUN 11, creatinine 1.57, fasting glucose 121, magnesium 1.5, calcium 9.0. ASSESSMENT: A 73-year-old male with abdominal distension, likely related to infectious versus inflammatory process that is resolving. PLAN: Advance diet to a regular diet. Continue with simethicone, antibiotics and Reglan. Recommend that the patient continues to ambulate. We will follow as needed. My faculty preceptor for this patient encounter was physically present during the encounter and was fully available. All aspects of the patient interview, examination, medical decision making process, and medical care plan development were reviewed and approved by the faculty preceptor. The faculty preceptor is aware and concurs with the plan as stated in the body of this note and will attest to such by his/her co-signature. CHARLY
[2019-03-15 18:45] VITALS: BP 164/82
[2019-03-15] MEDS: ESCITALOPRAM OXALATE 10 MG TAB (LEXAPRO) PO SCH (20:29)
[2019-03-15] MEDS: risperiDONE 2 MG TAB PO SCH (20:58)
[2019-03-15] MEDS ORDERED: ATORVASTATIN 20 MG TAB PO SCH (21:00)
[2019-03-15] MEDS ORDERED: SITagliptin 50 MG TAB (JANUVIA) PO SCH (21:00)
[2019-03-15 22:00] VITALS: BP 126/68
[2019-03-16] MEDS: SLF 3 ML SYR IV SCH (05:40)
[2019-03-16 06:00] VITALS: BP 145/88
[2019-03-16] MEDS ORDERED: LEVOTHYROXINE 125MCG TABLET (0.125MG) PO SCH (06:00)
[2019-03-16 06:44] LABS: HEMATOCRIT 32.9 % (42.0-52.0); HEMOGLOBIN 10.7 g/dl (13.5-17.5); MEAN CORPUSCULAR HEMOGLOBIN 27.7 pg (27.0-33.0); MEAN CORPUSCULAR HGB CONC 32.5 g/dl (32.0-36.5); MEAN CORPUSCULAR VOLUME 85.2 fl (80.0-96.0); PLATELET COUNT, AUTOMATED 301 10^3/uL (150-450); RED BLOOD COUNT 3.86 10^6/uL (4.30-6.10); WHITE BLOOD COUNT 5.2 10^3/uL (4.0-10.0)
[2019-03-16 07:00] LABS: CREATININE FOR GFR 1.44 MG/DL (0.70-1.30); GLOMERULAR FILTRATION RATE 51.2 (>42); MAGNESIUM LEVEL 1.6 MG/DL (1.8-2.4); POTASSIUM SERUM 3.7 MEQ/L (3.5-5.1)
[2019-03-16] MEDS: HumaLOG INSULIN (NovoLOG) PER UNIT SC SCH ×2 (07:30→11:14)
[2019-03-16] MEDS: ALBUTEROL SULFATE 2.5 MG/0.5 ML INH NEB SOLN INH SCH (07:45)
[2019-03-16] MEDS: buPROPion **XL** TABLET 150MG (WELLBUTRIN XL) PO SCH (08:43)
[2019-03-16] MEDS: MAGNESIUM OXIDE 400 MG TAB (MAG-OX) PO SCH (08:43)
[2019-03-16] MEDS: SIMETHICONE 80 MG CHEW TAB PO SCH (08:43)
[2019-03-16] MEDS: POTASSIUM CHLORIDE 10 MEQ SR TABLET PO SCH (08:43)
[2019-03-16] MEDS: FLUTICASONE PROP 0.05% NASAL SPRAY 16 GM (FLONASE) SCH (08:44)
[2019-03-16] MEDS: ENOXAPARIN 40 MG/0.4 ML SYRINGE (J1650) SC SCH (08:44)
[2019-03-16] MEDS ORDERED: MAGN400T2 PO (10:19)
[2019-03-16] MEDS: MAG SULF 1GM/100ML (MAG RUN) 1 GM in APPROPRIATE DILUENT 1 EA IV SCH ×2 (11:17→12:39)
[2019-03-16] MEDS ORDERED: [UNRECOGNIZED DRUG - CODE] EXT (23:00)
[2019-03-16] MEDS ORDERED: SITA50TAB PO (23:00)
[2019-03-16] MEDS ORDERED: MAGN400T PO (23:00)
[2019-03-16] MEDS ORDERED: ASPI81TA26 PO (23:00)
[2019-03-16] MEDS ORDERED: FERR32TA PO (23:00)
--- NOTE | 2019-03-17 10:54 | DSES ---
DATE OF ADMISSION: 03/10/2019 DATE OF DISCHARGE: 03/16/2019 JEWELRY DEPARTMENT SUPERVISOR: Dr. Jordan Chand PRIMARY CARE PROVIDER: Dr. Tracy Gibbs ATTENDING PHYSICIAN: Dr. Edson Ayala HISTORY OF PRESENT ILLNESS: 73-year-old gentleman who resides at [facility], presented to the emergency department with complaints of persistent diarrhea for several weeks with abdominal distention. Workup in the emergency department proved positive for enterocolitis. The patient was subsequently admitted to family medicine service. HOSPITAL COURSE: The patient was placed in ciprofloxacin, as well as Flagyl for potential abdominal infection contributing to the enterocolitis. The patient received an nasogastric tube for abdominal decompression. This was discontinued on 03/14/2019. The patient's diet has been slowly advanced and his abdominal pain has completely resolved. He is having multiple bowel movements without incident. His stools do remain loose in nature, but this is something that has been chronic for him over the last several months. VITAL SIGNS: Remained stable throughout hospitalization. PROCEDURES: Include nasogastric tube insertion. IMAGING: Includes abdominal x-ray, as well as CT of the abdomen and pelvis. CT ruled out bowel obstruction but was positive for enterocolitis with mural thickening and moderate diffuse colonic distention through to the rectum with dilated small bowel loops. The patient did have some electrolytes disturbances, including magnesium, as well as potassium, which were subsequently replaced. During hospitalization, the patient did have a slight bump in his creatinine on admission and this has returned to baseline. The patient has remained afebrile throughout hospitalization. PHYSICAL EXAMINATION: Today, vital signs are stable. He is afebrile. Oxygen saturation 96% on room air. Blood pressure 145/88, respiratory rate 18, heart rate 86, temperature 98.2. CARDIOVASCULAR: Heart rate and rhythm are regular. PULMONARY: Lungs are clear to auscultation bilaterally. ABDOMEN: Protuberant with positive bowel sounds all four quadrants but nontender throughout on palpation. EXTREMITIES: Bilateral lower extremities are without any edema. Positive pedal pulses bilaterally. NEUROLOGIC: The patient is alert and oriented times three. He does have developmental delay; however, is able to answer questions appropriately. ASSESSMENT: DISCHARGE DIAGNOSES: 1. Enterocolitis. 2. Hypokalemia. 3. Hypomagnesemia. SECONDARY DIAGNOSES: 1. Intellectual disability. 2. Hypertension. 3. Diabetes type 2. 4. Diastolic dysfunction. 5. Chronic obstructive pulmonary disease (COPD). 6. Dyslipidemia. 7. Hypothyroidism. 8. Depression. 9. History of alcohol abuse. 10. Benign prostatic hypertrophy (BPH) with urinary retention and chronic indwelling Rodriguez catheter. 11. Obstructive sleep apnea. 12. Chronic anemia. PLAN: The patient will be discharged back to [facility] ([facility]). Diet is as tolerated. Activity is as tolerated. MEDICATIONS: - acetaminophen 1000 mg by mouth twice a day - acetaminophen 1000 mg daily as needed for pain - albuterol sulfate via nebulizer twice a day - albuterol sulfate via nebulizer every 4 hours as needed for shortness of breath - albuterol sulfate HFA two puffs four times a day as needed for shortness of breath - aspirin 81 mg daily - atorvastatin 20 mg by mouth at night - bupropion 150 mg by mouth daily - Lexapro 20 mg by mouth at night - ferrous sulfate 325 mg by mouth daily - fluticasone propionate one spray in each nostril twice a day - guaifenesin 10 mL by mouth every 6 hours as needed for cough - levothyroxine sodium 125 mcg one by mouth daily - MiraLAX powder 17 grams by mouth daily as needed for constipation - potassium chloride 20 mEq per 15 mL to take 15 mL by mouth twice a day - ranitidine 150 mg by mouth daily - risperidone 2 mg by mouth at night - Senna two tablets by mouth at night as needed for constipation - Januvia 100 mg tablets to take half of a tablet by mouth at night - tramadol 50 mg by mouth at night as needed for pain - Incruse Ellipta one inhalation daily Changed prescriptions include: - magnesium oxide from 400 mg by mouth twice a day to 400 mg by mouth daily The patient is discharged in stable and satisfactory condition at the time of discharge. Please note: A phone call was received from [facility] requesting a colonoscopy to be completed while the patient is inpatient. This was reviewed both by Dr. Ayala as well as Dr. Chand and it is not appropriate at this time due to recent enterocolitis. The patient will be set up with Dr. Chand in 2 weeks for further evaluation of colonoscopy. This is based on oncology recommendation for his chronic anemia workup. Family Medicine Attending Note: I saw and examined Mr. Angeles on the day of his discharge. I discussed his care with MAGALY Garcia. Agree with her note as documented. He was safe for return to [facility] on the day of discharge. 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
[2019-03-17] MEDS ORDERED: SIME180C PO (12:00)
[2019-03-17] MEDS ORDERED: MAG400TA PO (12:00)
== END 2019-03-16 14:30 | disposition home or self-care (01) | DRG 392 ==
LOC: EDBD 09:01 → M ED 09:01 → M ED INP 13:23 → M PCU 18:02 → M MS5PR 03-15 18:32
PROVIDERS: ADMIT Internal Medicine; ATTEND Family Medicine
DX: K52.9 Noninfective gastroenteritis and colitis, unspecified (principal); I13.0 Hypertensive heart and chronic kidney disease with heart failure and stage 1 through stage 4 chronic kidney disease, or unspecified chronic kidney disease; I31.3 Pericardial effusion (noninflammatory); I50.32 Chronic diastolic (congestive) heart failure; N18.3 Chronic kidney disease, stage 3 (moderate); E11.9 Type 2 diabetes mellitus without complications; E87.6 Hypokalemia; J44.9 Chronic obstructive pulmonary disease, unspecified; E03.9 Hypothyroidism, unspecified; E83.42 Hypomagnesemia; F79 Unspecified intellectual disabilities; F32.9 Major depressive disorder, single episode, unspecified; D64.9 Anemia, unspecified; G47.33 Obstructive sleep apnea (adult) (pediatric); Z79.82 Long term (current) use of aspirin; Z79.899 Other long term (current) drug therapy; K21.9 Gastro-esophageal reflux disease without esophagitis; Z96.652 Presence of left artificial knee joint; I25.10 Atherosclerotic heart disease of native coronary artery without angina pectoris; I71.4 Abdominal aortic aneurysm, without rupture

== ENCOUNTER 2019-03-16 19:42 | Observation (INO) | payer MEDICARE, MEDICAID ==
[~2019-03-16] VITALS: Ht 175.3 cm; Wt 93.2 kg
[~2019-03-16 19:42] MED LIST changes: +ACET-683 PO; +ACET-897 PO; +GUAI5EL PO; +SENN18TA PO
[2019-03-16] MEDS ORDERED: D5W/0.45% SODIUM CHLORIDE 1,000 ML IV SCH (22:45)
[2019-03-16] MEDS ORDERED: ACETAMINOPHEN TAB 650MG DOSE (2X325MG) PO PRN (22:45)
[2019-03-16] MEDS ORDERED: SITA50TAB PO (23:00)
[2019-03-16] MEDS ORDERED: MAGN400T PO (23:00)
[2019-03-16] MEDS ORDERED: ASPI81TA26 PO (23:00)
[2019-03-16] MEDS ORDERED: FERR32TA PO (23:00)
[2019-03-16] MEDS ORDERED: [UNRECOGNIZED DRUG - CODE] EXT (23:00)
[2019-03-16] MEDS ORDERED: GLUCAGON FOR INJ 1 MG VIAL (J1610) SC PRN (23:15)
[2019-03-16] MEDS ORDERED: GLUCOSE 4 GM CHEW TABLET PO PRN (23:15)
[2019-03-16] MEDS ORDERED: MIRALAX *UNIT DOSE* 17GM PACKET PO PRN (23:15)
[2019-03-16] MEDS ORDERED: DEXTROSE 50% 50 ML SYRINGE IV PRN (23:15)
[2019-03-16] MEDS ORDERED: ALBUTEROL 90 MCG/ACT 8GM HFA INHALER INH PRN (23:15)
[2019-03-16] MEDS ORDERED: guaiFENesin SYRUP 200 MG/10 ML UDC PO PRN (23:15)
[2019-03-17] MEDS: NS 1,000 ML IV SCH ×2 (01:44→11:45)
--- NOTE | 2019-03-17 05:42 | HPEPDOC ---
General Date of Admission Mar 16, 2019 at 22:26 Primary Care Physician: ARON BARRETO DO Attending Physician: TUAN BARNETT MD Chief Complaint The patient is a 73-year-old male admitted with a reason for visit of Abdomial Distension. History of Present Illness 70-year-old male patient from [facility] presents to the ER with his accounting instructor after staff was concerned about his distended abdomen and complaint of right flank pain within 4 hours of discharge from hospital that same day. He was recently admitted March 10 and discharged earlier today for similar complaint of abd distension. He was treated for enterocolitis with supportive care, NG tube, IV fluids & abx with surgeon Dr. Chand following. He was tolerating diet, passing stool and flatus, and was discharged from hospital earlier today. Documentation Lead in the room verifies that he is continuing to pass flatus and had one small soft BM 2 hours prior to this admission. He is having good appetite, and denies n/v. At time of admission, his abd continues to be significantly distended, but nontender. There is concern for distended bowel loops on imaging, and thus patient will be readmitted for concern of bowel obstruction. He has no other complaints, and accounting instructor denies all other ROS. Home Medications Scheduled Acetaminophen (Acetaminophen) 500 Mg Tablet, 1,000 MG PO BID, (Reported) AM AND 1600 Albuterol Sulf (Albuterol Sulfate) 2.5 Mg/3 Ml Nebu, 2.5 MG INH BID, (Reported) AM AND 1600 Aspirin (Aspirin EC) 81 Mg Tablet.dr, 81 MG PO DAILY, (Reported) Atorvastatin Calcium (Atorvastatin Calcium) 20 Mg Tab, 20 MG PO QHS, (Reported) Bupropion Hcl (Bupropion Xl) 150 Mg Tab, 150 MG PO DAILY, (Reported) Escitalopram Oxalate (Lexapro) 20 Mg Tab, 20 MG PO QHS, (Reported) Ferrous Gluconate (Ferrous Gluconate) 324 Mg Tablet, 324 MG PO DAILY, (Reported) Fluticasone Propionate (Flonase Allergy Relief) 50 Mcg/Act Spr, 1 SPRAY NA BID, (Reported) Levothyroxine Sodium (Synthroid) 125 Mcg Tab, 125 MCG PO DAILY, (Reported) Magnesium Oxide (Magnesium Oxide) 400 Mg Tablet, 400 MG PO DAILY Potassium Chloride (Potassium Chloride) 20 Meq/15 Ml Liquid, 7.5 ML PO DAILY, (Reported) Ranitidine HCl (Ranitidine HCl) 150 Mg Tab, 1 TAB PO DAILY, (Reported) Risperidone (Risperidone) 2 Mg Tab, 2 MG PO QHS, (Reported) Sitagliptin (Januvia) 50 Mg Tablet, 50 MG PO QHS, (Reported) Umeclidinium [place] (Incruse Ellipta) 62.5 Mcg/Inh Inh, 62.5 MCG INH QPM, (Reported) TAKES AT 1600 Scheduled PRN Acetaminophen (Tylenol Extra Strength) 500 Mg Tablet, 1,000 MG PO DAILY PRN for PAIN, (Reported) Albuterol Sulf (Albuterol Sulfate) 2.5 Mg/3 Ml Vial.neb, 2.5 MG INH Q4H PRN for SHORTNESS OF BREATH, (Reported) Albuterol Sulfate (Ventolin Hfa) 108 Mcg/Act Aer, 2 PUFFS INH QID PRN for SHORTNESS OF BREATH, (Reported) Guaifenesin (Guaifenesin) 100 Mg/5 Ml Liquid, 10 ML PO Q6H PRN for COUGH, (Reported) Petrolatum,White (Aloe [place]) 226 Gm Oint...g., 1 DOSE EXT TID PRN for REDNESS/IRRITATION, (Reported) USES ON GROIN AND BUTTOCKS NEEDED Polyethylene Glycol 3350 (Miralax) 1 Pow Pow, 17 GRAM PO DAILY PRN for CONSTIPATION, (Reported) DAY 3 WITH NO BM Simethicone (Simethicone) 180 Mg Capsule, 1 CAP PO TID PRN for ABDOMINAL PAIN use for gas pain Tramadol HCl (Tramadol HCl) 50 Mg Tab, 50 MG PO Q6H PRN for PAIN, (Reported) Allergies Coded Allergies: No Known Allergies (Unverified , 02/25/19) Past Medical History Medical History COPD obstructive sleep apnea not on CPAP intellectual disability chronic kidney disease stage III 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 Rodriguez catheter hypothyroidism NIDDM2 GERD anxiety and depression osteoarthritis of left knee with 3 previous replacements and chronic swelling in his left lower extremities secondary to samenow inoperable diastolic congestive heart failure hypertension chronic anemia ascending aortic aneurysm Surgical History Left knee replacement 3, right knee arthroscopy, hernia repair Family History noncontributory Social History [facility] patient with baseline MR. Nonambulatory at baseline-requires Jorje lift. A-FIB/CHADSVASC A-FIB History Current/History of A-Fib/PAF?: No Review of Systems Other systems ROS obtained from pt and accounting instructor in room. Constitutional: Denies fever, chills ENT: Denies headaches, dysphagia Pulmonary: Denies dyspnea, cough, wheezing Cardiac: Denies chest pain, palpitations, edema GI: Denies nausea, vomiting, diarrhea, constipation, melena, hematochezia. Admits short episode of right abdominal pain. : Admits chronic indwelling Rodriguez MSK: Denies new aches Physical Examination Other physical findings General exam: Alert and cooperative, NAD, follows commands, but minimally interactive given baseline MR Eye exam: PERRLA, EOMI ENT: Atraumatic, normocephalic, dry mucous memb Neck: Supple, no JVD Cardiac: borderline bradycardic, split S2, no murmurs Respiratory: CTAB, good air exchange, no wheezing, rhonchi, or rales Abdomen: Distended and tense, +bowel sounds with tinkering sounds present, tympanic to percussion. No rebound, guarding, rigidity : Chronic Rodriguez in place with clear yellow o/p Extremity: 2+ radial pulses, no edema or tenderness Skin: [place], warm, dry Vital Signs Vital Signs Date Time Temp Pulse Resp B/P (MAP) Pulse Ox O2 Delivery O2 Flow Rate FiO2 03/17/19 02:32 52 16 144/75 (98) 97 Nasal Cannula 2.0 03/17/19 01:00 97.8 Laboratory Data Labs 24H Laboratory Tests 2 03/17/19 00:25: Bedside Glucose (Misc Panel) 107 Assessment/Plan Abd distension continues from prior hospitalization, with distended bowel loops on admission KUB with concern for bowel obstruction. Official read pending. Pt failed conservative measures in previous admission, including NGT and IVF. Will require re-consulting Surgery in am, as Dr. Chand followed pt in previous admission. Will hold off on NGT until assessed by Sx. He denies any n/v/current abd pain, and was noted to have a small soft BM prior to admission, and is indeed passing flatus. Labs from earlier today reveal no leukocytosis or fever. No other complaints, and unlikely infectious. Will hold off on abx. Currently is NPO, on gentle IVF. Diastolic congestive heart failure appears well compensated. Hold diuretics as he receives gentle IVF COPD stable, continue nebs TEREZA noncompliant with CPAP Intellectual disability JRC pt, limited historian Chronic kidney disease stage III baseline Cr ~1.5. F/U am labs Chronic anemia likely 2/2 baseline renal ds continue home iron supplement H&H stable ~baseline. No active bleeding BPH with urinary retention chronic indwelling Rodriguez catheter Hypothyroidism continue home Synthroid NIDDM2 home Januvia replaced with ISS GERD continue Pepcid Anxiety and depression continue Lexapro, Bupropion OA continue pain control s/p surgical repair Hypertension controlled Ascending aortic aneurysm hemodynamically stable, continue o/p care DVT ppx: heparin sc DISPO: will admit and sign out to [facility] service in am. Will likely require Surgical consult in am. Plan / VTE VTE Prophylaxis Ordered?: Yes GME ATTESTATION GME ATTESTATION My faculty preceptor for this patient encounter was physically present during the encounter and was fully available. All aspects of the patient interview, examination, medical decision making process, and medical care plan development were reviewed and approved by the faculty preceptor. The faculty preceptor is aware and concurs with the plan as stated in the body of this note and will attest to such by his/her cosignature. ATTENDING NOTE I have personally examined the patient at bedside along with the resident physician. I have discussed with resident above mentioned assessment and treatment plan. 73 y/o M who was discharged after getting treatment for c/o abdominal distention was sent back to ER for c/o abdominal distention. Labs and imaging studies reviewed. Abdominal x ray showed distended bowel loops. Impression- abdominal distention with distended bowel loops secondary to questionable obstruction/ileus. Plan NPO will consider general surgery eval depending on clinical course. GONZALEZ BRASWELL DO Mar 17, 2019 05:42 TUAN BARNETT MD Mar 17, 2019 06:33
[2019-03-17] MEDS: HumaLOG INSULIN (NovoLOG) PER UNIT SC SCH ×3 (05:58→12:00)
[2019-03-17] MEDS ORDERED: LEVOTHYROXINE 125MCG TABLET (0.125MG) PO SCH (06:00)
[2019-03-17 08:00] VITALS: BP 130/71
[2019-03-17] MEDS ORDERED: ALBUTEROL SULFATE 2.5 MG/0.5 ML INH NEB SOLN INH SCH (08:00)
[2019-03-17 08:25] LABS: HEMOGLOBIN 11.1 g/dl (13.5-17.5); MEAN CORPUSCULAR HEMOGLOBIN 27.5 pg (27.0-33.0); MEAN CORPUSCULAR HGB CONC 31.7 g/dl (32.0-36.5); MEAN CORPUSCULAR VOLUME 86.8 fl (80.0-96.0); PLATELET COUNT, AUTOMATED 313 10^3/uL (150-450); RED BLOOD COUNT 4.03 10^6/uL (4.30-6.10); WHITE BLOOD COUNT 5.3 10^3/uL (4.0-10.0)
[2019-03-17 08:43] LABS: CALCIUM LEVEL 9.7 MG/DL (8.8-10.2); CREATININE FOR GFR 1.42 MG/DL (0.70-1.30); POTASSIUM SERUM 4.4 MEQ/L (3.5-5.1)
--- NOTE | 2019-03-17 08:50 | REP ---
Abdomen series: Five views. History: History of constipation. New abdominal distension. Comparison abdomen views March 10, 2019. Findings: AP chest x-ray shows discoid atelectasis in the left base. Lung davis are otherwise clear. No free subdiaphragmatic air is seen. Supine and cross-table lateral views of the abdomen demonstrate gaseous distension of small and large bowel loops. Colonic distension is seen to the level of the splenic flexure or descending colon. There is a small quantity of a presumed rectal air. This could reflect a left colonic obstruction. Bowel gas pattern is similar to the March 10, 2019 study. There is no evidence of free air. Impression: Moderate gaseous distension of large and small bowel loops similar to the March 10, 2019 prior study. I cannot exclude left colonic obstruction based on the radiographs. Electronically Signed by Av Isaacs MD 03/17/2019 08:41 A
[2019-03-17] MEDS ORDERED: FAMOTIDINE 20 MG TAB PO SCH (09:00)
[2019-03-17] MEDS ORDERED: MAGNESIUM OXIDE 400 MG TAB (MAG-OX) PO SCH (09:00)
[2019-03-17] MEDS ORDERED: FLUTICASONE PROP 0.05% NASAL SPRAY 16 GM (FLONASE) SCH (09:00)
[2019-03-17] MEDS ORDERED: POTASSIUM CHLORIDE 10% LIQ 20 MEQ/15 ML UDC PO SCH (09:00)
[2019-03-17] MEDS ORDERED: buPROPion **XL** TABLET 150MG (WELLBUTRIN XL) PO SCH (09:00)
[2019-03-17] MEDS ORDERED: ACETAMINOPHEN 500 MG TAB PO SCH (09:00)
[2019-03-17] MEDS ORDERED: ASPIRIN 81 MG ENTERIC TAB PO SCH (09:00)
[2019-03-17] MEDS ORDERED: FERROUS GLUCONATE 324 MG TAB PO SCH (09:00)
[2019-03-17] MEDS ORDERED: HEPARIN SOD (PORCINE) 5000 UNITS/ML VIAL SQ SCH (09:00)
--- NOTE | 2019-03-17 11:56 | DS.PDOC ---
Discharge Summary General Date of Admission Mar 16, 2019 at 22:26 Date of Discharge 03/17/19 Primary Care Physician: Jean Attending Physician: Edson Aylaa MD Discharge Summary PROCEDURES PERFORMED DURING STAY: [None]. ADMITTING DIAGNOSES: 1. . DISCHARGE DIAGNOSES: 1. . COMPLICATIONS/CHIEF COMPLAINT: Abdomial Distension. HISTORY OF PRESENT ILLNESS: . HOSPITAL COURSE: . DISCHARGE MEDICATIONS: Please see below. ALLERGIES: Please see below. PHYSICAL EXAMINATION ON DISCHARGE: VITAL SIGNS: Please see below. GENERAL: HEENT: NECK: CARDIOVASCULAR EXAMINATION: RESPIRATORY EXAMINATION: ABDOMINAL EXAMINATION: EXTREMITIES: SKIN: NEUROLOGICAL EXAMINATION: PSYCHIATRIC EXAMINATION: LABORATORY DATA: Please see below. IMAGING: PROGNOSIS: ACTIVITY: [As tolerated]. DIET: DISCHARGE PLAN: DISPOSITION: . DISCHARGE INSTRUCTIONS: 1. . ITEMS TO FOLLOWUP ON ON OUTPATIENT: 1. . DISCHARGE CONDITION: [Stable]. TIME SPENT ON DISCHARGE: Greater than minutes. Vital Signs/I&Os Vital Signs Date Time Temp Pulse Resp B/P (MAP) Pulse Ox O2 Delivery O2 Flow Rate FiO2 03/17/19 08:00 97.5 56 16 130/71 (90) 97 03/17/19 06:00 Nasal Cannula 2.0 I&O- Last 24 Hours up to 6 AM 03/17/19 06:00 Output Total 1200 ml Balance -1200 ml Laboratory Data Labs 24H Laboratory Tests 2 03/17/19 00:25: Bedside Glucose (Misc Panel) 107 03/17/19 05:51: Bedside Glucose (Misc Panel) 90 03/17/19 07:52: Nucleated Red Blood Cells % (auto) 0.0, Anion Gap 6L, Glomerular Filtration Rate 52.0, Blood Urea Nitrogen 13, Creatinine 1.42H, Sodium Level 140, Potassium Level 4.4, Chloride Level 107, Carbon Dioxide Level 27, Calcium Level 9.7 CBC/BMP Laboratory Tests 03/17/19 07:52 Red Blood Count 4.03 L, Mean Corpuscular Volume 86.8, Mean Corpuscular Hemoglob in 27.5, Mean Corpuscular Hemoglobin Concent 31.7 L, Red Cell Distribution Width 13.5, Calcium Level 9.7 FSBS Laboratory Tests Test 03/17/19 00:25 03/17/19 05:51 Range/Units Bedside Glucose (Misc Panel) 107 90 83-110 MG/DL Discharge Medications Scheduled Acetaminophen (Acetaminophen) 500 Mg Tablet, 1,000 MG PO BID, (Reported) AM AND 1600 Albuterol Sulf (Albuterol Sulfate) 2.5 Mg/3 Ml Nebu, 2.5 MG INH BID, (Reported) AM AND 1600 Aspirin (Aspirin EC) 81 Mg Tablet.dr, 81 MG PO DAILY, (Reported) Atorvastatin Calcium (Atorvastatin Calcium) 20 Mg Tab, 20 MG PO QHS, (Reported) Bupropion Hcl (Bupropion Xl) 150 Mg Tab, 150 MG PO DAILY, (Reported) Escitalopram Oxalate (Lexapro) 20 Mg Tab, 20 MG PO QHS, (Reported) Ferrous Gluconate (Ferrous Gluconate) 324 Mg Tablet, 324 MG PO DAILY, (Reported) Fluticasone Propionate (Flonase Allergy Relief) 50 Mcg/Act Spr, 1 SPRAY NA BID, (Reported) Levothyroxine Sodium (Synthroid) 125 Mcg Tab, 125 MCG PO DAILY, (Reported) Magnesium Oxide (Magnesium Oxide) 400 Mg Tablet, 400 MG PO BID, (Reported) Potassium Chloride (Potassium Chloride) 20 Meq/15 Ml Liquid, 7.5 ML PO DAILY, (Reported) Ranitidine HCl (Ranitidine HCl) 150 Mg Tab, 1 TAB PO DAILY, (Reported) Risperidone (Risperidone) 2 Mg Tab, 2 MG PO QHS, (Reported) Sitagliptin (Januvia) 50 Mg Tablet, 50 MG PO QHS, (Reported) Umeclidinium [place] (Incruse Ellipta) 62.5 Mcg/Inh Inh, 62.5 MCG INH QPM, (Reported) TAKES AT 1600 Scheduled PRN Acetaminophen (Tylenol Extra Strength) 500 Mg Tablet, 1,000 MG PO DAILY PRN for PAIN, (Reported) Albuterol Sulf (Albuterol Sulfate) 2.5 Mg/3 Ml Vial.neb, 2.5 MG INH Q4H PRN for SHORTNESS OF BREATH, (Reported) Albuterol Sulfate (Ventolin Hfa) 108 Mcg/Act Aer, 2 PUFFS INH QID PRN for SHORTNESS OF BREATH, (Reported) Guaifenesin (Guaifenesin) 100 Mg/5 Ml Liquid, 10 ML PO Q6H PRN for COUGH, (Reported) Petrolatum,White (Aloe [place]) 226 Gm Oint...g., 1 DOSE EXT TID PRN for REDNESS/IRRITATION, (Reported) USES ON GROIN AND BUTTOCKS NEEDED Polyethylene Glycol 3350 (Miralax) 1 Pow Pow, 17 GRAM PO DAILY PRN for CONSTIPATION, (Reported) DAY 3 WITH NO BM Tramadol HCl (Tramadol HCl) 50 Mg Tab, 50 MG PO Q6H PRN for PAIN, (Reported) Allergies Coded Allergies: No Known Allergies (Unverified , 02/25/19) Edson Ayala MD Mar 17, 2019 11:56
[2019-03-17] MEDS ORDERED: SIME180C PO (12:00)
[2019-03-17] MEDS ORDERED: MAG400TA PO (12:00)
[2019-03-17] MEDS ORDERED: ATORVASTATIN 20 MG TAB PO SCH (21:00)
[2019-03-17] MEDS ORDERED: ESCITALOPRAM OXALATE 10 MG TAB (LEXAPRO) PO SCH (21:00)
== END 2019-03-17 15:40 | disposition home or self-care (01) ==
LOC: M ED 19:42 → M ED INP 22:26
PROVIDERS: ADMIT Internal Medicine; ATTEND Internal Medicine
DX: R14.0 Abdominal distension (gaseous) (principal); I12.9 Hypertensive chronic kidney disease with stage 1 through stage 4 chronic kidney disease, or unspecified chronic kidney disease; J44.9 Chronic obstructive pulmonary disease, unspecified; G47.33 Obstructive sleep apnea (adult) (pediatric); N18.3 Chronic kidney disease, stage 3 (moderate); N40.1 Benign prostatic hyperplasia with lower urinary tract symptoms; D64.9 Anemia, unspecified; K21.9 Gastro-esophageal reflux disease without esophagitis; I71.9 Aortic aneurysm of unspecified site, without rupture; E11.9 Type 2 diabetes mellitus without complications; E03.9 Hypothyroidism, unspecified; F41.9 Anxiety disorder, unspecified; F32.9 Major depressive disorder, single episode, unspecified; Z79.52 Long term (current) use of systemic steroids; Z79.82 Long term (current) use of aspirin; Z79.899 Other long term (current) drug therapy
CPT/HCPCS: 36415; 74021; 80048; 85027; 94640; 96372; 99284; G0378

== ENCOUNTER → 2019-03-24 | Outpatient (CLI) | payer MEDICARE, MEDICAID ==
[~2019-03-24] MED LIST changes: +ASPI81TA26 PO; +FERR32TA PO; +MAG400TA PO; +MAGN400T PO; +SIME180C PO; +SITA50TAB PO; +[UNRECOGNIZED DRUG - CODE] EXT
[2019-03-24 14:35] LABS: CALCIUM LEVEL 9.4 MG/DL (8.8-10.2); CREATININE FOR GFR 1.57 MG/DL (0.70-1.30); GLOMERULAR FILTRATION RATE 46.3 (>42); MAGNESIUM LEVEL 1.7 MG/DL (1.8-2.4); POTASSIUM SERUM 3.5 MEQ/L (3.5-5.1)
== END ==
LOC: M LAB 13:18
PROVIDERS: ATTEND Family Medicine
DX: E87.6 Hypokalemia (principal)

== ENCOUNTER 2019-04-20 06:57 | Day surgery (SDC) | payer MEDICARE, MEDICAID ==
[~2019-04-20] VITALS: Ht 175.3 cm; Wt 84.4 kg
[~2019-04-20 06:57] MED LIST changes: +NS 1,000 ML IV ONE; +SLOWTAB2 PO
[2019-04-20] MEDS ORDERED: PROPOFOL 200 MG/20 ML VIAL As Ordered ONE (09:43)
[2019-04-20] MEDS ORDERED: LIDOCAINE 2% INJ 100 MG/5 ML SDV (FOR ANES.) As Ordered ONE (09:43)
--- NOTE | 2019-04-20 09:58 | ROOR ---
Patient Name: Gary Angeles Procedure Date: 04/20/2019 9:19 AM Date of : 1945 Age: 74 Room: [facility] Gender: Male Note Status: Finalized Procedure: Upper GI endoscopy Indications: Iron deficiency anemia Providers: Jordan Chand DO Referring MD: Tracy GUO DO Requesting Provider: Medicines: Propofol per Anesthesia Complications: No immediate complications. Procedure: Pre-Anesthesia Assessment: - Prior to the procedure, a History and Physical was performed, and patient medications and allergies were reviewed. The patient is competent. The risks and benefits of the procedure and the sedation options and risks were discussed with the patient. All questions were answered and informed consent was obtained. Patient identification and proposed procedure were verified by the physician, the nurse, the anesthesiologist and the data communications technician in the endoscopy suite. Mental Status Examination: alert and oriented. Airway Examination: normal oropharyngeal airway and neck mobility. Respiratory Examination: clear to auscultation. CV Examination: normal. Prophylactic Antibiotics: The patient does not require prophylactic antibiotics. Prior Anticoagulants: The patient has taken no previous anticoagulant or antiplatelet agents. ASA Grade Assessment: III - A patient with severe systemic disease. After reviewing the risks and benefits, the patient was deemed in satisfactory condition to undergo the procedure. The anesthesia plan was to use monitored anesthesia care (MAC). Immediately prior to administration of medications, the patient was re-assessed for adequacy to receive sedatives. The heart rate, respiratory rate, oxygen saturations, blood pressure, adequacy of pulmonary ventilation, and response to care were monitored throughout the procedure. The physical status of the patient was re-assessed after the procedure. The Endoscope was introduced through the mouth, and advanced to the second part of duodenum. The upper GI endoscopy was accomplished without difficulty. The patient tolerated the procedure well. Findings: One non-bleeding cratered gastric ulcer with no stigmata of bleeding was found in the prepyloric region of the stomach. The lesion was 6 mm in largest dimension. Biopsies were taken with a cold forceps for Helicobacter pylori testing. Estimated blood loss was minimal. The exam was otherwise without abnormality. Impression: - Non-bleeding gastric ulcer with no stigmata of bleeding. Biopsied. - The examination was otherwise normal. Recommendation: - Patient has a contact number available for emergencies. The signs and symptoms of potential delayed complications were discussed with the patient. Return to normal activities tomorrow. Written discharge instructions were provided to the patient. - Telephone my office for pathology results in 1 week. Jordan Chand DO 04/20/2019 9:57:48 AM Electronically signed by Jordan Chand DO Number of Addenda: 0 Note Initiated On: 04/20/2019 9:19 AM Estimated Blood Loss: Estimated blood loss was minimal.
--- NOTE | 2019-04-20 10:00 | ROOR ---
Patient Name: Gary Angeles Procedure Date: 04/20/2019 9:20 AM Date of : 1945 Age: 74 Room: [facility] Gender: Male Note Status: Finalized Procedure: Colonoscopy Indications: Iron deficiency anemia Providers: Jordan Chand DO Referring MD: Tracy GUO DO Requesting Provider: Medicines: Propofol per Anesthesia Complications: No immediate complications. Procedure: Pre-Anesthesia Assessment: - Prior to the procedure, a History and Physical was performed, and patient medications and allergies were reviewed. The patient is competent. The risks and benefits of the procedure and the sedation options and risks were discussed with the patient. All questions were answered and informed consent was obtained. Patient identification and proposed procedure were verified by the physician, the nurse, the anesthesiologist and the a/c technician in the endoscopy suite. Mental Status Examination: alert and oriented. Airway Examination: normal oropharyngeal airway and neck mobility. Respiratory Examination: clear to auscultation. CV Examination: normal. Prophylactic Antibiotics: The patient does not require prophylactic antibiotics. Prior Anticoagulants: The patient has taken no previous anticoagulant or antiplatelet agents. ASA Grade Assessment: III - A patient with severe systemic disease. After reviewing the risks and benefits, the patient was deemed in satisfactory condition to undergo the procedure. The anesthesia plan was to use monitored anesthesia care (MAC). Immediately prior to administration of medications, the patient was re-assessed for adequacy to receive sedatives. The heart rate, respiratory rate, oxygen saturations, blood pressure, adequacy of pulmonary ventilation, and response to care were monitored throughout the procedure. The physical status of the patient was re-assessed after the procedure. The Colonoscope was introduced through the anus with the intention of advancing to the cecum. The scope was advanced to the ascending colon before the procedure was aborted. Medications were not given. The colonoscopy was performed without difficulty. The patient tolerated the procedure well. Findings: A large amount of semi-liquid stool was found in the entire colon, interfering with visualization. Lavage of the area was performed, resulting in incomplete clearance with continued poor visualization. The exam was otherwise without abnormality. Impression: - Stool in the entire examined colon. - The examination was otherwise normal. - No specimens collected. Recommendation: - Patient has a contact number available for emergencies. The signs and symptoms of potential delayed complications were discussed with the patient. Return to normal activities tomorrow. Written discharge instructions were provided to the patient. - Telephone my office if symptomatic PRN. Jordan Chand DO 04/20/2019 10:00:41 AM Electronically signed by Jordan Chand DO Number of Addenda: 0 Note Initiated On: 04/20/2019 9:20 AM Estimated Blood Loss: Estimated blood loss: none.
[2019-04-20 10:41] VITALS: BP 150/70
== END 2019-04-20 11:08 | disposition home or self-care (01) ==
LOC: M OPP 06:57
PROVIDERS: ATTEND Surgery
DX: D50.9 Iron deficiency anemia, unspecified (principal); K25.9 Gastric ulcer, unspecified as acute or chronic, without hemorrhage or perforation

== ENCOUNTER → 2019-05-19 | Outpatient (REF) | payer MEDICARE, MEDICAID ==
[~2019-05-19] MED LIST changes: -NS 1,000 ML IV ONE; +OMEP-218 PO; +SODI325T9 PO
[2019-05-19 18:25] LABS: HEMOGLOBIN A1c 5.2 %
== END ==
LOC: M SFHCADAM 12:25
PROVIDERS: ATTEND Family Medicine
DX: E11.9 Type 2 diabetes mellitus without complications (principal)
CPT/HCPCS: 83036; G0463

== ENCOUNTER → 2019-06-27 | Outpatient (REF) | payer MEDICARE, MEDICAID | LOC: M SFHCSACK 15:43 | PROVIDERS: ATTEND Physician Assistant | DX: N39.0 Urinary tract infection, site not specified (principal) | CPT/HCPCS: 87086; G0463 ==

== ENCOUNTER → 2019-08-15 | Outpatient (CLI) | payer MEDICARE, MEDICAID ==
[~2019-08-15] MED LIST changes: +RANI-356 PO; -RANI1TAB6 PO
[2019-08-15 13:31] LABS: HEMOGLOBIN A1c 5.1 %
== END ==
LOC: M WUC 10:43
PROVIDERS: ATTEND Family Medicine
DX: E11.9 Type 2 diabetes mellitus without complications (principal)

== ENCOUNTER → 2019-09-08 | Outpatient (CLI) | payer MEDICARE, MEDICAID ==
[~2019-09-08] MED LIST changes: -MAGN400T PO; +MAGN400T3 PO
--- NOTE | 2019-09-08 15:30 | REP ---
Two-view chest: 09/08/2019. Indication: Dyspnea. Comparison: 10/03/2018. Findings: Small focal air space consolidation is noted inferiorly on the right. Otherwise, the lungs are clear. There is no pleural effusion or pneumothorax. Cardiac silhouette is at the upper limits of normal size. The right hemidiaphragm is elevated. Impression: Right lower lobe pneumonia. Electronically Signed by Quinton Skelton DO 09/08/2019 03:21 P
== END ==
LOC: M ADAMS 14:16
PROVIDERS: ATTEND Family Medicine
DX: J18.0 Bronchopneumonia, unspecified organism (principal); B34.9 Viral infection, unspecified
CPT/HCPCS: 71046; G0463

== ENCOUNTER → 2019-09-26 | Outpatient (REF) | payer MEDICARE, MEDICAID ==
[2019-09-26 16:28] LABS: ALBUMIN 3.5 GM/DL (3.2-5.2); ALT/SGPT 18 U/L (12-78); BILIRUBIN,TOTAL 0.3 MG/DL (0.2-1.0); BLOOD UREA NITROGEN 19 MG/DL (7-18); CALCIUM LEVEL 9.1 MG/DL (8.8-10.2); CARBON DIOXIDE LEVEL 24 MEQ/L (21-32); CHLORIDE LEVEL 106 MEQ/L (98-107); CREATININE FOR GFR 1.13 MG/DL (0.70-1.30); GLOMERULAR FILTRATION RATE > 60.0 (>42); GLUCOSE, FASTING 91 MG/DL (70-100); MAGNESIUM LEVEL 1.8 MG/DL (1.8-2.4); POTASSIUM SERUM 3.9 MEQ/L (3.5-5.1); SODIUM LEVEL 139 MEQ/L (136-145); TOTAL PROTEIN 6.7 GM/DL (6.4-8.2)
[2019-09-26 16:38] LABS: BASO # 0.1 10^3/uL (0.0-0.2); BASO % 1.4 % (0.0-1.0); EOS # 0.2 10^3/uL (0.0-0.5); EOS % 3.7 % (0.0-3.0); HEMATOCRIT 33.3 % (42.0-52.0); HEMOGLOBIN 10.6 g/dl (13.5-17.5); LYMPH # 1.7 10^3/uL (1.5-5.0); LYMPH % 29.9 % (24.0-44.0); MEAN CORPUSCULAR HGB CONC 31.8 g/dl (32.0-36.5); MEAN CORPUSCULAR VOLUME 84.7 fl (80.0-96.0); MONO # 0.7 10^3/uL (0.0-0.8); MONO % 12.5 % (0.0-5.0); NEUTROPHILS # 2.9 10^3/uL (1.5-8.5); NEUTROPHILS % 52.3 % (36.0-66.0); PLATELET COUNT, AUTOMATED 268 10^3/uL (150-450); RED BLOOD COUNT 3.93 10^6/uL (4.30-6.10); WHITE BLOOD COUNT 5.6 10^3/uL (4.0-10.0)
== END ==
LOC: M SFHCADAM 12:04
PROVIDERS: ATTEND Family Medicine
DX: R19.7 Diarrhea, unspecified (principal); E83.42 Hypomagnesemia
CPT/HCPCS: 80053; 83735; 85025; 87507; G0463

== ENCOUNTER → 2019-10-11 | Outpatient (CLI) | payer MEDICARE, MEDICAID ==
[~2019-10-11] MED LIST changes: +LIQUID POLIBAR PLUS 105% w/v 1900ML BTL As Ordered ONE
--- NOTE | 2019-10-11 12:13 | REP ---
KUB: Multiple views. HISTORY: Abdominal distension. The patient was referred for barium enema examination. Comparison is made with March 16, 2019 KUB and March 10, 2019 CT study. By history, the patient was still putting out brown liquids. FINDINGS: Air Brake Rigger view again demonstrates diffuse gaseous distension of large and small bowel. This is felt to preclude good visualization of the colon and optimal performance of barium enema. Repeat CT scanning could be considered. Electronically Signed by Av Isaacs MD 10/11/2019 03:35 P
== END ==
LOC: M RAD 09:59
PROVIDERS: ATTEND Surgery
DX: R14.0 Abdominal distension (gaseous) (principal); K62.89 Other specified diseases of anus and rectum

== ENCOUNTER → 2019-11-08 | Outpatient (CLI) | payer MEDICARE, MEDICAID ==
[~2019-11-08] MED LIST changes: -RANI-356 PO; +RANI-397 PO
--- NOTE | 2019-11-09 19:14 | REP ---
Examination Requested: Barium and Air contrast Reason For Exam: Abdominal distension The procedure was performed by DINAH Vides, under the direct supervision of Dr. Srinivasan. The images were reviewed with Dr. Srinivasan. The furniture painter film demonstrates multiple dilated air filled loops redundant colon. Liquid barium and air were instilled into the colon and retrograde flow of the barium. Evaluation of the colon is limited due to air distension and redundancy. There are diverticula of the left colon. There is no annular constricting lesion identified. There are no polypoid masses identified. Impression: 1. Limited study due to dilated air-filled loops of redundant colon. 2. Diverticula of the left colon. 2.1 minutes of fluoroscopy time was utilized for this procedure. Some fluoroscopic images are performed with last image hold technology. These images require no additional radiation. Reviewed by DINAH Ashton 11/08/2019 06:20 P Electronically Signed by Jordan Srinivasan MD 11/09/2019 07:04 P
== END ==
LOC: M RAD 08:54
PROVIDERS: ATTEND Surgery
DX: R14.0 Abdominal distension (gaseous) (principal); K62.89 Other specified diseases of anus and rectum; K57.90 Diverticulosis of intestine, part unspecified, without perforation or abscess without bleeding

== ENCOUNTER → 2019-11-14 | Outpatient (CLI) | payer MEDICARE, MEDICAID ==
[~2019-11-14] MED LIST changes: -LIQUID POLIBAR PLUS 105% w/v 1900ML BTL As Ordered ONE
--- NOTE | 2019-11-14 13:06 | REP ---
Clinical: Acute bronchitis . Comparison: 09/08/2019 . Findings: The mediastinum and cardiac silhouette are stable and within normal limits for portable technique. The lung davis are clear without acute consolidation, effusion, or pneumothorax. Skeletal structures are intact. Impression: No acute cardiopulmonary process appreciated. Electronically Signed by Dung Woods MD 11/14/2019 12:57 P
== END ==
LOC: M WUC 12:38
PROVIDERS: ATTEND Nurse Practitioner Family
DX: J20.9 Acute bronchitis, unspecified (principal); J45.21 Mild intermittent asthma with (acute) exacerbation

== ENCOUNTER → 2020-01-17 | Outpatient (CLI) | payer MEDICARE, MEDICAID ==
[~2020-01-17] MED LIST changes: +E-Z-GAS II EFFERVESCENT PACKET (SODIUM BICARB./CITRIC ACID/SIMETHICONE) As Ordered ONE; +E-Z-HD 98% w/w 340GM SUSP BTL As Ordered ONE; +E-Z-PAQUE 96% w/w SUSP 176GM BTL As Ordered ONE
--- NOTE | 2020-01-17 17:52 | REP ---
Examination Requested: Esophagram Barium Swallow Reason For Exam/Comment: Dysphasia Esophagram: The procedure was performed DINAH Vides, under the direct supervision of Dr. Isaacs. The images were reviewed with Dr. Isaacs. A single PA chest x-ray is submitted as a electric locomotive firer/fireman film. The superior mediastinal structures are midline. The heart size is within normal limits. The lungs are clear. Liquid barium supine oblique position, in order to perform a single contrast esophagram examination, due to the patient's decreased mobility. Oral and pharyngeal stages of the examination were unremarkable. There is esophageal dysmotility with decreased emptying in the supine position. No esophagitis, stricture, or mucosal ring is noted. There is no hiatal hernia noted. Gastroesophageal reflux was not visualized throughout the course of the exam. Impression: 1. Esophageal dysmotility with presbyesophagus changes, and decreased emptying in the supine position. 0.2 minutes of fluoroscopy time was utilized for this procedure. Some fluoroscopic images are performed with last image hold technology. These images require no additional radiation. Reviewed by DINAH Ashton 01/17/2020 01:19 P Electronically Signed by Av Isaacs MD 01/17/2020 05:42 P
== END ==
LOC: M RAD 08:42
PROVIDERS: ATTEND Family Medicine
DX: R13.10 Dysphagia, unspecified (principal)

== ENCOUNTER → 2020-02-10 | Outpatient (CLI) | payer MEDICARE, MEDICAID ==
[~2020-02-10] MED LIST changes: -E-Z-GAS II EFFERVESCENT PACKET (SODIUM BICARB./CITRIC ACID/SIMETHICONE) As Ordered ONE; -E-Z-HD 98% w/w 340GM SUSP BTL As Ordered ONE; -E-Z-PAQUE 96% w/w SUSP 176GM BTL As Ordered ONE
--- NOTE | 2020-02-10 11:35 | REP ---
Chest x-ray: Three views. History: Aspiration of food. Cough. Comparison chest x-ray: November 14, 2019. Findings: There is a new infiltrate in the right upper lobe consistent with pneumonia. There is some pleural thickening posteriorly on the lateral radiograph and what appears to be the right posterior pleural surface. This may imply a small quantity of right pleural fluid. Cardiomegaly is again observed unchanged. Impression: Right upper lobe infiltrate consistent with pneumonia. Small amount of right pleural fluid suspected on lateral radiograph. Electronically Signed by Av Isaacs MD 02/10/2020 11:27 A
== END ==
LOC: M ADAMS 09:12
PROVIDERS: ATTEND Family Medicine
DX: R91.8 Other nonspecific abnormal finding of lung field (principal); I51.7 Cardiomegaly; T17.920A Food in respiratory tract, part unspecified causing asphyxiation, initial encounter; R05 Cough; Y92.9 Unspecified place or not applicable

== ENCOUNTER → 2020-02-27 | Outpatient (REF) | payer MEDICARE | LOC: M SFHCADAM 09:45 | PROVIDERS: ATTEND Family Medicine | DX: R05 Cough (principal) ==

== ENCOUNTER → 2020-02-27 | Outpatient (CLI) | payer MEDICARE, MEDICAID ==
--- NOTE | 2020-02-27 11:52 | REP ---
CHEST, TWO VIEWS: Two views of the chest are performed and compared to a prior study of 02/10/2020. There is again right lower lobe infiltrate, increased since the prior exam. I suspect a small posterior pleural effusion. The left lung is clear. The heart is upper limits of normal in size. Mediastinal silhouette is unchanged. Mild degenerative changes of the spine. IMPRESSION: Increased right lower lobe infiltrate. Suspect small effusion posteriorly on the right. Electronically Signed by Jordan Srinivasan MD 02/27/2020 03:12 P
== END ==
LOC: M ST 09:54 → M ADAMS 09:54
PROVIDERS: ATTEND Family Medicine
DX: R91.8 Other nonspecific abnormal finding of lung field (principal); R05 Cough
CPT/HCPCS: 71046; G0463

== ENCOUNTER 2020-02-29 12:53 | Emergency (ER) | payer MEDICARE, MEDICAID ==
[~2020-02-29] VITALS: Ht 175.3 cm; Wt 88.2 kg
[2020-02-29] MEDS ORDERED: ASPIRIN 81 MG CHEW TABLET PO ONE (13:30)
[2020-02-29] MEDS ORDERED: COMBIVENT RESPIMAT 100-20MCG INHALER 4GM INH ONE (13:30)
[2020-02-29 13:54] LABS: ABG BASE EXCESS 3.1 (-2.0-2.0); ABG HCO3 27.8 MEQ/L (22.0-26.0); ABG O2 SATURATION 94.6 % (95.0-99.0); ABG PARTIAL PRESSURE O2 73.9 mmHg (75.0-100.0); ABG STANDARD HCO3 27.2 MEQ/L (22.0-26.0); ABG TOTAL CO2 29.2 MEQ/L (23.0-31.0); ABG pH (ARTERIAL) 7.429 UNITS (7.350-7.450)
--- NOTE | 2020-02-29 13:56 | REP ---
PORTABLE CHEST X-RAY: Single view. HISTORY: Dyspnea and cough. COMPARISON CHEST X-RAY: February 27, 2020. February 10, 2020 prior chest x-ray is also reviewed. FINDINGS: There are is a few increased markings in right upper lobe above the minor fissure. These are improved from February 10, 2020. Heart is mildly enlarged unchanged. Aorta is calcific. No new infiltrate is seen. IMPRESSION: A few remaining increased markings right upper lobe above the minor fissure improved from February 26 and February 10, 2020. Cardiomegaly. No new infiltrate seen. Electronically Signed by Av Isaacs MD 02/29/2020 03:09 P
[2020-02-29 14:41] LABS: INR 1.22; PROTHROMBIN TIME 15.1 SECONDS (11.8-14.0)
[2020-02-29 14:41] LABS: BASO # 0.1 10^3/uL (0.0-0.2); EOS # 1.1 10^3/uL (0.0-0.5); EOS % 15.5 % (0.0-3.0); HEMATOCRIT 34.6 % (42.0-52.0); HEMOGLOBIN 10.6 g/dl (13.5-17.5); LYMPH # 1.9 10^3/uL (1.5-5.0); LYMPH % 26.6 % (24.0-44.0); MEAN CORPUSCULAR HEMOGLOBIN 25.8 pg (27.0-33.0); MEAN CORPUSCULAR HGB CONC 30.6 g/dl (32.0-36.5); MEAN CORPUSCULAR VOLUME 84.2 fl (80.0-96.0); MONO # 0.7 10^3/uL (0.0-0.8); MONO % 10.1 % (0.0-5.0); NEUTROPHILS # 3.2 10^3/uL (1.5-8.5); NEUTROPHILS % 45.5 % (36.0-66.0); PLATELET COUNT, AUTOMATED 307 10^3/uL (150-450); RED BLOOD COUNT 4.11 10^6/uL (4.30-6.10)
[2020-02-29 14:44] LABS: D-DIMER QUANT 945.22 ng/ml (<500)
[2020-02-29 14:59] LABS: ALBUMIN 3.6 GM/DL (3.2-5.2); ALT/SGPT 15 U/L (12-78); BILIRUBIN,DIRECT 0.1 MG/DL (0.0-0.2); BILIRUBIN,TOTAL 0.4 MG/DL (0.2-1.0); BLOOD UREA NITROGEN 13 MG/DL (7-18); CALCIUM LEVEL 8.7 MG/DL (8.8-10.2); CARBON DIOXIDE LEVEL 29 MEQ/L (21-32); CHLORIDE LEVEL 101 MEQ/L (98-107); CREATININE FOR GFR 1.09 MG/DL (0.70-1.30); GLOMERULAR FILTRATION RATE > 60.0 (>42); GLUCOSE, FASTING 82 MG/DL (70-100); NT-PRO BNP 207 PG/ML (<125); POTASSIUM SERUM 4.4 MEQ/L (3.5-5.1); SODIUM LEVEL 138 MEQ/L (136-145); TOTAL PROTEIN 7.2 GM/DL (6.4-8.2)
[2020-02-29] MEDS ORDERED: ISOVUE-370 76% 100ML VIAL (Q9967) As Ordered ONE (15:42)
--- NOTE | 2020-02-29 16:46 | REP ---
CT ANGIOGRAM CHEST: TECHNIQUE: Axial contrast enhanced images from the thoracic inlet to the upper abdomen using 100 mL Isovue 370 intravenous contrast material with multiplanar reformations. The study is limited by motion. There is no gross pulmonary embolism. There is no evidence of thoracic aortic aneurysm or dissection. There is no evidence of mediastinal, hilar or chest wall lymphadenopathy. There is a moderate pericardial effusion. There is a small right pleural effusion. Chronic fibroatelectatic changes are seen bilaterally with mild patchy atelectasis or infiltrate in the right lung base. There is some hazy infiltrate or atelectasis in the left lower lobe inferiorly. There are degenerative changes of the spine. Visualized upper abdominal structures are unremarkable. There is a small cyst of the upper pole of the left kidney. IMPRESSION: Limited by patient motion. No gross pulmonary embolism. Moderate pericardial effusion is unchanged since CT abdomen 03/10/2019. There is a small right pleural effusion with mild adjacent patchy atelectasis/infiltrate. Electronically Signed by Jordan Srinivasan MD 03/01/2020 11:52 A
[2020-02-29 18:28] VITALS: BP 124/90
--- NOTE | 2020-02-29 19:21 | ECGEPIP ---
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
--- NOTE | 2020-03-01 13:53 | ED PDOC ---
Post-Departure Follow-Up dr bledsoe faxed formal report of cta chest for fu Maddison Kearns MD Mar 01, 2020 13:53
== END 2020-02-29 18:32 | disposition home or self-care (01) ==
LOC: M ED 12:53
DX: J18.9 Pneumonia, unspecified organism (principal); I44.0 Atrioventricular block, first degree; I45.10 Unspecified right bundle-branch block; I51.7 Cardiomegaly; J44.9 Chronic obstructive pulmonary disease, unspecified; K21.9 Gastro-esophageal reflux disease without esophagitis; Z79.82 Long term (current) use of aspirin; Z79.899 Other long term (current) drug therapy
CPT/HCPCS: 36415; 36600; 71045; 71275; 80048; 80076; 82803; 83880; 85025; 85379; 85610; 87040; 87486; 87581; 87633; 87798; 93005; 94640; 94664; 99284; Q9967

== ENCOUNTER → 2020-03-08 | Outpatient (CLI) | payer MEDICARE, MEDICAID ==
--- NOTE | 2020-03-08 17:12 | REP ---
CHEST, TWO VIEWS: Two views of the chest are performed and compared to prior CT 02/29/2020 and chest radiographs 02/29/2020 as well as other prior exams. Posterobasilar opacity has improved. There may be some mild residual atelectasis or infiltrate in the inferior posterior right lower lobe. There are underlying chronic interstitial changes. The heart is mildly enlarged. There is calcification of the thoracic aorta. Mediastinal silhouette is unchanged. There are degenerative changes of the spine. IMPRESSION: Improved pleural and parenchymal opacity inferiorly on the right with possibly some mild residual atelectasis/infiltrate. Electronically Signed by Jordan Srinivasan MD 03/09/2020 04:47 P
== END ==
LOC: M ADAMS 14:06
PROVIDERS: ATTEND Physician Assistant
DX: R91.8 Other nonspecific abnormal finding of lung field (principal); J69.0 Pneumonitis due to inhalation of food and vomit

== ENCOUNTER → 2020-03-21 | Outpatient (CLI) | payer MEDICARE, MEDICAID ==
--- NOTE | 2020-03-21 13:50 | REP ---
Examination Requested: Cookie Swallow Reason For Exam: Dysphasia The procedure was performed by DINAH Vides, under the direct supervision of Dr. Srinivasan. The procedure was performed with Patsy Ponce from speech pathology present. 5 ml aliquots of pudding, honey , soft food, and nectar consistency barium was administered. Penetration was visualized with the soft food consistency barium, and aspiration was visualized with nectar thick consistency barium. The detailed report of this examination will be provided by speech pathology. 1.8 minutes of fluoroscopy time was utilized for this procedure. Reviewed by DINAH Ashton 03/21/2020 01:38 P Electronically Signed by Jordan Srinivasan MD 03/21/2020 01:42 P
== END ==
LOC: M RAD 11:43
PROVIDERS: ATTEND Family Medicine
DX: R13.10 Dysphagia, unspecified (principal); N18.3 Chronic kidney disease, stage 3 (moderate); E87.6 Hypokalemia; D50.9 Iron deficiency anemia, unspecified

== ENCOUNTER → 2020-03-21 | Outpatient (CLI) | payer MEDICARE, MEDICAID ==
[2020-03-21 13:53] LABS: AMORPHOUS SEDIMENT SMALL (NEGATIVE); APPEARANCE, URINE CLEAR (CLEAR); BACTERIA, URINE AUTO NEGATIVE (NEGATIVE); BILIRUBIN, URINE AUTO NEGATIVE (NEGATIVE); BLOOD, URINE BLOOD 1+ (NEGATIVE); COLOR, URINE YELLOW (YELLOW); GLUCOSE, URINE (UA) AUTO NEGATIVE (NEGATIVE); KETONE, URINE AUTO NEGATIVE (NEGATIVE); LEUKOCYTE ESTERASE, URINE AUTO 3+ (NEGATIVE); NITRITE, URINE AUTO NEGATIVE (NEGATIVE); PROTEIN, URINE AUTO NEGATIVE (NEGATIVE); RBC, URINE AUTO 1 /HPF (0-3); SPECIFIC GRAVITY URINE AUTO 1.006 (1.002-1.035); SQUAMOUS EPITHELIAL CELL UR AU 1 /HPF (0-6); UROBILINOGEN, URINE AUTO 0.2 mg/dL (0.0-2.0); WBC, URINE AUTO 10 /HPF (0-3)
[2020-03-21 14:15] LABS: HEMATOCRIT 35.9 % (42.0-52.0); HEMOGLOBIN 11.3 g/dl (13.5-17.5); MEAN CORPUSCULAR HEMOGLOBIN 26.2 pg (27.0-33.0); MEAN CORPUSCULAR HGB CONC 31.5 g/dl (32.0-36.5); MEAN CORPUSCULAR VOLUME 83.3 fl (80.0-96.0); PLATELET COUNT, AUTOMATED 237 10^3/uL (150-450); RED BLOOD COUNT 4.31 10^6/uL (4.30-6.10)
[2020-03-21 14:45] LABS: ALBUMIN 3.3 GM/DL (3.2-5.2); BLOOD UREA NITROGEN 15 MG/DL (7-18); CALCIUM LEVEL 8.9 MG/DL (8.8-10.2); CARBON DIOXIDE LEVEL 27 MEQ/L (21-32); CHLORIDE LEVEL 101 MEQ/L (98-107); CREATININE FOR GFR 0.85 MG/DL (0.70-1.30); GLOMERULAR FILTRATION RATE > 60.0 (>42); GLUCOSE, FASTING 111 MG/DL (70-100); MAGNESIUM LEVEL 2.1 MG/DL (1.8-2.4); PHOSPHORUS LEVEL 2.8 MG/DL (2.5-4.9); SODIUM LEVEL 135 MEQ/L (136-145)
[2020-03-21 14:58] LABS: PTH INTACT 107.1 PG/ML (18.5-88.0)
== END ==
LOC: M LAB 12:58
PROVIDERS: ATTEND Internal Medicine Nephrology
DX: N18.3 Chronic kidney disease, stage 3 (moderate) (principal)

== ENCOUNTER 2020-05-17 19:44 | Inpatient (IN) | payer MEDICARE, MEDICAID ==
[~2020-05-17] VITALS: Ht 175.3 cm; Wt 86.6 kg
[~2020-05-17 19:44] MED LIST changes: +AMLO1TAB24 PO; -AMLO5TAB6 PO; -ASPI81TA85 PO; +ASPI81TA86 PO; -BUPR150T3 PO; +BUPR150T4 PO; -FLON1SPR; -LISI-538 PO; +LISI10TA22 PO; -LISI10TA4 PO; +LISI20TA33 PO; -MAG400TA PO; +MAGN400T35 PO; +RISP-9 PO; -RISP2TAB3 PO
[2020-05-17] MEDS ORDERED: LASI20TA3 PO (20:13)
[2020-05-17 21:34] LABS: BASO # 0.1 10^3/uL (0.0-0.2); BASO % 1.2 % (0.0-1.0); EOS # 0.2 10^3/uL (0.0-0.5); EOS % 2.9 % (0.0-3.0); HEMATOCRIT 36.1 % (42.0-52.0); HEMOGLOBIN 11.5 g/dl (13.5-17.5); LYMPH # 2.2 10^3/uL (1.5-5.0); LYMPH % 30.1 % (24.0-44.0); MEAN CORPUSCULAR HGB CONC 31.9 g/dl (32.0-36.5); MEAN CORPUSCULAR VOLUME 81.7 fl (80.0-96.0); MONO # 0.8 10^3/uL (0.0-0.8); MONO % 11.2 % (0.0-5.0); NEUTROPHILS % 54.2 % (36.0-66.0); PLATELET COUNT, AUTOMATED 201 10^3/uL (150-450); RED BLOOD COUNT 4.42 10^6/uL (4.30-6.10); WHITE BLOOD COUNT 7.3 10^3/uL (4.0-10.0)
[2020-05-17] MEDS: GASTROGRAFIN SOLUTION 30ML PO SCH ×2 (21:40→22:14)
[2020-05-17 21:49] LABS: INR 1.15; PROTHROMBIN TIME 14.4 SECONDS (11.8-14.0)
[2020-05-17 21:50] LABS: PARTIAL THROMBOPLASTIN TIME 34.6 SECONDS (25.0-38.4)
[2020-05-17 21:59] LABS: ALBUMIN 3.3 GM/DL (3.2-5.2); ALT/SGPT 16 U/L (12-78); BILIRUBIN,DIRECT 0.2 MG/DL (0.0-0.2); BILIRUBIN,TOTAL 0.4 MG/DL (0.2-1.0); BLOOD UREA NITROGEN 10 MG/DL (7-18); CALCIUM LEVEL 8.2 MG/DL (8.8-10.2); CARBON DIOXIDE LEVEL 28 MEQ/L (21-32); CHLORIDE LEVEL 100 MEQ/L (98-107); CREATININE FOR GFR 0.94 MG/DL (0.70-1.30); GLOMERULAR FILTRATION RATE > 60.0 (>42); GLUCOSE, FASTING 87 MG/DL (70-100); LIPASE 88 U/L (73-393); POTASSIUM SERUM 3.9 MEQ/L (3.5-5.1); SODIUM LEVEL 136 MEQ/L (136-145); TOTAL PROTEIN 6.4 GM/DL (6.4-8.2)
[2020-05-17] MEDS ORDERED: ISOVUE-370 76% 100ML VIAL As Ordered ONE (22:48)
--- NOTE | 2020-05-17 23:20 | REPVR ---
PROCEDURE INFORMATION: Exam: CT Abdomen And Pelvis With Contrast Exam date and time: 05/17/2020 10:55 PM Age: 75 years old Clinical indication: Condition or disease; Intestinal condition; Obstruction; Additional info: Obstruct eval. TECHNIQUE: Imaging protocol: Computed tomography of the abdomen and pelvis with intravenous contrast. Radiation optimization: All CT scans at this facility use at least one of these dose optimization techniques: automated exposure control; mA and/or kV adjustment per patient size (includes targeted exams where dose is matched to clinical indication); or iterative reconstruction. Contrast material: ISOVUE 370; Contrast volume: 100 ml; Contrast route: INTRAVENOUS (IV); COMPARISON: CT ABD/PEL W/IV CONTRAST ONLY 03/10/2019 11:44 AM FINDINGS: Limitations: Patient motion. Lungs: There are bibasilar dependent changes. Pleural space: Small right-sided pleural effusion. Right lower lobe nodular density measures 6 mm. Liver: Hepatomegaly measures 23 centimetres. Gallbladder and bile ducts: Normal. No calcified stones. No ductal dilation. Pancreas: Normal. No ductal dilation. Spleen: Normal. No splenomegaly. Adrenals: Normal. No mass. Kidneys and ureters: 12 mm simple left renal cysts, no follow-up recommended. 1.4 cm simple right renal cysts, no follow-up recommended. Stomach and bowel: There is thickening involving the rectosigmoid with mild adjacent infiltrative change. Moderate colonic fecal retention. No evidence of small-bowel obstruction. Appendix: No evidence of appendicitis. Intraperitoneal space: Unremarkable. No free air. No significant fluid collection. Vasculature: Vascular calcification. Lymph nodes: Unremarkable. No enlarged lymph nodes. Bladder: Urinary bladder is decompressed by a Rodriguez catheter. Reproductive: Unremarkable as visualized. Bones/joints: There are degenerative changes involving the spine. Soft tissues: Unremarkable. IMPRESSION: 1. Thickening of the rectosigmoid with adjacent infiltrative change compatible with proctocolitis. 2. No evidence of small-bowel obstruction. 3. Small right-sided pleural effusion. 4. 6 mm nodular density at the right lower lobe. For patients at low risk (minimal or absent history of smoking and of other known risk factors), recommend CT Chest at 3-6 months, then consider CT Chest at 18-24 months. For patients at high risk (history of smoking or of other known risk factors), recommend CT Chest at 3-6 months, then CT Chest at 18-24 months. [place] H, Fleischner Society, 2017. 5. Additional findings as above. Electronically signed by: Manjinder Moreno On 05/17/2020 23:19:59 PM
[2020-05-17] MEDS ORDERED: metroNIDAZOLE 500 MG in IV 1 EA IV ONE (23:45)
[2020-05-17] MEDS ORDERED: CIPROFLOXACIN 400 MG in IV 1 EA IV ONE (23:45)
[2020-05-17] MEDS ORDERED: NS 1,000 ML IV SCH (23:53)
--- NOTE | 2020-05-18 00:19 | HPEPDOC ---
General Date of Admission 05/18/20 Date of Service: May 18, 2020 Chief Complaint The patient is a 75-year-old male admitted with a reason for visit of Choking. Source: Patient Exam Limitations: No limitations Timing/Duration: 24 hours Severity: Mild, Moderate History of Present Illness Patient is 75 years old male from [facility] with past medical history of intellectual disability, COPD, 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 Rodriguez, type 2 diabetes presented to the hospital after he developed one episode of choking when he ate hamburger in the evening. Patient is on special puree diet. In the past patient developed multiple episodes of aspiration pneumonitis. In ER chest x-ray did not show any acute infiltrate, patient did not have any dyspnea, oxygen saturation on the room air within normal limit CT of abdomen and pelvis showed thickening of the rectosigmoid with adjacent infiltrative change compatible with proctocolitis without some small bowel obstruction. Patient doesn't have leukocytosis, afebrile Home Medications Scheduled Albuterol Sulf (Albuterol Sulfate) 2.5 Mg/3 Ml Nebu, 2.5 MG INH BID, (Reported) AM AND 1600 Aspirin (Aspirin EC) 81 Mg Tablet.dr, 81 MG PO DAILY, (Reported) Atorvastatin Calcium (Atorvastatin Calcium) 20 Mg Tab, 20 MG PO QHS, (Reported) Bupropion Hcl (Bupropion Xl) 150 Mg Tab, 150 MG PO DAILY, (Reported) Escitalopram Oxalate (Lexapro) 20 Mg Tab, 20 MG PO QHS, (Reported) Ferrous Gluconate (Ferrous Gluconate) 324 Mg Tablet, 324 MG PO DAILY, (Reported) Fluticasone Propionate (Flonase Allergy Relief) 50 Mcg/Act Spr, 1 SPRAY NA BID, (Reported) Furosemide (Lasix) 20 Mg Tablet, 20 MG PO DAILY, (Reported) Levothyroxine Sodium (Synthroid) 125 Mcg Tab, 125 MCG PO DAILY, (Reported) Magnesium Chloride (Slow-Mag) 71.5 Mg Tablet.dr, 2 TAB PO DAILY, (Reported) Omeprazole (Omeprazole) 20 Mg Capsule.dr, 20 MG PO DAILY, (Reported) Potassium Chloride (Potassium Chloride) 20 Meq/15 Ml Liquid, 7.5 ML PO DAILY, (Reported) Ranitidine HCl (Ranitidine HCl) 150 Mg Tab, 1 TAB PO DAILY, (Reported) Risperidone (Risperidone) 2 Mg Tab, 2 MG PO QHS, (Reported) Sitagliptin (Januvia) 50 Mg Tablet, 50 MG PO QHS, (Reported) Sodium Bicarbonate (Sodium Bicarbonate) 325 Mg Tablet, 325 MG PO BID for indigestion, (Reported) Umeclidinium [place] (Incruse Ellipta) 62.5 Mcg/Inh Inh, 62.5 MCG INH QPM, (Reported) TAKES AT 1600 Scheduled PRN Acetaminophen (Tylenol Extra Strength) 500 Mg Tablet, 1,000 MG PO BID PRN for PAIN, (Reported) Albuterol Sulfate (Ventolin Hfa) 108 Mcg/Act Aer, 2 PUFFS INH QID PRN for SHORTNESS OF BREATH, (Reported) Guaifenesin (Guaifenesin) 100 Mg/5 Ml Liquid, 10 ML PO Q6H PRN for COUGH, (Reported) Petrolatum,White (Aloe Patterson) 226 Gm Oint...g., 1 DOSE EXT TID PRN for REDNESS/IRRITATION, (Reported) USES ON GROIN AND BUTTOCKS NEEDED Polyethylene Glycol 3350 (Miralax) 1 Pow Pow, 17 GRAM PO DAILY PRN for CO NSTIPATION, (Reported) DAY 3 WITH NO BM Simethicone (Simethicone) 180 Mg Capsule, 1 CAP PO TID PRN for ABDOMINAL PAIN use for gas pain Tramadol HCl (Tramadol HCl) 50 Mg Tab, 50 MG PO QHSP PRN for PAIN, (Reported) Allergies Coded Allergies: No Known Allergies (Unverified , 04/15/19) Past Medical History Medical History COPD obstructive sleep apnea not on CPAP intellectual disability chronic kidney disease stage III 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 Rodriguez catheter hypothyroidism NIDDM2 GERD anxiety and depression osteoarthritis of left knee with 3 previous replacements and chronic swelling in his left lower extremities secondary to samenow inoperable diastolic congestive heart failure hypertension chronic anemia ascending aortic aneurysm Surgical History Left knee replacement 3, right knee arthroscopy, hernia repair Family History I personally reviewed family history and found not significant Social History * Smoker: Denies Alcohol: sober Drugs: denies A-FIB/CHADSVASC A-FIB History Current/History of A-Fib/PAF?: No Current PO Anticoag Therapy: No Review of Systems Constitutional: Denies: Chills, Fever Eyes: Denies: Pain ENT: Denies: Head Aches Skin: Denies: Rash, Lesions Pulmonary: Denies: Dyspnea, Cough Cardiovascular: Denies: Chest Pain Gastrointestinal: Denies: Nausea, Vomiting Genitourinary: Denies: Dysuria Hematologic: Denies: Bruising Endocrine: Denies: Polydipsia Musculoskeletal: Denies: Neck Pain Neurological: Denies: Seizures Psych: Reports: Mood Normal Physical Examination General Exam: Positive: Alert, Cooperative Eye Exam: Positive: PERRLA ENT Exam: Positive: Atraumatic Neck Exam: Positive: Supple; Negative: JVD Chest Exam: Positive: Diminished Heart Exam: Positive: Rate Normal Telemetry: Positive: No significant arrhythmia Abdomen Exam: Positive: BS Hypoactive, Other (abdomen is distended) Extremity Exam: Negative: Clubbing, Cyanosis Skin Exam: Positive: Nl turgor and temperature Neuro Exam: Positive: Cranial Nerves 3-12 NL Psych Exam: Positive: Mood NL; Negative: Anxiety Vital Signs Vital Signs Date Time Temp Pulse Resp B/P (MAP) Pulse Ox O2 Delivery O2 Flow Rate FiO2 05/17/20 22:46 71 18 96 Room Air 05/17/20 22:45 127/77 (94) 05/17/20 19:50 98.0 Laboratory Data Labs 24H Laboratory Tests 2 05/17/20 21:21: Immature Granulocyte % (Auto) 0.4, Neutrophils (%) (Auto) 54.2, Lymphocytes (%) (Auto) 30.1, Monocytes (%) (Auto) 11.2H, Eosinophils (%) (Auto) 2.9, Basophils (%) (Auto) 1.2H, Neutrophils # (Auto) 4.0, Lymphocytes # (Auto) 2.2, Monocytes # (Auto) 0.8, Eosinophils # (Auto) 0.2, Basophils # (Auto) 0.1, Nucleated Red Blood Cells % (auto) 0.0, Prothrombin Time 14.4H, Prothromb Time International Ratio 1.15, Activated Partial Thromboplast Time 34.6, Anion Gap 8, Glomerular Filtration Rate > 60.0, Lactic Acid Level 1.1, Calcium Level 8.2L, Total Bilirubin 0.4, Direct Bilirubin 0.2, Aspartate Amino Transf (AST/SGOT) 9, Alanine Aminotransferase (ALT/SGPT) 16, Alkaline Phosphatase 62, Total Protein 6.4, Albumin 3.3, Albumin/Globulin Ratio 1.1, Lipase 88 CBC/BMP Laboratory Tests 05/17/20 21:21 Assessment/Plan Patient is 75 years old male from [facility] with past medical history of intellectual disability, COPD, 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 Rodriguez, type 2 diabetes presented to the hospital after he developed one episode of choking when he ate hamburger in the evening. Patient is on special puree diet. In the past patient developed multiple episodes of aspiration pneumonitis. In ER chest x-ray did not show any acute infiltrate, CT of abdomen and pelvis showed thickening of the rectosigmoid with adjacent infiltrative change compatible with proctocolitis without some small bowel obstruction. Patient doesn't have leukocytosis, afebrile Problems (1) Proctocolitis without complication Status: Acute Problem Text: CT of abdomen and pelvis showed proctocolitis Patient is not constipated I will start Zosyn IV IV fluid (2) CHF (congestive heart failure) Problem Text: Not in acute exacerbation Continue home meds (3) Coronary artery disease Permanent Comment: 09/02/18: SPECT-CT at [facility] showed reversible ischemia involving basal inferoseptal wall. and small ischemic reversible defect involving wall and apex. LVEF was 68% Last Edited By: Edson Ayala MD on Mar 14, 2019 14:47 Status: Chronic Problem Text: Patient doesn't have any chest pain Continue home cardioprotective regimen (4) Diabetes mellitus Status: Chronic Problem Text: Diabetes diet Insulin Sliding scale Plan / VTE VTE Prophylaxis Ordered?: Yes JOHAN GREWAL DO May 18, 2020 00:19
[2020-05-18] MEDS ORDERED: SIME180C PO (00:30)
[2020-05-18] MEDS ORDERED: GLUCOSE 4GM CHEW TABLET PO PRN (00:30)
[2020-05-18] MEDS ORDERED: GLUCAGON INJ 1MG VIAL SC PRN (00:30)
[2020-05-18] MEDS ORDERED: DEXTROSE 50% 50 ML SYRINGE IV PRN (00:30)
[2020-05-18 01:25] VITALS: BP 139/70
[2020-05-18] MEDS ORDERED: ALBUTEROL 90 MCG/ACT 8GM HFA INHALER INH PRN (03:00)
[2020-05-18] MEDS ORDERED: ACETAMINOPHEN 500 MG TAB PO PRN (03:00)
[2020-05-18] MEDS ORDERED: MIRALAX *UNIT DOSE* 17GM PACKET PO PRN (03:00)
[2020-05-18] MEDS: PIPERACILLIN/TAZOBACTAM SOD 3.375 GM in D5W MINI-BAG PLUS 50 ML IV SCH ×2 (03:12→08:48)
[2020-05-18 06:00] VITALS: BP 123/64
[2020-05-18] MEDS ORDERED: LEVOTHYROXINE 125MCG TABLET (0.125MG) PO SCH (06:00)
[2020-05-18 06:21] LABS: HEMATOCRIT 35.1 % (42.0-52.0); HEMOGLOBIN 11.3 g/dl (13.5-17.5); MEAN CORPUSCULAR HGB CONC 32.2 g/dl (32.0-36.5); MEAN CORPUSCULAR VOLUME 80.9 fl (80.0-96.0); PLATELET COUNT, AUTOMATED 207 10^3/uL (150-450); RED BLOOD COUNT 4.34 10^6/uL (4.30-6.10)
[2020-05-18 06:41] LABS: ALT/SGPT 14 U/L (12-78); BILIRUBIN,TOTAL 0.5 MG/DL (0.2-1.0); BLOOD UREA NITROGEN 10 MG/DL (7-18); CALCIUM LEVEL 8.5 MG/DL (8.8-10.2); CARBON DIOXIDE LEVEL 30 MEQ/L (21-32); CHLORIDE LEVEL 102 MEQ/L (98-107); CREATININE FOR GFR 0.96 MG/DL (0.70-1.30); GLOMERULAR FILTRATION RATE > 60.0 (>42); GLUCOSE, FASTING 86 MG/DL (70-100); MAGNESIUM LEVEL 1.8 MG/DL (1.8-2.4); POTASSIUM SERUM 3.5 MEQ/L (3.5-5.1); SODIUM LEVEL 138 MEQ/L (136-145); TOTAL PROTEIN 6.2 GM/DL (6.4-8.2)
[2020-05-18] MEDS: HumaLOG INSULIN (NovoLOG) PER UNIT SC SCH ×2 (07:30→13:13)
--- NOTE | 2020-05-18 08:35 | REP ---
Portable chest x-ray: Single view. History: Aspiration evaluation. Comparison chest x-ray: March 08, 2020. Findings: Heart is mildly enlarged as before. Pulmonary vasculature is cephalized. No focal infiltrate is seen. Dilated bowel loops are noted in the upper abdomen. No pleural effusion seen. No evidence of free air. Impression: Dilated abdominal bowel loops. Cardiomegaly. Cephalization. Electronically Signed by Av Isaacs MD 05/18/2020 08:26 A
[2020-05-18] MEDS ORDERED: MAGNESIUM CHLORIDE 64 MG TABCR (SLO MAG) PO SCH (09:00)
[2020-05-18] MEDS ORDERED: buPROPion **XL** TABLET 150MG (WELLBUTRIN XL) PO SCH (09:00)
[2020-05-18] MEDS ORDERED: FLUTICASONE PROP 0.05% NASAL SPRAY 16 GM (FLONASE) NARES SCH (09:00)
[2020-05-18] MEDS ORDERED: OMEPRAZOLE 20 MG CAP PO SCH (09:00)
[2020-05-18] MEDS ORDERED: HEPARIN SOD (PORCINE) 5000UNITS/ML 1ML VIAL/SYRINGE SC SCH (09:00)
[2020-05-18] MEDS ORDERED: FUROSEMIDE 20 MG TAB PO SCH (09:00)
[2020-05-18] MEDS ORDERED: ASPIRIN 81 MG ENTERIC TAB PO SCH (09:00)
[2020-05-18] MEDS ORDERED: SODIUM BICARBONATE 325 MG TAB PO SCH (09:00)
[2020-05-18] MEDS ORDERED: POTASSIUM CHLORIDE 10% LIQ 20 MEQ/15 ML UDC PO SCH (09:00)
[2020-05-18] MEDS ORDERED: FLAG500T PO (09:28)
[2020-05-18] MEDS ORDERED: CIPR-249 PO (09:28)
[2020-05-18] MEDS ORDERED: FUROSEMIDE 40MG/4ML VIAL (J1940) IV ONE (09:30)
--- NOTE | 2020-05-18 10:22 | REP ---
ABDOMEN SERIES: FIVE VIEWS. HISTORY: Left lateral decubitus. Comparison portable chest x-ray is from 8:06 p.m. FINDINGS: Multiple views of the abdomen and chest are presented including a cross-table lateral. There is no evidence of free intraperitoneal air. There is marked gaseous distension of colonic and to some degree small bowel loops. There is a very large distended loop of what appears to be sigmoid colon arising from the pelvis and extending to the right upper abdomen. Suggests the possibility of left colon obstruction, question volvulus. IMPRESSION: Markedly dilated colonic loops, question obstruction. No evidence of free air. Electronically Signed by Av Isaacs MD 05/18/2020 11:01 A
--- NOTE | 2020-05-18 10:26 | REP ---
Chest x-ray: Two views. History: Shortness of breath. Rule out CHF. Findings: Heart is mildly enlarged. No infiltrate is seen. No free subdiaphragmatic air is observed. The aorta is calcific and tortuous. Pulmonary vasculature is not increased. Impression: Cardiomegaly. Otherwise no acute disease. Electronically Signed by Av Isaacs MD 05/18/2020 10:18 A
[2020-05-18] MEDS ORDERED: FUROSEMIDE 40MG/4ML VIAL (J1940) IV SCH (13:00)
[2020-05-18 14:00] VITALS: BP 130/62
[2020-05-18] MEDS ORDERED: metroNIDAZOLE (FLAGYL) 500MG TABLET PO SCH (14:00)
[2020-05-18] MEDS ORDERED: CIPROFLOXACIN 500MG TABLET PO SCH (18:00)
[2020-05-18] MEDS ORDERED: risperiDONE 2 MG TAB PO SCH (21:00)
[2020-05-18] MEDS ORDERED: ESCITALOPRAM OXALATE 10 MG TAB (LEXAPRO) PO SCH (21:00)
[2020-05-18] MEDS ORDERED: HumaLOG INSULIN (NovoLOG) PER UNIT SC SCH (21:00)
[2020-05-18] MEDS ORDERED: ATORVASTATIN 20 MG TAB PO SCH (21:00)
--- NOTE | 2020-05-19 09:39 | IPN ---
DATE: 05/18/2020 Patient seen and examined at the bedside, chart has been reviewed. Patient denies any shortness of breath, chest pain, pressure, tightness, nausea, vomiting, diarrhea, abdominal pain, tolerating his diet well. Afebrile. No chills overnight. No other issues per nursing. Overnight, CT abdomen and pelvis, 05/17/2020, shows proctocolitis. Patient was given intravenous Zosyn and IV fluids. Chest x-ray on admission at 1956 hours on 05/17/2020 showed cephalization and cardiomegaly. Clinically, patient has no complaints of congestive heart failure. Repeat chest x-ray has cardiomegaly, no cephalization, no acute disease. Vital Signs: Temperature 97.5, pulse 71, respiratory rate 18, blood pressure 123/64, 92% on room air. Generally, awake, alert, oriented, answering questions appropriately. No conversational dyspnea. Lungs are diminished but no wheezing or rales. Heart: S1, S2, sinus rhythm. Abdomen is soft, hypoactive, distended but positive bowel sounds. Extremities: No cyanosis, clubbing or pitting edema. LABORATORY DATA: White count 7, hemoglobin 11, hematocrit 35, platelet count 207. Sodium 138, potassium 3.5, chloride 102, bicarbonate 30, BUN 10, creatinine 0.96, glucose of 86, magnesium of 1.8. Chest x-ray 05/18/2020: Cardiomegaly, otherwise no acute disease. CT abdomen and pelvis 05/17/2020: Thickening of the rectosigmoid, adjacent infiltrative change compatible with proctocolitis, small right-sided pleural effusion, no bowel obstruction, 6 mm right lower lobe nodular density. IMPRESSION: 1. Proctocolitis. Zosyn discontinued. Currently on Cipro/Flagyl, tolerating his diet without nausea or vomiting. If cleared by physical therapy, may be discharged home. Discontinue IV fluids. 2. Incidental finding of 6 mm nodular density at the right lower lobe. Repeat CT chest in 6 months. 3. Chronic aspiration. Recheck a swallow evaluation. Discharge on puree diet if no change. 4. History of chronic indwelling catheter. BPH with urine retention, stable. Creatinine is normal. 5. Type 2 diabetes. Consistent carbohydrate diet. 6. Chronic obstructive pulmonary disease (COPD). No acute issues. 7. Intellectual disability. Currently lives at [facility] ([facility] DISPOSITION: May discharge home if cleared by physical therapy and seen by swallow therapist. CHARLY
--- NOTE | 2020-05-22 20:50 | DSES ---
DATE OF ADMISSION: 05/17/2020 DATE OF DISCHARGE: 05/18/2020 PRIMARY DISCHARGE DIAGNOSES: 1. Proctocolitis. 2. Dysphagia. 3. Mental retardation. 4. Obstructive sleep apnea. 5. Chronic obstructive pulmonary disease. 6. Chronic kidney disease, stage III. 7. Chronic indwelling Rodriguez catheter due to BPH and urinary retention. 8. Hypothyroidism. 9. Diabetes. 10. Reflux. 11. Anxiety. 12. Depression. 13. History of diastolic heart failure. 14. Hypertension. 15. Chronic anemia. 16. Ascending aortic aneurysm. DISCHARGE MEDICATIONS: - ciprofloxacin 500 mg twice a day - Flagyl 500 mg every 8 hours for 7 days - acetaminophen 1 gram twice a day as needed - albuterol 2.5 mg inhaled twice a day, four times a day as needed - aspirin 81 daily - atorvastatin 20 at bedtime - bupropion 150 daily - Lexapro 20 at bedtime - Flonase one spray daily - Lasix 20 daily - levothyroxine 125 mcg daily - Slow-Mag one tablet daily - omeprazole 20 daily - petrolatum topically three times a day as needed - MiraLax as needed - potassium 7.5 mL daily - risperidone 2 mg at bedtime - simethicone 180 as needed - Januvia 50 at bedtime - sodium bicarbonate 325 twice a day - Incruse Ellipta inhaled every evening DISCHARGE INSTRUCTIONS: Patient is to be changed to pureed diet and honey thickened liquids. PROCEDURES DURING THIS ADMISSION: Patient's swallow evaluation, recommending honey thickened liquids and pureed diet. HOSPITAL COURSE: This is a 75-year-old male who presented after choking on his food at home. He was eating a hamburger in the evening, but he is supposed to be on a special pureed diet. Patient denied any dyspnea. Oxygen saturations were within normal. Patient was brought in for further evaluation. CT abdomen and pelvis showed rectosigmoid thickening, compatible with proctocolitis without small-bowel obstruction. He was afebrile with no leukocytosis. Chest x-ray showed cephalization. Patient was kept on his Lasix 20 mg daily with no signs of fluid overload. Repeat chest x-ray showed cardiomegaly with no active disease. Patient underwent swallow evaluation with recommendations to continue with pureed diet but to have honey thickened liquids. He passed home safety evaluation and subsequently discharged home in stable condition. PHYSICAL EXAMINATION ON DISCHARGE: Temperature 97.2, pulse 75, respiratory rate 18, blood pressure 130/62, 94% on room air. GENERAL: Awake, alert, oriented, answering questions appropriately. No respiratory distress, use of respiratory accessory muscles, or conversational dyspnea. No icterus, jaundice, pallor. No jugular venous distention (JVD) or thyromegaly. No carotid bruits. No stridor. LUNGS: Clear to auscultation. No wheezes, rales, or rhonchi. Air entry is equal bilaterally. No adventitious breath sounds. HEART: S1, S2, sinus rhythm. No murmurs, rubs, or gallops. ABDOMEN: Soft, distended but with positive bowel sounds times four quadrants. No rebound, guarding, or tenderness. EXTREMITIES: No cyanosis, clubbing, or any pitting edema. DISCHARGE LABORATORY DATA: White count 7, hemoglobin 11, hematocrit 35, platelet count 207. Sodium 138, potassium 3.5, chloride 102, bicarbonate 30, BUN 10, creatinine 0.96, glucose 86. Calcium 8.5, magnesium 1.8. Total bilirubin 0.5, AST 7, ALT 14, alkaline phosphatase 54. Lipase 88. May 18 chest x-ray: Cardiomegaly. No acute disease. CT abdomen and pelvis May 17: Proctocolitis. TIME SPENT ON DISCHARGE: 30 minutes. [facility]
[2020-06-13] MEDS ORDERED: HYDR-4571 PO (18:40)
[2020-06-13] MEDS ORDERED: SIME1CHW5 PO (18:40)
[2020-06-13] MEDS ORDERED: SULF1TAB93 PO (18:40)
[2020-06-14] MEDS ORDERED: LEVA1TAB2 PO (11:21)
[2020-06-14] MEDS ORDERED: ACID100C PO (11:22)
[2020-10-08] MEDS ORDERED: POTA1TAB14 PO (13:49)
[2020-10-08] MEDS ORDERED: SENN8.6T58 PO (13:49)
== END 2020-05-18 15:07 | disposition home or self-care (01) | DRG 392 ==
LOC: M ED 19:44 → M ED INP 23:53 → ENRESERV 05-18 00:58 → M MSPAV 05-18 01:25
PROVIDERS: ADMIT Internal Medicine; ATTEND General Practice
DX: K52.9 Noninfective gastroenteritis and colitis, unspecified (principal); I50.32 Chronic diastolic (congestive) heart failure; I13.0 Hypertensive heart and chronic kidney disease with heart failure and stage 1 through stage 4 chronic kidney disease, or unspecified chronic kidney disease; R91.1 Solitary pulmonary nodule; E11.9 Type 2 diabetes mellitus without complications; R31.9 Hematuria, unspecified; N40.0 Benign prostatic hyperplasia without lower urinary tract symptoms; Z79.899 Other long term (current) drug therapy; Z79.82 Long term (current) use of aspirin; F79 Unspecified intellectual disabilities; N18.3 Chronic kidney disease, stage 3 (moderate); M19.90 Unspecified osteoarthritis, unspecified site; K21.9 Gastro-esophageal reflux disease without esophagitis; G47.33 Obstructive sleep apnea (adult) (pediatric); E03.9 Hypothyroidism, unspecified; F41.9 Anxiety disorder, unspecified; F32.9 Major depressive disorder, single episode, unspecified; D64.9 Anemia, unspecified; I71.4 Abdominal aortic aneurysm, without rupture; Z96.652 Presence of left artificial knee joint; I25.10 Atherosclerotic heart disease of native coronary artery without angina pectoris

== ENCOUNTER → 2020-05-24 | Outpatient (REF) | payer MEDICARE, MEDICAID ==
[~2020-05-24] MED LIST changes: +ACID100C PO; +BACT800T5 PO; +BUPR150T3 PO; -BUPR150T4 PO; +CIPR-249 PO; +FLAG500T PO; +HYDR-4571 PO; +LASI20TA3 PO; +LEVA1TAB2 PO; +LISI-538 PO; -LISI10TA22 PO; +LISI10TA4 PO; -LISI20TA33 PO; +MAG400TA PO; -MAGN400T35 PO; -RISP-9 PO; +RISP2TAB3 PO; +SIME1CHW5 PO; +SULF1TAB93 PO; +XARE15TA PO
[2020-05-24 17:40] LABS: ALBUMIN 3.8 GM/DL (3.2-5.2); ALT/SGPT 22 U/L (12-78); BILIRUBIN,TOTAL 0.3 MG/DL (0.2-1.0); BLOOD UREA NITROGEN 12 MG/DL (7-18); CALCIUM LEVEL 8.5 MG/DL (8.8-10.2); CARBON DIOXIDE LEVEL 27 MEQ/L (21-32); CHLORIDE LEVEL 102 MEQ/L (98-107); CREATININE FOR GFR 1.09 MG/DL (0.70-1.30); FERRITIN 210 NG/ML (26-388); GLOMERULAR FILTRATION RATE > 60.0 (>42); GLUCOSE, FASTING 86 MG/DL (70-100); POTASSIUM SERUM 3.6 MEQ/L (3.5-5.1); SODIUM LEVEL 137 MEQ/L (136-145)
[2020-05-24 17:48] LABS: HEMOGLOBIN A1c 5.3 %
[2020-05-24 17:57] LABS: BASO # 0.1 10^3/uL (0.0-0.2); BASO % 1.7 % (0.0-1.0); EOS # 0.3 10^3/uL (0.0-0.5); EOS % 4.5 % (0.0-3.0); HEMATOCRIT 39.2 % (42.0-52.0); HEMOGLOBIN 12.3 g/dl (13.5-17.5); LYMPH % 33.9 % (24.0-44.0); MEAN CORPUSCULAR HEMOGLOBIN 26.2 pg (27.0-33.0); MEAN CORPUSCULAR HGB CONC 31.4 g/dl (32.0-36.5); MEAN CORPUSCULAR VOLUME 83.4 fl (80.0-96.0); MONO # 0.5 10^3/uL (0.0-0.8); MONO % 9.4 % (0.0-5.0); NEUTROPHILS # 2.9 10^3/uL (1.5-8.5); NEUTROPHILS % 50.2 % (36.0-66.0); PLATELET COUNT, AUTOMATED 314 10^3/uL (150-450); WHITE BLOOD COUNT 5.8 10^3/uL (4.0-10.0)
== END ==
LOC: M SFHCADAM 13:51
PROVIDERS: ATTEND Family Medicine
DX: E11.69 Type 2 diabetes mellitus with other specified complication (principal); E03.9 Hypothyroidism, unspecified; E83.42 Hypomagnesemia; K52.9 Noninfective gastroenteritis and colitis, unspecified; J69.0 Pneumonitis due to inhalation of food and vomit; R91.1 Solitary pulmonary nodule; E66.9 Obesity, unspecified

== ENCOUNTER → 2020-05-28 | Outpatient (REF) | payer MEDICARE, MEDICAID ==
[2020-05-28 18:09] LABS: CREATININE, URINE 51.5 MG/DL; MAU/CREAT RATIO 13.5 MCG/MG (0.0-30.0)
== END ==
LOC: M SFHCADAM 16:20
PROVIDERS: ATTEND Family Medicine
DX: E11.69 Type 2 diabetes mellitus with other specified complication (principal); E03.9 Hypothyroidism, unspecified; E83.42 Hypomagnesemia

== ENCOUNTER → 2020-05-31 | Outpatient (CLI) | payer MEDICARE, MEDICAID ==
[~2020-05-31] MED LIST changes: +ISOVUE-370 76% 100ML VIAL As Ordered ONE
--- NOTE | 2020-05-31 23:32 | REP ---
REASON: Followup. COMPARISON: 02/29/2020 CONTRAST: 100 mL Isovue-370. The mediastinum and pulmonary bharat are stable. There is a pericardial effusion, status quo. Small pleural effusion seen previously on the right has abated. The imaged upper abdomen and imaged osseous structures are unchanged. Evaluation of the lung davis shows chronic interstitial fibrotic changes status quo with evidence of bibasilar subsegmental atelectatic changes, left greater than right and somewhat improved compared to the prior exam. There are no new abnormal opacities. There is an 8 mm sized nodule in the right middle lobe abutting the fissure. This was previously obscured by respiratory motion artifact. IMPRESSION: 8 mm sized lung nodule, as described above. According to the revised Fleischner Society criteria, this represents a category 4A lesion, for which 3-month followup CT is recommended. Electronically Signed by Duncan Pepe DO 06/01/2020 08:53 A
== END ==
LOC: M RAD 13:12
PROVIDERS: ATTEND Family Medicine
DX: R91.1 Solitary pulmonary nodule (principal)
CPT/HCPCS: 71260; Q9967

== ENCOUNTER → 2020-06-04 | Outpatient (CLI) | payer MEDICARE, MEDICAID ==
[~2020-06-04] MED LIST changes: -ISOVUE-370 76% 100ML VIAL As Ordered ONE
--- NOTE | 2020-06-05 00:12 | REP ---
REASON: Pain and swelling. Multiple ultrasonographic images of the deep venous structures of the left thigh were obtained from the level of the common femoral vein to the popliteal vein in both longitudinal and transverse scan planes. Doppler interrogation and color flow imaging was obtained along with augmentation techniques. Abnormal echogenic material is seen from the common femoral vein to and including the popliteal vein. Augmentation techniques are abnormal, showing decreased flow. The vessels do not coapt. IMPRESSION: Extensive deep vein thrombosis left thigh, as described above. Electronically Signed by Duncan Pepe DO 06/05/2020 11:33 A
== END ==
LOC: M RAD 12:35
PROVIDERS: ATTEND Family Medicine
DX: I82.402 Acute embolism and thrombosis of unspecified deep veins of left lower extremity (principal); R60.0 Localized edema
CPT/HCPCS: 93971; G0463

== ENCOUNTER 2020-06-08 11:13 | Emergency (ER) | payer MEDICARE, MEDICAID ==
[~2020-06-08] VITALS: Ht 175.3 cm; Wt 93.5 kg
[~2020-06-08 11:13] MED LIST changes: -ACID100C PO; -BACT800T5 PO; -HYDR-4571 PO; -LEVA1TAB2 PO; -SIME1CHW5 PO; -SULF1TAB93 PO; -XARE15TA PO
[2020-06-08] MEDS ORDERED: XARE15TA PO (12:21)
[2020-06-08 12:27] LABS: BASO # 0.1 10^3/uL (0.0-0.2); BASO % 0.6 % (0.0-1.0); EOS # 0.1 10^3/uL (0.0-0.5); EOS % 1.7 % (0.0-3.0); HEMATOCRIT 34.2 % (42.0-52.0); HEMOGLOBIN 10.8 g/dl (13.5-17.5); LYMPH # 1.6 10^3/uL (1.5-5.0); LYMPH % 20.6 % (24.0-44.0); MEAN CORPUSCULAR HEMOGLOBIN 26.3 pg (27.0-33.0); MEAN CORPUSCULAR HGB CONC 31.6 g/dl (32.0-36.5); MEAN CORPUSCULAR VOLUME 83.2 fl (80.0-96.0); MONO # 0.9 10^3/uL (0.0-0.8); MONO % 12.1 % (0.0-5.0); NEUTROPHILS # 5.1 10^3/uL (1.5-8.5); NEUTROPHILS % 64.7 % (36.0-66.0); PLATELET COUNT, AUTOMATED 247 10^3/uL (150-450); RED BLOOD COUNT 4.11 10^6/uL (4.30-6.10); WHITE BLOOD COUNT 7.8 10^3/uL (4.0-10.0)
[2020-06-08 12:38] LABS: INR 2.4
[2020-06-08 12:39] LABS: PARTIAL THROMBOPLASTIN TIME 48.1 SECONDS (25.0-38.4)
[2020-06-08 12:51] LABS: BLOOD UREA NITROGEN 14 MG/DL (7-18); CALCIUM LEVEL 8.1 MG/DL (8.8-10.2); CARBON DIOXIDE LEVEL 30 MEQ/L (21-32); CHLORIDE LEVEL 103 MEQ/L (98-107); CREATININE FOR GFR 1.01 MG/DL (0.70-1.30); GLOMERULAR FILTRATION RATE > 60.0 (>42); GLUCOSE, FASTING 78 MG/DL (70-100); POTASSIUM SERUM 3.1 MEQ/L (3.5-5.1); SODIUM LEVEL 142 MEQ/L (136-145)
--- NOTE | 2020-06-08 13:42 | REP ---
SCROTAL ULTRASOUND: Real-time sonographic evaluation of scrotum and contents performed. Testicles are normal in size, right testicle measuring 4.3 x 2.5 x 3.2 cm and left testicle 3.9 x 2.8 x 3.1 cm. No focal mass is seen. There is no evidence of testicular torsion with Doppler evaluation. A few tiny calcifications are seen in each testicle. There is a cyst of the head of the right epididymis, 1.2 cm in maximum diameter. Left testicle demonstrates heterogeneous echotexture. Left epididymis is enlarged and diffusely hyperemic. There is a moderate amount of complex hydrocele fluid on the left. In addition, there is a complex cystic structure with a fluid debris level measuring 1.2 cm in diameter. This is along the surface of the left testicle. IMPRESSION: Findings compatible with left epididymitis and orchitis. Moderate left complex hydrocele. Peritesticular bilobed complex cystic structure with fluid debris level, along the surface of the left testicle. Maximum diameter is 1.2 cm. This may represent an infected cyst or small abscess. Electronically Signed by Jordan Srinivasan MD 06/11/2020 09:40 A
[2020-06-08] MEDS ORDERED: cefTRIAXone SOD 1 GM in D5W MINI-BAG PLUS 50 ML IV ONE (13:45)
[2020-06-08] MEDS ORDERED: LIDOCAINE 2% 5ML JELLY UROJET TOP ONE ×2 (13:45→14:00)
[2020-06-08] MEDS ORDERED: BACT800T5 PO (13:58)
[2020-06-08] MEDS ORDERED: BACTRIM 160MG/800MG DS TAB PO ONE (14:00)
[2020-06-08] MEDS ORDERED: LIDOCAINE 1% SDV 5ML VIAL DILUENT ONE (14:00)
[2020-06-08] MEDS ORDERED: cefTRIAXone SOD 1GM VIAL (J0696 PER 250MG) IM ONE (14:00)
[2020-06-08 14:04] VITALS: BP 158/81
--- NOTE | 2020-06-12 10:43 | ED PDOC ---
Post-Departure Follow-Up dr bledsoe and dr barreto faxed formal report of scrotal us for fu Maddison Kearns MD Jun 12, 2020 10:43
[2020-06-13] MEDS ORDERED: HYDR-4571 PO (18:40)
[2020-06-13] MEDS ORDERED: SULF1TAB93 PO (18:40)
[2020-06-13] MEDS ORDERED: SIME1CHW5 PO (18:40)
[2020-06-14] MEDS ORDERED: LEVA1TAB2 PO (11:21)
[2020-06-14] MEDS ORDERED: ACID100C PO (11:22)
== END 2020-06-08 15:06 | disposition home or self-care (01) ==
LOC: M ED 11:13
DX: N45.1 Epididymitis (principal); N39.0 Urinary tract infection, site not specified; N43.3 Hydrocele, unspecified; N45.2 Orchitis; F79 Unspecified intellectual disabilities; I50.9 Heart failure, unspecified; E03.9 Hypothyroidism, unspecified; E11.9 Type 2 diabetes mellitus without complications; Z86.718 Personal history of other venous thrombosis and embolism; Z96.0 Presence of urogenital implants; Z79.4 Long term (current) use of insulin; Z79.899 Other long term (current) drug therapy
CPT/HCPCS: 51702; 76870; 80048; 81001; 85025; 85610; 85730; 87088; 87186; 93976; 96372; 99284; J0696

== ENCOUNTER → 2020-07-17 | Outpatient (CLI) | payer MEDICARE, MEDICAID ==
[~2020-07-17] MED LIST changes: +ACID100C PO; +BACT800T5 PO; +HYDR-4571 PO; +LEVA1TAB2 PO; +SIME1CHW5 PO; +SULF1TAB93 PO; +XARE15TA PO
[2020-07-17 13:19] LABS: INR 1.13; PROTHROMBIN TIME 14.8 SECONDS (11.8-14.0)
[2020-07-17 14:15] LABS: ALBUMIN 3.5 GM/DL (3.2-5.2); ALT/SGPT 20 U/L (12-78); BILIRUBIN,TOTAL 0.4 MG/DL (0.2-1.0); BLOOD UREA NITROGEN 20 MG/DL (7-18); CALCIUM LEVEL 8.7 MG/DL (8.8-10.2); CARBON DIOXIDE LEVEL 27 MEQ/L (21-32); CHLORIDE LEVEL 107 MEQ/L (98-107); GLOMERULAR FILTRATION RATE > 60.0 (>42); GLUCOSE, FASTING 94 MG/DL (70-100); POTASSIUM SERUM 3.4 MEQ/L (3.5-5.1); SODIUM LEVEL 142 MEQ/L (136-145); TOTAL PROTEIN 6.5 GM/DL (6.4-8.2)
[2020-07-18 18:16] LABS: APPEARANCE, URINE CLEAR (CLEAR); BACTERIA, URINE AUTO NEGATIVE (NEGATIVE); BILIRUBIN, URINE AUTO NEGATIVE (NEGATIVE); BLOOD, URINE BLOOD 3+ (NEGATIVE); COLOR, URINE STRAW (YELLOW); GLUCOSE, URINE (UA) AUTO NEGATIVE (NEGATIVE); KETONE, URINE AUTO NEGATIVE (NEGATIVE); LEUKOCYTE ESTERASE, URINE AUTO 3+ (NEGATIVE); NITRITE, URINE AUTO NEGATIVE (NEGATIVE); PROTEIN, URINE AUTO NEGATIVE (NEGATIVE); RBC, URINE AUTO 2 /HPF (0-3); SPECIFIC GRAVITY URINE AUTO 1.001 (1.002-1.035); SQUAMOUS EPITHELIAL CELL UR AU 0 /HPF (0-6); UROBILINOGEN, URINE AUTO 0.2 mg/dL (0.0-2.0); WBC, URINE AUTO 6 /HPF (0-3)
[2020-07-21 01:21] LABS: HEMOGLOBIN 11.6 g/dl (13.5-17.5); MEAN CORPUSCULAR HEMOGLOBIN 26.4 pg (27.0-33.0); MEAN CORPUSCULAR HGB CONC 31.4 g/dl (32.0-36.5); MEAN CORPUSCULAR VOLUME 84.1 fl (80.0-96.0); PLATELET COUNT, AUTOMATED 282 10^3/uL (150-450); WHITE BLOOD COUNT 4.8 10^3/uL (4.0-10.0)
== END ==
LOC: M LAB 11:00
PROVIDERS: ATTEND Family Medicine
DX: Z01.818 Encounter for other preprocedural examination (principal); E87.6 Hypokalemia; N39.0 Urinary tract infection, site not specified; Z79.899 Other long term (current) drug therapy

== ENCOUNTER → 2020-07-17 | Outpatient (CLI) | payer MEDICARE, MEDICAID ==
[2020-07-17 12:55] LABS: HEMOGLOBIN 11.6 g/dl (13.5-17.5); MEAN CORPUSCULAR HEMOGLOBIN 26.4 pg (27.0-33.0); MEAN CORPUSCULAR HGB CONC 31.4 g/dl (32.0-36.5); MEAN CORPUSCULAR VOLUME 84.1 fl (80.0-96.0); PLATELET COUNT, AUTOMATED 282 10^3/uL (150-450); WHITE BLOOD COUNT 4.8 10^3/uL (4.0-10.0)
[2020-07-17 13:06] LABS: INR 1.12; PROTHROMBIN TIME 14.7 SECONDS (11.8-14.0)
[2020-07-17 13:07] LABS: PARTIAL THROMBOPLASTIN TIME 33.4 SECONDS (25.0-38.4)
[2020-07-17 13:33] LABS: BLOOD UREA NITROGEN 20 MG/DL (7-18); CALCIUM LEVEL 8.8 MG/DL (8.8-10.2); CARBON DIOXIDE LEVEL 30 MEQ/L (21-32); CHLORIDE LEVEL 106 MEQ/L (98-107); CREATININE FOR GFR 1.07 MG/DL (0.70-1.30); GLOMERULAR FILTRATION RATE > 60.0 (>42); GLUCOSE, FASTING 93 MG/DL (70-100); POTASSIUM SERUM 3.3 MEQ/L (3.5-5.1); SODIUM LEVEL 140 MEQ/L (136-145)
[2020-07-21 01:34] LABS: APPEARANCE, URINE CLEAR (CLEAR); COLOR, URINE STRAW (YELLOW)
[2020-07-21 01:35] LABS: BILIRUBIN, URINE AUTO NEGATIVE (NEGATIVE); BLOOD, URINE BLOOD 3+ (NEGATIVE); GLUCOSE, URINE (UA) AUTO NEGATIVE (NEGATIVE); KETONE, URINE AUTO NEGATIVE (NEGATIVE); LEUKOCYTE ESTERASE, URINE AUTO 3+ (NEGATIVE); NITRITE, URINE AUTO NEGATIVE (NEGATIVE); PROTEIN, URINE AUTO NEGATIVE (NEGATIVE); SPECIFIC GRAVITY URINE AUTO 1.001 (1.002-1.035); UROBILINOGEN, URINE AUTO 0.2 mg/dL (0.0-2.0)
[2020-07-21 01:36] LABS: BACTERIA, URINE AUTO NEGATIVE (NEGATIVE); RBC, URINE AUTO 2 /HPF (0-3); SQUAMOUS EPITHELIAL CELL UR AU 0 /HPF (0-6); WBC, URINE AUTO 6 /HPF (0-3)
--- NOTE | 2020-08-14 14:59 | ECGEPIP ---
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
== END ==
LOC: M LAB 10:52
PROVIDERS: ATTEND Nurse Practitioner Family
DX: Z01.818 Encounter for other preprocedural examination (principal); R33.9 Retention of urine, unspecified

== ENCOUNTER → 2020-07-23 | Outpatient (CLI) | payer MEDICARE, MEDICAID | LOC: M LABSMTC 11:25 | PROVIDERS: ATTEND Anesthesiology | DX: Z20.828 Contact with and (suspected) exposure to other viral communicable diseases (principal) | CPT/HCPCS: C9803; U0002 ==

== ENCOUNTER → 2020-07-25 | Outpatient (CLI) | payer MEDICARE, MEDICAID ==
--- NOTE | 2020-07-25 11:53 | REPVR ---
PROCEDURE INFORMATION: Exam: US Duplex Left Lower Extremity Veins, Limited Exam date and time: 07/25/2020 10:33 AM Age: 75 years old Clinical indication: Swelling (edema) of limb; Lower extremity, left; Additional info: Localized swelling, mass lump in left leg TECHNIQUE: Imaging protocol: Real-time Duplex ultrasound of the Left Lower Extremity with 2-D poe scale, color Doppler flow and spectral waveform analysis with image documentation. Limited exam focused on the left lower extremity veins. COMPARISON: US Duplex, Ext LOWER veins, bilat 06/13/2020 6:13 PM FINDINGS: Left deep veins: The left common femoral vein is narrowed proximally by heterogeneous mildly echogenic material consistent with incompletely occlusive thrombus. This portion of the left common femoral vein is incompletely compressible. The left common femoral vein demonstrates retrograde flow as well as a pulsatile arterial waveform. There is a vessel within the left anterior groin that demonstrates a pulsatile arterial waveform which appears to join the left proximal femoral vein. The left femoral vein is patent demonstrating antegrade flow and a phasic waveform. The left popliteal vein is patent demonstrating antegrade flow and a phasic waveform. The left femoral vein and left popliteal vein are compressible. Left superficial veins: The left greater saphenous vein is patent with pulsatile flow. Soft tissues: Unremarkable. IMPRESSION: 1. Incompletely occlusive thrombus is present within the left common femoral vein proximally. 2. The left common femoral vein and proximal femoral vein demonstrate pulsatile arterial waveforms. There is retrograde flow within the left common femoral vein. 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 A feeding artery at the anterior left groin appears to communicate with the left proximal femoral vein. 3. Further evaluation with abdomen/pelvis and lower extremity CTA/CTV or catheter directed angiography is recommended. The patency of the pelvic veins is not evaluated on this ultrasound examination. Electronically signed by: Hilario Beauchamp On 07/25/2020 11:53:22 AM
== END ==
LOC: M RAD 09:54
PROVIDERS: ATTEND Family Medicine
DX: I82.412 Acute embolism and thrombosis of left femoral vein (principal); R22.42 Localized swelling, mass and lump, left lower limb; Z86.711 Personal history of pulmonary embolism

== ENCOUNTER → 2020-09-05 | Outpatient (CLI) | payer MEDICARE, MEDICAID ==
--- NOTE | 2020-09-10 11:15 | REP ---
ABDOMINAL RADIOGAPH DATE: 09/05/2020 CLINICAL: Atonic colon. TECHNIQUE: Two supine views of the abdomen and pelvis. 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 Underlying mechanical obstruction to the colon cannot be excluded as well. Associated fecal stasis is suggested. IMPRESSION: Marked distension to the bowel suggesting ileus versus [place] syndrome and less likely mechanical obstruction to the large bowel. MTDD
== END ==
LOC: M RAD 11:16
PROVIDERS: ATTEND Family Medicine
DX: R14.0 Abdominal distension (gaseous) (principal); K59.89 Other specified functional intestinal disorders

== ENCOUNTER → 2020-09-06 | Outpatient (CLI) | payer MEDICARE, MEDICAID ==
--- NOTE | 2020-09-06 11:14 | REP ---
INDICATION: UNSP ATHSCL CYDNEY ART OF EXT GASPER LEGS COMPARISON: None. TECHNIQUE: Real time srinivasan scale and color Doppler evaluation of the bilateral lower extremity arterial vasculature using linear high frequency transducer. FINDINGS: Srinivasan scale and color images demonstrate moderate to severe bilateral atheromatous plaquing. There is noted occlusion to the left distal posterior tibial artery. Ankle-brachial indices cannot be obtained. There is suggestions for a branch vessel extending from the left proximal superficial femoral artery to the common femoral vein which may represent a small arteriovenous malformation of uncertain significance. Peak systolic velocities (cm/sec) Common femoral artery: Right 71.0 triphasic; Left 98.0 monophasic/triphasic Profunda femoris: Right 40.9 triphasic; Left 80.7 monophasic SFA (proximal): Right 59.9 biphasic; Left 78.4 triphasic SFA (mid): Right 72.0 biphasic; Left 55.7 biphasic SFA (distal): Right 51.0 biphasic; Left 51.2 biphasic Popliteal artery: Right 30.9 biphasic; Left 34.06 biphasic CYNTHIA (prox.): Right 38.5 biphasic; Left 42.6 biphasic Tibioperoneal trunk: Right 42.8 biphasic; Left 35.4 biphasic SPECIAL POLICE (prox.): Right 41.9 triphasic; Left 47.0 biphasic SPECIAL POLICE (distal): Right 61.3 triphasic; Left occluded CYNTHIA (distal): Right 74.8 triphasic; Left 90.5 biphasic IMPRESSION: 1. Moderate to severe atheromatous plaquing noted bilaterally with velocities and wave patterns as described above. Evidence for a focal occlusion in the distal left posterior tibial artery. 2. Cannot exclude the possibility of arteriovenous malformation from a branch vessel of the left proximal superficial femoral artery to the common femoral vein <Electronically signed by Dugn Woods > 09/06/20 [id number]
== END ==
LOC: M RAD 09:27
PROVIDERS: ATTEND Physician Assistant
DX: I77.1 Stricture of artery (principal); I70.203 Unspecified atherosclerosis of native arteries of extremities, bilateral legs

== ENCOUNTER → 2020-09-06 | Outpatient (CLI) | payer MEDICARE, MEDICAID ==
[2020-09-06 10:25] LABS: BASO # 0.1 10^3/uL (0.0-0.2); BASO % 1.8 % (0.0-1.0); EOS # 0.1 10^3/uL (0.0-0.5); EOS % 2.6 % (0.0-3.0); HEMOGLOBIN 11.4 g/dl (13.5-17.5); LYMPH # 1.5 10^3/uL (1.5-5.0); LYMPH % 33.3 % (24.0-44.0); MEAN CORPUSCULAR HEMOGLOBIN 25.6 pg (27.0-33.0); MEAN CORPUSCULAR HGB CONC 30.8 g/dl (32.0-36.5); MONO # 0.4 10^3/uL (0.0-0.8); MONO % 9.6 % (0.0-5.0); NEUTROPHILS # 2.4 10^3/uL (1.5-8.5); NEUTROPHILS % 52.5 % (36.0-66.0); PLATELET COUNT, AUTOMATED 247 10^3/uL (150-450); RED BLOOD COUNT 4.46 10^6/uL (4.30-6.10); WHITE BLOOD COUNT 4.6 10^3/uL (4.0-10.0)
[2020-09-06 11:11] LABS: BLOOD UREA NITROGEN 11 MG/DL (7-18); CREATININE FOR GFR 1.05 MG/DL (0.70-1.30); FERRITIN 107 NG/ML (26-388); GLOMERULAR FILTRATION RATE > 60.0 (>42); IRON (FE) 25 UG/DL (65-175); PERCENT SATURATION 12.2 % (19.7-50.0); TOTAL IRON BINDING CAPACITY 205 UG/DL (250-450)
[2020-09-06 16:15] LABS: VITAMIN B12 LEVEL 386 PG/ML (247-911)
[2020-09-06 16:29] LABS: FOLATE 10.3 NG/ML (>5.4)
== END ==
LOC: M LAB 09:00
PROVIDERS: ATTEND Internal Medicine Gastroenterology
DX: K59.00 Constipation, unspecified (principal); I77.1 Stricture of artery; I70.203 Unspecified atherosclerosis of native arteries of extremities, bilateral legs

== ENCOUNTER 2020-09-10 17:13 | Emergency (ER) | payer MEDICARE, MEDICAID ==
[~2020-09-10] VITALS: Ht 175.3 cm; Wt 80.7 kg
[2020-09-10 19:35] LABS: BASO # 0.1 10^3/uL (0.0-0.2); BASO % 1.5 % (0.0-1.0); EOS # 0.1 10^3/uL (0.0-0.5); EOS % 2.4 % (0.0-3.0); HEMATOCRIT 33.6 % (42.0-52.0); HEMOGLOBIN 10.4 g/dl (13.5-17.5); LYMPH # 2.1 10^3/uL (1.5-5.0); MEAN CORPUSCULAR HEMOGLOBIN 25.2 pg (27.0-33.0); MEAN CORPUSCULAR VOLUME 81.6 fl (80.0-96.0); MONO # 0.7 10^3/uL (0.0-0.8); MONO % 12.2 % (0.0-5.0); NEUTROPHILS # 2.8 10^3/uL (1.5-8.5); NEUTROPHILS % 47.6 % (36.0-66.0); PLATELET COUNT, AUTOMATED 236 10^3/uL (150-450); RED BLOOD COUNT 4.12 10^6/uL (4.30-6.10); WHITE BLOOD COUNT 5.9 10^3/uL (4.0-10.0)
[2020-09-10 19:56] LABS: ALBUMIN 3.6 GM/DL (3.2-5.2); ALT/SGPT 15 U/L (12-78); BILIRUBIN,DIRECT 0.2 MG/DL (0.0-0.2); BILIRUBIN,TOTAL 0.4 MG/DL (0.2-1.0); BLOOD UREA NITROGEN 15 MG/DL (7-18); CALCIUM LEVEL 8.9 MG/DL (8.8-10.2); CARBON DIOXIDE LEVEL 27 MEQ/L (21-32); CHLORIDE LEVEL 100 MEQ/L (98-107); CREATININE FOR GFR 1.16 MG/DL (0.70-1.30); GLOMERULAR FILTRATION RATE > 60.0 (>42); GLUCOSE, FASTING 75 MG/DL (70-100); LIPASE 120 U/L (73-393); POTASSIUM SERUM 4.4 MEQ/L (3.5-5.1); SODIUM LEVEL 137 MEQ/L (136-145); TOTAL PROTEIN 6.8 GM/DL (6.4-8.2)
[2020-09-10 20:03] LABS: INR 1.4; PROTHROMBIN TIME 17.5 SECONDS (12.5-14.3)
[2020-09-10 20:04] LABS: PARTIAL THROMBOPLASTIN TIME 38.3 SECONDS (24.2-38.5)
[2020-09-10] MEDS ORDERED: ISOVUE-370 76% 100ML VIAL As Ordered ONE (20:23)
--- NOTE | 2020-09-10 21:48 | REPVR ---
PROCEDURE INFORMATION: Exam: CT Abdomen And Pelvis With Contrast Exam date and time: 09/10/2020 9:02 PM Age: 75 years old Clinical indication: Abdominal pain; Generalized; Additional info: Constipation vs small bowel obstruction TECHNIQUE: Imaging protocol: Computed tomography of the abdomen and pelvis with intravenous contrast. Radiation optimization: All CT scans at this facility use at least one of these dose optimization techniques: automated exposure control; mA and/or kV adjustment per patient size (includes targeted exams where dose is matched to clinical indication); or iterative reconstruction. Contrast material: ISOVUE 370; Contrast volume: 100 ml; Contrast route: INTRAVENOUS (IV); COMPARISON: CT ABD PELVIS W/O CONTRAST 06/15/2020 9:23 AM FINDINGS: Lungs: There is a 5 mm triangular-shaped juxtapleural nodule along the minor fissure projecting into the right middle lobe with smooth contours (image 52 of the coronal series 202), which is compatible with an intrapulmonary lymph node and is considered to be benign with no follow-up indicated. Heart: There is a small to moderate water density pericardial effusion that has decreased in size compared to the prior CT on 06/15/2020. No cardiomegaly is noted. There are coronary, aortic valve, and mitral annular calcifications. Liver: Unremarkable. No liver lesion is identified. The contour of the liver is smooth. No hepatomegaly is noted. Gallbladder and bile ducts: No calcified gallstones are noted. No gallbladder wall thickening, pericholecystic fluid, or pericholecystic inflammatory changes are identified. No dilation of the bile ducts is noted. No calcified stones are seen in the common bile duct. Pancreas: Normal. No dilation of the main pancreatic duct is noted. There is no inflammatory fat stranding around the pancreas to suggest acute pancreatitis. Spleen: Normal. No splenomegaly is noted. Adrenals: There is thickening of the medial limb of the left adrenal gland that is similar in appearance compared to the prior CT on 06/15/2020. The right adrenal gland is normal. Kidneys and ureters: There are benign-appearing cysts arising from both kidneys, the largest measuring 2 cm in the superior pole of the left kidney, which are stable compared to the prior CT abdomen and pelvis on 06/15/2020 and for which further follow-up is not necessary. No stones are noted in the kidneys or ureters. There is no hydronephrosis or hydroureter. There are no wedge-shaped areas of low attenuation in the kidneys to suggest pyelonephritis. There is no renal abscess or perinephric fluid collection. Stomach and bowel: The stomach and small bowel are unremarkable. There is a large amount of predominantly liquid stool in the rectum, which is distended and measures up to 9.8 cm in diameter. The sigmoid colon is redundant and distended predominantly with gas and a small amount of liquid feces, measuring up to 9 cm diameter. There is a large amount of predominantly liquid stool in the descending colon, transverse colon, ascending colon, and cecum, but without distention of these portions of the large bowel. No dilated loops of small bowel are noted. There is no debbie-intestinal inflammatory fat stranding, bowel wall thickening, pneumatosis intestinalis, volvulus, or intussusception. Appendix: The retrocecal appendix is normal. No evidence for appendicitis. Intraperitoneal space: No free air. No ascites. No asbcess. Retroperitoneal space: No fluid collection. No mass. Vasculature: The distal infrarenal abdominal aorta is ectatic and measures 2.5 cm in transverse dimension. There are extensive atherosclerotic calcifications. Lymph nodes: No enlarged lymph nodes. Urinary bladder: There is a Rodriguez catheter in appropriate position in the urinary bladder. There is thickening of the wall of the partially distended urinary bladder. Reproductive: There are calcifications in the prostate gland. The seminal vesicles are unremarkable. Bones/joints: There is no acute fracture. There is an old healed fracture deformity involving the left posterolateral 10th rib. The ribs were not fully imaged. The bones have a demineralized appearance. There is a lumbosacral transitional vertebra, and there is broadening of both transverse processes of the lumbosacral transitional vertebra, which form pseudoarticulations with both sides of the sacrum (Castellvi type IIb lumbosacral transitional vertebra) that stabilize the level below the lumbosacral transitional vertebra and lead to the propensity for increased mobility and degenerative disc disease at the level above the lumbosacral transitional vertebra (Bertolotti's syndrome). There are degenerative changes involving the lumbar spine. There is mild osteoarthritis of both hip joints. Soft tissues: There is mild bilateral gynecomastia. There is a midline vertical incision scar in the anterior abdominal wall. There are dual bilateral small fat containing direct and indirect inguinal hernias. IMPRESSION: 1. Large amount of predominantly liquid stool in the rectum, descending colon, transverse colon, ascending colon, and cecum and distension of the sigmoid colon and rectum, which is felt to be secondary to an ileus rather than a large bowel obstruction. No small bowel obstruction or volvulus. 2. Thickening of the wall of the urinary bladder, which may be secondary to its decompressed state, bladder wall hypertrophy, or cystitis. Correlation with urinalysis is suggested. 3. Bilateral small fat containing dual direct and indirect inguinal hernias. Electronically signed by: Matt Perkins On 09/10/2020 21:48:18 PM
[2020-09-10 22:13] VITALS: BP 139/76
--- NOTE | 2020-09-11 06:48 | ED PDOC ---
Post-Departure Follow-Up ct abd/p faxed to dr bledsoe for fu Maddison Kearns MD Sep 11, 2020 06:48
--- NOTE | 2020-09-11 08:26 | ECGEPIP ---
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
== END 2020-09-10 22:15 | disposition home or self-care (01) ==
LOC: M ED 17:13
DX: K59.01 Slow transit constipation (principal); R00.1 Bradycardia, unspecified; I45.10 Unspecified right bundle-branch block; I44.0 Atrioventricular block, first degree; E11.9 Type 2 diabetes mellitus without complications; N40.0 Benign prostatic hyperplasia without lower urinary tract symptoms; K56.609 Unspecified intestinal obstruction, unspecified as to partial versus complete obstruction; F70 Mild intellectual disabilities; K59.89 Other specified functional intestinal disorders; Z79.899 Other long term (current) drug therapy
CPT/HCPCS: 74177; 80048; 80076; 83690; 85025; 85610; 85730; 93005; 93041; 99284; Q9967

== ENCOUNTER → 2020-09-15 | Outpatient (REF) | payer MEDICARE, MEDICAID | LOC: M LAB 16:25 | PROVIDERS: ATTEND Family Medicine | DX: R82.90 Unspecified abnormal findings in urine (principal) ==

== ENCOUNTER → 2020-09-19 | Outpatient (CLI) | payer MEDICARE, MEDICAID ==
[~2020-09-19] MED LIST changes: +POTA1TAB14 PO; +RISP-9 PO; -RISP2TAB3 PO; +SENN8.6T58 PO
--- NOTE | 2020-09-19 14:29 | REP ---
INDICATION: COUGH. COMPARISON: Comparison chest x-ray July 17, 2020. TECHNIQUE: Four views presented... FINDINGS: Moderate cardiomegaly is observed unchanged. Pulmonary vasculature is cephalized. No pleural effusion or pulmonary edema is seen. No focal infiltrate is appreciated. IMPRESSION: Cardiac enlargement unchanged from the prior study. Vascular cephalization. No evidence of infiltrate, pulmonary edema, or pleural effusion.. <Electronically signed by Leonides Isaacs > 09/19/20 [id number]
== END ==
LOC: M ADAMS 11:59
PROVIDERS: ATTEND Family Medicine
DX: I51.7 Cardiomegaly (principal); R05 Cough
CPT/HCPCS: 71046; G0463

== ENCOUNTER → 2020-10-05 | Outpatient (CLI) | payer MEDICARE, MEDICAID ==
[~2020-10-05] MED LIST changes: +ISOVUE-370 76% 100ML VIAL As Ordered ONE; -RISP-9 PO; +RISP2TAB3 PO
--- NOTE | 2020-10-05 15:09 | REP ---
INDICATION: PULMONARY NODULE. COMPARISON: CT 05/31/2020, 02/29/2020; chest x-ray 05/18/2020. TECHNIQUE: Bolus of 75 mL Isovue 370 with scanning through the chest in both coronal and sagittal reconstructions provided. FINDINGS: Pattern of a hazy subsegmental atelectasis in the posterior lower lung zone in deep sulcus is unchanged. Some of this may be compressive atelectatic change adjacent to the diaphragm and heart border. Some cylindrical bronchiectatic changes are also seen. There is some subsegmental atelectatic change along the anterior margin of the major fissure in the left upper lobe as well. There is a stable 8 mm nodule medial segment right middle lobe abutting the inferior margin of the right minor fissure. No other nodules or new findings. No definite effusion pleural plaques or calcified plaque. Cardiomegaly with left atrial ventricular enlargement and a moderate-sized pericardial effusion posteriorly and unchanged. Calcifications in the mitral annulus, coronary arteries and no aortic aneurysm or dissection. Vascular calcifications of the aorta are also noted the central pulmonary arteries in the mediastinum were without filling defect or vessel cut off. Degenerative changes in the lower thoracic spine with marginal osteophytes and upper thoracic kyphosis seen. The sternum, manubrium, medial clavicles, those portions of scapulae, humeral heads and ribs included were without fracture or acute finding. In the upper abdomen, the portion of liver included and the spleen without acute finding or mass. Gallbladder seen in part without calcified stone in its dependent portion. Likewise the pancreas is not seen in its entirety but that portion seen was unremarkable. No periaortic or other upper abdominal pathologic sized lymphadenopathy. Some portions of the splenic flexure, proximal transverse colon show thickened wall may reflect a nonspecific colitis but no pericolonic inflammatory changes are seen. Upper poles of kidneys with simple cyst off the upper pole of the right kidney superiorly, another medially. Adrenal glands unchanged without significant finding. IMPRESSION: 1. Stable 8 mm nodule medial segment right middle lobe with some improvement of the right lower lobe patchy infiltrates and atelectasis and some new patchy infiltrate atelectasis in the right upper lobe along the major fissure. 2. Some chronic basilar fibro atelectatic change left greater than right in the deep sulci and also inferiorly in the right middle lobe, stable 3. Cardiomegaly with left atrial and ventricular enlargement, some degree of pericardial effusion unchanged from multiple prior studies and no evidence for thoracic aortic aneurysm. Stable CT. <Electronically signed by Fabrice Cherry > 10/05/20 [id number]
== END ==
LOC: M RAD 12:30
PROVIDERS: ATTEND Family Medicine
DX: R91.1 Solitary pulmonary nodule (principal); J98.11 Atelectasis; I51.7 Cardiomegaly; M51.34 Other intervertebral disc degeneration, thoracic region; I31.3 Pericardial effusion (noninflammatory)
CPT/HCPCS: 71260; Q9967

== ENCOUNTER 2020-10-22 07:30 | Inpatient (IN) | payer MEDICARE, MEDICAID ==
[~2020-10-22] VITALS: Ht 172.7 cm; Wt 77.6 kg
[~2020-10-22 07:30] MED LIST changes: -BUPR150T3 PO; +BUPR150T4 PO; -ISOVUE-370 76% 100ML VIAL As Ordered ONE; -LISI-538 PO; +LISI10TA22 PO; -LISI10TA4 PO; +LISI20TA33 PO; -MAG400TA PO; +MAGN400T35 PO; +RISP-9 PO; -RISP2TAB3 PO
[2020-12-17] VITALS (9 sets, daily range): BP systolic 115–156; BP diastolic 73–88
[2020-12-17] MEDS ORDERED: LR 1,000 ML IV ONE (09:15)
[2020-12-17] MEDS ORDERED: metroNIDAZOLE 500 MG in IV 1 EA IV ONE (09:15)
[2020-12-17] MEDS ORDERED: HEPARIN SOD (PORCINE) 5000UNITS/ML 1ML VIAL/SYRINGE SQ ONE (09:15)
[2020-12-17] MEDS ORDERED: cefoTEtan DISODIUM 2 GM in D5W MINI-BAG PLUS 50 ML IV ONE (09:15)
[2020-12-17] MEDS ORDERED: ALVIMOPAN 12 MG CAPSULE (ENTEREG) PO ONE (09:15)
[2020-12-17] MEDS ORDERED: propofoL 200 MG/20 ML VIAL As Ordered ONE (09:33)
[2020-12-17] MEDS ORDERED: LIDOCAINE 2% 100MG/5ML SDV (FOR ANES.) As Ordered ONE ×2 (09:33→10:15)
[2020-12-17] MEDS ORDERED: ROCURONIUM BROMIDE 50 MG/5 ML VIAL As Ordered ONE ×2 (09:33→12:39)
[2020-12-17] MEDS ORDERED: fentaNYL 100 MCG/2 ML INJECTION (J3010) As Ordered ONE ×3 (09:33→13:41)
[2020-12-17] MEDS ORDERED: dexameTHASONE 4 MG/ML 1ML VIAL (J1100 PER 1MG) As Ordered ONE (09:34)
[2020-12-17] MEDS ORDERED: ONDANSETRON 4MG/2ML VIAL As Ordered ONE (09:34)
[2020-12-17] MEDS ORDERED: LACRILUBE (AKWA TEARS) OPHTH OINT 3.5 GM As Ordered ONE (09:44)
[2020-12-17] MEDS ORDERED: XARE20TA PO (09:52)
[2020-12-17] MEDS ORDERED: SUGAMMADEX SODIUM 500 MG/5 ML VIAL (BRIDION) As Ordered ONE (10:23)
[2020-12-17] MEDS ORDERED: BUPIVACAINE HCL 0.25% 30ML VIAL As Ordered ONE ×2 (10:46→10:48)
[2020-12-17] MEDS ORDERED: LIDOCAINE 1% SDV 30ML VIAL As Ordered ONE (10:46)
[2020-12-17] MEDS ORDERED: BUPIVACAINE LIPOSOME/PF 1.3% 20ML VIAL (13.3MG/ML)(EXPAREL)(C9290 PER1MG) As Ordered ONE (10:48)
[2020-12-17] MEDS ORDERED: LABETALOL 100MG/20ML VIAL As Ordered ONE (12:35)
[2020-12-17] MEDS ORDERED: MOM 30ML SUSPENSION UDC PO PRN (15:45)
[2020-12-17] MEDS ORDERED: KETOROLAC 30 MG/ML 1ML VIAL IV PRN (15:45)
[2020-12-17] MEDS ORDERED: ACETAMINOPHEN TAB 650MG DOSE (2X325MG) PO PRN (15:45)
[2020-12-17] MEDS ORDERED: PERCOCET 5MG/325MG TAB PO PRN (15:45)
[2020-12-17] MEDS ORDERED: ONDANSETRON 4MG/2ML VIAL IV PRN ×2 (15:45→17:00)
[2020-12-17] MEDS ORDERED: MORPHINE 2 MG/ML 1ML VIAL (J2270) IV PRN (16:00)
[2020-12-17] MEDS ORDERED: oxyCODONE 5MG TAB PO PRN (17:00)
[2020-12-17] MEDS ORDERED: METOCLOPRAMIDE INJ 10MG/2ML VIAL (J2765 PER 1) IV PRN (17:00)
[2020-12-17] MEDS ORDERED: LR 1,000 ML IV SCH (17:00)
[2020-12-17] MEDS ORDERED: fentaNYL 100 MCG/2 ML INJECTION (J3010) IV PRN (17:00)
[2020-12-17] MEDS: LR 1,000 ML IV SCH (18:33)
[2020-12-17] MEDS: POTASSIUM CHLORIDE 10 MEQ SR TABLET PO SCH (21:26)
[2020-12-17] MEDS: risperiDONE 2 MG TAB PO SCH (21:26)
[2020-12-17] MEDS: ESCITALOPRAM OXALATE 10 MG TAB (LEXAPRO) PO SCH (21:27)
[2020-12-17] MEDS: SITagliptin 50 MG TAB (JANUVIA) PO SCH (21:27)
[2020-12-17] MEDS: SODIUM BICARBONATE 325 MG TAB PO SCH (21:27)
[2020-12-17] MEDS: ATORVASTATIN 20 MG TAB PO SCH (21:27)
[2020-12-17] MEDS: SENOKOT S TAB PO SCH (21:27)
[2020-12-17] MEDS: ALVIMOPAN 12 MG CAPSULE (ENTEREG) PO SCH (21:27)
[2020-12-18 04:20] VITALS: BP 127/74
[2020-12-18] MEDS: LR 1,000 ML IV SCH ×3 (04:42→23:11)
[2020-12-18] MEDS: LEVOTHYROXINE 125MCG TABLET (0.125MG) PO SCH (06:19)
[2020-12-18 07:42] LABS: BASO % 0.1 % (0.0-1.0); HEMATOCRIT 32.4 % (42.0-52.0); HEMOGLOBIN 10.2 g/dl (13.5-17.5); LYMPH # 1.2 10^3/uL (1.5-5.0); LYMPH % 14.1 % (24.0-44.0); MEAN CORPUSCULAR HGB CONC 31.5 g/dl (32.0-36.5); MEAN CORPUSCULAR VOLUME 79.4 fl (80.0-96.0); MONO # 1.1 10^3/uL (0.0-0.8); NEUTROPHILS # 6.5 10^3/uL (1.5-8.5); NEUTROPHILS % 73.5 % (36.0-66.0); PLATELET COUNT, AUTOMATED 264 10^3/uL (150-450); RED BLOOD COUNT 4.08 10^6/uL (4.30-6.10); WHITE BLOOD COUNT 8.8 10^3/uL (4.0-10.0)
--- NOTE | 2020-12-18 07:43 | ROOPDOC ---
[facility] Report Of Operation Report of Operation DATE OF PROCEDURE: 12/17/20 PREPROCEDURE DIAGNOSES: Atonic colon, dolichocolon, tortuous sigmoid colon. POSTPROCEDURE DIAGNOSES: same. PROCEDURE: Robotic assisted laparoscopic sigmoid colectomy, end colostomy. Bilateral Transversus abdominis plane block (using mixture of Exparel, 1/4% marcaine , 20 mL saline) SURGEON: Caleb Carter MD MARKET RESEARCH ASSISTANT: Naya Freitas, GAS CONTROLLER Ms. Freitas assisted me with the placement of ports, management of the instruments, robotic arm adjustments, retraction of the bowels and suctioning as well as in extraction of the specimen and closing of the ports his present throughout the whole surgery. ANESTHESIA: General Anesthesia. ESTIMATED BLOOD LOSS: Approximately 50 mL. COMPLICATIONS: none. REMARKS: Patient is a 3 day bowel prep and overnight antibiotics as part of the prep to be able to decompress his abdomen. His abdomen looks only minimally distended. PROCEDURE NOTE: dilated and markedly tortuous sigmoid colon, no ischemia DESCRIPTION OF PROCEDURE: Patient was given Cefazolin 2 gm IV, metronidazole 500 mg IV for wound prophylaxis, heparin 5000 units subcutaneous, Sequential compression boots for DVT prophylaxis. He was a chronic indwelling dumont catheter. He was brought to the operating room, laid supine on the table. General endotracheal anesthesia started. His abdomen then widely prepped and draped in usual sterile fashion. Surgical timeout was performed prior to confirm right procedure, right patient identification and other necessary information prior to starting surgery. Patient has a very loose, thin walled abdomen from chronic distention secondary to his dolichocolon, atonic colon. With the 3 day prep this has decompressed well with only mild distention but certainly looks like we have space to work laparoscopically. Have marked the bony landmarks as well as pl anned area of placement of the colostomy to the left of the midline peritoneum insufflation. Entry into the abdomen done through an incision over the left upper quadrant area. A Veress needle was inserted with a controlled fashion. CO2 insufflation started to pressure 15 mmHg. Using the same incision a 5 mm optical port was placed under direct vision laparoscope. The area underneath the insertion site was inspected and no injury found. He was then placed in steep Trendelenburg (15). His left side was tilted up. On initial laparoscopy examination, he still has a prominently distended loops of sigmoid colon that is occupying the lower abdomen and pelvis. Small bowel is not distended. He does not have any abdominal wall adhesions. He has moderate diastases of his midline muscles. Relatively thin omentum occupying the left upper quadrant area. Liver smooth in contour and nonenlarged. Under direct vision for working ports were placed mostly to the right of the midline starting at slightly askew of the epigastric area and the right side towards the anterior axillary line. 38 further ports were placed. A 12 mm stapler port placed roughly about 2 inches medial to the anterior superior iliac spine on the right side. A 5 mm customer service assistant port was placed in between arms 2 and 3 for my customer service assistant. Under laparoscopic visualization, a transversus abdominis plane block was performed on both sides using our mixture of Exparel and Marcaine. The robotic tower was maneuvered in place on the patient's left side, the arms docked to the trochars and instruments placed under direct visualization. I then unscrubbed and to control of the camera and instruments at the surgeon's console while my customer service assistant remained on the field for instrument exchange as well as for bowel retraction. I started by repositioning the bowels away from the pelvis and left side of the abdomen. I placed 2 cottonoid strips to help with the small bowel retraction. When I initially thought was cecum was actually part of this very long and distended sigmoid colon and this were all retracted upwards to the left side. There is no evidence of ischemia. He has a very long mesentery allowing fo r the sigmoid colon to be moved to all 4 quadrants. After adequately positioning the bowel lay open up the peritoneum on the right side of the rectosigmoid junction in a medial to lateral dissection lifting the colon of the Toldt's fascia. The diameter of the colon here it is still enlarged making the posterior dissection moderately difficult. I went back and forth with dissection of the medial and lateral side eventually gain a window posteriorly. The mesentery at the area of the planned distal resection was divided with the vessel sealer. Once we have an adequate window the colon was divided with 4 firings of the short form 16 mm stapler with a green load. After dividing the end of the sigmoid colon the bleeding points were inspected and cauterized. The distal staple line was inspected and seems to be adequate. At this point he was further placed on steeper Trendelenburg to 20 to allow me some space to work in taking down the sigmoid colon. Using the vessel sealer the elongated mesentery was serially divided midway to avoid any injury to the retroperitoneal structures with the vessel sealer. Once we reached the superior hemorrhoidal artery, this was divided with the shureform 60 mm stapler with a white load. I continued dividing the mesentery to allow me to take the rest of the sigmoid colon and only allow for enough length for it to reach the planned area of the colostomy and the patient's left side. Once this was done, I scrubbed back in. The robot was undocked and then resumed laparoscopy. The end of the sigmoid colon was grasped. The previously marked area for the colostomy was used also for extraction site. The abdomen was deflated. A circular skin incision was created at the planned site of the colostomy and taken through to the subcutaneous tissue. The subcutaneous tissue was removed with a disc of the skin. The anterior fascia was opened up and the rectus muscle was split with blunt dissection. The posterior sheath was opened up transversely. A small Kt wound retractor was placed. The end of the sigmoid colon was grabbed in the whole colon was delivered through the wound opening. Prior to dividing the: I reinflated the abdomen and resumed laparoscopy to make sure there was no twist in the sigmoid colon mesentery. The cottonoids were recovered and I placed a 19 Emil drain and left that coursing into the pelvis close to the rectal stump. This was coming off one of the right 8 mm ports. I again deflated the abdomen and chose the line of resection to allow for adequate stump of the colostomy. The mesentery and epiploic appendage was cleared and a bowel clamp placed. This was then divided with the Bovie cautery. The colostomy was then matured in a demi fashion with 3-0 Vicryl. The port site incisions were closed with skin closure of the 5 an 8 mm port sites. The 12 mm fascial defect was closed with 0 Vicryl in a mattress fashion and the skin closed with 4-0 Monocryl in a subcuticular fashion. Dermabond was used to cover the port sites. The drain was secured in place with 2-0 silk's. The ostomy appliance was placed around the ostomy. Patient tolerated the procedure well he was promptly awakened, extubated and brought to recovery room in a stable condition. CALEB CARTER MD Dec 18, 2020 07:43
[2020-12-18 08:05] LABS: BLOOD UREA NITROGEN 11 MG/DL (7-18); CALCIUM LEVEL 8.7 MG/DL (8.8-10.2); CARBON DIOXIDE LEVEL 31 MEQ/L (21-32); CHLORIDE LEVEL 101 MEQ/L (98-107); CREATININE FOR GFR 0.97 MG/DL (0.70-1.30); GLOMERULAR FILTRATION RATE > 60.0 (>42); GLUCOSE, FASTING 131 MG/DL (70-100); POTASSIUM SERUM 3.7 MEQ/L (3.5-5.1); SODIUM LEVEL 138 MEQ/L (136-145)
--- NOTE | 2020-12-18 08:16 | IPNPDOC ---
Text Note Date of Service The patient was seen on 12/18/20. NOTE Patient reports he is comfortable. No events reported overnight. His colostomy is working On exam, patient has just finished his breakfast, but denies any nausea or vomiting. He looks comfortable. Lungs are clear to auscultation bilaterally Regular heart rate and rhythm Abdomen is mildly distended soft. He has 6 port sites (25 mm, 38 mm and one 12 mm). All the port sites are closed with Dermabond and healing well. He has a left-sided colostomy. Mild swelling of the colostomy otherwise viable. Soft mushy green stool in the bag with some air. No leaking POD1 RA laparoscopic sigmoid colectomy, end colostomy for atonic sigmoid colon. He looks to be doing well. He looks comfortable. He is tolerating diet. We'll observe his course today and if he continues to do well most likely will be able to go back to [facility] tomorrow. We'll hold so relatively today and resume tomorrow He came in with a Rodriguez catheter which is chronic and long-standing. Lovenox for DVT prophylaxis. Labs reviewed CBC stable. BMP is pending VS,Fishbone, I+O VS, Fishbone, I+O Vital Signs Date Time Temp Pulse Resp B/P (MAP) Pulse Ox O2 Delivery O2 Flow Rate FiO2 12/18/20 04:20 98.0 96 20 127/74 (91) 99 Nasal Cannula 2.0 I&O- Last 24 Hours up to 6 AM 12/18/20 06:00 Intake Total 3180 ml Output Total 1328 ml Balance 1852 ml ELVIRA POTTS MD Dec 18, 2020 07:43
[2020-12-18] MEDS: POTASSIUM CHLORIDE 10 MEQ SR TABLET PO SCH ×2 (08:48→21:00)
[2020-12-18] MEDS: OMEPRAZOLE 20 MG CAP PO SCH (08:48)
[2020-12-18] MEDS: FLUTICASONE PROP 0.05% NASAL SPRAY 16 GM (FLONASE) NARES SCH (08:48)
[2020-12-18] MEDS: CelecoXIB (CeleBREX) 100 MG CAP PO SCH (08:48)
[2020-12-18] MEDS: SENOKOT S TAB PO SCH ×2 (08:49→20:59)
[2020-12-18] MEDS: SODIUM BICARBONATE 325 MG TAB PO SCH ×2 (08:49→20:59)
[2020-12-18] MEDS: ENOXAPARIN 40MG/0.4ML SYRINGE (J1650 PER 10MG) SC SCH (08:49)
[2020-12-18] MEDS: FUROSEMIDE 20 MG TAB PO SCH (08:49)
[2020-12-18] MEDS: ALVIMOPAN 12 MG CAPSULE (ENTEREG) PO SCH ×2 (08:49→20:59)
[2020-12-18] MEDS: buPROPion **XL** TABLET 150MG (WELLBUTRIN XL) PO SCH (08:55)
[2020-12-18 10:00] VITALS: BP 113/59
[2020-12-18 16:00] VITALS: BP 109/51
[2020-12-18] MEDS: SITagliptin 50 MG TAB (JANUVIA) PO SCH (20:59)
[2020-12-18] MEDS: ATORVASTATIN 20 MG TAB PO SCH (21:00)
[2020-12-18] MEDS: ESCITALOPRAM OXALATE 10 MG TAB (LEXAPRO) PO SCH (21:00)
[2020-12-18] MEDS: risperiDONE 2 MG TAB PO SCH (21:00)
[2020-12-18 22:00] VITALS: BP 119/62
[2020-12-19] MEDS: LEVOTHYROXINE 125MCG TABLET (0.125MG) PO SCH (05:50)
[2020-12-19 06:00] VITALS: BP 121/64
[2020-12-19] MEDS: OMEPRAZOLE 20 MG CAP PO SCH (08:54)
[2020-12-19] MEDS: SENOKOT S TAB PO SCH (08:54)
[2020-12-19] MEDS: CelecoXIB (CeleBREX) 100 MG CAP PO SCH (08:54)
[2020-12-19] MEDS: FUROSEMIDE 20 MG TAB PO SCH (08:54)
[2020-12-19] MEDS: buPROPion **XL** TABLET 150MG (WELLBUTRIN XL) PO SCH (08:54)
[2020-12-19] MEDS: ALVIMOPAN 12 MG CAPSULE (ENTEREG) PO SCH (08:55)
[2020-12-19] MEDS: FLUTICASONE PROP 0.05% NASAL SPRAY 16 GM (FLONASE) NARES SCH (08:55)
[2020-12-19] MEDS: ENOXAPARIN 40MG/0.4ML SYRINGE (J1650 PER 10MG) SC SCH (08:55)
[2020-12-19] MEDS: SODIUM BICARBONATE 325 MG TAB PO SCH (08:55)
[2020-12-19] MEDS: POTASSIUM CHLORIDE 10 MEQ SR TABLET PO SCH (08:55)
[2020-12-19] MEDS: LR 1,000 ML IV SCH (09:00)
--- NOTE | 2020-12-19 10:59 | IPNPDOC ---
Text Note Date of Service The patient was seen on 12/19/20. NOTE Continues to do well. His colostomy is working. He is tolerating diet. Reports he iscomfortable, not getting any narcotic pain meds. On exam, sitted up on his bed watching tv, looks comfortable lungs clear bilaterally regular heart rate and rhythm abdomen, minimally distended, soft, port site incisions C/D/I, THOMAS drain light pink serosanguenous, ostomy moderately swollen, functioning now with brown soft stool in bag. goos ostomy appliance seal. Nontender on palpation POD2 RA lap sigmoidectomy, colostomy formation for atonic colon, redundant sigmoid colon with distentiion OK to return to [facility] d/c thomas drain follow up with me in 2 weeks. VS,Fishbone, I+O VS, Fishbone, I+O Vital Signs Date Time Temp Pulse Resp B/P (MAP) Pulse Ox O2 Delivery O2 Flow Rate FiO2 12/19/20 06:00 98.2 71 18 121/64 (83) 98 Room Air 12/18/20 04:20 2.0 I&O- Last 24 Hours up to 6 AM 12/19/20 06:00 Intake Total 4440 ml Output Total 2063 ml Balance 2377 ml ELVIRA POTTS MD Dec 19, 2020 10:59
[2020-12-19] MEDS ORDERED: PERCOCET PO (11:08)
== END 2020-12-19 12:06 | disposition home or self-care (01) | DRG 330 ==
LOC: M OR 12-17 09:01 → M MSPAV 12-17 16:45
PROVIDERS: ADMIT Surgery; ATTEND Surgery
PROC: 0DBN4ZZ Excision of Sigmoid Colon, Percutaneous Endoscopic Approach (ICD-10-PCS; 2020-12-17)
PROC: 8E0W4CZ Robotic Assisted Procedure of Trunk Region, Percutaneous Endoscopic Approach (ICD-10-PCS; 2020-12-17)
PROC: 0D1N4Z4 Bypass Sigmoid Colon to Cutaneous, Percutaneous Endoscopic Approach (ICD-10-PCS; principal; 2020-12-17 10:40)
DX: K59.89 Other specified functional intestinal disorders (principal); Q43.8 Other specified congenital malformations of intestine; Z79.899 Other long term (current) drug therapy; Z79.82 Long term (current) use of aspirin

== ENCOUNTER → 2020-12-05 | Outpatient (REF) | payer MEDICARE, MEDICAID ==
[~2020-12-05] MED LIST changes: +LISI-538 PO; -LISI10TA22 PO; +LISI10TA4 PO; -LISI20TA33 PO; +MAG400TA PO; -MAGN400T35 PO; +PERCOCET PO; +XARE20TA PO
[2020-12-05 17:37] LABS: BASO # 0.1 10^3/uL (0.0-0.2); BASO % 1.8 % (0.0-1.0); EOS # 0.2 10^3/uL (0.0-0.5); EOS % 3.1 % (0.0-3.0); HEMATOCRIT 32.6 % (42.0-52.0); HEMOGLOBIN 10.3 g/dl (13.5-17.5); LYMPH # 1.9 10^3/uL (1.5-5.0); MEAN CORPUSCULAR HEMOGLOBIN 25.4 pg (27.0-33.0); MEAN CORPUSCULAR HGB CONC 31.6 g/dl (32.0-36.5); MEAN CORPUSCULAR VOLUME 80.3 fl (80.0-96.0); MONO # 0.8 10^3/uL (0.0-0.8); MONO % 13.9 % (0.0-5.0); NEUTROPHILS # 2.5 10^3/uL (1.5-8.5); NEUTROPHILS % 45.8 % (36.0-66.0); PLATELET COUNT, AUTOMATED 295 10^3/uL (150-450); RED BLOOD COUNT 4.06 10^6/uL (4.30-6.10); WHITE BLOOD COUNT 5.5 10^3/uL (4.0-10.0)
[2020-12-05 17:58] LABS: ALBUMIN 3.1 GM/DL (3.2-5.2); ALT/SGPT 23 U/L (12-78); BILIRUBIN,TOTAL 0.4 MG/DL (0.2-1.0); BLOOD UREA NITROGEN 14 MG/DL (7-18); CALCIUM LEVEL 8.3 MG/DL (8.8-10.2); CARBON DIOXIDE LEVEL 30 MEQ/L (21-32); CHLORIDE LEVEL 99 MEQ/L (98-107); CREATININE FOR GFR 1.11 MG/DL (0.70-1.30); GLOMERULAR FILTRATION RATE > 60.0 (>42); GLUCOSE, FASTING 70 MG/DL (70-100); POTASSIUM SERUM 4.3 MEQ/L (3.5-5.1); SODIUM LEVEL 134 MEQ/L (136-145)
== END ==
LOC: M SFHCADAM 13:54
PROVIDERS: ATTEND Family Medicine
DX: Z01.818 Encounter for other preprocedural examination (principal); K59.89 Other specified functional intestinal disorders
CPT/HCPCS: 80053; 85025; G0463

== ENCOUNTER → 2020-12-11 | Outpatient (CLI) | payer MEDICARE, MEDICAID ==
[~2020-12-11] MED LIST changes: +ISOVUE-370 76% 100ML VIAL As Ordered ONE; -LISI-538 PO; +LISI10TA22 PO; -LISI10TA4 PO; +LISI20TA33 PO; -MAG400TA PO; +MAGN400T35 PO
--- NOTE | 2020-12-11 09:47 | REP ---
INDICATION: ABNORMAL FINDINGS ON DX IMAGING OF H BODY STRUCTURES COMPARISON: 10/05/2020 TECHNIQUE: Axial contrast enhanced images from the thoracic inlet to the upper abdomen with coronal and sagittal reformations using 75 ml Isovue 370 intravenous contrast material[address] CT examination was performed using the following dose reduction techniques: Automated exposure control, adjustment of mA and/or kv according to the patient's size, and use of iterative reconstruction technique. FINDINGS: The lung davis demonstrate mild posterior basilar dependent changes and minimal left basilar atelectasis. Stable 7 mm noncalcified nodule along the medial perifissural right middle lobe again noted. No significant consolidation, effusion, or pneumothorax. Previously noted right upper lobe infiltrate has resolved. Tracheobronchial tree is patent. No significant adenopathy noted. Further evaluation of the mediastinum demonstrates stable atherosclerotic changes to the thoracic aorta and coronary arteries along with stable moderate pericardial effusion primarily along the left lateral cardiac margin. IMPRESSION: 1. Stable chronic changes as described above including stable right middle lobe nodule and pericardial effusion along with significant chronic atherosclerotic disease. 2. Lung davis demonstrate minimal posterior basilar dependent changes and left basilar atelectasis with improved aeration to the right upper lobe. 3. No new acute process appreciated. <Electronically signed by Dung Woods > 12/11/20 0943
== END ==
LOC: M RAD 08:47
PROVIDERS: ATTEND Family Medicine
DX: R91.8 Other nonspecific abnormal finding of lung field (principal)
CPT/HCPCS: 71260; Q9967

== ENCOUNTER → 2020-12-12 | Outpatient (CLI) | payer MEDICARE, MEDICAID ==
[~2020-12-12] MED LIST changes: -ISOVUE-370 76% 100ML VIAL As Ordered ONE
== END ==
LOC: M LABSMTC 14:30
PROVIDERS: ATTEND Anesthesiology
DX: Z01.812 Encounter for preprocedural laboratory examination (principal); Z20.822 Contact with and (suspected) exposure to COVID-19

== ENCOUNTER → 2021-01-09 | Outpatient (CLI) | payer MEDICARE, MEDICAID ==
--- NOTE | 2021-01-09 10:26 | REP ---
INDICATION: GASPER LEG SWELLING W/ H/O DVT / PE COMPARISON: 07/25/2020 TECHNIQUE: Srinivasan scale and color Doppler evaluation bilateral lower extremities using linear high frequency transducer. FINDINGS: Right lower extremity is normal and without evidence for venous thrombosis. Left lower extremity demonstrates deep venous thrombosis from the external iliac vein through the distal superficial femoral vein. There again appears to be a arterial vessel joining the proximal common femoral vein with elements of reversed flow. This was previously described on 07/25/2020 examination and requires correlation. IMPRESSION: 1. Evidence for deep venous thrombosis involving the left external iliac vein through distal femoral vein. 2. 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 3. Normal right lower extremity venous structures without thrombosis. <Electronically signed by Dung Woods > 01/09/21 [id number]
== END ==
LOC: M RAD 09:31
PROVIDERS: ATTEND Physician Assistant
DX: I82.402 Acute embolism and thrombosis of unspecified deep veins of left lower extremity (principal); Z86.718 Personal history of other venous thrombosis and embolism

== ENCOUNTER → 2021-01-29 | Outpatient (CLI) | payer MEDICARE, MEDICAID ==
[~2021-01-29] MED LIST changes: +BUPR150T12 PO; -BUPR150T4 PO; -PEG1POW PO; +POLY17PO18 PO
--- NOTE | 2021-01-29 12:36 | REP ---
INDICATION: PENILE EROSION; PREOP LAB 1ST EKG 2ND XR 3RD COMPARISON: 09/19/2020 TECHNIQUE: PA and lateral. FINDINGS: The mediastinum and cardiac silhouette are normal. The lung davis demonstrate chronic stable changes without acute consolidation, effusion, or pneumothorax. The skeletal structures are intact and normal. IMPRESSION: Chronic stable changes. No acute cardiopulmonary process. <Electronically signed by Dung Woods > 01/29/21 [id number]
--- NOTE | 2021-01-29 12:52 | ECGEPIP ---
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
[2021-01-29 13:21] LABS: HEMATOCRIT 34.8 % (42.0-52.0); HEMOGLOBIN 10.7 g/dl (13.5-17.5); MEAN CORPUSCULAR HEMOGLOBIN 25.5 pg (27.0-33.0); MEAN CORPUSCULAR HGB CONC 30.7 g/dl (32.0-36.5); MEAN CORPUSCULAR VOLUME 82.9 fl (80.0-96.0); PLATELET COUNT, AUTOMATED 229 10^3/uL (150-450); WHITE BLOOD COUNT 7.7 10^3/uL (4.0-10.0)
[2021-01-29 13:32] LABS: APPEARANCE, URINE CLOUDY (CLEAR); BACTERIA, URINE AUTO NEGATIVE (NEGATIVE); BILIRUBIN, URINE AUTO NEGATIVE (NEGATIVE); BLOOD, URINE BLOOD 2+ (NEGATIVE); COLOR, URINE YELLOW (YELLOW); GLUCOSE, URINE (UA) AUTO NEGATIVE (NEGATIVE); KETONE, URINE AUTO NEGATIVE (NEGATIVE); LEUKOCYTE ESTERASE, URINE AUTO 3+ (NEGATIVE); MUCUS, URINE LARGE (NEGATIVE); NITRITE, URINE AUTO POSITIVE (NEGATIVE); PROTEIN, URINE AUTO NEGATIVE (NEGATIVE); RBC, URINE AUTO 6 /HPF (0-3); SPECIFIC GRAVITY URINE AUTO 1.012 (1.002-1.035); SQUAMOUS EPITHELIAL CELL UR AU 1 /HPF (0-6); UROBILINOGEN, URINE AUTO 0.2 mg/dL (0.0-2.0); WBC, URINE AUTO 69 /HPF (0-3)
[2021-01-29 13:34] LABS: INR 1.52; PROTHROMBIN TIME 18.6 SECONDS (12.5-14.3)
[2021-01-29 13:35] LABS: PARTIAL THROMBOPLASTIN TIME 39.9 SECONDS (24.2-38.5)
[2021-01-29 13:42] LABS: BLOOD UREA NITROGEN 12 MG/DL (7-18); CALCIUM LEVEL 8.6 MG/DL (8.8-10.2); CARBON DIOXIDE LEVEL 31 MEQ/L (21-32); CHLORIDE LEVEL 102 MEQ/L (98-107); CREATININE FOR GFR 0.99 MG/DL (0.70-1.30); GLOMERULAR FILTRATION RATE > 60.0 (>42); GLUCOSE, FASTING 108 MG/DL (70-100); POTASSIUM SERUM 4.3 MEQ/L (3.5-5.1); SODIUM LEVEL 137 MEQ/L (136-145)
== END ==
LOC: M LAB 11:11
PROVIDERS: ATTEND Nurse Practitioner Women's Health
DX: Z01.818 Encounter for other preprocedural examination (principal); N48.89 Other specified disorders of penis; R33.9 Retention of urine, unspecified

== ENCOUNTER → 2021-01-29 | Outpatient (CLI) | payer MEDICARE, MEDICAID ==
[~2021-01-29] MED LIST changes: +ASPI81CH33 PO; +CALCCAP4 PO; +FERR325T16 PO; +ISOS1TAB35 PO
--- NOTE | 2021-01-29 13:24 | REP ---
INDICATION: DYSPHAGIA LAB 1ST EKG 2ND XRAYS 3RD. COMPARISON: None. TECHNIQUE: The procedure was performed by Leonie Camacho [facility], under the direct supervision of Dr. Srinivasan. The procedure was performed with Marie Cox from speech pathology present. 5 ml aliquots of honey, pudding, mixed fruit with a nectar base, soft food, nectar and pill consistency barium was administered. FINDINGS: Flash penetration was visualized with nectar thick consistency barium. The detailed report of this examination will be provided by speech pathology. IMPRESSION: Flash penetration visualized with nectar thick consistency, a detailed report will be provided by speech pathology. 1.3 minutes of fluoroscopy time was utilized for this procedure. Some fluoroscopic images are performed with last image hold technology. These images require no additional radiation <Electronically signed by Leonie Camacho > 01/29/21 1302 <Electronically signed by Jordan Srinivasan > 01/29/21 1320
[2021-01-29 13:27] LABS: ALBUMIN 3.4 GM/DL (3.2-5.2); ALT/SGPT 22 U/L (12-78); BILIRUBIN,TOTAL 0.2 MG/DL (0.2-1.0); BLOOD UREA NITROGEN 12 MG/DL (7-18); CALCIUM LEVEL 8.7 MG/DL (8.8-10.2); CARBON DIOXIDE LEVEL 30 MEQ/L (21-32); CHLORIDE LEVEL 103 MEQ/L (98-107); GLOMERULAR FILTRATION RATE > 60.0 (>42); GLUCOSE, FASTING 99 MG/DL (70-100); POTASSIUM SERUM 4.4 MEQ/L (3.5-5.1); SODIUM LEVEL 135 MEQ/L (136-145); TOTAL PROTEIN 6.7 GM/DL (6.4-8.2)
[2021-01-29 13:36] LABS: INR 1.52; PROTHROMBIN TIME 18.6 SECONDS (12.5-14.3)
[2021-01-29 13:36] LABS: BASO # 0.1 10^3/uL (0.0-0.2); BASO % 0.9 % (0.0-1.0); EOS # 0.2 10^3/uL (0.0-0.5); EOS % 2.1 % (0.0-3.0); HEMATOCRIT 34.5 % (42.0-52.0); HEMOGLOBIN 10.5 g/dl (13.5-17.5); LYMPH # 1.7 10^3/uL (1.5-5.0); LYMPH % 22.8 % (24.0-44.0); MEAN CORPUSCULAR HEMOGLOBIN 25.2 pg (27.0-33.0); MEAN CORPUSCULAR HGB CONC 30.4 g/dl (32.0-36.5); MEAN CORPUSCULAR VOLUME 82.7 fl (80.0-96.0); MONO # 0.9 10^3/uL (0.0-0.8); MONO % 11.6 % (2.0-8.0); NEUTROPHILS # 4.7 10^3/uL (1.5-8.5); NEUTROPHILS % 62.2 % (36.0-66.0); PLATELET COUNT, AUTOMATED 226 10^3/uL (150-450); RED BLOOD COUNT 4.17 10^6/uL (4.30-6.10); WHITE BLOOD COUNT 7.5 10^3/uL (4.0-10.0)
[2021-01-29 15:37] LABS: HEMOGLOBIN A1c 4.9 %
== END ==
LOC: M LAB 11:05 → M ST 11:05
PROVIDERS: ATTEND Family Medicine
DX: Z01.818 Encounter for other preprocedural examination (principal); R13.10 Dysphagia, unspecified; E11.69 Type 2 diabetes mellitus with other specified complication; N48.89 Other specified disorders of penis; R33.9 Retention of urine, unspecified; Z79.01 Long term (current) use of anticoagulants

== ENCOUNTER → 2021-02-03 | Outpatient (CLI) | payer MEDICARE, MEDICAID | LOC: M LABSMTC 08:16 | PROVIDERS: ATTEND Anesthesiology | DX: Z01.812 Encounter for preprocedural laboratory examination (principal); Z20.822 Contact with and (suspected) exposure to COVID-19 ==

== ENCOUNTER 2021-02-08 06:09 | Day surgery (SDC) | payer MEDICARE, MEDICAID ==
[~2021-02-08] VITALS: Ht 175.3 cm; Wt 78.0 kg
[~2021-02-08 06:09] MED LIST changes: +LIDOCAINE 1% MDV 20ML VIAL SQ PRN
[2021-02-08] MEDS ORDERED: VANCOMYCIN 1000MG/20ML VIAL As Ordered ONE (06:47)
[2021-02-08] MEDS ORDERED: VANCOMYCIN HCL 1,000 MG, VIAL MATE ADAPTER 1 EACH in NS 250 ML IV ONE (07:00)
[2021-02-08] MEDS ORDERED: GENTAMICIN 100 MG in IV 1 EA IV ONE (07:00)
[2021-02-08] MEDS ORDERED: LR 1,000 ML IV ONE (07:00)
[2021-02-08] MEDS ORDERED: LIDOCAINE 2% 100MG/5ML SDV (FOR ANES.) As Ordered ONE (07:14)
[2021-02-08] MEDS ORDERED: propofoL 200 MG/20 ML VIAL As Ordered ONE (07:14)
[2021-02-08] MEDS ORDERED: BUPIVACAINE HCL 0.25% 30ML VIAL As Ordered ONE (07:14)
[2021-02-08] MEDS ORDERED: fentaNYL 100 MCG/2 ML INJECTION (J3010) As Ordered ONE (07:14)
[2021-02-08] MEDS ORDERED: LIDOCAINE 1% SDV 30ML VIAL As Ordered ONE (07:14)
[2021-02-08] MEDS ORDERED: dexameTHASONE 4 MG/ML 1ML VIAL (J1100 PER 1MG) As Ordered ONE (07:15)
[2021-02-08] MEDS ORDERED: ONDANSETRON 4MG/2ML VIAL As Ordered ONE (07:15)
[2021-02-08] MEDS ORDERED: GENTAMICIN SULF 80MG/2ML VIAL As Ordered ONE (07:27)
[2021-02-08] MEDS ORDERED: GENTAMICIN 80 MG in IV 1 EA IV ONE (07:45)
[2021-02-08] MEDS ORDERED: GLYCOPYRROLATE INJ 0.2 MG/ML 2 ML VIAL As Ordered ONE (07:55)
--- NOTE | 2021-02-08 09:44 | ROOPDOC ---
[facility] Report Of Operation Report of Operation DATE OF PROCEDURE: 02/08/21 PREPROCEDURE DIAGNOSIS: Urinary Retention, Penile Erosion. POSTPROCEDURE DIAGNOSIS: Urinary Retention, Penile Erosion. PROCEDURE: Open cystotomy, suprapubic catheter placement. SURGEON: Johnna Casey MD SAND CASTER APPRENTICE: None. ANESTHESIA: General. 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 Due to significant ventral penile erosion, we discussed him undergoing suprapubic catheter placement, and he was brought to the operating room today for that procedure. DESCRIPTION OF PROCEDURE: The patient was brought to the operating room, and general anesthesia was induced. Culture specific antibiotics were infused. He was then placed in the supine position, and prepped and draped in the usual sterile fashion. At this point, a #18-Turkish Rodriguez catheter was inserted into the urethra and advanced to the bladder. The balloon was filled with 10 mL of sterile water, and the catheter was plugged. At this point, a 4-5 cm vertical incision was made in the suprapubic area. After making incision we then dissected down through the subcutaneous tissues with Bovie electrocautery. The fascia was entered. We then kept dissecting down until the bladder was identified. At this point, a spinal needle was used to aspirate and this confirmed that we were at the bladder. Once this was confirmed, a #2-0 Vicryl pursestring stitch was placed in the dome of the bladder. Next, a Bovie was used to make a small cystotomy in the dome of the bladder. A #20-Turkish Rodriguez catheter was inserted through the cystotomy, and then 7 mL of sterile water was used to inflate the balloon. The pursestring stitch was then tied down around the catheter. The catheter was then irrigated and irrigated well. At this point, we checked for hemostasis and cauterized any small areas of bleeding with the Bovie. After confirming good hemostasis, we began to close. Prior to closing the field was irrigated thoroughly with warm saline. The fascia was then closed with several figure-of-8 #1 non-looped PDS sutures. The subcutaneous tissues were then reapproximated with interrupted #3-0 Vicryl sutures. The wound was irrigated thoroughly prior to placing the chromic sutures. The skin was then closed with running #4-0 Monocryl subcuticular stitch, and Dermabond was applied to the incisions. The suprapubic catheter was then sutured into the skin as well as two separate #2-0 Prolene stitches. The wound was then dressed, and this marked conclusion of procedure. The urethral catheter was then removed from the bladder at this time. The patient was awakened from anesthesia and transported to the recovery room in stable condition. ESTIMATED BLOOD LOSS: 10 mL. COMPLICATIONS: None. SPECIMENS: None. PLAN: The patient will followup in the clinic in approximately 6 weeks to have his first change. JOHNNA CASEY MD Feb 08, 2021 09:44
[2021-02-08] MEDS ORDERED: OXYC1TAB23 PO (09:45)
[2021-02-08] MEDS ORDERED: oxyCODONE 5MG TAB PO PRN (10:10)
[2021-02-08] MEDS ORDERED: ONDANSETRON 4MG/2ML VIAL IV PRN (10:10)
[2021-02-08] MEDS ORDERED: fentaNYL 100 MCG/2 ML INJECTION (J3010) IV PRN (10:10)
[2021-02-08] MEDS ORDERED: NS 1,000 ML IV SCH (10:15)
[2021-02-08] MEDS ORDERED: PERCOCET 5MG/325MG TAB PO PRN (10:20)
[2021-02-08 11:01] VITALS: BP 135/76
== END 2021-02-08 11:03 | disposition home or self-care (01) ==
LOC: M SDC 06:09
PROVIDERS: ATTEND Urology
DX: R33.9 Retention of urine, unspecified (principal); Z43.3 Encounter for attention to colostomy; I10 Essential (primary) hypertension; E11.69 Type 2 diabetes mellitus with other specified complication; R60.9 Edema, unspecified; J44.9 Chronic obstructive pulmonary disease, unspecified; E78.49 Other hyperlipidemia; E87.6 Hypokalemia; Z86.16 Personal history of COVID-19; Z86.718 Personal history of other venous thrombosis and embolism; I25.10 Atherosclerotic heart disease of native coronary artery without angina pectoris; E03.9 Hypothyroidism, unspecified; D64.9 Anemia, unspecified; F32.9 Major depressive disorder, single episode, unspecified; F41.9 Anxiety disorder, unspecified; Z79.01 Long term (current) use of anticoagulants; Z79.82 Long term (current) use of aspirin; Z79.899 Other long term (current) drug therapy
CPT/HCPCS: 51040; J1100; J1580; J2405; J3010; J3370

== ENCOUNTER → 2021-02-22 | Outpatient (CLI) | payer MEDICARE, MEDICAID ==
[~2021-02-22] MED LIST changes: -LIDOCAINE 1% MDV 20ML VIAL SQ PRN; +OXYC1TAB23 PO
--- NOTE | 2021-02-22 14:53 | REP ---
INDICATION: CHRONIC DIASTOLIC (CONGESTIVE) HEART FAILURE. COMPARISON: Chest 01/29/2021, CT 12/11/2020 TECHNIQUE: AP lateral seated FINDINGS: Lung davis appear only marginally adequate in degree of inflation compared to the previous study left atrial enlargement is noted. Slightly globular contour to the heart as on the previous chest. There is vascular engorgement with redistribution and prominence of upper lobe pulmonary veins but the margins of the vessels are distinct indicating venous hypertension but not interstitial edema. No dense consolidation or parenchymal mass. Increased markings posteriorly in the lower lung zone may reflect some subsegmental or dependent atelectasis. I could not exclude small effusions. A a calcified tortuous aorta unchanged. Bony thorax shows marginal osteophytes throughout the mid and lower thoracic spine without acute compression deformity. Bones do appear demineralized. The AC and glenohumeral joints with degenerative changes as well. IMPRESSION: Prominence of the cardiac silhouette as before with evidence of pulmonary venous hypertension but no interstitial or alveolar edema. Possibly small pleural effusions present with some subtle increased density posterior lower lung zones on the lateral view. Tortuous calcified aorta. Degenerative changes of the spine and shoulders. <Electronically signed by Fabrice Cherry > 02/22/21 1771
== END ==
LOC: M RAD 12:10
PROVIDERS: ATTEND Internal Medicine Nephrology
DX: I50.32 Chronic diastolic (congestive) heart failure (principal)

== ENCOUNTER → 2021-03-13 | Outpatient (CLI) | payer MEDICARE, MEDICAID ==
[~2021-03-13] MED LIST changes: +FERR324T21 PO; -FERR325T16 PO; -SIME180C PO; +SIME180C25 PO
--- NOTE | 2021-03-13 16:02 | REP ---
INDICATION: BONY PROMINENCE COMPARISON: None. TECHNIQUE: AP, lateral, bilateral oblique views left foot. FINDINGS: Advanced osteopenia and severe arthritic degenerative changes primarily involving the ankle through the tarsometatarsal joints noted. Findings include significant cortical irregularity subchondral heterogeneity/cystic changes, joint space narrowing, osteophytosis, chronic subluxation, and heterotopic ossification. The osseous structures also demonstrate a diffuse mottled appearance. Associated small-vessel peripheral vascular disease noted. IMPRESSION: Advanced degenerative changes. Underlying diabetic neuropathy as well as Sudeck's atrophy (reflex osteodystrophy) are within differential diagnosis. <Electronically signed by Dung Woods > 03/13/21 [id number]
== END ==
LOC: M ADAMS 15:14
PROVIDERS: ATTEND Family Medicine
DX: M89.8X7 Other specified disorders of bone, ankle and foot (principal)
CPT/HCPCS: 73630; G0463

== ENCOUNTER 2021-03-27 11:16 | Emergency (ER) | payer MEDICARE, MEDICAID ==
[~2021-03-27] VITALS: Ht 175.3 cm; Wt 80.5 kg
[~2021-03-27 11:16] MED LIST changes: +BACTDSTA PO; -SULF1TAB93 PO
[2021-03-27 11:18] VITALS: BP 132/61
[2021-03-27 13:28] LABS: BASO # 0.1 10^3/uL (0.0-0.2); BASO % 1.2 % (0.0-1.0); EOS # 0.2 10^3/uL (0.0-0.5); EOS % 2.8 % (0.0-3.0); HEMOGLOBIN 10.3 g/dl (13.5-17.5); LYMPH # 1.9 10^3/uL (1.5-5.0); LYMPH % 33.4 % (24.0-44.0); MEAN CORPUSCULAR HEMOGLOBIN 25.1 pg (27.0-33.0); MEAN CORPUSCULAR HGB CONC 31.2 g/dl (32.0-36.5); MEAN CORPUSCULAR VOLUME 80.5 fl (80.0-96.0); MONO # 0.7 10^3/uL (0.0-0.8); MONO % 11.5 % (2.0-8.0); NEUTROPHILS # 2.9 10^3/uL (1.5-8.5); NEUTROPHILS % 50.9 % (36.0-66.0); PLATELET COUNT, AUTOMATED 290 10^3/uL (150-450); WHITE BLOOD COUNT 5.6 10^3/uL (4.0-10.0)
[2021-03-27 13:39] LABS: INR 1.35
[2021-03-27 13:51] LABS: ALBUMIN 3.4 GM/DL (3.2-5.2); ALT/SGPT 16 U/L (12-78); BILIRUBIN,TOTAL 0.2 MG/DL (0.2-1.0); BLOOD UREA NITROGEN 17 MG/DL (7-18); CALCIUM LEVEL 9.1 MG/DL (8.8-10.2); CARBON DIOXIDE LEVEL 28 MEQ/L (21-32); CHLORIDE LEVEL 105 MEQ/L (98-107); CK-MB VALUE MASS < 1.0 NG/ML (<3.6); CPK CREATINE PHOSPHOKINASE 55 U/L (39-308); CREATININE FOR GFR 0.97 MG/DL (0.70-1.30); GLOMERULAR FILTRATION RATE > 60.0 (>42); GLUCOSE, FASTING 85 MG/DL (70-100); MB/CK RELATIVE INDEX 1.82 (< OR =4); POTASSIUM SERUM 4.6 MEQ/L (3.5-5.1); SODIUM LEVEL 139 MEQ/L (136-145); TOTAL PROTEIN 6.4 GM/DL (6.4-8.2); TROPONIN I < 0.02 NG/ML (< 0.10)
--- NOTE | 2021-03-27 20:31 | ECGEPIP ---
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
== END 2021-03-27 15:43 | disposition home or self-care (01) ==
LOC: M ED 11:16
DX: R31.9 Hematuria, unspecified (principal); I44.0 Atrioventricular block, first degree; I45.10 Unspecified right bundle-branch block; I50.9 Heart failure, unspecified; E11.9 Type 2 diabetes mellitus without complications; I10 Essential (primary) hypertension; E78.5 Hyperlipidemia, unspecified; Z87.448 Personal history of other diseases of urinary system; D64.9 Anemia, unspecified; E03.9 Hypothyroidism, unspecified; R13.10 Dysphagia, unspecified; F70 Mild intellectual disabilities; J44.9 Chronic obstructive pulmonary disease, unspecified; Z87.01 Personal history of pneumonia (recurrent); Z96.0 Presence of urogenital implants; Z90.49 Acquired absence of other specified parts of digestive tract; Z79.01 Long term (current) use of anticoagulants; Z79.82 Long term (current) use of aspirin; Z79.84 Long term (current) use of oral hypoglycemic drugs; Z79.899 Other long term (current) drug therapy

== ENCOUNTER → 2021-04-10 | Outpatient (CLI) | payer MEDICARE, MEDICAID ==
[2021-04-10 14:02] LABS: BASO # 0.1 10^3/uL (0.0-0.2); BASO % 1.2 % (0.0-1.0); EOS # 0.3 10^3/uL (0.0-0.5); EOS % 4.6 % (0.0-3.0); HEMATOCRIT 34.3 % (42.0-52.0); HEMOGLOBIN 10.7 g/dl (13.5-17.5); LYMPH # 2.1 10^3/uL (1.5-5.0); LYMPH % 36.4 % (24.0-44.0); MEAN CORPUSCULAR HEMOGLOBIN 25.2 pg (27.0-33.0); MEAN CORPUSCULAR HGB CONC 31.2 g/dl (32.0-36.5); MEAN CORPUSCULAR VOLUME 80.9 fl (80.0-96.0); MONO # 0.6 10^3/uL (0.0-0.8); MONO % 10.2 % (2.0-8.0); NEUTROPHILS # 2.7 10^3/uL (1.5-8.5); NEUTROPHILS % 47.2 % (36.0-66.0); PLATELET COUNT, AUTOMATED 253 10^3/uL (150-450); RED BLOOD COUNT 4.24 10^6/uL (4.30-6.10); WHITE BLOOD COUNT 5.7 10^3/uL (4.0-10.0)
[2021-04-10 14:26] LABS: ALBUMIN 3.7 GM/DL (3.2-5.2); ALT/SGPT 19 U/L (12-78); BILIRUBIN,TOTAL 0.4 MG/DL (0.2-1.0); BLOOD UREA NITROGEN 23 MG/DL (7-18); CARBON DIOXIDE LEVEL 29 MEQ/L (21-32); CHLORIDE LEVEL 103 MEQ/L (98-107); CHOLESTEROL LEVEL 104 MG/DL (<200); CHOLESTEROL RISK RATIO 2.888 (<5); CREATININE FOR GFR 1.04 MG/DL (0.70-1.30); GLOMERULAR FILTRATION RATE > 60.0 (>42); GLUCOSE, FASTING 83 MG/DL (70-100); HDL CHOLESTEROL 36 MG/DL (>40); LDL CHOLESTEROL 35 MG/DL (<100); NON-HDL-C 68 MG/DL; POTASSIUM SERUM 4.5 MEQ/L (3.5-5.1); SODIUM LEVEL 137 MEQ/L (136-145); TOTAL PROTEIN 6.6 GM/DL (6.4-8.2); TRIGLYCERIDES LEVEL 164 MG/DL (<150)
[2021-04-10 14:33] LABS: PROLACTIN 108.7 NG/ML (2.1-17.7)
[2021-04-10 14:36] LABS: HEMOGLOBIN A1c 5.1 %
== END ==
LOC: M LAB 12:46
PROVIDERS: ATTEND Physician Assistant
DX: Z51.81 Encounter for therapeutic drug level monitoring (principal); Z79.899 Other long term (current) drug therapy

== ENCOUNTER → 2021-04-18 | Outpatient (CLI) | payer MEDICARE, MEDICAID ==
--- NOTE | 2021-04-18 10:14 | REP ---
INDICATION: BRUISING AND BLEEDING COMPARISON: CT dated 09/10/2020 TECHNIQUE: Real time poe scale ultrasound examination using curved array transducer. FINDINGS: Liver is normal in contour, size, and echogenicity without focal hepatic lesions identified. Pancreas is incompletely evaluated due to interposed bowel gas. The gallbladder is normal and without gallstones, wall thickening, or pericholecystic fluid. No biliary ductal dilatation is appreciated and the common bile duct measures 3.0 mm diameter. Right kidney is normal in reniform shape without hydronephrosis and measures 10.5 x 6.7 x 5 cm with 1.8 cm and 1.1 cm benign appearing cysts. No ascites in the visualized right upper quadrant. IMPRESSION: Normal limited right upper quadrant ultrasound Incidental benign appearing right renal cysts <Electronically signed by Dung Woods > 04/18/21 1011
== END ==
LOC: M RAD 09:14
PROVIDERS: ATTEND Family Medicine
DX: R94.5 Abnormal results of liver function studies (principal); N28.1 Cyst of kidney, acquired

== ENCOUNTER → 2021-05-25 | Outpatient (REF) | payer MEDICARE, MEDICAID | LOC: M LAB REF 18:18 | PROVIDERS: ATTEND Physician Assistant | DX: R50.9 Fever, unspecified (principal) ==

== ENCOUNTER → 2021-05-29 | Outpatient (REF) | payer MEDICARE, MEDICAID | LOC: M LAB REF 17:25 | PROVIDERS: ATTEND Internal Medicine Nephrology | DX: N18.2 Chronic kidney disease, stage 2 (mild) (principal) ==

== ENCOUNTER → 2021-06-12 | Outpatient (REF) | payer MEDICARE, MEDICAID ==
[2021-06-12 15:14] LABS: HEMOGLOBIN A1c 5.4 %
[2021-06-12 15:24] LABS: ALT/SGPT 27 U/L (12-78); BLOOD UREA NITROGEN 25 MG/DL (7-18); CALCIUM LEVEL 9.1 MG/DL (8.8-10.2); CARBON DIOXIDE LEVEL 26 MEQ/L (21-32); CHLORIDE LEVEL 107 MEQ/L (98-107); CREATININE FOR GFR 1.23 MG/DL (0.70-1.30); GLOMERULAR FILTRATION RATE > 60.0 (>42); GLUCOSE, FASTING 92 MG/DL (70-100); POTASSIUM SERUM 4.2 MEQ/L (3.5-5.1); SODIUM LEVEL 139 MEQ/L (136-145)
[2021-06-12 15:25] LABS: ALBUMIN 3.8 GM/DL (3.2-5.2); BILIRUBIN,TOTAL 0.4 MG/DL (0.2-1.0); TOTAL PROTEIN 6.9 GM/DL (6.4-8.2)
== END ==
LOC: M SFHCADAM 09:33
PROVIDERS: ATTEND Family Medicine
DX: E11.9 Type 2 diabetes mellitus without complications (principal)

== ENCOUNTER → 2021-07-31 | Outpatient (CLI) | payer MEDICARE, MEDICAID ==
--- NOTE | 2021-07-31 13:07 | REP ---
INDICATION: COUGH. COMPARISON: 02/22/2021 TECHNIQUE: AP and lateral FINDINGS: The superior mediastinal structures are midline. The cardiac silhouette is enlarged. The diaphragmatic surfaces of the lungs are regular, and the costophrenic angles are clear. The pulmonary davis are clear. The imaged osseous structures are intact. The technique utilized in obtaining the radiograph has magnified the cardiac silhouette and attenuated the interstitial markings. IMPRESSION: Cardiomegaly accentuated by technique. There is no evidence of acute cardiopulmonary disease <Electronically signed by Duncan Pepe > 07/31/21 [id number]
== END ==
LOC: M RAD 11:57
DX: R05 Cough (principal); I51.7 Cardiomegaly

== ENCOUNTER 2021-08-15 09:02 | Emergency (ER) | payer MEDICARE, MEDICAID ==
[~2021-08-15] VITALS: Ht 175.3 cm; Wt 80.1 kg
[2021-08-15] MEDS ORDERED: PRED20TA (09:51)
[2021-08-15] MEDS ORDERED: CEFD1CAP8 (09:51)
[2021-08-15 10:07] LABS: BASO # 0.1 10^3/uL (0.0-0.2); BASO % 0.6 % (0.0-1.0); EOS # 0.1 10^3/uL (0.0-0.5); HEMATOCRIT 35.4 % (42.0-52.0); HEMOGLOBIN 11.1 g/dl (13.5-17.5); LYMPH # 2.6 10^3/uL (1.5-5.0); LYMPH % 28.9 % (24.0-44.0); MEAN CORPUSCULAR HEMOGLOBIN 24.7 pg (27.0-33.0); MEAN CORPUSCULAR HGB CONC 31.4 g/dl (32.0-36.5); MEAN CORPUSCULAR VOLUME 78.8 fl (80.0-96.0); MONO # 0.8 10^3/uL (0.0-0.8); MONO % 9.5 % (2.0-8.0); NEUTROPHILS # 5.2 10^3/uL (1.5-8.5); NEUTROPHILS % 59.3 % (36.0-66.0); PLATELET COUNT, AUTOMATED 358 10^3/uL (150-450); RED BLOOD COUNT 4.49 10^6/uL (4.30-6.10); WHITE BLOOD COUNT 8.8 10^3/uL (4.0-10.0)
[2021-08-15 10:24] LABS: BLOOD UREA NITROGEN 21 MG/DL (7-18); CALCIUM LEVEL 8.7 MG/DL (8.8-10.2); CARBON DIOXIDE LEVEL 30 MEQ/L (21-32); CHLORIDE LEVEL 103 MEQ/L (98-107); CREATININE FOR GFR 1.08 MG/DL (0.70-1.30); GLOMERULAR FILTRATION RATE > 60.0 (>42); GLUCOSE, FASTING 92 MG/DL (70-100); SODIUM LEVEL 138 MEQ/L (136-145)
[2021-08-15 11:00] LABS: INR 1.54; PROTHROMBIN TIME 18.9 SECONDS (12.7-14.5)
[2021-08-15 11:01] LABS: PARTIAL THROMBOPLASTIN TIME 35.7 SECONDS (25.9-37.0)
[2021-08-15 11:17] LABS: APPEARANCE, URINE MANUAL TURBID (CLEAR); BILIRUBIN, URINE MANUAL OBSCURED (NEGATIVE); COLOR, URINE MANUAL RED (YELLOW); GLUCOSE, URINE (UA) MANUAL NEGATIVE (NEGATIVE); KETONE, URINE MANUAL OBSCURED mg/dL (NEGATIVE); LEUKOCYTE ESTERASE, URINE MAN POSITIVE (NEGATIVE); NITRITE, URINE MANUAL OBSCURED (NEGATIVE); SPECIFIC GRAVITY,URINE MANUAL 1.005 (1.002-1.035); UROBILINOGEN, URINE MANUAL OBSCURED mg/dl (NORMAL)
[2021-08-15 11:18] LABS: BLOOD URINE MANUAL POSITIVE (NEGATIVE)
[2021-08-15 11:19] LABS: BACTERIA, URINE NONE SEEN; HYALINE CAST, URINE NONE SEEN /lpf (0-1); RBC, URINE TNTC /hpf (0-3); SQUAMOUS EPITHELIAL CELL URINE NONE SEEN /hpf (SMALL AMT); WBC, URINE 30-40 /hpf (0-3)
--- NOTE | 2021-08-15 15:34 | SMCUROLCON ---
Urology Consultation General Date of Consultation 08/15/21 Reason For Consultation asked to see re gross hematuria History of Present Illness 76yo wm with sp tube. Sent to [facility] er because of gross hematuria. Facility irrigated sp tube without much success. Allergies Allergies: Coded Allergies: No Known Allergies (Unverified , 02/01/21) Vital Signs/I&O Vital Signs Date Time Temp Pulse Resp B/P (MAP) Pulse Ox O2 Delivery O2 Flow Rate FiO2 08/15/21 14:00 47 131/66 (87) 93 08/15/21 09:08 96.3 18 Room Air Laboratory Data 24H Labs Laboratory Tests 2 08/15/21 09:47: Immature Granulocyte % (Auto) 0.7, Neutrophils (%) (Auto) 59.3, Lymphocytes (%) (Auto) 28.9, Monocytes (%) (Auto) 9.5H, Eosinophils (%) (Auto) 1.0, Basophils (%) (Auto) 0.6, Neutrophils # (Auto) 5.2, Lymphocytes # (Auto) 2.6, Monocytes # (Auto) 0.8, Eosinophils # (Auto) 0.1, Basophils # (Auto) 0.1, Nucleated Red Blood Cells % (auto) 0.0, Anion Gap 5L, Glomerular Filtration Rate > 60.0, Calcium Level 8.7L 08/15/21 10:03: Prothrombin Time 18.9H, Prothromb Time International Ratio 1.54, Activated Partial Thromboplast Time 35.7 08/15/21 10:05: Bedside Urine Color (LAB) REDH, Bedside Urine Appearance (LAB) TURBIDH, Bedside Urine pH (LAB) 8.0, Bedside Urine Specific [place] (LAB 1.005, Bedside Urine Protein (LAB) +, Bedside Urine Glucose (UA) NEGATIVE, Bedside Urine Ketones (LAB) OBSCUREDH, Bedside Urine Blood POSITIVEH, Bedside Urine Nitrite (LAB) OBSCUREDH, Bedside Urine Bilirubin (LAB) OBSCUREDH, Bedside Urine Urobilinogen ( LAB) OBSCUREDH, Bedside Urine Leukocyte Esterase (L POSITIVEH, Urine Sediment Examination PERFORMED, Urine RBC TNTCH, Urine WBC 30-40H, Urine Squamous Epithelial Cells NONE SEEN, Urine Bacteria NONE SEEN, Urine Hyaline Casts NONE SEEN CBC/BMP Laboratory Tests 08/15/21 09:47 Microbiology Microbiology 08/15/21 Urine Culture, Received Pending Assessment sp tube and gross hematuria er irrigated sp tube to clear when I first saw pt, urine was clear Plan I changed sp tube using sterile technique without event. 20fr catheter placed. Pt can be discharged back to facility. I will arrange for f/u in the office. Continue with sp tube changes at facility. No need to stop Xarelto or aspirin at this time. Sp tube itself can cause gross hematuria. Possible uti. Uti can cause gross hematuria. Pt on Xarelto and aspirin which contributed. I see cefdinir in pt's medication list though I don't know if he's currently on it. If so, fine. If not, suggest oral antibiotic for several days. thank you [phone] GEOVANY SCHNEIDER MD Aug 15, 2021 15:34
[2021-08-15 16:55] VITALS: BP 132/62
== END 2021-08-15 17:07 | disposition home or self-care (01) ==
LOC: M ED 09:02 → EDBD 09:02 → M ED 17:07
DX: R31.9 Hematuria, unspecified (principal); N40.0 Benign prostatic hyperplasia without lower urinary tract symptoms; G47.33 Obstructive sleep apnea (adult) (pediatric); R91.1 Solitary pulmonary nodule; Z86.718 Personal history of other venous thrombosis and embolism; J44.9 Chronic obstructive pulmonary disease, unspecified; F32.9 Major depressive disorder, single episode, unspecified; F10.20 Alcohol dependence, uncomplicated; I31.3 Pericardial effusion (noninflammatory); Z79.82 Long term (current) use of aspirin; Z79.899 Other long term (current) drug therapy

== ENCOUNTER → 2021-09-06 | Outpatient (CLI) | payer MEDICARE, MEDICAID ==
[~2021-09-06] MED LIST changes: +CEFD1CAP8; +PRED20TA
[2021-09-06 16:42] LABS: ALBUMIN 3.3 GM/DL (3.2-5.2); ALT/SGPT 17 U/L (12-78); BILIRUBIN,TOTAL 0.3 MG/DL (0.2-1.0); BLOOD UREA NITROGEN 14 MG/DL (7-18); CALCIUM LEVEL 8.6 MG/DL (8.8-10.2); CARBON DIOXIDE LEVEL 29 MEQ/L (21-32); CHLORIDE LEVEL 106 MEQ/L (98-107); GLOMERULAR FILTRATION RATE > 60.0 (>42); GLUCOSE, FASTING 83 MG/DL (70-100); POTASSIUM SERUM 3.6 MEQ/L (3.5-5.1); SODIUM LEVEL 140 MEQ/L (136-145); TOTAL PROTEIN 6.2 GM/DL (6.4-8.2)
[2021-09-06 16:54] LABS: HEMOGLOBIN A1c 5.1 %
== END ==
LOC: M WUC 13:09
PROVIDERS: ATTEND Family Medicine
DX: E11.69 Type 2 diabetes mellitus with other specified complication (principal)

== ENCOUNTER → 2021-09-26 | Outpatient (CLI) | payer MEDICARE, MEDICAID ==
[~2021-09-26] MED LIST changes: -MAGN400T3 PO; +MAGN400T33 PO
--- NOTE | 2021-09-26 15:53 | REP ---
INDICATION: URINARY RETENTION, HEMATURIA. COMPARISON: 09/10/2020, 06/15/2020 CT TECHNIQUE: No oral or IV contrast with axial soft tissue windows and both coronal and sagittal reconstructions provided. FINDINGS: CT abdomen/pelvis: There is some mild basilar fibrotic changes and bronchiectatic change noted without pleural effusion or acute infiltrate, appearance stable the heart is enlarged. There is pericardial effusion posteriorly, the its maximum thickness 2 cm current Renuka previously 2.8 cm do not see any anterior fluid. Left atrium is enlarged there are calcifications at the mitral annulus, coronary arteries and aortic valve plane. Descending abdominal aorta also show atherosclerotic calcifications without aneurysm. Grossly enlarged. There is no fatty infiltration. I see no biliary dilatation, ascites, cyst or solid mass. Gallbladder is contracted is stomach is filled with retained food. No calcified stone identified. Pancreas grossly unremarkable. Adrenal glands symmetric and unchanged. Right kidney shows a 2 cm cyst posteriorly the upper pole unchanged. Left kidney also has an exophytic 18 mm cyst medially off its upper pole and a hyperdense lower pole cyst measuring 18 mm.. No periaortic, other retroperitoneal or mesenteric pathologic sized lymphadenopathy. Spleen is not enlarged shows no focal lesion there is no adjacent ascites small bowel loops within the abdomen shows gas and fluid without dilatation or air-fluid levels there is stool and gas in the colon but no abnormal dilatation. There is now an ostomy in the left mid abdomen through the left rectus muscle. The Eugenia pouch in the deep pelvis at the rectosigmoid junction. No abdominal or pelvic ascites. See no hydronephrosis, cyst or solid mass no renal or ureteral stone no ureteral dilatation. Bladder is collapsed in the shows some wall thickening. There is a suprapubic Rodriguez catheter is seen into the bladder with its balloon inflated within. Only small amount of fluid in the dependent bladder. The bladder wall is thickened which may relate to cystitis or underfilling. There is no pelvic free fluid or fluid in the peritoneal gutters. Previously noted massive distension of the sigmoid and left colon are resolved with the colostomy and resection. There is no ventral or inguinal hernia nor pathologic sized inguinal adenopathy. Atherosclerotic calcifications aorta iliac and femoral arteries. Bone windows show demineralization in the spine but no compression deformity or destructive lesion there is facet arthropathy lower lumbar spine and marginal osteophytes greater in the lower thoracic region ribs, sacrum, pelvis and hips also show degenerative changes but no fracture or destructive lesion IMPRESSION: 1. Suprapubic catheter noted with the Rodriguez balloon inflated within small amount of urine seen within it and air bladder wall is thickened which may be due to cystitis and/or underfilling. No evidence of a urinary leak or free fluid in the pelvis. 2. Left mid abdominal ostomy via the left rectus muscle with Eugenia pouch in the rectosigmoid junction and resection of portion of left colon and sigmoid since the prior CT. 3. Upper poles with exophytic cyst for both kidneys but no hydronephrosis, stone, hydroureter or ureteral stone. No gross atrophy, perinephric fluid or other acute finding. There is a hyperdense cyst in the lower pole on the left 1.8 cm. No other significant or new finding. <Electronically signed by Fabrice Cherry > 09/26/21 0120
== END ==
LOC: M RAD 14:06
PROVIDERS: ATTEND Nurse Practitioner Women's Health
DX: R33.9 Retention of urine, unspecified (principal); R31.0 Gross hematuria; N39.0 Urinary tract infection, site not specified; J84.10 Pulmonary fibrosis, unspecified; J47.9 Bronchiectasis, uncomplicated; I70.0 Atherosclerosis of aorta; N28.1 Cyst of kidney, acquired; Z93.3 Colostomy status; Z96.0 Presence of urogenital implants; Z90.49 Acquired absence of other specified parts of digestive tract

== ENCOUNTER → 2021-12-05 | Outpatient (REF) | payer MEDICARE, MEDICAID ==
[~2021-12-05] MED LIST changes: -CEFD1CAP8; +CEFD300C41; -LEVO500T3 PO; +LEVO500T4 PO; +OMEP-173 PO; -OMEP-218 PO
== END ==
LOC: M LABDRWAD 12:51
PROVIDERS: ATTEND Family Medicine
DX: R05.9 Cough, unspecified (principal)
CPT/HCPCS: G0463; U0003

== ENCOUNTER → 2021-12-13 | Outpatient (CLI) | payer MEDICARE, MEDICAID ==
[2021-12-13 11:08] LABS: ALBUMIN 3.6 GM/DL (3.2-5.2); BILIRUBIN,TOTAL 0.2 MG/DL (0.2-1.0); CALCIUM LEVEL 8.9 MG/DL (8.8-10.2); CREATININE FOR GFR 1.4 MG/DL (0.70-1.30); GLOMERULAR FILTRATION RATE 52.5 (>42); POTASSIUM SERUM 4.8 MEQ/L (3.5-5.1); TOTAL PROTEIN 7.2 GM/DL (6.4-8.2)
[2021-12-13 11:29] LABS: HEMOGLOBIN A1c 5.1 %
== END ==
LOC: M LAB 10:18
PROVIDERS: ATTEND Family Medicine
DX: E11.69 Type 2 diabetes mellitus with other specified complication (principal)

== ENCOUNTER → 2022-02-06 | Outpatient (REF) | payer MEDICARE, MEDICAID ==
[2022-02-06 18:28] LABS: PERCENT SATURATION 9.3 % (19.7-50.0)
== END ==
LOC: M LAB REF 16:48
PROVIDERS: ATTEND Internal Medicine Nephrology
DX: N18.9 Chronic kidney disease, unspecified (principal); D63.1 Anemia in chronic kidney disease; Z93.6 Other artificial openings of urinary tract status

== ENCOUNTER 2022-02-26 11:05 | Outpatient (CLI) | payer MEDICARE, MEDICAID ==
[~2022-02-26] VITALS: Ht 175.3 cm; Wt 80.0 kg
[~2022-02-26 11:05] MED LIST changes: +ALBUTEROL SULFATE 2.5 MG/0.5 ML INH NEB SOLN INH PRN; +EPINEPHrine INJ 1 MG/ML 1ML AMP IM PRN; +FERRIC CARBOXYMALTOSE INJ 750 MG, VIAL MATE ADAPTER 1 EACH in NS 250 ML IV ONE; +NS 1,000 ML IV SCH; +diphenhydrAMINE 50MG/ML VIAL (J1200) IV PRN; +methylPREDNISolone 125MG 2ML VIAL IV PRN
[2022-02-26 11:15] VITALS: BP 128/63
[2022-02-26 12:48] VITALS: BP 134/70
== END 2022-02-26 12:45 | disposition home or self-care (01) ==
LOC: M INFU 11:05
PROVIDERS: ATTEND Internal Medicine Nephrology
DX: E61.1 Iron deficiency (principal)
CPT/HCPCS: 96365; J1439

== ENCOUNTER → 2022-03-12 | Outpatient (CLI) | payer MEDICARE, MEDICAID ==
[~2022-03-12] MED LIST changes: -ALBUTEROL SULFATE 2.5 MG/0.5 ML INH NEB SOLN INH PRN; -EPINEPHrine INJ 1 MG/ML 1ML AMP IM PRN; -FERRIC CARBOXYMALTOSE INJ 750 MG, VIAL MATE ADAPTER 1 EACH in NS 250 ML IV ONE; -NS 1,000 ML IV SCH; -diphenhydrAMINE 50MG/ML VIAL (J1200) IV PRN; -methylPREDNISolone 125MG 2ML VIAL IV PRN
== END ==
LOC: M ADAMS 09:52
PROVIDERS: ATTEND Family Medicine
DX: M51.37 Other intervertebral disc degeneration, lumbosacral region (principal); M51.34 Other intervertebral disc degeneration, thoracic region; I51.7 Cardiomegaly; R05.9 Cough, unspecified; M54.50 Low back pain, unspecified

== ENCOUNTER → 2022-04-14 | Outpatient (CLI) | payer MEDICARE, MEDICAID ==
[~2022-04-14] MED LIST changes: +ALBU2.5V10 INH; +ALBU2.5V10 NEB; -ALBU83IN INH; -ALBU83IN NEB
== END ==
LOC: M WUC 12:04
DX: R05.9 Cough, unspecified (principal); I51.7 Cardiomegaly; R91.8 Other nonspecific abnormal finding of lung field; Z20.822 Contact with and (suspected) exposure to COVID-19
CPT/HCPCS: 71046; 87426; C9803

== ENCOUNTER → 2022-04-14 | Outpatient (CLI) | payer MEDICARE, MEDICAID | LOC: M LABSMTC 11:41 | PROVIDERS: ATTEND Pediatrics | DX: Z20.822 Contact with and (suspected) exposure to COVID-19 (principal) ==

== ENCOUNTER → 2022-04-30 | Outpatient (REF) | payer MEDICARE, MEDICAID ==
[2022-04-30 10:07] LABS: APPEARANCE, URINE CLEAR (CLEAR); BACTERIA, URINE AUTO 1+ (NEGATIVE); BILIRUBIN, URINE AUTO NEGATIVE (NEGATIVE); BLOOD, URINE BLOOD 3+ (NEGATIVE); COLOR, URINE YELLOW (YELLOW); GLUCOSE, URINE (UA) AUTO NEGATIVE (NEGATIVE); KETONE, URINE AUTO NEGATIVE (NEGATIVE); LEUKOCYTE ESTERASE, URINE AUTO 3+ (NEGATIVE); MUCUS, URINE SMALL (NEGATIVE); NITRITE, URINE AUTO NEGATIVE (NEGATIVE); PROTEIN, URINE AUTO NEGATIVE (NEGATIVE); RBC, URINE AUTO 3 /HPF (0-3); SPECIFIC GRAVITY URINE AUTO 1.008 (1.002-1.035); SQUAMOUS EPITHELIAL CELL UR AU 0 /HPF (0-6); UROBILINOGEN, URINE AUTO 0.2 mg/dL (0.0-2.0); WBC, URINE AUTO 31 /HPF (0-3)
== END ==
LOC: M SMT 09:25
PROVIDERS: ATTEND Physician Assistant
DX: R31.0 Gross hematuria (principal)

== ENCOUNTER → 2022-05-02 | Outpatient (REF) | payer MEDICARE, MEDICAID ==
[~2022-05-02] MED LIST changes: +BUPR300T92 PO; +BUSP5TA PO; +JANU25TA PO; +OXYB10TA23 PO
[2022-05-02 13:44] LABS: ALBUMIN 2.9 GM/DL (3.2-5.2); BILIRUBIN,TOTAL 0.3 MG/DL (0.2-1.0); CALCIUM LEVEL 9.3 MG/DL (8.8-10.2); CREATININE FOR GFR 1.33 MG/DL (0.70-1.30); GLOMERULAR FILTRATION RATE 55.5 (>42); POTASSIUM SERUM 4.2 MEQ/L (3.5-5.1)
[2022-05-02 14:38] LABS: HEMOGLOBIN A1c 4.7 %
== END ==
LOC: M SFHCADAM 10:27
PROVIDERS: ATTEND Family Medicine
DX: E11.69 Type 2 diabetes mellitus with other specified complication (principal)

== ENCOUNTER → 2022-05-08 | Outpatient (CLI) | payer MEDICARE, MEDICAID ==
[2022-05-08 10:26] LABS: BASO # 0.1 10^3/uL (0.0-0.2); BASO % 0.9 % (0.0-1.0); EOS # 0.1 10^3/uL (0.0-0.5); EOS % 1.2 % (0.0-3.0); HEMATOCRIT 25.6 % (42.0-52.0); HEMOGLOBIN 7.7 g/dl (13.5-17.5); LYMPH # 1.4 10^3/uL (1.5-5.0); LYMPH % 17.1 % (24.0-44.0); MEAN CORPUSCULAR HEMOGLOBIN 23.6 pg (27.0-33.0); MEAN CORPUSCULAR HGB CONC 30.1 g/dl (32.0-36.5); MEAN CORPUSCULAR VOLUME 78.5 fl (80.0-96.0); MONO # 0.6 10^3/uL (0.0-0.8); MONO % 7.4 % (2.0-8.0); NEUTROPHILS # 5.9 10^3/uL (1.5-8.5); PLATELET COUNT, AUTOMATED 409 10^3/uL (150-450); RED BLOOD COUNT 3.26 10^6/uL (4.30-6.10); WHITE BLOOD COUNT 8.1 10^3/uL (4.0-10.0)
== END ==
LOC: M WUC 09:11
PROVIDERS: ATTEND Family Medicine
DX: D69.9 Hemorrhagic condition, unspecified (principal)

== ENCOUNTER 2022-05-09 10:37 | Inpatient (IN) | payer MEDICARE, MEDICAID ==
[~2022-05-09] VITALS: Ht 175.3 cm; Wt 78.6 kg
[2022-05-09] VITALS (10 sets, daily range): BP systolic 122–169; BP diastolic 56–77
[~2022-05-09 10:37] MED LIST changes: -BUPR300T92 PO; -BUSP5TA PO; -JANU25TA PO; -OXYB10TA23 PO
[2022-05-09] MEDS ORDERED: FURO20TA2 PO (12:11)
[2022-05-09] MEDS ORDERED: BUPR300T92 PO (12:11)
[2022-05-09] MEDS ORDERED: OXYB10TA23 PO (12:11)
[2022-05-09] MEDS ORDERED: POTA20EL PO (12:11)
[2022-05-09] MEDS ORDERED: JANU25TA PO (12:11)
[2022-05-09 13:33] LABS: RSV AMPLIFICATION NEGATIVE (NEGATIVE)
[2022-05-09 13:33] LABS: BASO # 0.1 10^3/uL (0.0-0.2); BASO % 0.8 % (0.0-1.0); EOS # 0.2 10^3/uL (0.0-0.5); EOS % 2.1 % (0.0-3.0); HEMATOCRIT 22.9 % (42.0-52.0); LYMPH # 1.9 10^3/uL (1.5-5.0); LYMPH % 21.3 % (24.0-44.0); MEAN CORPUSCULAR HEMOGLOBIN 23.8 pg (27.0-33.0); MEAN CORPUSCULAR HGB CONC 30.1 g/dl (32.0-36.5); MONO # 0.9 10^3/uL (0.0-0.8); MONO % 10.7 % (2.0-8.0); NEUTROPHILS # 5.6 10^3/uL (1.5-8.5); NEUTROPHILS % 64.8 % (36.0-66.0); PLATELET COUNT, AUTOMATED 397 10^3/uL (150-450); WHITE BLOOD COUNT 8.7 10^3/uL (4.0-10.0)
[2022-05-09] MEDS ORDERED: BUSP5TA PO (13:42)
[2022-05-09] MEDS ORDERED: OMEP-173 PO (13:42)
[2022-05-09 13:45] LABS: HEMOGLOBIN 6.9 g/dl (13.5-17.5)
[2022-05-09] MEDS ORDERED: HOME MED LIST COMPLETE! XX SCH (13:45)
[2022-05-09 13:57] LABS: CK-MB VALUE MASS < 1.0 NG/ML (<3.6); CPK CREATINE PHOSPHOKINASE 48 U/L (39-308); MB/CK RELATIVE INDEX 2.08 (< OR =4)
[2022-05-09 13:59] LABS: ALBUMIN 2.1 GM/DL (3.2-5.2); ALT/SGPT 12 U/L (12-78); BILIRUBIN,DIRECT < 0.1 MG/DL (0.0-0.2); BILIRUBIN,TOTAL 0.3 MG/DL (0.2-1.0); BLOOD UREA NITROGEN 21 MG/DL (7-18); CALCIUM LEVEL 7.9 MG/DL (8.8-10.2); CARBON DIOXIDE LEVEL 24 MEQ/L (21-32); CHLORIDE LEVEL 108 MEQ/L (98-107); CREATININE FOR GFR 1.04 MG/DL (0.70-1.30); GLOMERULAR FILTRATION RATE > 60.0 (>42); GLUCOSE, FASTING 94 MG/DL (70-100); LIPASE 89 U/L (73-393); POTASSIUM SERUM 5.4 MEQ/L (3.5-5.1); SODIUM LEVEL 140 MEQ/L (136-145); TOTAL PROTEIN 5.6 GM/DL (6.4-8.2)
[2022-05-09 14:02] LABS: INR 1.32; PROTHROMBIN TIME 16.8 SECONDS (12.7-14.5)
[2022-05-09 14:03] LABS: PARTIAL THROMBOPLASTIN TIME 47.1 SECONDS (25.9-37.0)
[2022-05-09] MEDS ORDERED: ISOVUE-370 76% 100ML VIAL As Ordered ONE (14:21)
[2022-05-09] MEDS ORDERED: ACETAMINOPHEN 500 MG TAB PO PRN (18:10)
[2022-05-09] MEDS ORDERED: FUROSEMIDE 40MG/4ML VIAL (J1940) IV ONE (18:50)
[2022-05-09] MEDS ORDERED: oxyBUTYnin *DITROPAN XL* 5 MG TABCR PO SCH (21:00)
[2022-05-09] MEDS ORDERED: ESCITALOPRAM OXALATE 10 MG TAB (LEXAPRO) PO SCH (21:00)
[2022-05-09] MEDS ORDERED: risperiDONE 2 MG TAB PO SCH (21:00)
[2022-05-09] MEDS ORDERED: ATORVASTATIN 20 MG TAB PO SCH (21:00)
[2022-05-09 22:23] LABS: BASO # 0.1 10^3/uL (0.0-0.2); BASO % 0.8 % (0.0-1.0); EOS # 0.2 10^3/uL (0.0-0.5); HEMATOCRIT 31.6 % (42.0-52.0); LYMPH # 1.6 10^3/uL (1.5-5.0); LYMPH % 18.1 % (24.0-44.0); MEAN CORPUSCULAR HEMOGLOBIN 24.4 pg (27.0-33.0); MEAN CORPUSCULAR HGB CONC 30.7 g/dl (32.0-36.5); MEAN CORPUSCULAR VOLUME 79.6 fl (80.0-96.0); MONO # 0.8 10^3/uL (0.0-0.8); MONO % 9.4 % (2.0-8.0); NEUTROPHILS # 6.1 10^3/uL (1.5-8.5); NEUTROPHILS % 69.5 % (36.0-66.0); PLATELET COUNT, AUTOMATED 401 10^3/uL (150-450); RED BLOOD COUNT 3.97 10^6/uL (4.30-6.10); WHITE BLOOD COUNT 8.8 10^3/uL (4.0-10.0)
[2022-05-09 22:34] LABS: HEMOGLOBIN 9.7 g/dl (13.5-17.5)
[2022-05-09] MEDS: POTASSIUM CHLORIDE 10% LIQ 20 MEQ/15 ML UDC PO SCH (23:00)
[2022-05-09] MEDS: SODIUM BICARBONATE 325 MG TAB PO SCH (23:00)
[2022-05-09] MEDS: MIRALAX *UNIT DOSE* 17GM PACKET PO SCH (23:01)
[2022-05-09] MEDS: busPIRone 5 MG TAB PO SCH (23:01)
[2022-05-10 06:00] VITALS: BP 123/55
[2022-05-10] MEDS ORDERED: LEVOTHYROXINE 125MCG TABLET (0.125MG) PO SCH (06:00)
[2022-05-10 07:18] LABS: BASO # 0.1 10^3/uL (0.0-0.2); BASO % 0.8 % (0.0-1.0); EOS # 0.2 10^3/uL (0.0-0.5); EOS % 1.9 % (0.0-3.0); HEMATOCRIT 29.3 % (42.0-52.0); HEMOGLOBIN 9.2 g/dl (13.5-17.5); LYMPH # 1.2 10^3/uL (1.5-5.0); LYMPH % 14.5 % (24.0-44.0); MEAN CORPUSCULAR HEMOGLOBIN 24.9 pg (27.0-33.0); MEAN CORPUSCULAR HGB CONC 31.4 g/dl (32.0-36.5); MEAN CORPUSCULAR VOLUME 79.4 fl (80.0-96.0); MONO # 0.7 10^3/uL (0.0-0.8); NEUTROPHILS # 6.1 10^3/uL (1.5-8.5); NEUTROPHILS % 74.3 % (36.0-66.0); PLATELET COUNT, AUTOMATED 400 10^3/uL (150-450); RED BLOOD COUNT 3.69 10^6/uL (4.30-6.10); WHITE BLOOD COUNT 8.3 10^3/uL (4.0-10.0)
[2022-05-10 07:45] LABS: BLOOD UREA NITROGEN 20 MG/DL (7-18); CALCIUM LEVEL 8.9 MG/DL (8.8-10.2); CARBON DIOXIDE LEVEL 25 MEQ/L (21-32); CHLORIDE LEVEL 101 MEQ/L (98-107); CREATININE FOR GFR 1.18 MG/DL (0.70-1.30); GLOMERULAR FILTRATION RATE > 60.0 (>42); GLUCOSE, FASTING 128 MG/DL (70-100); POTASSIUM SERUM 3.8 MEQ/L (3.5-5.1); SODIUM LEVEL 138 MEQ/L (136-145)
[2022-05-10] MEDS ORDERED: TIOTROPIUM INHALER/CAPSULE (SPIRIVA) INH SCH (08:00)
[2022-05-10] MEDS ORDERED: buPROPion **XL** TABLET 150MG (WELLBUTRIN XL) PO SCH (09:00)
[2022-05-10] MEDS ORDERED: OMEPRAZOLE 20MG CAP PO SCH (09:00)
[2022-05-10] MEDS ORDERED: ASPIRIN 81 MG CHEW TABLET PO SCH (09:00)
[2022-05-10] MEDS ORDERED: MAGNESIUM OXIDE 400MG TAB (MAG-OX) PO SCH (09:00)
[2022-05-10] MEDS: busPIRone 5 MG TAB PO SCH (09:36)
[2022-05-10] MEDS: POTASSIUM CHLORIDE 10% LIQ 20 MEQ/15 ML UDC PO SCH (09:36)
[2022-05-10] MEDS: SODIUM BICARBONATE 325 MG TAB PO SCH (09:36)
[2022-05-10] MEDS: MIRALAX *UNIT DOSE* 17GM PACKET PO SCH (09:36)
[2022-05-10] MEDS ORDERED: FERROUS GLUCONATE 324 MG TAB PO SCH (16:00)
== END 2022-05-10 17:45 | disposition home or self-care (01) | DRG 687 ==
LOC: EDBD 10:37 → M ED 10:37 → M ED INP 17:55 → ENRESERV 20:06 → M MSPAV 21:10
PROVIDERS: ADMIT Internal Medicine Nephrology; ATTEND Internal Medicine Nephrology
PROC: 30233N1 Transfusion of Nonautologous Red Blood Cells into Peripheral Vein, Percutaneous Approach (ICD-10-PCS; principal; 2022-05-09)
DX: C64.2 Malignant neoplasm of left kidney, except renal pelvis (principal); D62 Acute posthemorrhagic anemia; C79.89 Secondary malignant neoplasm of other specified sites; I10 Essential (primary) hypertension; J44.9 Chronic obstructive pulmonary disease, unspecified; E03.9 Hypothyroidism, unspecified; E11.9 Type 2 diabetes mellitus without complications; F70 Mild intellectual disabilities; E78.5 Hyperlipidemia, unspecified; G47.33 Obstructive sleep apnea (adult) (pediatric); M54.9 Dorsalgia, unspecified; R31.9 Hematuria, unspecified; M19.90 Unspecified osteoarthritis, unspecified site; F32.A Depression, unspecified; E87.6 Hypokalemia; R13.10 Dysphagia, unspecified; R91.1 Solitary pulmonary nodule; I08.1 Rheumatic disorders of both mitral and tricuspid valves; N40.0 Benign prostatic hyperplasia without lower urinary tract symptoms; Z87.442 Personal history of urinary calculi; Z86.718 Personal history of other venous thrombosis and embolism; Z96.652 Presence of left artificial knee joint; Z79.01 Long term (current) use of anticoagulants; Z79.899 Other long term (current) drug therapy; Z79.82 Long term (current) use of aspirin

== ENCOUNTER → 2022-05-15 | Outpatient (CLI) | payer MEDICARE, MEDICAID ==
[~2022-05-15] MED LIST changes: +BUPR300T92 PO; +BUSP5TA PO; +JANU25TA PO; +OXYB10TA23 PO
[2022-05-15 11:41] LABS: HEMATOCRIT 31.8 % (42.0-52.0); HEMOGLOBIN 9.4 g/dl (13.5-17.5); MEAN CORPUSCULAR HEMOGLOBIN 23.9 pg (27.0-33.0); MEAN CORPUSCULAR HGB CONC 29.6 g/dl (32.0-36.5); MEAN CORPUSCULAR VOLUME 80.7 fl (80.0-96.0); PLATELET COUNT, AUTOMATED 456 10^3/uL (150-450); RED BLOOD COUNT 3.94 10^6/uL (4.30-6.10); WHITE BLOOD COUNT 8.6 10^3/uL (4.0-10.0)
== END ==
LOC: M WUC 09:03
PROVIDERS: ATTEND Nurse Practitioner Women's Health
DX: R31.0 Gross hematuria (principal)

== ENCOUNTER → 2022-06-05 | Outpatient (CLI) | payer MEDICARE, MEDICAID ==
[~2022-06-05] MED LIST changes: +LEVO1TAB39 PO; -LEVO500T4 PO
[2022-06-05 12:41] LABS: BASO # 0.1 10^3/uL (0.0-0.2); BASO % 0.8 % (0.0-1.0); EOS # 0.1 10^3/uL (0.0-0.5); EOS % 1.4 % (0.0-3.0); HEMOGLOBIN 9.3 g/dl (13.5-17.5); LYMPH # 1.6 10^3/uL (1.5-5.0); LYMPH % 18.8 % (24.0-44.0); MEAN CORPUSCULAR HEMOGLOBIN 23.5 pg (27.0-33.0); MEAN CORPUSCULAR HGB CONC 29.1 g/dl (32.0-36.5); MONO # 0.9 10^3/uL (0.0-0.8); MONO % 10.2 % (2.0-8.0); NEUTROPHILS # 5.9 10^3/uL (1.5-8.5); NEUTROPHILS % 68.2 % (36.0-66.0); PLATELET COUNT, AUTOMATED 436 10^3/uL (150-450); RED BLOOD COUNT 3.95 10^6/uL (4.30-6.10); WHITE BLOOD COUNT 8.7 10^3/uL (4.0-10.0)
== END ==
LOC: M WUC 10:37
PROVIDERS: ATTEND Family Medicine
DX: D50.0 Iron deficiency anemia secondary to blood loss (chronic) (principal)

== ENCOUNTER → 2022-06-27 | Outpatient (CLI) | payer MEDICARE, MEDICAID ==
[~2022-06-27] MED LIST changes: +ISOVUE-370 76% 100ML VIAL As Ordered ONE
== END ==
LOC: M RAD 10:39
PROVIDERS: ATTEND Nurse Practitioner Women's Health
DX: N28.9 Disorder of kidney and ureter, unspecified (principal); N31.0 Uninhibited neuropathic bladder, not elsewhere classified
CPT/HCPCS: 74178; Q9967

== ENCOUNTER → 2022-07-21 | Outpatient (CLI) | payer MEDICARE, MEDICAID ==
[~2022-07-21] MED LIST changes: +ALBU8.5H INH; +ASPI-161 PO; +CALC-356 PO; +CVS13CRE EXT; +FLON1SPR; +GUAI100L57 PO; -ISOVUE-370 76% 100ML VIAL As Ordered ONE; +LIDOCAINE 1% MDV 20ML VIAL As Ordered ONE; +MIRA1POW3 PO; +ONDA4TAB6 PO; +TRIPOIN11 EXT
[2022-07-21 11:22] VITALS: BP 118/56
== END ==
LOC: M IRPRO 09:58
PROVIDERS: ATTEND Family Medicine
DX: R19.02 Left upper quadrant abdominal swelling, mass and lump (principal)

== ENCOUNTER 2022-07-23 19:01 | Inpatient (IN) | payer MEDICARE, MEDICAID ==
[~2022-07-23] VITALS: Ht 175.3 cm; Wt 55.1 kg
[~2022-07-23 19:01] MED LIST changes: -ALBU8.5H INH; -ASPI-161 PO; -CALC-356 PO; -CVS13CRE EXT; -GUAI100L57 PO; -LIDOCAINE 1% MDV 20ML VIAL As Ordered ONE; -MIRA1POW3 PO; -ONDA4TAB6 PO; -TRIPOIN11 EXT
[2022-07-23] MEDS ORDERED: ceFAZolin SOD 2 GM in IV 1 EA IV ONE (19:30)
[2022-07-23] MEDS ORDERED: ISOVUE-370 76% 100ML VIAL As Ordered ONE (19:41)
[2022-07-23 19:50] LABS: BASO # 0.1 10^3/uL (0.0-0.2); BASO % 0.2 % (0.0-1.0); EOS # 0.1 10^3/uL (0.0-0.5); EOS % 0.2 % (0.0-3.0); HEMATOCRIT 22.3 % (42.0-52.0); LYMPH # 1.5 10^3/uL (1.5-5.0); LYMPH % 7.6 % (24.0-44.0); MEAN CORPUSCULAR HEMOGLOBIN 22.6 pg (27.0-33.0); MEAN CORPUSCULAR HGB CONC 29.1 g/dl (32.0-36.5); MEAN CORPUSCULAR VOLUME 77.4 fl (80.0-96.0); MONO # 1.1 10^3/uL (0.0-0.8); MONO % 5.4 % (2.0-8.0); NEUTROPHILS # 17.1 10^3/uL (1.5-8.5); NEUTROPHILS % 85.4 % (36.0-66.0); PLATELET COUNT, AUTOMATED 583 10^3/uL (150-450); RED BLOOD COUNT 2.88 10^6/uL (4.30-6.10); WHITE BLOOD COUNT 20.1 10^3/uL (4.0-10.0)
[2022-07-23 19:55] LABS: HEMOGLOBIN 6.5 g/dl (13.5-17.5)
[2022-07-23 20:07] LABS: INR 1.17; PROTHROMBIN TIME 15.3 SECONDS (12.7-14.5)
[2022-07-23 20:08] LABS: PARTIAL THROMBOPLASTIN TIME 36.9 SECONDS (25.9-37.0)
[2022-07-23 20:26] LABS: CK-MB VALUE MASS < 1.0 NG/ML (<3.6); CPK CREATINE PHOSPHOKINASE 21 U/L (39-308); MB/CK RELATIVE INDEX 4.76 (< OR =4)
[2022-07-23 20:31] LABS: ALBUMIN 1.9 GM/DL (3.2-5.2); BILIRUBIN,DIRECT 0.1 MG/DL (0.0-0.2); BILIRUBIN,TOTAL 0.3 MG/DL (0.2-1.0); CALCIUM LEVEL 8.3 MG/DL (8.8-10.2); CREATININE FOR GFR 1.44 MG/DL (0.70-1.30); GLOMERULAR FILTRATION RATE 50.6 (>42); POTASSIUM SERUM 5.1 MEQ/L (3.5-5.1); TOTAL PROTEIN 5.8 GM/DL (6.4-8.2)
[2022-07-23] MEDS ORDERED: INSULIN LISPRO (NovoLOG) PER UNIT SC SCH (21:00)
[2022-07-23] MEDS ORDERED: GLUCAGON INJ 1MG VIAL SC PRN (21:20)
[2022-07-23] MEDS ORDERED: GLUCOSE 4GM CHEW TABLET PO PRN (21:20)
[2022-07-23] MEDS ORDERED: NS 500 ML IV ONE (21:20)
[2022-07-23] MEDS ORDERED: DEXTROSE 50% 50 ML SYRINGE IV PRN (21:20)
[2022-07-23] MEDS: NS 1,000 ML IV SCH (22:39)
[2022-07-23] MEDS ORDERED: MIRA1POW3 PO (23:06)
[2022-07-23] MEDS ORDERED: GUAI100L57 PO (23:06)
[2022-07-23] MEDS ORDERED: ALBU2.5V10 INH (23:06)
[2022-07-23] MEDS ORDERED: HYDR-4571 PO (23:06)
[2022-07-23] MEDS ORDERED: CVS13CRE EXT (23:06)
[2022-07-23] MEDS ORDERED: TRIPOIN11 EXT (23:06)
[2022-07-23] MEDS ORDERED: ASPI-161 PO (23:06)
[2022-07-23] MEDS ORDERED: CALC-356 PO (23:06)
[2022-07-23] MEDS ORDERED: ONDA4TAB6 PO (23:06)
[2022-07-23] MEDS ORDERED: TRAM50TA2 PO (23:06)
[2022-07-23] MEDS ORDERED: ALBU8.5H INH (23:06)
[2022-07-23] MEDS ORDERED: HOME MED LIST COMPLETE! XX SCH (23:10)
[2022-07-23 23:33] VITALS: BP 137/65
[2022-07-23 23:48] VITALS: BP 131/63
[2022-07-24] VITALS (11 sets, daily range): BP systolic 106–135; BP diastolic 53–64
[2022-07-24] MEDS ORDERED: PIPERACILLIN/TAZOBACTAM SOD 3.375 GM in D5W MINI-BAG PLUS 50 ML IV ONE ×2
[2022-07-24 05:45] LABS: HEMOGLOBIN 7.4 g/dl (13.5-17.5); MEAN CORPUSCULAR HEMOGLOBIN 23.3 pg (27.0-33.0); MEAN CORPUSCULAR HGB CONC 29.6 g/dl (32.0-36.5); MEAN CORPUSCULAR VOLUME 78.6 fl (80.0-96.0); PLATELET COUNT, AUTOMATED 579 10^3/uL (150-450); RED BLOOD COUNT 3.18 10^6/uL (4.30-6.10); WHITE BLOOD COUNT 22.2 10^3/uL (4.0-10.0)
[2022-07-24] MEDS: INSULIN LISPRO (NovoLOG) PER UNIT SC SCH ×5 (06:00→23:06)
[2022-07-24 06:40] LABS: BLOOD UREA NITROGEN 23 MG/DL (7-18); CALCIUM LEVEL 8.2 MG/DL (8.8-10.2); CARBON DIOXIDE LEVEL 25 MEQ/L (21-32); CHLORIDE LEVEL 99 MEQ/L (98-107); CREATININE FOR GFR 1.19 MG/DL (0.70-1.30); GLOMERULAR FILTRATION RATE > 60.0 (>42); GLUCOSE, FASTING 85 MG/DL (70-100); POTASSIUM SERUM 4.6 MEQ/L (3.5-5.1); SODIUM LEVEL 132 MEQ/L (136-145)
[2022-07-24] MEDS: NS 1,000 ML IV SCH ×2 (07:13→21:14)
[2022-07-24] MEDS ORDERED: INSULIN LISPRO (NovoLOG) PER UNIT SC SCH (07:30)
[2022-07-24] MEDS: TIOTROPIUM INHALER/CAPSULE (SPIRIVA) INH SCH (08:00)
[2022-07-24] MEDS: PIPERACILLIN/TAZOBACTAM SOD 3.375 GM in D5W MINI-BAG PLUS 50 ML IV SCH ×2 (11:15→21:14)
[2022-07-24] MEDS ORDERED: ALBUTEROL SULFATE 2.5 MG/0.5 ML INH NEB SOLN INH PRN (12:05)
[2022-07-24] MEDS: VANCOMYCIN HCL 750 MG, VIAL MATE ADAPTER 1 EACH in D5W 250 ML IV SCH ×2 (12:50→23:06)
[2022-07-24] MEDS ORDERED: VANCOMYCIN HCL 1,000 MG, VIAL MATE ADAPTER 1 EACH in NS 250 ML IV ONE (13:00)
[2022-07-24] MEDS: LEVOTHYROXINE 125MCG TABLET (0.125MG) PO SCH (13:39)
[2022-07-24] MEDS: busPIRone 5 MG TAB PO SCH ×2 (13:40→21:24)
[2022-07-24] MEDS: FERROUS GLUCONATE 324 MG TAB PO SCH (13:40)
[2022-07-24] MEDS: buPROPion **XL** TABLET 150MG (WELLBUTRIN XL) PO SCH (13:41)
[2022-07-24] MEDS: OMEPRAZOLE 20MG CAP PO SCH (13:41)
[2022-07-24 13:50] LABS: HEMATOCRIT 24.6 % (42.0-52.0); HEMOGLOBIN 7.5 g/dl (13.5-17.5); MEAN CORPUSCULAR HGB CONC 30.5 g/dl (32.0-36.5); MEAN CORPUSCULAR VOLUME 78.8 fl (80.0-96.0); PLATELET COUNT, AUTOMATED 551 10^3/uL (150-450); RED BLOOD COUNT 3.12 10^6/uL (4.30-6.10); WHITE BLOOD COUNT 19.1 10^3/uL (4.0-10.0)
[2022-07-24 14:15] LABS: OSMOLALITY URINE 406 MOSM/KG (50-1400)
[2022-07-24 14:31] LABS: SODIUM,RANDOM URINE 56 MEQ/L
[2022-07-24] MEDS ORDERED: LIDOCAINE 2% 100MG/5ML SDV (FOR ANES.) As Ordered ONE (17:07)
[2022-07-24] MEDS ORDERED: propofoL 200 MG/20 ML VIAL As Ordered ONE (17:07)
[2022-07-24] MEDS ORDERED: ROCURONIUM BROMIDE 50 MG/5 ML VIAL As Ordered ONE (17:07)
[2022-07-24] MEDS ORDERED: ONDANSETRON 4MG 2ML VIAL As Ordered ONE (17:07)
[2022-07-24] MEDS ORDERED: SUGAMMADEX SODIUM 500 MG/5 ML VIAL (BRIDION) As Ordered ONE (17:07)
[2022-07-24] MEDS ORDERED: fentaNYL 100 MCG/2 ML INJECTION As Ordered ONE (17:07)
[2022-07-24] MEDS ORDERED: ePHEDrine SULFATE 25 MG/5 ML(5MG/ML) SYRINGE As Ordered ONE (17:09)
[2022-07-24] MEDS ORDERED: dexameTHASONE 4 MG/ML 1ML VIAL (J1100 PER 1MG) As Ordered ONE (17:09)
[2022-07-24] MEDS ORDERED: HYDROMORPHONE HCL 0.5 MG/ 0.5 ML SYRINGE (J1170 PER 1) IV PRN (18:55)
[2022-07-24] MEDS ORDERED: oxyCODONE 5MG TAB PO PRN (18:55)
[2022-07-24] MEDS ORDERED: LR 1,000 ML IV SCH (18:55)
[2022-07-24] MEDS ORDERED: ONDANSETRON 4MG 2ML VIAL IV PRN (18:55)
[2022-07-24] MEDS ORDERED: fentaNYL 100 MCG/2 ML INJECTION IV PRN (18:55)
[2022-07-24] MEDS ORDERED: SYMBICORT 160/4.5MCG INHALER 6GM INH SCH (20:00)
[2022-07-24] MEDS ORDERED: HEPARIN SOD (PORCINE) 5000UNITS/ML 1ML VIAL/SYRINGE SC SCH (21:00)
[2022-07-24] MEDS: ATORVASTATIN 20 MG TAB PO SCH (21:24)
[2022-07-24] MEDS: oxyBUTYnin *DITROPAN XL* 5 MG TABCR PO SCH (21:24)
[2022-07-24] MEDS: ESCITALOPRAM OXALATE 10 MG TAB (LEXAPRO) PO SCH (21:25)
[2022-07-24 23:07] LABS: HEMOGLOBIN 9.2 g/dl (13.5-17.5)
[2022-07-25] MEDS: PIPERACILLIN/TAZOBACTAM SOD 3.375 GM in D5W MINI-BAG PLUS 50 ML IV SCH ×5 (01:00→23:04)
[2022-07-25] MEDS: HYDROMORPHONE HCL 0.5 MG/ 0.5 ML SYRINGE (J1170 PER 1) IV PRN ×2 (02:28→08:07)
[2022-07-25 05:02] LABS: BASO % 0.2 % (0.0-1.0); HEMATOCRIT 27.1 % (42.0-52.0); HEMOGLOBIN 8.6 g/dl (13.5-17.5); LYMPH # 0.8 10^3/uL (1.5-5.0); LYMPH % 6.2 % (24.0-44.0); MEAN CORPUSCULAR HEMOGLOBIN 25.2 pg (27.0-33.0); MEAN CORPUSCULAR HGB CONC 31.7 g/dl (32.0-36.5); MEAN CORPUSCULAR VOLUME 79.5 fl (80.0-96.0); MONO # 0.4 10^3/uL (0.0-0.8); MONO % 2.9 % (2.0-8.0); NEUTROPHILS # 11.5 10^3/uL (1.5-8.5); NEUTROPHILS % 88.6 % (36.0-66.0); PLATELET COUNT, AUTOMATED 526 10^3/uL (150-450); RED BLOOD COUNT 3.41 10^6/uL (4.30-6.10)
[2022-07-25 05:34] LABS: ALBUMIN 1.9 GM/DL (3.2-5.2); ALT/SGPT < 6 U/L (12-78); BLOOD UREA NITROGEN 22 MG/DL (7-18); CALCIUM LEVEL 8.4 MG/DL (8.8-10.2); CARBON DIOXIDE LEVEL 20 MEQ/L (21-32); CHLORIDE LEVEL 103 MEQ/L (98-107); CREATININE FOR GFR 1.09 MG/DL (0.70-1.30); GLOMERULAR FILTRATION RATE > 60.0 (>42); GLUCOSE, FASTING 127 MG/DL (70-100); POTASSIUM SERUM 4.6 MEQ/L (3.5-5.1); SODIUM LEVEL 134 MEQ/L (136-145); TOTAL PROTEIN 5.3 GM/DL (6.4-8.2)
[2022-07-25] MEDS: INSULIN LISPRO (NovoLOG) PER UNIT SC SCH ×4 (05:39→21:00)
[2022-07-25] MEDS: NS 1,000 ML IV SCH ×2 (05:55→17:19)
[2022-07-25] MEDS: LEVOTHYROXINE 125MCG TABLET (0.125MG) PO SCH (05:56)
[2022-07-25 06:00] VITALS: BP 123/58
[2022-07-25 07:56] VITALS: BP 126/66
[2022-07-25] MEDS: FERROUS GLUCONATE 324 MG TAB PO SCH (08:01)
[2022-07-25] MEDS: OMEPRAZOLE 20MG CAP PO SCH (08:01)
[2022-07-25] MEDS: busPIRone 5 MG TAB PO SCH ×2 (08:01→23:05)
[2022-07-25] MEDS: buPROPion **XL** TABLET 150MG (WELLBUTRIN XL) PO SCH (08:02)
[2022-07-25] MEDS: TIOTROPIUM INHALER/CAPSULE (SPIRIVA) INH SCH (08:22)
[2022-07-25 10:17] LABS: CHOLESTEROL LEVEL 62 MG/DL (<200); CHOLESTEROL RISK RATIO 3.263 (<5); HDL CHOLESTEROL 19 MG/DL (>40); LDL CHOLESTEROL 18 MG/DL (<100); NON-HDL-C 43 MG/DL; TRIGLYCERIDES LEVEL 125 MG/DL (<150)
[2022-07-25] MEDS: VANCOMYCIN HCL 750 MG, VIAL MATE ADAPTER 1 EACH in D5W 250 ML IV SCH (12:00)
[2022-07-25 17:37] LABS: HEMATOCRIT 25.9 % (42.0-52.0); HEMOGLOBIN 7.9 g/dl (13.5-17.5)
[2022-07-25 20:00] VITALS: BP 124/60
[2022-07-25] MEDS: ESCITALOPRAM OXALATE 10 MG TAB (LEXAPRO) PO SCH (23:04)
[2022-07-25] MEDS: oxyBUTYnin *DITROPAN XL* 5 MG TABCR PO SCH (23:04)
[2022-07-25] MEDS: ATORVASTATIN 20 MG TAB PO SCH (23:05)
[2022-07-26 04:00] VITALS: BP 147/71
[2022-07-26] MEDS: PIPERACILLIN/TAZOBACTAM SOD 3.375 GM in D5W MINI-BAG PLUS 50 ML IV SCH ×4 (05:52→22:11)
[2022-07-26] MEDS: LEVOTHYROXINE 125MCG TABLET (0.125MG) PO SCH (05:52)
[2022-07-26 07:10] LABS: HEMATOCRIT 24.8 % (42.0-52.0); HEMOGLOBIN 7.7 g/dl (13.5-17.5); MEAN CORPUSCULAR VOLUME 80.5 fl (80.0-96.0); PLATELET COUNT, AUTOMATED 526 10^3/uL (150-450); RED BLOOD COUNT 3.08 10^6/uL (4.30-6.10); WHITE BLOOD COUNT 8.2 10^3/uL (4.0-10.0)
[2022-07-26 07:39] LABS: BLOOD UREA NITROGEN 22 MG/DL (7-18); CALCIUM LEVEL 8.3 MG/DL (8.8-10.2); CARBON DIOXIDE LEVEL 24 MEQ/L (21-32); CHLORIDE LEVEL 108 MEQ/L (98-107); CREATININE FOR GFR 1.08 MG/DL (0.70-1.30); GLOMERULAR FILTRATION RATE > 60.0 (>42); GLUCOSE, FASTING 88 MG/DL (70-100); POTASSIUM SERUM 3.7 MEQ/L (3.5-5.1); SODIUM LEVEL 138 MEQ/L (136-145)
[2022-07-26] MEDS: TIOTROPIUM INHALER/CAPSULE (SPIRIVA) INH SCH (07:43)
[2022-07-26 08:43] VITALS: BP 140/63
[2022-07-26] MEDS: FERROUS GLUCONATE 324 MG TAB PO SCH (09:00)
[2022-07-26] MEDS: ENOXAPARIN 40MG/0.4ML SYRINGE (J1650 PER 10MG) SC SCH (09:00)
[2022-07-26] MEDS: INSULIN LISPRO (NovoLOG) PER UNIT SC SCH ×4 (09:00→21:00)
[2022-07-26] MEDS: busPIRone 5 MG TAB PO SCH ×2 (09:00→21:23)
[2022-07-26] MEDS: OMEPRAZOLE 20MG CAP PO SCH (09:01)
[2022-07-26] MEDS: NS 1,000 ML IV SCH (09:01)
[2022-07-26] MEDS: buPROPion **XL** TABLET 150MG (WELLBUTRIN XL) PO SCH (09:01)
[2022-07-26 14:35] VITALS: BP 111/52
[2022-07-26 21:00] VITALS: BP 131/63
[2022-07-26] MEDS: oxyBUTYnin *DITROPAN XL* 5 MG TABCR PO SCH (21:23)
[2022-07-26] MEDS: ESCITALOPRAM OXALATE 10 MG TAB (LEXAPRO) PO SCH (21:23)
[2022-07-26] MEDS: ATORVASTATIN 20 MG TAB PO SCH (21:23)
[2022-07-27] MEDS: LEVOTHYROXINE 125MCG TABLET (0.125MG) PO SCH (05:18)
[2022-07-27] MEDS: PIPERACILLIN/TAZOBACTAM SOD 3.375 GM in D5W MINI-BAG PLUS 50 ML IV SCH (05:18)
[2022-07-27 06:00] VITALS: BP 135/59
[2022-07-27 06:27] LABS: HEMATOCRIT 26.1 % (42.0-52.0); MEAN CORPUSCULAR HEMOGLOBIN 24.8 pg (27.0-33.0); MEAN CORPUSCULAR HGB CONC 30.7 g/dl (32.0-36.5); MEAN CORPUSCULAR VOLUME 80.8 fl (80.0-96.0); PLATELET COUNT, AUTOMATED 521 10^3/uL (150-450); RED BLOOD COUNT 3.23 10^6/uL (4.30-6.10); WHITE BLOOD COUNT 7.3 10^3/uL (4.0-10.0)
[2022-07-27 06:55] LABS: BLOOD UREA NITROGEN 18 MG/DL (7-18); CALCIUM LEVEL 8.3 MG/DL (8.8-10.2); CARBON DIOXIDE LEVEL 23 MEQ/L (21-32); CHLORIDE LEVEL 106 MEQ/L (98-107); CREATININE FOR GFR 0.99 MG/DL (0.70-1.30); GLOMERULAR FILTRATION RATE > 60.0 (>42); GLUCOSE, FASTING 96 MG/DL (70-100); SODIUM LEVEL 135 MEQ/L (136-145)
[2022-07-27] MEDS: INSULIN LISPRO (NovoLOG) PER UNIT SC SCH ×4 (07:30→21:00)
[2022-07-27] MEDS: TIOTROPIUM INHALER/CAPSULE (SPIRIVA) INH SCH (08:00)
[2022-07-27] MEDS: ENOXAPARIN 40MG/0.4ML SYRINGE (J1650 PER 10MG) SC SCH (08:40)
[2022-07-27] MEDS: PERCOCET 5MG/325MG TAB PO PRN (08:40)
[2022-07-27] MEDS: buPROPion **XL** TABLET 150MG (WELLBUTRIN XL) PO SCH (08:41)
[2022-07-27] MEDS: busPIRone 5 MG TAB PO SCH ×2 (08:41→21:51)
[2022-07-27] MEDS: FERROUS GLUCONATE 324 MG TAB PO SCH (08:41)
[2022-07-27] MEDS: OMEPRAZOLE 20MG CAP PO SCH (08:41)
[2022-07-27] MEDS: AUGMENTIN 875 MG TAB PO SCH ×2 (13:19→21:51)
[2022-07-27 14:00] VITALS: BP 134/61
[2022-07-27] MEDS: ATORVASTATIN 20 MG TAB PO SCH (21:51)
[2022-07-27] MEDS: oxyBUTYnin *DITROPAN XL* 5 MG TABCR PO SCH (21:51)
[2022-07-27] MEDS: ESCITALOPRAM OXALATE 10 MG TAB (LEXAPRO) PO SCH (21:51)
[2022-07-27 22:00] VITALS: BP 138/63
[2022-07-28] MEDS: LEVOTHYROXINE 125MCG TABLET (0.125MG) PO SCH (05:31)
[2022-07-28 05:49] LABS: HEMATOCRIT 26.5 % (42.0-52.0); HEMOGLOBIN 8.1 g/dl (13.5-17.5); MEAN CORPUSCULAR HEMOGLOBIN 24.9 pg (27.0-33.0); MEAN CORPUSCULAR HGB CONC 30.6 g/dl (32.0-36.5); MEAN CORPUSCULAR VOLUME 81.5 fl (80.0-96.0); PLATELET COUNT, AUTOMATED 506 10^3/uL (150-450); RED BLOOD COUNT 3.25 10^6/uL (4.30-6.10); WHITE BLOOD COUNT 7.1 10^3/uL (4.0-10.0)
[2022-07-28 06:00] VITALS: BP 140/63
[2022-07-28 06:31] LABS: BLOOD UREA NITROGEN 14 MG/DL (7-18); CALCIUM LEVEL 8.1 MG/DL (8.8-10.2); CARBON DIOXIDE LEVEL 24 MEQ/L (21-32); CHLORIDE LEVEL 107 MEQ/L (98-107); CREATININE FOR GFR 0.84 MG/DL (0.70-1.30); GLOMERULAR FILTRATION RATE > 60.0 (>42); GLUCOSE, FASTING 93 MG/DL (70-100); POTASSIUM SERUM 3.8 MEQ/L (3.5-5.1); SODIUM LEVEL 138 MEQ/L (136-145)
[2022-07-28] MEDS: INSULIN LISPRO (NovoLOG) PER UNIT SC SCH ×4 (07:30→20:28)
[2022-07-28] MEDS: TIOTROPIUM INHALER/CAPSULE (SPIRIVA) INH SCH (07:48)
[2022-07-28] MEDS: buPROPion **XL** TABLET 150MG (WELLBUTRIN XL) PO SCH (08:25)
[2022-07-28] MEDS: busPIRone 5 MG TAB PO SCH ×2 (08:25→20:28)
[2022-07-28] MEDS: FERROUS GLUCONATE 324 MG TAB PO SCH (08:25)
[2022-07-28] MEDS: OMEPRAZOLE 20MG CAP PO SCH (08:25)
[2022-07-28] MEDS: AUGMENTIN 875 MG TAB PO SCH ×2 (08:25→20:28)
[2022-07-28] MEDS: ENOXAPARIN 40MG/0.4ML SYRINGE (J1650 PER 10MG) SC SCH (08:26)
[2022-07-28 14:00] VITALS: BP 137/60
[2022-07-28 20:00] VITALS: BP 134/60
[2022-07-28] MEDS: ESCITALOPRAM OXALATE 10 MG TAB (LEXAPRO) PO SCH (20:27)
[2022-07-28] MEDS: ATORVASTATIN 20 MG TAB PO SCH (20:28)
[2022-07-28] MEDS: oxyBUTYnin *DITROPAN XL* 5 MG TABCR PO SCH (20:28)
[2022-07-28 21:00] VITALS: BP 134/60
[2022-07-29] VITALS: PULSE 57
[2022-07-29 04:00] VITALS: PULSE 57
[2022-07-29 04:44] VITALS: BP 130/60
[2022-07-29] MEDS: LEVOTHYROXINE 125MCG TABLET (0.125MG) PO SCH (05:41)
[2022-07-29 06:48] LABS: BASO # 0.1 10^3/uL (0.0-0.2); BASO % 1.8 % (0.0-1.0); EOS # 0.2 10^3/uL (0.0-0.5); EOS % 4.3 % (0.0-3.0); HEMATOCRIT 27.9 % (42.0-52.0); HEMOGLOBIN 8.4 g/dl (13.5-17.5); LYMPH # 1.3 10^3/uL (1.5-5.0); LYMPH % 25.1 % (24.0-44.0); MEAN CORPUSCULAR HEMOGLOBIN 24.7 pg (27.0-33.0); MEAN CORPUSCULAR HGB CONC 30.1 g/dl (32.0-36.5); MEAN CORPUSCULAR VOLUME 82.1 fl (80.0-96.0); MONO # 0.4 10^3/uL (0.0-0.8); MONO % 8.4 % (2.0-8.0); NEUTROPHILS % 58.5 % (36.0-66.0); PLATELET COUNT, AUTOMATED 506 10^3/uL (150-450); WHITE BLOOD COUNT 5.1 10^3/uL (4.0-10.0)
[2022-07-29 07:25] LABS: BLOOD UREA NITROGEN 16 MG/DL (7-18); CALCIUM LEVEL 8.4 MG/DL (8.8-10.2); CARBON DIOXIDE LEVEL 25 MEQ/L (21-32); CHLORIDE LEVEL 107 MEQ/L (98-107); CREATININE FOR GFR 0.87 MG/DL (0.70-1.30); GLOMERULAR FILTRATION RATE > 60.0 (>42); GLUCOSE, FASTING 111 MG/DL (70-100); POTASSIUM SERUM 4.1 MEQ/L (3.5-5.1); SODIUM LEVEL 138 MEQ/L (136-145)
[2022-07-29] MEDS: OMEPRAZOLE 20MG CAP PO SCH (08:28)
[2022-07-29] MEDS: buPROPion **XL** TABLET 150MG (WELLBUTRIN XL) PO SCH (08:29)
[2022-07-29] MEDS: FERROUS GLUCONATE 324 MG TAB PO SCH (08:29)
[2022-07-29] MEDS: AUGMENTIN 875 MG TAB PO SCH ×2 (08:29→20:02)
[2022-07-29] MEDS: ENOXAPARIN 40MG/0.4ML SYRINGE (J1650 PER 10MG) SC SCH (08:29)
[2022-07-29] MEDS: busPIRone 5 MG TAB PO SCH ×2 (08:29→20:02)
[2022-07-29] MEDS: INSULIN LISPRO (NovoLOG) PER UNIT SC SCH ×4 (08:30→21:00)
[2022-07-29 13:57] VITALS: BP 129/57
[2022-07-29] MEDS ORDERED: FUROSEMIDE 20MG/2ML VIAL (J1940) IV ONE (16:30)
[2022-07-29] MEDS: ESCITALOPRAM OXALATE 10 MG TAB (LEXAPRO) PO SCH (20:02)
[2022-07-29] MEDS: oxyBUTYnin *DITROPAN XL* 5 MG TABCR PO SCH (20:02)
[2022-07-29] MEDS: ATORVASTATIN 20 MG TAB PO SCH (20:04)
[2022-07-29 22:00] VITALS: BP 132/64
[2022-07-30 05:53] VITALS: BP 125/56
[2022-07-30] MEDS: LEVOTHYROXINE 125MCG TABLET (0.125MG) PO SCH (05:55)
[2022-07-30 06:26] LABS: BASO # 0.1 10^3/uL (0.0-0.2); BASO % 1.5 % (0.0-1.0); EOS # 0.3 10^3/uL (0.0-0.5); EOS % 3.8 % (0.0-3.0); HEMATOCRIT 30.6 % (42.0-52.0); HEMOGLOBIN 9.3 g/dl (13.5-17.5); LYMPH # 1.7 10^3/uL (1.5-5.0); LYMPH % 23.9 % (24.0-44.0); MEAN CORPUSCULAR HEMOGLOBIN 25.1 pg (27.0-33.0); MEAN CORPUSCULAR HGB CONC 30.4 g/dl (32.0-36.5); MEAN CORPUSCULAR VOLUME 82.5 fl (80.0-96.0); MONO # 0.6 10^3/uL (0.0-0.8); MONO % 8.1 % (2.0-8.0); NEUTROPHILS # 4.4 10^3/uL (1.5-8.5); NEUTROPHILS % 61.2 % (36.0-66.0); PLATELET COUNT, AUTOMATED 540 10^3/uL (150-450); RED BLOOD COUNT 3.71 10^6/uL (4.30-6.10); WHITE BLOOD COUNT 7.2 10^3/uL (4.0-10.0)
[2022-07-30 07:01] LABS: BLOOD UREA NITROGEN 17 MG/DL (7-18); CALCIUM LEVEL 8.7 MG/DL (8.8-10.2); CARBON DIOXIDE LEVEL 26 MEQ/L (21-32); CHLORIDE LEVEL 104 MEQ/L (98-107); CREATININE FOR GFR 0.86 MG/DL (0.70-1.30); GLOMERULAR FILTRATION RATE > 60.0 (>42); GLUCOSE, FASTING 103 MG/DL (70-100); SODIUM LEVEL 136 MEQ/L (136-145)
[2022-07-30] MEDS: TIOTROPIUM INHALER/CAPSULE (SPIRIVA) INH SCH (07:14)
[2022-07-30] MEDS: INSULIN LISPRO (NovoLOG) PER UNIT SC SCH ×4 (08:13→20:37)
[2022-07-30] MEDS: busPIRone 5 MG TAB PO SCH ×2 (08:14→20:04)
[2022-07-30] MEDS: ENOXAPARIN 40MG/0.4ML SYRINGE (J1650 PER 10MG) SC SCH (08:14)
[2022-07-30] MEDS: FERROUS GLUCONATE 324 MG TAB PO SCH (08:14)
[2022-07-30] MEDS: buPROPion **XL** TABLET 150MG (WELLBUTRIN XL) PO SCH (08:14)
[2022-07-30] MEDS: AUGMENTIN 875 MG TAB PO SCH ×2 (08:15→20:03)
[2022-07-30] MEDS: OMEPRAZOLE 20MG CAP PO SCH (08:15)
[2022-07-30 14:00] VITALS: BP 130/64
[2022-07-30 20:00] VITALS: BP 121/54
[2022-07-30] MEDS: oxyBUTYnin *DITROPAN XL* 5 MG TABCR PO SCH (20:04)
[2022-07-30] MEDS: ATORVASTATIN 20 MG TAB PO SCH (20:04)
[2022-07-30] MEDS: ESCITALOPRAM OXALATE 10 MG TAB (LEXAPRO) PO SCH (20:04)
[2022-07-31] MEDS: LEVOTHYROXINE 125MCG TABLET (0.125MG) PO SCH (05:59)
[2022-07-31 06:00] VITALS: BP 120/51
[2022-07-31 06:42] LABS: BASO # 0.1 10^3/uL (0.0-0.2); BASO % 1.2 % (0.0-1.0); EOS # 0.3 10^3/uL (0.0-0.5); EOS % 3.8 % (0.0-3.0); HEMATOCRIT 27.4 % (42.0-52.0); HEMOGLOBIN 8.4 g/dl (13.5-17.5); LYMPH # 1.5 10^3/uL (1.5-5.0); LYMPH % 21.3 % (24.0-44.0); MEAN CORPUSCULAR HEMOGLOBIN 25.2 pg (27.0-33.0); MEAN CORPUSCULAR HGB CONC 30.7 g/dl (32.0-36.5); MEAN CORPUSCULAR VOLUME 82.3 fl (80.0-96.0); MONO # 0.5 10^3/uL (0.0-0.8); MONO % 6.6 % (2.0-8.0); NEUTROPHILS # 4.5 10^3/uL (1.5-8.5); NEUTROPHILS % 66.1 % (36.0-66.0); PLATELET COUNT, AUTOMATED 500 10^3/uL (150-450); RED BLOOD COUNT 3.33 10^6/uL (4.30-6.10); WHITE BLOOD COUNT 6.9 10^3/uL (4.0-10.0)
[2022-07-31] MEDS: TIOTROPIUM INHALER/CAPSULE (SPIRIVA) INH SCH (07:25)
[2022-07-31 07:26] LABS: BLOOD UREA NITROGEN 19 MG/DL (7-18); CALCIUM LEVEL 8.5 MG/DL (8.8-10.2); CARBON DIOXIDE LEVEL 25 MEQ/L (21-32); CHLORIDE LEVEL 103 MEQ/L (98-107); CREATININE FOR GFR 1.04 MG/DL (0.70-1.30); GLOMERULAR FILTRATION RATE > 60.0 (>42); GLUCOSE, FASTING 109 MG/DL (70-100); POTASSIUM SERUM 4.2 MEQ/L (3.5-5.1); SODIUM LEVEL 135 MEQ/L (136-145)
[2022-07-31] MEDS: FERROUS GLUCONATE 324 MG TAB PO SCH (07:42)
[2022-07-31] MEDS: buPROPion **XL** TABLET 150MG (WELLBUTRIN XL) PO SCH (07:42)
[2022-07-31] MEDS: busPIRone 5 MG TAB PO SCH ×2 (07:42→20:08)
[2022-07-31] MEDS: OMEPRAZOLE 20MG CAP PO SCH (07:42)
[2022-07-31] MEDS: AUGMENTIN 875 MG TAB PO SCH ×2 (07:42→20:08)
[2022-07-31] MEDS: INSULIN LISPRO (NovoLOG) PER UNIT SC SCH ×4 (07:43→19:51)
[2022-07-31] MEDS: ENOXAPARIN 40MG/0.4ML SYRINGE (J1650 PER 10MG) SC SCH (07:43)
[2022-07-31] MEDS: PERCOCET 5MG/325MG TAB PO PRN (10:50)
[2022-07-31 14:00] VITALS: BP 120/50
[2022-07-31] MEDS ORDERED: ISOVUE-370 76% 25ML SYRINGE As Ordered ONE (15:26)
[2022-07-31] MEDS: ESCITALOPRAM OXALATE 10 MG TAB (LEXAPRO) PO SCH (20:08)
[2022-07-31] MEDS: oxyBUTYnin *DITROPAN XL* 5 MG TABCR PO SCH (20:08)
[2022-07-31] MEDS: ATORVASTATIN 20 MG TAB PO SCH (20:08)
[2022-08-01] MEDS: LEVOTHYROXINE 125MCG TABLET (0.125MG) PO SCH (05:29)
[2022-08-01 06:00] VITALS: BP 122/55
[2022-08-01 06:36] LABS: HEMATOCRIT 29.3 % (42.0-52.0); HEMOGLOBIN 8.7 g/dl (13.5-17.5); MEAN CORPUSCULAR HEMOGLOBIN 24.6 pg (27.0-33.0); MEAN CORPUSCULAR HGB CONC 29.7 g/dl (32.0-36.5); PLATELET COUNT, AUTOMATED 517 10^3/uL (150-450); RED BLOOD COUNT 3.53 10^6/uL (4.30-6.10); WHITE BLOOD COUNT 8.1 10^3/uL (4.0-10.0)
[2022-08-01 07:03] LABS: BLOOD UREA NITROGEN 16 MG/DL (7-18); CALCIUM LEVEL 8.5 MG/DL (8.8-10.2); CARBON DIOXIDE LEVEL 27 MEQ/L (21-32); CHLORIDE LEVEL 102 MEQ/L (98-107); CREATININE FOR GFR 0.87 MG/DL (0.70-1.30); GLOMERULAR FILTRATION RATE > 60.0 (>42); GLUCOSE, FASTING 86 MG/DL (70-100); POTASSIUM SERUM 4.4 MEQ/L (3.5-5.1); SODIUM LEVEL 133 MEQ/L (136-145)
[2022-08-01] MEDS: TIOTROPIUM INHALER/CAPSULE (SPIRIVA) INH SCH (07:09)
[2022-08-01] MEDS: INSULIN LISPRO (NovoLOG) PER UNIT SC SCH ×4 (07:29→20:55)
[2022-08-01] MEDS: buPROPion **XL** TABLET 150MG (WELLBUTRIN XL) PO SCH (08:39)
[2022-08-01] MEDS: AUGMENTIN 875 MG TAB PO SCH ×2 (08:39→20:13)
[2022-08-01] MEDS: busPIRone 5 MG TAB PO SCH ×2 (08:39→20:13)
[2022-08-01] MEDS: OMEPRAZOLE 20MG CAP PO SCH (08:40)
[2022-08-01] MEDS: ENOXAPARIN 40MG/0.4ML SYRINGE (J1650 PER 10MG) SC SCH (08:40)
[2022-08-01] MEDS: FERROUS GLUCONATE 324 MG TAB PO SCH (08:40)
[2022-08-01] MEDS: PERCOCET 5MG/325MG TAB PO PRN ×2 (13:22→20:16)
[2022-08-01 14:00] VITALS: BP 88/44
[2022-08-01 16:00] VITALS: BP 114/55
[2022-08-01] MEDS: ESCITALOPRAM OXALATE 10 MG TAB (LEXAPRO) PO SCH (20:13)
[2022-08-01] MEDS: ATORVASTATIN 20 MG TAB PO SCH (20:13)
[2022-08-01] MEDS: oxyBUTYnin *DITROPAN XL* 5 MG TABCR PO SCH (20:14)
[2022-08-01 22:00] VITALS: BP 119/55
[2022-08-02] MEDS: LEVOTHYROXINE 125MCG TABLET (0.125MG) PO SCH (05:35)
[2022-08-02 06:00] VITALS: BP 118/55
[2022-08-02 06:28] LABS: HEMATOCRIT 27.7 % (42.0-52.0); HEMOGLOBIN 8.5 g/dl (13.5-17.5); MEAN CORPUSCULAR HEMOGLOBIN 25.6 pg (27.0-33.0); MEAN CORPUSCULAR HGB CONC 30.7 g/dl (32.0-36.5); MEAN CORPUSCULAR VOLUME 83.4 fl (80.0-96.0); PLATELET COUNT, AUTOMATED 488 10^3/uL (150-450); RED BLOOD COUNT 3.32 10^6/uL (4.30-6.10)
[2022-08-02 07:05] LABS: BLOOD UREA NITROGEN 17 MG/DL (7-18); CALCIUM LEVEL 8.5 MG/DL (8.8-10.2); CARBON DIOXIDE LEVEL 25 MEQ/L (21-32); CHLORIDE LEVEL 101 MEQ/L (98-107); CREATININE FOR GFR 0.88 MG/DL (0.70-1.30); GLOMERULAR FILTRATION RATE > 60.0 (>42); GLUCOSE, FASTING 86 MG/DL (70-100); POTASSIUM SERUM 4.4 MEQ/L (3.5-5.1); SODIUM LEVEL 133 MEQ/L (136-145)
[2022-08-02 07:20] VITALS: BP 118/54
[2022-08-02] MEDS: INSULIN LISPRO (NovoLOG) PER UNIT SC SCH ×4 (07:30→21:00)
[2022-08-02] MEDS: TIOTROPIUM INHALER/CAPSULE (SPIRIVA) INH SCH (07:47)
[2022-08-02] MEDS: PERCOCET 5MG/325MG TAB PO PRN ×2 (08:29→20:04)
[2022-08-02 09:00] VITALS: BP_SYST 115; BP_SYST 127; BP_DIAS 54; BP_DIAS 84
[2022-08-02] MEDS: AUGMENTIN 875 MG TAB PO SCH ×2 (09:26→20:03)
[2022-08-02] MEDS: busPIRone 5 MG TAB PO SCH ×2 (09:26→20:03)
[2022-08-02] MEDS: buPROPion **XL** TABLET 150MG (WELLBUTRIN XL) PO SCH (09:27)
[2022-08-02] MEDS: ENOXAPARIN 40MG/0.4ML SYRINGE (J1650 PER 10MG) SC SCH (09:27)
[2022-08-02] MEDS: FERROUS GLUCONATE 324 MG TAB PO SCH (09:27)
[2022-08-02] MEDS: OMEPRAZOLE 20MG CAP PO SCH (09:28)
[2022-08-02 14:00] VITALS: BP 117/54
[2022-08-02] MEDS: oxyBUTYnin *DITROPAN XL* 5 MG TABCR PO SCH (20:03)
[2022-08-02] MEDS: ATORVASTATIN 20 MG TAB PO SCH (20:03)
[2022-08-02] MEDS: ESCITALOPRAM OXALATE 10 MG TAB (LEXAPRO) PO SCH (20:03)
[2022-08-02 22:00] VITALS: BP 116/54
[2022-08-03] MEDS: LEVOTHYROXINE 125MCG TABLET (0.125MG) PO SCH (05:31)
[2022-08-03 06:00] VITALS: BP_SYST 125; BP_DIAS 60; BP_DIAS 68
[2022-08-03 06:09] LABS: HEMATOCRIT 27.7 % (42.0-52.0); HEMOGLOBIN 8.5 g/dl (13.5-17.5); MEAN CORPUSCULAR HEMOGLOBIN 25.1 pg (27.0-33.0); MEAN CORPUSCULAR HGB CONC 30.7 g/dl (32.0-36.5); PLATELET COUNT, AUTOMATED 467 10^3/uL (150-450); RED BLOOD COUNT 3.38 10^6/uL (4.30-6.10); WHITE BLOOD COUNT 5.1 10^3/uL (4.0-10.0)
[2022-08-03 06:37] LABS: BLOOD UREA NITROGEN 16 MG/DL (7-18); CALCIUM LEVEL 8.7 MG/DL (8.8-10.2); CARBON DIOXIDE LEVEL 27 MEQ/L (21-32); CHLORIDE LEVEL 100 MEQ/L (98-107); GLOMERULAR FILTRATION RATE > 60.0 (>42); GLUCOSE, FASTING 93 MG/DL (70-100); POTASSIUM SERUM 4.2 MEQ/L (3.5-5.1); SODIUM LEVEL 132 MEQ/L (136-145)
[2022-08-03] MEDS: TIOTROPIUM INHALER/CAPSULE (SPIRIVA) INH SCH (07:09)
[2022-08-03] MEDS: INSULIN LISPRO (NovoLOG) PER UNIT SC SCH ×4 (07:21→20:32)
[2022-08-03] MEDS: OMEPRAZOLE 20MG CAP PO SCH (08:33)
[2022-08-03] MEDS: FERROUS GLUCONATE 324 MG TAB PO SCH (08:33)
[2022-08-03] MEDS: busPIRone 5 MG TAB PO SCH ×2 (08:33→20:20)
[2022-08-03] MEDS: ENOXAPARIN 40MG/0.4ML SYRINGE (J1650 PER 10MG) SC SCH (08:33)
[2022-08-03] MEDS: buPROPion **XL** TABLET 150MG (WELLBUTRIN XL) PO SCH (08:33)
[2022-08-03] MEDS: PERCOCET 5MG/325MG TAB PO PRN ×2 (11:52→20:22)
[2022-08-03 14:00] VITALS: BP 131/63
[2022-08-03] MEDS: ATORVASTATIN 20 MG TAB PO SCH (20:19)
[2022-08-03] MEDS: oxyBUTYnin *DITROPAN XL* 5 MG TABCR PO SCH (20:19)
[2022-08-03] MEDS: ESCITALOPRAM OXALATE 10 MG TAB (LEXAPRO) PO SCH (20:20)
[2022-08-04] MEDS: LEVOTHYROXINE 125MCG TABLET (0.125MG) PO SCH (05:35)
[2022-08-04 06:00] VITALS: BP 124/59
[2022-08-04 06:09] LABS: HEMATOCRIT 28.3 % (42.0-52.0); HEMOGLOBIN 8.7 g/dl (13.5-17.5); MEAN CORPUSCULAR HEMOGLOBIN 25.5 pg (27.0-33.0); MEAN CORPUSCULAR HGB CONC 30.7 g/dl (32.0-36.5); PLATELET COUNT, AUTOMATED 480 10^3/uL (150-450); RED BLOOD COUNT 3.41 10^6/uL (4.30-6.10); WHITE BLOOD COUNT 5.5 10^3/uL (4.0-10.0)
[2022-08-04 06:47] LABS: BLOOD UREA NITROGEN 20 MG/DL (7-18); CALCIUM LEVEL 8.9 MG/DL (8.8-10.2); CARBON DIOXIDE LEVEL 26 MEQ/L (21-32); CHLORIDE LEVEL 102 MEQ/L (98-107); CREATININE FOR GFR 0.94 MG/DL (0.70-1.30); GLOMERULAR FILTRATION RATE > 60.0 (>42); GLUCOSE, FASTING 82 MG/DL (70-100); POTASSIUM SERUM 3.9 MEQ/L (3.5-5.1); SODIUM LEVEL 132 MEQ/L (136-145)
[2022-08-04] MEDS: TIOTROPIUM INHALER/CAPSULE (SPIRIVA) INH SCH (07:25)
[2022-08-04] MEDS: INSULIN LISPRO (NovoLOG) PER UNIT SC SCH ×4 (07:30→21:00)
[2022-08-04] MEDS: busPIRone 5 MG TAB PO SCH ×2 (08:51→21:17)
[2022-08-04] MEDS: FERROUS GLUCONATE 324 MG TAB PO SCH (08:51)
[2022-08-04] MEDS: buPROPion **XL** TABLET 150MG (WELLBUTRIN XL) PO SCH (08:51)
[2022-08-04] MEDS: OMEPRAZOLE 20MG CAP PO SCH (08:51)
[2022-08-04] MEDS: ENOXAPARIN 40MG/0.4ML SYRINGE (J1650 PER 10MG) SC SCH (08:52)
[2022-08-04 14:00] VITALS: BP 123/53
[2022-08-04] MEDS: oxyBUTYnin *DITROPAN XL* 5 MG TABCR PO SCH (21:16)
[2022-08-04] MEDS: ESCITALOPRAM OXALATE 10 MG TAB (LEXAPRO) PO SCH (21:16)
[2022-08-04] MEDS: ATORVASTATIN 20 MG TAB PO SCH (21:16)
[2022-08-04 22:00] VITALS: BP 142/60
[2022-08-05] MEDS: LEVOTHYROXINE 125MCG TABLET (0.125MG) PO SCH (05:42)
[2022-08-05 06:00] VITALS: BP 140/60
[2022-08-05] MEDS: TIOTROPIUM INHALER/CAPSULE (SPIRIVA) INH SCH (07:09)
[2022-08-05 07:16] LABS: HEMATOCRIT 30.1 % (42.0-52.0); MEAN CORPUSCULAR HGB CONC 29.9 g/dl (32.0-36.5); MEAN CORPUSCULAR VOLUME 83.6 fl (80.0-96.0); PLATELET COUNT, AUTOMATED 513 10^3/uL (150-450); WHITE BLOOD COUNT 4.8 10^3/uL (4.0-10.0)
[2022-08-05] MEDS: INSULIN LISPRO (NovoLOG) PER UNIT SC SCH ×4 (07:30→21:00)
[2022-08-05 07:45] LABS: BLOOD UREA NITROGEN 16 MG/DL (7-18); CALCIUM LEVEL 9.1 MG/DL (8.8-10.2); CARBON DIOXIDE LEVEL 27 MEQ/L (21-32); CHLORIDE LEVEL 103 MEQ/L (98-107); CREATININE FOR GFR 0.85 MG/DL (0.70-1.30); GLOMERULAR FILTRATION RATE > 60.0 (>42); GLUCOSE, FASTING 92 MG/DL (70-100); POTASSIUM SERUM 4.1 MEQ/L (3.5-5.1); SODIUM LEVEL 134 MEQ/L (136-145)
[2022-08-05 08:54] LABS: C REACTIVE PROTEIN QUANTITATIV 1.06 MG/DL (0.00-0.30)
[2022-08-05] MEDS: buPROPion **XL** TABLET 150MG (WELLBUTRIN XL) PO SCH (08:56)
[2022-08-05] MEDS: FERROUS GLUCONATE 324 MG TAB PO SCH (08:57)
[2022-08-05] MEDS: OMEPRAZOLE 20MG CAP PO SCH (08:57)
[2022-08-05] MEDS: ENOXAPARIN 40MG/0.4ML SYRINGE (J1650 PER 10MG) SC SCH (08:57)
[2022-08-05] MEDS: busPIRone 5 MG TAB PO SCH ×2 (08:59→21:05)
[2022-08-05 09:00] LABS: ERYTHROCYTE SEDIMENTATION RATE 54 mm/hr (0-20)
[2022-08-05] MEDS: ATORVASTATIN 20 MG TAB PO SCH (21:04)
[2022-08-05] MEDS: oxyBUTYnin *DITROPAN XL* 5 MG TABCR PO SCH (21:04)
[2022-08-05] MEDS: ESCITALOPRAM OXALATE 10 MG TAB (LEXAPRO) PO SCH (21:04)
[2022-08-06] MEDS: LEVOTHYROXINE 125MCG TABLET (0.125MG) PO SCH (05:34)
[2022-08-06 06:00] VITALS: BP 139/62
[2022-08-06 06:14] LABS: HEMATOCRIT 29.3 % (42.0-52.0); HEMOGLOBIN 8.9 g/dl (13.5-17.5); MEAN CORPUSCULAR HEMOGLOBIN 25.3 pg (27.0-33.0); MEAN CORPUSCULAR HGB CONC 30.4 g/dl (32.0-36.5); MEAN CORPUSCULAR VOLUME 83.2 fl (80.0-96.0); PLATELET COUNT, AUTOMATED 487 10^3/uL (150-450); RED BLOOD COUNT 3.52 10^6/uL (4.30-6.10); WHITE BLOOD COUNT 4.7 10^3/uL (4.0-10.0)
[2022-08-06 06:37] LABS: BLOOD UREA NITROGEN 15 MG/DL (7-18); CARBON DIOXIDE LEVEL 26 MEQ/L (21-32); CHLORIDE LEVEL 104 MEQ/L (98-107); CREATININE FOR GFR 0.95 MG/DL (0.70-1.30); GLOMERULAR FILTRATION RATE > 60.0 (>42); GLUCOSE, FASTING 113 MG/DL (70-100); POTASSIUM SERUM 4.1 MEQ/L (3.5-5.1); SODIUM LEVEL 136 MEQ/L (136-145)
[2022-08-06] MEDS: TIOTROPIUM INHALER/CAPSULE (SPIRIVA) INH SCH (07:13)
[2022-08-06 07:30] VITALS: BP 139/62
[2022-08-06] MEDS: INSULIN LISPRO (NovoLOG) PER UNIT SC SCH ×4 (07:30→21:00)
[2022-08-06] MEDS: buPROPion **XL** TABLET 150MG (WELLBUTRIN XL) PO SCH (10:01)
[2022-08-06] MEDS: OMEPRAZOLE 20MG CAP PO SCH (10:01)
[2022-08-06] MEDS: busPIRone 5 MG TAB PO SCH ×2 (10:01→21:13)
[2022-08-06] MEDS: ENOXAPARIN 40MG/0.4ML SYRINGE (J1650 PER 10MG) SC SCH (10:02)
[2022-08-06] MEDS: FERROUS GLUCONATE 324 MG TAB PO SCH (10:02)
[2022-08-06] MEDS: ATORVASTATIN 20 MG TAB PO SCH (21:13)
[2022-08-06] MEDS: oxyBUTYnin *DITROPAN XL* 5 MG TABCR PO SCH (21:13)
[2022-08-06] MEDS: ESCITALOPRAM OXALATE 10 MG TAB (LEXAPRO) PO SCH (21:13)
[2022-08-07] MEDS: LEVOTHYROXINE 125MCG TABLET (0.125MG) PO SCH (05:50)
[2022-08-07 06:00] VITALS: BP 138/62
[2022-08-07 06:13] LABS: HEMATOCRIT 30.3 % (42.0-52.0); HEMOGLOBIN 9.4 g/dl (13.5-17.5); MEAN CORPUSCULAR HEMOGLOBIN 25.8 pg (27.0-33.0); MEAN CORPUSCULAR VOLUME 83.2 fl (80.0-96.0); PLATELET COUNT, AUTOMATED 420 10^3/uL (150-450); RED BLOOD COUNT 3.64 10^6/uL (4.30-6.10)
[2022-08-07 06:49] LABS: BLOOD UREA NITROGEN 15 MG/DL (7-18); CALCIUM LEVEL 9.4 MG/DL (8.8-10.2); CARBON DIOXIDE LEVEL 27 MEQ/L (21-32); CHLORIDE LEVEL 105 MEQ/L (98-107); CREATININE FOR GFR 0.91 MG/DL (0.70-1.30); GLOMERULAR FILTRATION RATE > 60.0 (>42); GLUCOSE, FASTING 128 MG/DL (70-100); SODIUM LEVEL 137 MEQ/L (136-145)
[2022-08-07] MEDS: TIOTROPIUM INHALER/CAPSULE (SPIRIVA) INH SCH (07:35)
[2022-08-07 08:00] VITALS: BP 138/61
[2022-08-07] MEDS: INSULIN LISPRO (NovoLOG) PER UNIT SC SCH ×4 (09:11→21:00)
[2022-08-07] MEDS: buPROPion **XL** TABLET 150MG (WELLBUTRIN XL) PO SCH (09:50)
[2022-08-07] MEDS: FERROUS GLUCONATE 324 MG TAB PO SCH (09:51)
[2022-08-07] MEDS: OMEPRAZOLE 20MG CAP PO SCH (09:51)
[2022-08-07] MEDS: ENOXAPARIN 40MG/0.4ML SYRINGE (J1650 PER 10MG) SC SCH (09:51)
[2022-08-07] MEDS: busPIRone 5 MG TAB PO SCH ×2 (10:37→20:25)
[2022-08-07 20:00] VITALS: BP 157/73
[2022-08-07] MEDS: ESCITALOPRAM OXALATE 10 MG TAB (LEXAPRO) PO SCH (20:25)
[2022-08-07] MEDS: oxyBUTYnin *DITROPAN XL* 5 MG TABCR PO SCH (20:25)
[2022-08-07] MEDS: ATORVASTATIN 20 MG TAB PO SCH (20:25)
[2022-08-08 05:00] VITALS: BP 162/83
[2022-08-08 06:14] LABS: HEMATOCRIT 32.5 % (42.0-52.0); HEMOGLOBIN 9.6 g/dl (13.5-17.5); MEAN CORPUSCULAR HEMOGLOBIN 25.3 pg (27.0-33.0); MEAN CORPUSCULAR HGB CONC 29.5 g/dl (32.0-36.5); MEAN CORPUSCULAR VOLUME 85.5 fl (80.0-96.0); PLATELET COUNT, AUTOMATED 511 10^3/uL (150-450); WHITE BLOOD COUNT 5.4 10^3/uL (4.0-10.0)
[2022-08-08] MEDS: LEVOTHYROXINE 125MCG TABLET (0.125MG) PO SCH (06:20)
[2022-08-08 06:41] LABS: BLOOD UREA NITROGEN 17 MG/DL (7-18); CALCIUM LEVEL 9.4 MG/DL (8.8-10.2); CARBON DIOXIDE LEVEL 26 MEQ/L (21-32); CHLORIDE LEVEL 107 MEQ/L (98-107); CREATININE FOR GFR 0.86 MG/DL (0.70-1.30); GLOMERULAR FILTRATION RATE > 60.0 (>42); GLUCOSE, FASTING 97 MG/DL (70-100); SODIUM LEVEL 140 MEQ/L (136-145)
[2022-08-08] MEDS: TIOTROPIUM INHALER/CAPSULE (SPIRIVA) INH SCH (07:11)
[2022-08-08] MEDS: INSULIN LISPRO (NovoLOG) PER UNIT SC SCH ×4 (07:30→20:11)
[2022-08-08] MEDS: OMEPRAZOLE 20MG CAP PO SCH (10:13)
[2022-08-08] MEDS: FERROUS GLUCONATE 324 MG TAB PO SCH (10:13)
[2022-08-08] MEDS: busPIRone 5 MG TAB PO SCH ×2 (10:13→20:17)
[2022-08-08] MEDS: buPROPion **XL** TABLET 150MG (WELLBUTRIN XL) PO SCH (10:13)
[2022-08-08] MEDS: ENOXAPARIN 40MG/0.4ML SYRINGE (J1650 PER 10MG) SC SCH (10:14)
[2022-08-08] MEDS: PERCOCET 5MG/325MG TAB PO PRN ×2 (10:15→20:18)
[2022-08-08] MEDS: ATORVASTATIN 20 MG TAB PO SCH (20:17)
[2022-08-08] MEDS: ESCITALOPRAM OXALATE 10 MG TAB (LEXAPRO) PO SCH (20:17)
[2022-08-08] MEDS: oxyBUTYnin *DITROPAN XL* 5 MG TABCR PO SCH (20:17)
[2022-08-09] MEDS: PERCOCET 5MG/325MG TAB PO PRN ×2 (02:38→21:06)
[2022-08-09 05:36] VITALS: BP 161/81
[2022-08-09] MEDS: LEVOTHYROXINE 125MCG TABLET (0.125MG) PO SCH (05:52)
[2022-08-09] MEDS: TIOTROPIUM INHALER/CAPSULE (SPIRIVA) INH SCH (07:16)
[2022-08-09] MEDS: INSULIN LISPRO (NovoLOG) PER UNIT SC SCH ×4 (07:30→20:32)
[2022-08-09] MEDS: OMEPRAZOLE 20MG CAP PO SCH (08:08)
[2022-08-09] MEDS: FERROUS GLUCONATE 324 MG TAB PO SCH (08:08)
[2022-08-09] MEDS: busPIRone 5 MG TAB PO SCH ×2 (08:08→21:05)
[2022-08-09] MEDS: buPROPion **XL** TABLET 150MG (WELLBUTRIN XL) PO SCH (08:08)
[2022-08-09] MEDS: ENOXAPARIN 40MG/0.4ML SYRINGE (J1650 PER 10MG) SC SCH (08:09)
[2022-08-09] MEDS: ATORVASTATIN 20 MG TAB PO SCH (21:05)
[2022-08-09] MEDS: oxyBUTYnin *DITROPAN XL* 5 MG TABCR PO SCH (21:05)
[2022-08-09] MEDS: ESCITALOPRAM OXALATE 10 MG TAB (LEXAPRO) PO SCH (21:05)
[2022-08-10 05:15] VITALS: BP 164/90
[2022-08-10] MEDS: LEVOTHYROXINE 125MCG TABLET (0.125MG) PO SCH (05:31)
[2022-08-10] MEDS: TIOTROPIUM INHALER/CAPSULE (SPIRIVA) INH SCH (07:29)
[2022-08-10] MEDS: INSULIN LISPRO (NovoLOG) PER UNIT SC SCH ×4 (07:30→20:56)
[2022-08-10] MEDS: ENOXAPARIN 40MG/0.4ML SYRINGE (J1650 PER 10MG) SC SCH (08:28)
[2022-08-10] MEDS: OMEPRAZOLE 20MG CAP PO SCH (08:28)
[2022-08-10] MEDS: busPIRone 5 MG TAB PO SCH ×2 (08:28→20:56)
[2022-08-10] MEDS: buPROPion **XL** TABLET 150MG (WELLBUTRIN XL) PO SCH (08:28)
[2022-08-10] MEDS: FERROUS GLUCONATE 324 MG TAB PO SCH (08:28)
[2022-08-10] MEDS ORDERED: NS 1,000 ML IV ONE (17:00)
[2022-08-10 17:13] LABS: BASO # 0.1 10^3/uL (0.0-0.2); BASO % 1.2 % (0.0-1.0); EOS % 0.4 % (0.0-3.0); HEMATOCRIT 38.3 % (42.0-52.0); HEMOGLOBIN 11.3 g/dl (13.5-17.5); LYMPH # 1.5 10^3/uL (1.5-5.0); LYMPH % 15.8 % (24.0-44.0); MEAN CORPUSCULAR HEMOGLOBIN 25.3 pg (27.0-33.0); MEAN CORPUSCULAR HGB CONC 29.5 g/dl (32.0-36.5); MEAN CORPUSCULAR VOLUME 85.9 fl (80.0-96.0); MONO # 0.9 10^3/uL (0.0-0.8); MONO % 10.1 % (2.0-8.0); NEUTROPHILS # 6.7 10^3/uL (1.5-8.5); NEUTROPHILS % 71.6 % (36.0-66.0); PLATELET COUNT, AUTOMATED 531 10^3/uL (150-450); RED BLOOD COUNT 4.46 10^6/uL (4.30-6.10); WHITE BLOOD COUNT 9.3 10^3/uL (4.0-10.0)
[2022-08-10 17:34] LABS: ALBUMIN 3.2 GM/DL (3.2-5.2); ALT/SGPT 11 U/L (12-78); BILIRUBIN,TOTAL 0.5 MG/DL (0.2-1.0); BLOOD UREA NITROGEN 31 MG/DL (7-18); C REACTIVE PROTEIN QUANTITATIV 1.05 MG/DL (0.00-0.30); CALCIUM LEVEL 9.3 MG/DL (8.8-10.2); CARBON DIOXIDE LEVEL 28 MEQ/L (21-32); CHLORIDE LEVEL 114 MEQ/L (98-107); CREATININE FOR GFR 1.13 MG/DL (0.70-1.30); GLOMERULAR FILTRATION RATE > 60.0 (>42); GLUCOSE, FASTING 106 MG/DL (70-100); POTASSIUM SERUM 3.7 MEQ/L (3.5-5.1); SODIUM LEVEL 146 MEQ/L (136-145); TOTAL PROTEIN 7.3 GM/DL (6.4-8.2)
[2022-08-10 17:58] LABS: ERYTHROCYTE SEDIMENTATION RATE 44 mm/hr (0-20)
[2022-08-10] MEDS: ATORVASTATIN 20 MG TAB PO SCH (20:56)
[2022-08-10] MEDS: oxyBUTYnin *DITROPAN XL* 5 MG TABCR PO SCH (20:56)
[2022-08-10] MEDS: ESCITALOPRAM OXALATE 10 MG TAB (LEXAPRO) PO SCH (20:56)
[2022-08-10 22:00] VITALS: BP 166/90
[2022-08-10] MEDS ORDERED: NS 1,000 ML IV SCH (23:45)
[2022-08-11] MEDS ORDERED: SODIUM CHLORIDE 0.9% 250ML IV ONE (05:00)
[2022-08-11] MEDS: LEVOTHYROXINE 125MCG TABLET (0.125MG) PO SCH (05:21)
[2022-08-11 06:00] VITALS: BP 164/86
[2022-08-11 06:17] LABS: HEMATOCRIT 36.1 % (42.0-52.0); HEMOGLOBIN 10.5 g/dl (13.5-17.5); MEAN CORPUSCULAR HEMOGLOBIN 25.3 pg (27.0-33.0); MEAN CORPUSCULAR HGB CONC 29.1 g/dl (32.0-36.5); PLATELET COUNT, AUTOMATED 456 10^3/uL (150-450); RED BLOOD COUNT 4.15 10^6/uL (4.30-6.10)
[2022-08-11 06:53] LABS: BLOOD UREA NITROGEN 32 MG/DL (7-18); CALCIUM LEVEL 9.1 MG/DL (8.8-10.2); CARBON DIOXIDE LEVEL 26 MEQ/L (21-32); CHLORIDE LEVEL 118 MEQ/L (98-107); CREATININE FOR GFR 0.98 MG/DL (0.70-1.30); GLOMERULAR FILTRATION RATE > 60.0 (>42); GLUCOSE, FASTING 97 MG/DL (70-100); MAGNESIUM LEVEL 2.3 MG/DL (1.8-2.4); POTASSIUM SERUM 3.7 MEQ/L (3.5-5.1); SODIUM LEVEL 150 MEQ/L (136-145)
[2022-08-11] MEDS: INSULIN LISPRO (NovoLOG) PER UNIT SC SCH ×4 (07:30→20:29)
[2022-08-11] MEDS: TIOTROPIUM INHALER/CAPSULE (SPIRIVA) INH SCH (07:45)
[2022-08-11] MEDS: FERROUS GLUCONATE 324 MG TAB PO SCH (08:32)
[2022-08-11] MEDS: buPROPion **XL** TABLET 150MG (WELLBUTRIN XL) PO SCH (08:32)
[2022-08-11] MEDS: OMEPRAZOLE 20MG CAP PO SCH (08:32)
[2022-08-11] MEDS: busPIRone 5 MG TAB PO SCH ×2 (08:32→20:46)
[2022-08-11] MEDS: ENOXAPARIN 40MG/0.4ML SYRINGE (J1650 PER 10MG) SC SCH (08:33)
[2022-08-11] MEDS: ATORVASTATIN 20 MG TAB PO SCH (20:46)
[2022-08-11] MEDS: oxyBUTYnin *DITROPAN XL* 5 MG TABCR PO SCH (20:46)
[2022-08-11] MEDS: ESCITALOPRAM OXALATE 10 MG TAB (LEXAPRO) PO SCH (20:46)
[2022-08-12] MEDS: LEVOTHYROXINE 125MCG TABLET (0.125MG) PO SCH (05:38)
[2022-08-12 06:06] VITALS: BP 159/85
[2022-08-12] MEDS: TIOTROPIUM INHALER/CAPSULE (SPIRIVA) INH SCH (07:13)
[2022-08-12] MEDS: INSULIN LISPRO (NovoLOG) PER UNIT SC SCH ×4 (07:21→20:30)
[2022-08-12] MEDS: busPIRone 5 MG TAB PO SCH ×2 (08:48→20:42)
[2022-08-12] MEDS: OMEPRAZOLE 20MG CAP PO SCH (08:48)
[2022-08-12] MEDS: ENOXAPARIN 40MG/0.4ML SYRINGE (J1650 PER 10MG) SC SCH (08:48)
[2022-08-12] MEDS: FERROUS GLUCONATE 324 MG TAB PO SCH (08:48)
[2022-08-12] MEDS: buPROPion **XL** TABLET 150MG (WELLBUTRIN XL) PO SCH (08:48)
[2022-08-12 09:17] LABS: HEMATOCRIT 36.4 % (42.0-52.0); HEMOGLOBIN 10.7 g/dl (13.5-17.5); MEAN CORPUSCULAR HEMOGLOBIN 25.4 pg (27.0-33.0); MEAN CORPUSCULAR HGB CONC 29.4 g/dl (32.0-36.5); MEAN CORPUSCULAR VOLUME 86.5 fl (80.0-96.0); PLATELET COUNT, AUTOMATED 396 10^3/uL (150-450); RED BLOOD COUNT 4.21 10^6/uL (4.30-6.10); WHITE BLOOD COUNT 5.7 10^3/uL (4.0-10.0)
[2022-08-12 09:49] LABS: ALBUMIN 2.9 GM/DL (3.2-5.2); ALT/SGPT 9 U/L (12-78); BILIRUBIN,TOTAL 0.5 MG/DL (0.2-1.0); BLOOD UREA NITROGEN 32 MG/DL (7-18); CALCIUM LEVEL 9.5 MG/DL (8.8-10.2); CARBON DIOXIDE LEVEL 26 MEQ/L (21-32); CHLORIDE LEVEL 120 MEQ/L (98-107); CREATININE FOR GFR 1.02 MG/DL (0.70-1.30); GLOMERULAR FILTRATION RATE > 60.0 (>42); GLUCOSE, FASTING 106 MG/DL (70-100); POTASSIUM SERUM 3.6 MEQ/L (3.5-5.1); SODIUM LEVEL 151 MEQ/L (136-145); TOTAL PROTEIN 6.4 GM/DL (6.4-8.2)
[2022-08-12] MEDS: oxyBUTYnin *DITROPAN XL* 5 MG TABCR PO SCH (20:42)
[2022-08-12] MEDS: ATORVASTATIN 20 MG TAB PO SCH (20:43)
[2022-08-12] MEDS: ESCITALOPRAM OXALATE 10 MG TAB (LEXAPRO) PO SCH (20:43)
[2022-08-12] MEDS: PERCOCET 5MG/325MG TAB PO PRN (20:44)
[2022-08-12 22:12] VITALS: BP 134/59
[2022-08-13 05:00] VITALS: BP 147/77
[2022-08-13] MEDS: LEVOTHYROXINE 125MCG TABLET (0.125MG) PO SCH (05:42)
[2022-08-13 06:21] LABS: HEMATOCRIT 37.1 % (42.0-52.0); HEMOGLOBIN 10.8 g/dl (13.5-17.5); MEAN CORPUSCULAR HEMOGLOBIN 25.2 pg (27.0-33.0); MEAN CORPUSCULAR HGB CONC 29.1 g/dl (32.0-36.5); MEAN CORPUSCULAR VOLUME 86.7 fl (80.0-96.0); PLATELET COUNT, AUTOMATED 381 10^3/uL (150-450); RED BLOOD COUNT 4.28 10^6/uL (4.30-6.10); WHITE BLOOD COUNT 10.1 10^3/uL (4.0-10.0)
[2022-08-13 07:09] LABS: ALT/SGPT 8 U/L (12-78); BILIRUBIN,TOTAL 0.6 MG/DL (0.2-1.0); BLOOD UREA NITROGEN 41 MG/DL (7-18); CALCIUM LEVEL 9.4 MG/DL (8.8-10.2); CARBON DIOXIDE LEVEL 27 MEQ/L (21-32); CHLORIDE LEVEL 121 MEQ/L (98-107); CREATININE FOR GFR 1.06 MG/DL (0.70-1.30); GLOMERULAR FILTRATION RATE > 60.0 (>42); GLUCOSE, FASTING 128 MG/DL (70-100); POTASSIUM SERUM 3.7 MEQ/L (3.5-5.1); SODIUM LEVEL 154 MEQ/L (136-145); TOTAL PROTEIN 6.5 GM/DL (6.4-8.2)
[2022-08-13] MEDS: INSULIN LISPRO (NovoLOG) PER UNIT SC SCH ×4 (07:30→21:00)
[2022-08-13] MEDS: TIOTROPIUM INHALER/CAPSULE (SPIRIVA) INH SCH (07:32)
[2022-08-13] MEDS: ENOXAPARIN 40MG/0.4ML SYRINGE (J1650 PER 10MG) SC SCH (11:03)
[2022-08-13] MEDS: busPIRone 5 MG TAB PO SCH ×2 (11:03→22:26)
[2022-08-13] MEDS: FERROUS GLUCONATE 324 MG TAB PO SCH (11:03)
[2022-08-13] MEDS: OMEPRAZOLE 20MG CAP PO SCH (11:03)
[2022-08-13] MEDS: buPROPion **XL** TABLET 150MG (WELLBUTRIN XL) PO SCH (11:03)
[2022-08-13] MEDS: ATORVASTATIN 20 MG TAB PO SCH (22:24)
[2022-08-13] MEDS: ESCITALOPRAM OXALATE 10 MG TAB (LEXAPRO) PO SCH (22:25)
[2022-08-13] MEDS: oxyBUTYnin *DITROPAN XL* 5 MG TABCR PO SCH (22:26)
[2022-08-13] MEDS: PERCOCET 5MG/325MG TAB PO PRN (22:27)
[2022-08-14] MEDS: LEVOTHYROXINE 125MCG TABLET (0.125MG) PO SCH (05:27)
[2022-08-14 06:00] VITALS: BP 147/78
[2022-08-14 06:47] LABS: HEMATOCRIT 38.2 % (42.0-52.0); MEAN CORPUSCULAR HEMOGLOBIN 25.4 pg (27.0-33.0); MEAN CORPUSCULAR HGB CONC 28.8 g/dl (32.0-36.5); MEAN CORPUSCULAR VOLUME 88.2 fl (80.0-96.0); PLATELET COUNT, AUTOMATED 368 10^3/uL (150-450); RED BLOOD COUNT 4.33 10^6/uL (4.30-6.10); WHITE BLOOD COUNT 6.2 10^3/uL (4.0-10.0)
[2022-08-14] MEDS: TIOTROPIUM INHALER/CAPSULE (SPIRIVA) INH SCH (07:19)
[2022-08-14 07:30] LABS: ALT/SGPT 9 U/L (12-78); BILIRUBIN,TOTAL 0.6 MG/DL (0.2-1.0); BLOOD UREA NITROGEN 43 MG/DL (7-18); CALCIUM LEVEL 9.8 MG/DL (8.8-10.2); CARBON DIOXIDE LEVEL 26 MEQ/L (21-32); CHLORIDE LEVEL 125 MEQ/L (98-107); CREATININE FOR GFR 1.13 MG/DL (0.70-1.30); GLOMERULAR FILTRATION RATE > 60.0 (>42); GLUCOSE, FASTING 117 MG/DL (70-100); POTASSIUM SERUM 3.8 MEQ/L (3.5-5.1); SODIUM LEVEL 157 MEQ/L (136-145); TOTAL PROTEIN 6.7 GM/DL (6.4-8.2)
[2022-08-14] MEDS: INSULIN LISPRO (NovoLOG) PER UNIT SC SCH ×4 (07:30→20:58)
[2022-08-14] MEDS: OMEPRAZOLE 20MG CAP PO SCH (08:20)
[2022-08-14] MEDS: busPIRone 5 MG TAB PO SCH ×2 (08:20→21:12)
[2022-08-14] MEDS: buPROPion **XL** TABLET 150MG (WELLBUTRIN XL) PO SCH (08:20)
[2022-08-14] MEDS: FERROUS GLUCONATE 324 MG TAB PO SCH (08:21)
[2022-08-14] MEDS: ENOXAPARIN 40MG/0.4ML SYRINGE (J1650 PER 10MG) SC SCH (08:21)
[2022-08-14] MEDS: D5W 1,000 ML IV SCH (19:49)
[2022-08-14] MEDS: cefTRIAXone SOD 1 GM in D5W MINI-BAG PLUS 50 ML IV SCH (19:49)
[2022-08-14 20:00] VITALS: BP 147/79
[2022-08-14 20:09] LABS: BLOOD UREA NITROGEN 44 MG/DL (7-18); CALCIUM LEVEL 9.8 MG/DL (8.8-10.2); CARBON DIOXIDE LEVEL 26 MEQ/L (21-32); CHLORIDE LEVEL 127 MEQ/L (98-107); CREATININE FOR GFR 1.16 MG/DL (0.70-1.30); GLOMERULAR FILTRATION RATE > 60.0 (>42); GLUCOSE, FASTING 108 MG/DL (70-100); POTASSIUM SERUM 3.8 MEQ/L (3.5-5.1); SODIUM LEVEL 158 MEQ/L (136-145)
[2022-08-14] MEDS: ATORVASTATIN 20 MG TAB PO SCH (21:12)
[2022-08-14] MEDS: oxyBUTYnin *DITROPAN XL* 5 MG TABCR PO SCH (21:12)
[2022-08-14] MEDS: ESCITALOPRAM OXALATE 10 MG TAB (LEXAPRO) PO SCH (21:13)
[2022-08-15 00:23] LABS: BLOOD UREA NITROGEN 44 MG/DL (7-18); CALCIUM LEVEL 9.7 MG/DL (8.8-10.2); CARBON DIOXIDE LEVEL 27 MEQ/L (21-32); CHLORIDE LEVEL 125 MEQ/L (98-107); CREATININE FOR GFR 1.14 MG/DL (0.70-1.30); GLOMERULAR FILTRATION RATE > 60.0 (>42); GLUCOSE, FASTING 127 MG/DL (70-100); POTASSIUM SERUM 3.5 MEQ/L (3.5-5.1); SODIUM LEVEL 156 MEQ/L (136-145)
[2022-08-15 04:27] LABS: BLOOD UREA NITROGEN 42 MG/DL (7-18); CALCIUM LEVEL 9.2 MG/DL (8.8-10.2); CARBON DIOXIDE LEVEL 28 MEQ/L (21-32); CHLORIDE LEVEL 125 MEQ/L (98-107); GLOMERULAR FILTRATION RATE > 60.0 (>42); GLUCOSE, FASTING 123 MG/DL (70-100); POTASSIUM SERUM 3.3 MEQ/L (3.5-5.1); SODIUM LEVEL 157 MEQ/L (136-145)
[2022-08-15] MEDS: LEVOTHYROXINE 125MCG TABLET (0.125MG) PO SCH (05:50)
[2022-08-15 06:00] VITALS: BP 160/90
[2022-08-15 06:04] LABS: HEMATOCRIT 38.6 % (42.0-52.0); HEMOGLOBIN 11.2 g/dl (13.5-17.5); MEAN CORPUSCULAR HEMOGLOBIN 25.6 pg (27.0-33.0); MEAN CORPUSCULAR VOLUME 88.1 fl (80.0-96.0); PLATELET COUNT, AUTOMATED 364 10^3/uL (150-450); RED BLOOD COUNT 4.38 10^6/uL (4.30-6.10); WHITE BLOOD COUNT 10.6 10^3/uL (4.0-10.0)
[2022-08-15 06:47] LABS: ALBUMIN 3.1 GM/DL (3.2-5.2); ALT/SGPT 7 U/L (12-78); BILIRUBIN,TOTAL 0.5 MG/DL (0.2-1.0); BLOOD UREA NITROGEN 42 MG/DL (7-18); CALCIUM LEVEL 9.4 MG/DL (8.8-10.2); CARBON DIOXIDE LEVEL 27 MEQ/L (21-32); CHLORIDE LEVEL 124 MEQ/L (98-107); CREATININE FOR GFR 1.18 MG/DL (0.70-1.30); GLOMERULAR FILTRATION RATE > 60.0 (>42); GLUCOSE, FASTING 113 MG/DL (70-100); POTASSIUM SERUM 3.6 MEQ/L (3.5-5.1); SODIUM LEVEL 156 MEQ/L (136-145); TOTAL PROTEIN 6.9 GM/DL (6.4-8.2)
[2022-08-15] MEDS: TIOTROPIUM INHALER/CAPSULE (SPIRIVA) INH SCH (07:21)
[2022-08-15] MEDS: INSULIN LISPRO (NovoLOG) PER UNIT SC SCH ×4 (07:30→21:00)
[2022-08-15] MEDS: OMEPRAZOLE 20MG CAP PO SCH (08:43)
[2022-08-15] MEDS: FERROUS GLUCONATE 324 MG TAB PO SCH (08:43)
[2022-08-15] MEDS: buPROPion **XL** TABLET 150MG (WELLBUTRIN XL) PO SCH (08:44)
[2022-08-15] MEDS: ENOXAPARIN 40MG/0.4ML SYRINGE (J1650 PER 10MG) SC SCH (08:44)
[2022-08-15] MEDS: busPIRone 5 MG TAB PO SCH ×2 (08:45→20:32)
[2022-08-15 12:10] LABS: BLOOD UREA NITROGEN 42 MG/DL (7-18); CALCIUM LEVEL 9.7 MG/DL (8.8-10.2); CARBON DIOXIDE LEVEL 27 MEQ/L (21-32); CHLORIDE LEVEL 125 MEQ/L (98-107); CREATININE FOR GFR 1.19 MG/DL (0.70-1.30); GLOMERULAR FILTRATION RATE > 60.0 (>42); GLUCOSE, FASTING 131 MG/DL (70-100); POTASSIUM SERUM 3.3 MEQ/L (3.5-5.1); SODIUM LEVEL 156 MEQ/L (136-145)
[2022-08-15 14:00] VITALS: BP 154/82
[2022-08-15 16:13] LABS: CALCIUM LEVEL 9.7 MG/DL (8.8-10.2); CREATININE FOR GFR 1.3 MG/DL (0.70-1.30); POTASSIUM SERUM 3.4 MEQ/L (3.5-5.1)
[2022-08-15] MEDS: D5W 1,000 ML IV SCH (17:48)
[2022-08-15] MEDS ORDERED: POTASSIUM CHLORIDE 10% LIQ 20 MEQ/15 ML UDC PO ONE (19:00)
[2022-08-15 20:10] LABS: BLOOD UREA NITROGEN 41 MG/DL (7-18); CALCIUM LEVEL 9.6 MG/DL (8.8-10.2); CARBON DIOXIDE LEVEL 26 MEQ/L (21-32); CHLORIDE LEVEL 124 MEQ/L (98-107); GLOMERULAR FILTRATION RATE > 60.0 (>42); GLUCOSE, FASTING 136 MG/DL (70-100); POTASSIUM SERUM 3.4 MEQ/L (3.5-5.1); SODIUM LEVEL 155 MEQ/L (136-145)
[2022-08-15] MEDS: cefTRIAXone SOD 1 GM in D5W MINI-BAG PLUS 50 ML IV SCH (20:28)
[2022-08-15] MEDS: ESCITALOPRAM OXALATE 10 MG TAB (LEXAPRO) PO SCH (20:30)
[2022-08-15] MEDS: DOCUSATE SODIUM 100MG CAPSULE PO SCH (20:30)
[2022-08-15] MEDS: oxyBUTYnin *DITROPAN XL* 5 MG TABCR PO SCH (20:30)
[2022-08-15] MEDS: ATORVASTATIN 20 MG TAB PO SCH (20:32)
[2022-08-15] MEDS: ENOXAPARIN 100MG/1ML SYRINGE (J1650 PER 10MG) SC SCH (20:33)
[2022-08-15 22:00] VITALS: BP 152/86
[2022-08-15] MEDS ORDERED: POTASSIUM CHLORIDE 10MEQ SR TABLET PO ONE (22:30)
[2022-08-15 23:44] LABS: BLOOD UREA NITROGEN 41 MG/DL (7-18); CALCIUM LEVEL 9.5 MG/DL (8.8-10.2); CARBON DIOXIDE LEVEL 26 MEQ/L (21-32); CHLORIDE LEVEL 123 MEQ/L (98-107); CREATININE FOR GFR 1.13 MG/DL (0.70-1.30); GLOMERULAR FILTRATION RATE > 60.0 (>42); GLUCOSE, FASTING 175 MG/DL (70-100); POTASSIUM SERUM 3.3 MEQ/L (3.5-5.1); SODIUM LEVEL 155 MEQ/L (136-145)
[2022-08-16 04:07] LABS: BLOOD UREA NITROGEN 39 MG/DL (7-18); CALCIUM LEVEL 9.3 MG/DL (8.8-10.2); CARBON DIOXIDE LEVEL 26 MEQ/L (21-32); CHLORIDE LEVEL 123 MEQ/L (98-107); CREATININE FOR GFR 1.19 MG/DL (0.70-1.30); GLOMERULAR FILTRATION RATE > 60.0 (>42); GLUCOSE, FASTING 142 MG/DL (70-100); POTASSIUM SERUM 3.7 MEQ/L (3.5-5.1); SODIUM LEVEL 152 MEQ/L (136-145)
[2022-08-16 05:27] VITALS: BP 135/69
[2022-08-16] MEDS: LEVOTHYROXINE 125MCG TABLET (0.125MG) PO SCH (05:32)
[2022-08-16] MEDS: TIOTROPIUM INHALER/CAPSULE (SPIRIVA) INH SCH (07:25)
[2022-08-16 07:26] LABS: HEMATOCRIT 35.6 % (42.0-52.0); HEMOGLOBIN 10.3 g/dl (13.5-17.5); MEAN CORPUSCULAR HEMOGLOBIN 25.6 pg (27.0-33.0); MEAN CORPUSCULAR HGB CONC 28.9 g/dl (32.0-36.5); MEAN CORPUSCULAR VOLUME 88.6 fl (80.0-96.0); PLATELET COUNT, AUTOMATED 294 10^3/uL (150-450); RED BLOOD COUNT 4.02 10^6/uL (4.30-6.10); WHITE BLOOD COUNT 8.9 10^3/uL (4.0-10.0)
[2022-08-16] MEDS: INSULIN LISPRO (NovoLOG) PER UNIT SC SCH ×4 (07:30→20:40)
[2022-08-16] MEDS: D5W 1,000 ML IV SCH ×2 (07:46→17:46)
[2022-08-16 07:56] LABS: ALBUMIN 2.7 GM/DL (3.2-5.2); ALT/SGPT < 6 U/L (12-78); BILIRUBIN,TOTAL 0.4 MG/DL (0.2-1.0); BLOOD UREA NITROGEN 37 MG/DL (7-18); CARBON DIOXIDE LEVEL 27 MEQ/L (21-32); CHLORIDE LEVEL 122 MEQ/L (98-107); CREATININE FOR GFR 1.13 MG/DL (0.70-1.30); GLOMERULAR FILTRATION RATE > 60.0 (>42); GLUCOSE, FASTING 125 MG/DL (70-100); POTASSIUM SERUM 3.8 MEQ/L (3.5-5.1); SODIUM LEVEL 154 MEQ/L (136-145); TOTAL PROTEIN 6.3 GM/DL (6.4-8.2)
[2022-08-16 08:00] VITALS: BP 136/70
[2022-08-16] MEDS: OMEPRAZOLE 20MG CAP PO SCH (09:22)
[2022-08-16] MEDS: ENOXAPARIN 100MG/1ML SYRINGE (J1650 PER 10MG) SC SCH ×2 (09:23→21:06)
[2022-08-16] MEDS: buPROPion **XL** TABLET 150MG (WELLBUTRIN XL) PO SCH (09:23)
[2022-08-16] MEDS: DOCUSATE SODIUM 100MG CAPSULE PO SCH ×2 (09:23→21:06)
[2022-08-16] MEDS: FERROUS GLUCONATE 324 MG TAB PO SCH (09:23)
[2022-08-16] MEDS: busPIRone 5 MG TAB PO SCH ×2 (10:30→21:07)
[2022-08-16 12:11] LABS: BLOOD UREA NITROGEN 38 MG/DL (7-18); CALCIUM LEVEL 9.3 MG/DL (8.8-10.2); CARBON DIOXIDE LEVEL 24 MEQ/L (21-32); CHLORIDE LEVEL 122 MEQ/L (98-107); CREATININE FOR GFR 1.08 MG/DL (0.70-1.30); GLOMERULAR FILTRATION RATE > 60.0 (>42); GLUCOSE, FASTING 127 MG/DL (70-100); POTASSIUM SERUM 3.5 MEQ/L (3.5-5.1); SODIUM LEVEL 151 MEQ/L (136-145)
[2022-08-16 14:00] VITALS: BP 138/68
[2022-08-16 16:32] LABS: BLOOD UREA NITROGEN 35 MG/DL (7-18); CALCIUM LEVEL 9.2 MG/DL (8.8-10.2); CARBON DIOXIDE LEVEL 26 MEQ/L (21-32); CHLORIDE LEVEL 120 MEQ/L (98-107); CREATININE FOR GFR 1.01 MG/DL (0.70-1.30); GLOMERULAR FILTRATION RATE > 60.0 (>42); GLUCOSE, FASTING 119 MG/DL (70-100); POTASSIUM SERUM 3.3 MEQ/L (3.5-5.1); SODIUM LEVEL 151 MEQ/L (136-145)
[2022-08-16 16:50] LABS: NT-PRO BNP 901 PG/ML (<450)
[2022-08-16] MEDS ORDERED: POTASSIUM CHLORIDE 10% LIQ 20 MEQ/15 ML UDC PO ONE (17:00)
[2022-08-16] MEDS ORDERED: POTASSIUM CHLORIDE 10MEQ SR TABLET PO ONE (17:35)
[2022-08-16 19:43] LABS: BLOOD UREA NITROGEN 33 MG/DL (7-18); CALCIUM LEVEL 9.1 MG/DL (8.8-10.2); CARBON DIOXIDE LEVEL 25 MEQ/L (21-32); CHLORIDE LEVEL 120 MEQ/L (98-107); CREATININE FOR GFR 0.98 MG/DL (0.70-1.30); GLOMERULAR FILTRATION RATE > 60.0 (>42); GLUCOSE, FASTING 144 MG/DL (70-100); POTASSIUM SERUM 3.4 MEQ/L (3.5-5.1); SODIUM LEVEL 150 MEQ/L (136-145)
[2022-08-16] MEDS: cefTRIAXone SOD 1 GM in D5W MINI-BAG PLUS 50 ML IV SCH (21:05)
[2022-08-16] MEDS: oxyBUTYnin *DITROPAN XL* 5 MG TABCR PO SCH (21:06)
[2022-08-16] MEDS: ESCITALOPRAM OXALATE 10 MG TAB (LEXAPRO) PO SCH (21:06)
[2022-08-16] MEDS: ATORVASTATIN 20 MG TAB PO SCH (21:06)
[2022-08-16 21:45] VITALS: BP 137/67
[2022-08-16 23:58] LABS: BLOOD UREA NITROGEN 31 MG/DL (7-18); CALCIUM LEVEL 9.1 MG/DL (8.8-10.2); CARBON DIOXIDE LEVEL 25 MEQ/L (21-32); CHLORIDE LEVEL 122 MEQ/L (98-107); CREATININE FOR GFR 0.94 MG/DL (0.70-1.30); GLOMERULAR FILTRATION RATE > 60.0 (>42); GLUCOSE, FASTING 120 MG/DL (70-100); POTASSIUM SERUM 3.7 MEQ/L (3.5-5.1); SODIUM LEVEL 152 MEQ/L (136-145)
[2022-08-17 03:30] LABS: BLOOD UREA NITROGEN 28 MG/DL (7-18); CALCIUM LEVEL 8.9 MG/DL (8.8-10.2); CARBON DIOXIDE LEVEL 26 MEQ/L (21-32); CHLORIDE LEVEL 118 MEQ/L (98-107); CREATININE FOR GFR 0.91 MG/DL (0.70-1.30); GLOMERULAR FILTRATION RATE > 60.0 (>42); GLUCOSE, FASTING 109 MG/DL (70-100); POTASSIUM SERUM 3.6 MEQ/L (3.5-5.1); SODIUM LEVEL 146 MEQ/L (136-145)
[2022-08-17] MEDS: D5W 1,000 ML IV SCH ×2 (04:19→15:07)
[2022-08-17 06:00] VITALS: BP 128/60
[2022-08-17] MEDS: LEVOTHYROXINE 125MCG TABLET (0.125MG) PO SCH (06:38)
[2022-08-17 06:59] LABS: HEMATOCRIT 33.3 % (42.0-52.0); HEMOGLOBIN 9.5 g/dl (13.5-17.5); MEAN CORPUSCULAR HEMOGLOBIN 25.2 pg (27.0-33.0); MEAN CORPUSCULAR HGB CONC 28.5 g/dl (32.0-36.5); MEAN CORPUSCULAR VOLUME 88.3 fl (80.0-96.0); PLATELET COUNT, AUTOMATED 258 10^3/uL (150-450); RED BLOOD COUNT 3.77 10^6/uL (4.30-6.10)
[2022-08-17] MEDS: INSULIN LISPRO (NovoLOG) PER UNIT SC SCH ×4 (07:30→20:05)
[2022-08-17 07:42] LABS: ALBUMIN 2.5 GM/DL (3.2-5.2); ALT/SGPT 7 U/L (12-78); BILIRUBIN,TOTAL 0.6 MG/DL (0.2-1.0); BLOOD UREA NITROGEN 28 MG/DL (7-18); CARBON DIOXIDE LEVEL 26 MEQ/L (21-32); CHLORIDE LEVEL 118 MEQ/L (98-107); CREATININE FOR GFR 0.86 MG/DL (0.70-1.30); GLOMERULAR FILTRATION RATE > 60.0 (>42); GLUCOSE, FASTING 102 MG/DL (70-100); POTASSIUM SERUM 3.8 MEQ/L (3.5-5.1); SODIUM LEVEL 150 MEQ/L (136-145)
[2022-08-17] MEDS: TIOTROPIUM INHALER/CAPSULE (SPIRIVA) INH SCH (08:56)
[2022-08-17] MEDS: DOCUSATE SODIUM 100MG CAPSULE PO SCH ×2 (09:08→21:08)
[2022-08-17] MEDS: busPIRone 5 MG TAB PO SCH ×2 (09:08→21:09)
[2022-08-17] MEDS: OMEPRAZOLE 20MG CAP PO SCH (09:08)
[2022-08-17] MEDS: buPROPion **XL** TABLET 150MG (WELLBUTRIN XL) PO SCH (09:08)
[2022-08-17] MEDS: FERROUS GLUCONATE 324 MG TAB PO SCH (09:08)
[2022-08-17] MEDS: ENOXAPARIN 100MG/1ML SYRINGE (J1650 PER 10MG) SC SCH (09:09)
[2022-08-17 10:04] LABS: BLOOD UREA NITROGEN 26 MG/DL (7-18); CALCIUM LEVEL 8.8 MG/DL (8.8-10.2); CARBON DIOXIDE LEVEL 25 MEQ/L (21-32); CHLORIDE LEVEL 118 MEQ/L (98-107); CREATININE FOR GFR 0.98 MG/DL (0.70-1.30); GLOMERULAR FILTRATION RATE > 60.0 (>42); GLUCOSE, FASTING 132 MG/DL (70-100); POTASSIUM SERUM 3.8 MEQ/L (3.5-5.1); SODIUM LEVEL 149 MEQ/L (136-145)
[2022-08-17 13:18] LABS: BLOOD UREA NITROGEN 25 MG/DL (7-18); CALCIUM LEVEL 8.4 MG/DL (8.8-10.2); CARBON DIOXIDE LEVEL 25 MEQ/L (21-32); CHLORIDE LEVEL 115 MEQ/L (98-107); CREATININE FOR GFR 0.82 MG/DL (0.70-1.30); GLOMERULAR FILTRATION RATE > 60.0 (>42); GLUCOSE, FASTING 106 MG/DL (70-100); POTASSIUM SERUM 3.6 MEQ/L (3.5-5.1); SODIUM LEVEL 145 MEQ/L (136-145)
[2022-08-17 14:00] VITALS: BP 131/69
[2022-08-17] MEDS ORDERED: ACETAMINOPHEN TAB 650MG DOSE (2X325MG) PO PRN (16:05)
[2022-08-17] MEDS ORDERED: traMADol 50 MG TAB PO PRN (16:05)
[2022-08-17] MEDS ORDERED: D5W/0.2% SODIUM CHLORIDE 1,000 ML IV SCH (16:50)
[2022-08-17 17:32] LABS: BLOOD UREA NITROGEN 23 MG/DL (7-18); CALCIUM LEVEL 8.6 MG/DL (8.8-10.2); CARBON DIOXIDE LEVEL 26 MEQ/L (21-32); CHLORIDE LEVEL 115 MEQ/L (98-107); GLOMERULAR FILTRATION RATE > 60.0 (>42); GLUCOSE, FASTING 101 MG/DL (70-100); POTASSIUM SERUM 3.4 MEQ/L (3.5-5.1); SODIUM LEVEL 145 MEQ/L (136-145)
[2022-08-17] MEDS ORDERED: RIVAROXABAN 20MG TAB (XARELTO) PO SCH (18:00)
[2022-08-17 20:54] VITALS: BP 129/67
[2022-08-17] MEDS: oxyBUTYnin *DITROPAN XL* 5 MG TABCR PO SCH (21:08)
[2022-08-17] MEDS: cefTRIAXone SOD 1 GM in D5W MINI-BAG PLUS 50 ML IV SCH (21:08)
[2022-08-17] MEDS: ATORVASTATIN 20 MG TAB PO SCH (21:08)
[2022-08-17] MEDS: ESCITALOPRAM OXALATE 10 MG TAB (LEXAPRO) PO SCH (21:08)
[2022-08-17 21:09] VITALS: BP 129/67
[2022-08-17 21:46] LABS: BLOOD UREA NITROGEN 22 MG/DL (7-18); CALCIUM LEVEL 8.9 MG/DL (8.8-10.2); CARBON DIOXIDE LEVEL 23 MEQ/L (21-32); CHLORIDE LEVEL 114 MEQ/L (98-107); GLOMERULAR FILTRATION RATE > 60.0 (>42); GLUCOSE, FASTING 97 MG/DL (70-100); POTASSIUM SERUM 3.1 MEQ/L (3.5-5.1); SODIUM LEVEL 143 MEQ/L (136-145)
[2022-08-18] VITALS (16 sets, daily range): BP systolic 140–170; BP diastolic 72–87
[2022-08-18 02:17] LABS: BLOOD UREA NITROGEN 19 MG/DL (7-18); CARBON DIOXIDE LEVEL 26 MEQ/L (21-32); CHLORIDE LEVEL 114 MEQ/L (98-107); CREATININE FOR GFR 0.75 MG/DL (0.70-1.30); GLOMERULAR FILTRATION RATE > 60.0 (>42); GLUCOSE, FASTING 97 MG/DL (70-100); POTASSIUM SERUM 3.1 MEQ/L (3.5-5.1); SODIUM LEVEL 145 MEQ/L (136-145)
[2022-08-18 02:18] LABS: CALCIUM LEVEL 8.9 MG/DL (8.8-10.2)
[2022-08-18 05:51] LABS: VENOUS HCO3 24.5 MEQ/L (23.0-27.0); VENOUS O2 SATURATION 99.2 % (60.0-80.0); VENOUS PARTIAL PRESSURE CO2 34.7 mmHg (38.0-50.0); VENOUS PARTIAL PRESSURE O2 149.5 mmHg (30.0-50.0); VENOUS PH 7.466 UNITS (7.330-7.430); VENOUS STANDARD HCO3 25.4 MEQ/L; VENOUS TOTAL CO2 25.5 MEQ/L (24.0-28.0)
[2022-08-18 06:49] LABS: ALBUMIN 2.5 GM/DL (3.2-5.2); ALT/SGPT 9 U/L (12-78); BILIRUBIN,TOTAL 0.5 MG/DL (0.2-1.0); BLOOD UREA NITROGEN 18 MG/DL (7-18); CALCIUM LEVEL 8.8 MG/DL (8.8-10.2); CARBON DIOXIDE LEVEL 25 MEQ/L (21-32); CHLORIDE LEVEL 114 MEQ/L (98-107); GLOMERULAR FILTRATION RATE > 60.0 (>42); GLUCOSE, FASTING 86 MG/DL (70-100); NT-PRO BNP 1024 PG/ML (<450); POTASSIUM SERUM 3.3 MEQ/L (3.5-5.1); SODIUM LEVEL 144 MEQ/L (136-145); TOTAL PROTEIN 6.1 GM/DL (6.4-8.2)
[2022-08-18] MEDS ORDERED: levETIRAcetam INJection 500 MG in D5W MINI-BAG PLUS 100 ML IV ONE (07:00)
[2022-08-18] MEDS ORDERED: FUROSEMIDE 100MG/10ML VIAL (J1940) IV ONE (07:35)
[2022-08-18] MEDS: TIOTROPIUM INHALER/CAPSULE (SPIRIVA) INH SCH (07:43)
[2022-08-18] MEDS: INSULIN LISPRO (NovoLOG) PER UNIT SC SCH ×4 (07:52→18:00)
[2022-08-18 08:10] LABS: ABG BASE EXCESS -1.1 (-2.0-2.0); ABG HCO3 22.3 MEQ/L (22.0-26.0); ABG O2 SATURATION 89.9 % (95.0-99.0); ABG PARTIAL PRESSURE CO2 32.3 mmHg (35.0-45.0); ABG PARTIAL PRESSURE O2 54.8 mmHg (75.0-100.0); ABG STANDARD HCO3 23.4 MEQ/L (22.0-26.0); ABG TOTAL CO2 23.2 MEQ/L (23.0-31.0); ABG pH (ARTERIAL) 7.456 UNITS (7.350-7.450)
[2022-08-18 08:13] LABS: HEMATOCRIT 32.8 % (42.0-52.0); HEMOGLOBIN 9.7 g/dl (13.5-17.5); MEAN CORPUSCULAR HEMOGLOBIN 25.7 pg (27.0-33.0); MEAN CORPUSCULAR HGB CONC 29.6 g/dl (32.0-36.5); PLATELET COUNT, AUTOMATED 263 10^3/uL (150-450); RED BLOOD COUNT 3.77 10^6/uL (4.30-6.10); WHITE BLOOD COUNT 8.3 10^3/uL (4.0-10.0)
[2022-08-18] MEDS ORDERED: ISOVUE-370 76% 100ML VIAL As Ordered ONE (08:41)
[2022-08-18 08:44] LABS: MAGNESIUM LEVEL 1.9 MG/DL (1.8-2.4); PHOSPHORUS LEVEL 2.5 MG/DL (2.5-4.9)
[2022-08-18 08:46] LABS: INR 1.27; PROTHROMBIN TIME 16.3 SECONDS (12.7-14.5)
[2022-08-18 08:47] LABS: PARTIAL THROMBOPLASTIN TIME 35.3 SECONDS (25.9-37.0)
[2022-08-18 08:51] LABS: MB/CK RELATIVE INDEX 1.85 (< OR =4)
[2022-08-18] MEDS: KCL 10MEQ/100ML SWI (KRUN) 10 MEQ in IV 1 EA IV SCH ×4 (09:40→13:31)
[2022-08-18] MEDS: PANTOPRAZOLE 40MG VIAL IV SCH (11:46)
[2022-08-18] MEDS: NYSTATIN 100,000 UNITS/GM TOPICAL PWD 15 GM TOP SCH ×2 (11:48→20:14)
[2022-08-18] MEDS: D5W/0.45% SODIUM CHLORIDE 1,000 ML IV SCH (11:49)
[2022-08-18] MEDS: IPRATROPIUM 0.5MG/ALBUTEROL 2.5MG INH SOL UD 3ML (DUONEB) NEB SCH ×3 (12:01→19:29)
[2022-08-18] MEDS: VANCOMYCIN HCL 1,000 MG, VIAL MATE ADAPTER 1 EACH in NS 250 ML IV SCH (13:29)
[2022-08-18] MEDS: PIPERACILLIN/TAZOBACTAM SOD 3.375 GM in D5W MINI-BAG PLUS 50 ML IV SCH ×2 (13:32→17:47)
[2022-08-18] MEDS ORDERED: VANCOMYCIN HCL 750 MG, VIAL MATE ADAPTER 1 EACH in D5W 250 ML IV ONE (14:00)
[2022-08-18] MEDS: ENOXAPARIN 100MG/1ML SYRINGE (J1650 PER 10MG) SC SCH (17:49)
[2022-08-18 23:40] LABS: CRYSTALS, BODY FLUID NONE SEEN (NONE SEEN); SOURCE, BODY FLUID CRYSTALS LFT KNEE
[2022-08-18 23:46] LABS: SOURCE, BODY FLUID LFT KNEE; SYNOVIAL FLUID COLOR YELLOW (COLORLESS)
[2022-08-19] VITALS (10 sets, daily range): BP systolic 135–168; BP diastolic 65–83
[2022-08-19] MEDS: PIPERACILLIN/TAZOBACTAM SOD 3.375 GM in D5W MINI-BAG PLUS 50 ML IV SCH ×5 (00:07→23:53)
[2022-08-19] MEDS: VANCOMYCIN HCL 1,000 MG, VIAL MATE ADAPTER 1 EACH in NS 250 ML IV SCH (01:21)
[2022-08-19] MEDS: D5W/0.45% SODIUM CHLORIDE 1,000 ML IV SCH ×2 (04:02→18:40)
[2022-08-19] MEDS: ENOXAPARIN 100MG/1ML SYRINGE (J1650 PER 10MG) SC SCH (05:29)
[2022-08-19] MEDS: INSULIN LISPRO (NovoLOG) PER UNIT SC SCH ×4 (06:00→17:38)
[2022-08-19 06:22] LABS: HEMATOCRIT 30.3 % (42.0-52.0); HEMOGLOBIN 9.1 g/dl (13.5-17.5); MEAN CORPUSCULAR HEMOGLOBIN 25.9 pg (27.0-33.0); MEAN CORPUSCULAR VOLUME 86.1 fl (80.0-96.0); PLATELET COUNT, AUTOMATED 247 10^3/uL (150-450); RED BLOOD COUNT 3.52 10^6/uL (4.30-6.10); WHITE BLOOD COUNT 9.9 10^3/uL (4.0-10.0)
[2022-08-19 06:57] LABS: ALBUMIN 2.3 GM/DL (3.2-5.2); ALT/SGPT 8 U/L (12-78); BILIRUBIN,TOTAL 0.6 MG/DL (0.2-1.0); BLOOD UREA NITROGEN 14 MG/DL (7-18); CALCIUM LEVEL 8.5 MG/DL (8.8-10.2); CARBON DIOXIDE LEVEL 24 MEQ/L (21-32); CHLORIDE LEVEL 117 MEQ/L (98-107); CREATININE FOR GFR 0.69 MG/DL (0.70-1.30); GLOMERULAR FILTRATION RATE > 60.0 (>42); GLUCOSE, FASTING 130 MG/DL (70-100); POTASSIUM SERUM 3.5 MEQ/L (3.5-5.1); SODIUM LEVEL 148 MEQ/L (136-145); TOTAL PROTEIN 5.7 GM/DL (6.4-8.2)
[2022-08-19] MEDS ORDERED: D5W 1,000 ML IV SCH (07:20)
[2022-08-19] MEDS: PANTOPRAZOLE 40MG VIAL IV SCH (08:05)
[2022-08-19] MEDS: NYSTATIN 100,000 UNITS/GM TOPICAL PWD 15 GM TOP SCH ×2 (08:05→21:51)
[2022-08-19] MEDS: IPRATROPIUM 0.5MG/ALBUTEROL 2.5MG INH SOL UD 3ML (DUONEB) NEB SCH ×4 (08:25→20:41)
[2022-08-19] MEDS: TIOTROPIUM INHALER/CAPSULE (SPIRIVA) INH SCH (08:25)
[2022-08-19 15:49] LABS: BLOOD UREA NITROGEN 11 MG/DL (7-18); CALCIUM LEVEL 8.6 MG/DL (8.8-10.2); CARBON DIOXIDE LEVEL 25 MEQ/L (21-32); CHLORIDE LEVEL 110 MEQ/L (98-107); CREATININE FOR GFR 0.72 MG/DL (0.70-1.30); GLOMERULAR FILTRATION RATE > 60.0 (>42); GLUCOSE, FASTING 130 MG/DL (70-100); POTASSIUM SERUM 3.3 MEQ/L (3.5-5.1); SODIUM LEVEL 142 MEQ/L (136-145)
[2022-08-19] MEDS: KCL 10MEQ/100ML SWI (KRUN) 10 MEQ in IV 1 EA IV SCH ×6 (18:40→23:53)
[2022-08-19] MEDS: VANCOMYCIN HCL 750 MG, VIAL MATE ADAPTER 1 EACH in D5W 250 ML IV SCH (19:49)
[2022-08-19] MEDS: ENOXAPARIN 80MG/0.8ML SYRINGE (J1650 PER 10MG) SC SCH (20:53)
[2022-08-20] VITALS (8 sets, daily range): BP systolic 124–145; BP diastolic 58–81
[2022-08-20] MEDS: INSULIN LISPRO (NovoLOG) PER UNIT SC SCH ×5 (06:00→23:57)
[2022-08-20] MEDS: PIPERACILLIN/TAZOBACTAM SOD 3.375 GM in D5W MINI-BAG PLUS 50 ML IV SCH ×4 (06:03→23:58)
[2022-08-20 07:37] LABS: BASO # 0.1 10^3/uL (0.0-0.2); BASO % 0.6 % (0.0-1.0); EOS # 0.2 10^3/uL (0.0-0.5); EOS % 2.1 % (0.0-3.0); HEMATOCRIT 31.1 % (42.0-52.0); HEMOGLOBIN 8.9 g/dl (13.5-17.5); LYMPH # 1.2 10^3/uL (1.5-5.0); LYMPH % 14.2 % (24.0-44.0); MEAN CORPUSCULAR HEMOGLOBIN 25.2 pg (27.0-33.0); MEAN CORPUSCULAR HGB CONC 28.6 g/dl (32.0-36.5); MEAN CORPUSCULAR VOLUME 88.1 fl (80.0-96.0); MONO # 0.7 10^3/uL (0.0-0.8); MONO % 7.6 % (2.0-8.0); NEUTROPHILS # 6.4 10^3/uL (1.5-8.5); NEUTROPHILS % 74.8 % (36.0-66.0); PLATELET COUNT, AUTOMATED 256 10^3/uL (150-450); RED BLOOD COUNT 3.53 10^6/uL (4.30-6.10); WHITE BLOOD COUNT 8.6 10^3/uL (4.0-10.0)
[2022-08-20] MEDS: TIOTROPIUM INHALER/CAPSULE (SPIRIVA) INH SCH (08:00)
[2022-08-20] MEDS: IPRATROPIUM 0.5MG/ALBUTEROL 2.5MG INH SOL UD 3ML (DUONEB) NEB SCH ×4 (08:00→19:56)
[2022-08-20 08:13] LABS: BLOOD UREA NITROGEN 9 MG/DL (7-18); CALCIUM LEVEL 8.4 MG/DL (8.8-10.2); CARBON DIOXIDE LEVEL 23 MEQ/L (21-32); CHLORIDE LEVEL 109 MEQ/L (98-107); CREATININE FOR GFR 0.66 MG/DL (0.70-1.30); GLOMERULAR FILTRATION RATE > 60.0 (>42); GLUCOSE, FASTING 106 MG/DL (70-100); POTASSIUM SERUM 3.5 MEQ/L (3.5-5.1); SODIUM LEVEL 138 MEQ/L (136-145); VANCOMYCIN LEVEL TROUGH 13.8 UG/ML (10.0-20.0)
[2022-08-20] MEDS: D5W/0.45% SODIUM CHLORIDE 1,000 ML IV SCH (08:16)
[2022-08-20] MEDS: NYSTATIN 100,000 UNITS/GM TOPICAL PWD 15 GM TOP SCH ×2 (08:17→20:16)
[2022-08-20] MEDS: ENOXAPARIN 80MG/0.8ML SYRINGE (J1650 PER 10MG) SC SCH ×2 (08:17→20:16)
[2022-08-20] MEDS: PANTOPRAZOLE 40MG VIAL IV SCH (08:17)
[2022-08-20] MEDS: VANCOMYCIN HCL 750 MG, VIAL MATE ADAPTER 1 EACH in D5W 250 ML IV SCH ×2 (09:09→20:15)
[2022-08-20] MEDS: D5W/LR 1,000 ML IV SCH ×2 (11:26→23:58)
[2022-08-20] MEDS: SODIUM CHLORIDE HYPERTONIC 3% 15ML NEB SOL INH SCH ×2 (15:27→19:56)
[2022-08-21] VITALS (7 sets, daily range): BP systolic 125–157; BP diastolic 65–84
[2022-08-21] MEDS: SODIUM CHLORIDE HYPERTONIC 3% 15ML NEB SOL INH SCH ×7 (00:22→23:35)
[2022-08-21] MEDS: PIPERACILLIN/TAZOBACTAM SOD 3.375 GM in D5W MINI-BAG PLUS 50 ML IV SCH (05:45)
[2022-08-21] MEDS: INSULIN LISPRO (NovoLOG) PER UNIT SC SCH ×4 (05:56→23:23)
[2022-08-21 07:24] LABS: BASO % 0.4 % (0.0-1.0); EOS # 0.1 10^3/uL (0.0-0.5); EOS % 1.3 % (0.0-3.0); HEMATOCRIT 29.5 % (42.0-52.0); HEMOGLOBIN 8.9 g/dl (13.5-17.5); LYMPH % 11.3 % (24.0-44.0); MEAN CORPUSCULAR HEMOGLOBIN 25.5 pg (27.0-33.0); MEAN CORPUSCULAR HGB CONC 30.2 g/dl (32.0-36.5); MEAN CORPUSCULAR VOLUME 84.5 fl (80.0-96.0); MONO # 0.6 10^3/uL (0.0-0.8); MONO % 6.1 % (2.0-8.0); NEUTROPHILS # 7.3 10^3/uL (1.5-8.5); NEUTROPHILS % 80.3 % (36.0-66.0); PLATELET COUNT, AUTOMATED 258 10^3/uL (150-450); RED BLOOD COUNT 3.49 10^6/uL (4.30-6.10)
[2022-08-21 07:47] LABS: BLOOD UREA NITROGEN 9 MG/DL (7-18); CALCIUM LEVEL 8.4 MG/DL (8.8-10.2); CARBON DIOXIDE LEVEL 24 MEQ/L (21-32); CHLORIDE LEVEL 109 MEQ/L (98-107); CREATININE FOR GFR 0.56 MG/DL (0.70-1.30); GLOMERULAR FILTRATION RATE > 60.0 (>42); GLUCOSE, FASTING 120 MG/DL (70-100); SODIUM LEVEL 140 MEQ/L (136-145); VANCOMYCIN LEVEL TROUGH 16.4 UG/ML (10.0-20.0)
[2022-08-21] MEDS: TIOTROPIUM INHALER/CAPSULE (SPIRIVA) INH SCH (08:00)
[2022-08-21] MEDS: IPRATROPIUM 0.5MG/ALBUTEROL 2.5MG INH SOL UD 3ML (DUONEB) NEB SCH ×4 (08:10→19:13)
[2022-08-21] MEDS: NYSTATIN 100,000 UNITS/GM TOPICAL PWD 15 GM TOP SCH ×2 (09:21→20:12)
[2022-08-21] MEDS: VANCOMYCIN HCL 750 MG, VIAL MATE ADAPTER 1 EACH in D5W 250 ML IV SCH ×2 (09:22→20:11)
[2022-08-21] MEDS: PANTOPRAZOLE 40MG VIAL IV SCH (09:22)
[2022-08-21] MEDS: ENOXAPARIN 80MG/0.8ML SYRINGE (J1650 PER 10MG) SC SCH ×2 (09:22→20:12)
[2022-08-21] MEDS: KCL 10MEQ/100ML SWI (KRUN) 10 MEQ in IV 1 EA IV SCH ×4 (11:03→14:42)
[2022-08-21] MEDS: KCL 20MEQ IN D5/NS 1000ML 1,000 ML IV SCH ×2 (11:03→23:24)
[2022-08-21] MEDS ORDERED: ACETAMINOPHEN 650 MG SUPP PR PRN (12:50)
[2022-08-21] MEDS ORDERED: LevoFLOXacin IV 750 MG in IV 1 EA IV SCH (13:00)
[2022-08-21] MEDS: ALBUTEROL SULFATE 2.5 MG/0.5 ML INH NEB SOLN INH PRN (23:35)
[2022-08-22] VITALS (12 sets, daily range): BP systolic 128–163; BP diastolic 65–88; O2SAT 98
[2022-08-22] MEDS: ALBUTEROL SULFATE 2.5 MG/0.5 ML INH NEB SOLN INH PRN (03:27)
[2022-08-22] MEDS: SODIUM CHLORIDE HYPERTONIC 3% 15ML NEB SOL INH SCH ×6 (03:27→23:35)
[2022-08-22 05:14] LABS: HEMATOCRIT 30.2 % (42.0-52.0); HEMOGLOBIN 8.9 g/dl (13.5-17.5); MEAN CORPUSCULAR HEMOGLOBIN 25.4 pg (27.0-33.0); MEAN CORPUSCULAR HGB CONC 29.5 g/dl (32.0-36.5); PLATELET COUNT, AUTOMATED 243 10^3/uL (150-450); RED BLOOD COUNT 3.51 10^6/uL (4.30-6.10); WHITE BLOOD COUNT 7.3 10^3/uL (4.0-10.0)
[2022-08-22 05:39] LABS: BLOOD UREA NITROGEN 7 MG/DL (7-18); CALCIUM LEVEL 8.6 MG/DL (8.8-10.2); CARBON DIOXIDE LEVEL 23 MEQ/L (21-32); CHLORIDE LEVEL 113 MEQ/L (98-107); CREATININE FOR GFR 0.55 MG/DL (0.70-1.30); GLOMERULAR FILTRATION RATE > 60.0 (>42); GLUCOSE, FASTING 121 MG/DL (70-100); MAGNESIUM LEVEL 1.6 MG/DL (1.8-2.4); PHOSPHORUS LEVEL 2.2 MG/DL (2.5-4.9); POTASSIUM SERUM 3.1 MEQ/L (3.5-5.1); SODIUM LEVEL 141 MEQ/L (136-145)
[2022-08-22] MEDS: INSULIN LISPRO (NovoLOG) PER UNIT SC SCH ×3 (05:40→17:33)
[2022-08-22] MEDS: KCL 10MEQ/100ML SWI (KRUN) 10 MEQ in IV 1 EA IV SCH ×5 (06:33→15:47)
[2022-08-22] MEDS: IPRATROPIUM 0.5MG/ALBUTEROL 2.5MG INH SOL UD 3ML (DUONEB) NEB SCH ×4 (07:17→19:17)
[2022-08-22] MEDS: MAG SULF 1GM/100ML (MAG RUN) 1 GM in IV 1 EA IV SCH ×4 (07:58→11:14)
[2022-08-22] MEDS: NYSTATIN 100,000 UNITS/GM TOPICAL PWD 15 GM TOP SCH ×2 (09:06→20:20)
[2022-08-22] MEDS: ENOXAPARIN 80MG/0.8ML SYRINGE (J1650 PER 10MG) SC SCH ×2 (09:06→20:20)
[2022-08-22] MEDS: PANTOPRAZOLE 40MG VIAL IV SCH (09:06)
[2022-08-22] MEDS ORDERED: VARIBAR PUDDING 40% w/v 230ML TUBE As Ordered ONE (13:13)
[2022-08-22] MEDS ORDERED: VARIBAR NECTAR 40% w/v 240ML SUSP BTL As Ordered ONE (13:14)
[2022-08-22] MEDS ORDERED: BARIUM SULFATE 700 MG TABLET (E-Z-DISK) As Ordered ONE (13:14)
[2022-08-22] MEDS ORDERED: E-Z-PAQUE 96% w/w SUSP 176GM BTL As Ordered ONE (13:14)
[2022-08-22] MEDS: KCL 20MEQ IN D5/NS 1000ML 1,000 ML IV SCH (17:33)
[2022-08-22 20:14] LABS: BLOOD UREA NITROGEN 5 MG/DL (7-18); CALCIUM LEVEL 8.3 MG/DL (8.8-10.2); CARBON DIOXIDE LEVEL 21 MEQ/L (21-32); CHLORIDE LEVEL 112 MEQ/L (98-107); CREATININE FOR GFR 0.49 MG/DL (0.70-1.30); GLOMERULAR FILTRATION RATE > 60.0 (>42); GLUCOSE, FASTING 101 MG/DL (70-100); POTASSIUM SERUM 3.5 MEQ/L (3.5-5.1); SODIUM LEVEL 140 MEQ/L (136-145)
[2022-08-23] VITALS: BP 141/71
[2022-08-23] MEDS: SODIUM CHLORIDE HYPERTONIC 3% 15ML NEB SOL INH SCH ×6 (03:07→23:27)
[2022-08-23 04:00] VITALS: BP 160/76
[2022-08-23 06:09] LABS: BASO % 0.3 % (0.0-1.0); EOS # 0.1 10^3/uL (0.0-0.5); EOS % 0.8 % (0.0-3.0); HEMATOCRIT 30.9 % (42.0-52.0); HEMOGLOBIN 9.3 g/dl (13.5-17.5); LYMPH % 14.5 % (24.0-44.0); MEAN CORPUSCULAR HEMOGLOBIN 25.7 pg (27.0-33.0); MEAN CORPUSCULAR HGB CONC 30.1 g/dl (32.0-36.5); MEAN CORPUSCULAR VOLUME 85.4 fl (80.0-96.0); MONO # 0.5 10^3/uL (0.0-0.8); MONO % 6.4 % (2.0-8.0); NEUTROPHILS # 5.5 10^3/uL (1.5-8.5); PLATELET COUNT, AUTOMATED 329 10^3/uL (150-450); RED BLOOD COUNT 3.62 10^6/uL (4.30-6.10); WHITE BLOOD COUNT 7.1 10^3/uL (4.0-10.0)
[2022-08-23 06:36] LABS: BLOOD UREA NITROGEN 5 MG/DL (7-18); CALCIUM LEVEL 8.6 MG/DL (8.8-10.2); CARBON DIOXIDE LEVEL 24 MEQ/L (21-32); CHLORIDE LEVEL 114 MEQ/L (98-107); GLOMERULAR FILTRATION RATE > 60.0 (>42); GLUCOSE, FASTING 99 MG/DL (70-100); MAGNESIUM LEVEL 2.2 MG/DL (1.8-2.4); POTASSIUM SERUM 3.5 MEQ/L (3.5-5.1); SODIUM LEVEL 142 MEQ/L (136-145)
[2022-08-23] MEDS: INSULIN LISPRO (NovoLOG) PER UNIT SC SCH ×4 (07:30→19:05)
[2022-08-23 08:00] VITALS: BP 157/75
[2022-08-23] MEDS: IPRATROPIUM 0.5MG/ALBUTEROL 2.5MG INH SOL UD 3ML (DUONEB) NEB SCH ×4 (08:08→20:25)
[2022-08-23] MEDS: PANTOPRAZOLE 40MG VIAL IV SCH (08:56)
[2022-08-23] MEDS: ENOXAPARIN 80MG/0.8ML SYRINGE (J1650 PER 10MG) SC SCH ×2 (08:56→21:46)
[2022-08-23] MEDS: KCL 20MEQ IN D5/NS 1000ML 1,000 ML IV SCH ×2 (08:56→11:27)
[2022-08-23] MEDS: NYSTATIN 100,000 UNITS/GM TOPICAL PWD 15 GM TOP SCH ×2 (08:57→21:45)
[2022-08-23 12:49] VITALS: BP 138/82
[2022-08-23 14:00] VITALS: BP 147/86
[2022-08-23] MEDS ORDERED: FAT EMULSION IV 250 ML IV ONE (18:00)
[2022-08-23] MEDS: AMINO AC/ELECTROLYTE/DEX/CALC 1,000 ML IV SCH (19:05)
[2022-08-23 20:33] VITALS: BP 147/87
[2022-08-23] MEDS: ALBUTEROL SULFATE 2.5 MG/0.5 ML INH NEB SOLN INH PRN (23:28)
[2022-08-24] MEDS: INSULIN LISPRO (NovoLOG) PER UNIT SC SCH ×5 (00:24→23:20)
[2022-08-24] MEDS: SODIUM CHLORIDE HYPERTONIC 3% 15ML NEB SOL INH SCH ×6 (03:05→23:34)
[2022-08-24 06:09] VITALS: BP 154/91
[2022-08-24] MEDS: IPRATROPIUM 0.5MG/ALBUTEROL 2.5MG INH SOL UD 3ML (DUONEB) NEB SCH ×4 (07:22→20:29)
[2022-08-24 07:39] LABS: HEMATOCRIT 31.7 % (42.0-52.0); HEMOGLOBIN 9.5 g/dl (13.5-17.5); MEAN CORPUSCULAR HEMOGLOBIN 25.3 pg (27.0-33.0); MEAN CORPUSCULAR VOLUME 84.3 fl (80.0-96.0); PLATELET COUNT, AUTOMATED 367 10^3/uL (150-450); RED BLOOD COUNT 3.76 10^6/uL (4.30-6.10)
[2022-08-24 08:10] LABS: BLOOD UREA NITROGEN 7 MG/DL (7-18); CALCIUM LEVEL 8.4 MG/DL (8.8-10.2); CARBON DIOXIDE LEVEL 24 MEQ/L (21-32); CHLORIDE LEVEL 113 MEQ/L (98-107); CREATININE FOR GFR 0.49 MG/DL (0.70-1.30); GLOMERULAR FILTRATION RATE > 60.0 (>42); GLUCOSE, FASTING 99 MG/DL (70-100); POTASSIUM SERUM 3.7 MEQ/L (3.5-5.1); SODIUM LEVEL 142 MEQ/L (136-145)
[2022-08-24 08:12] LABS: MAGNESIUM LEVEL 2.2 MG/DL (1.8-2.4); PHOSPHORUS LEVEL 2.9 MG/DL (2.5-4.9)
[2022-08-24] MEDS: ENOXAPARIN 80MG/0.8ML SYRINGE (J1650 PER 10MG) SC SCH ×2 (09:40→20:36)
[2022-08-24] MEDS: NYSTATIN 100,000 UNITS/GM TOPICAL PWD 15 GM TOP SCH ×2 (09:41→20:36)
[2022-08-24] MEDS: PANTOPRAZOLE 40MG VIAL IV SCH (09:41)
[2022-08-24] MEDS: AMINO AC/ELECTROLYTE/DEX/CALC 1,000 ML IV SCH (17:49)
[2022-08-24] MEDS ORDERED: FAT EMULSION IV 250 ML IV ONE (18:00)
[2022-08-24 21:00] VITALS: O2SAT 94
[2022-08-24 21:57] VITALS: BP 142/81
[2022-08-24] MEDS: ALBUTEROL SULFATE 2.5 MG/0.5 ML INH NEB SOLN INH PRN (23:34)
[2022-08-25] MEDS: SODIUM CHLORIDE HYPERTONIC 3% 15ML NEB SOL INH SCH ×6 (04:00→23:39)
[2022-08-25 05:27] VITALS: BP 143/83
[2022-08-25] MEDS: INSULIN LISPRO (NovoLOG) PER UNIT SC SCH ×3 (05:42→18:00)
[2022-08-25 06:53] LABS: HEMATOCRIT 31.2 % (42.0-52.0); HEMOGLOBIN 9.3 g/dl (13.5-17.5); MEAN CORPUSCULAR HEMOGLOBIN 25.8 pg (27.0-33.0); MEAN CORPUSCULAR HGB CONC 29.8 g/dl (32.0-36.5); MEAN CORPUSCULAR VOLUME 86.4 fl (80.0-96.0); PLATELET COUNT, AUTOMATED 372 10^3/uL (150-450); RED BLOOD COUNT 3.61 10^6/uL (4.30-6.10); WHITE BLOOD COUNT 5.6 10^3/uL (4.0-10.0)
[2022-08-25] MEDS: IPRATROPIUM 0.5MG/ALBUTEROL 2.5MG INH SOL UD 3ML (DUONEB) NEB SCH ×4 (07:15→20:17)
[2022-08-25 07:32] LABS: BLOOD UREA NITROGEN 11 MG/DL (7-18); CALCIUM LEVEL 8.4 MG/DL (8.8-10.2); CARBON DIOXIDE LEVEL 24 MEQ/L (21-32); CHLORIDE LEVEL 111 MEQ/L (98-107); CREATININE FOR GFR 0.57 MG/DL (0.70-1.30); GLOMERULAR FILTRATION RATE > 60.0 (>42); GLUCOSE, FASTING 101 MG/DL (70-100); MAGNESIUM LEVEL 2.1 MG/DL (1.8-2.4); PHOSPHORUS LEVEL 3.3 MG/DL (2.5-4.9); POTASSIUM SERUM 3.5 MEQ/L (3.5-5.1); SODIUM LEVEL 142 MEQ/L (136-145)
[2022-08-25] MEDS: PANTOPRAZOLE 40MG VIAL IV SCH (09:10)
[2022-08-25] MEDS: NYSTATIN 100,000 UNITS/GM TOPICAL PWD 15 GM TOP SCH ×2 (09:19→20:27)
[2022-08-25] MEDS: ENOXAPARIN 80MG/0.8ML SYRINGE (J1650 PER 10MG) SC SCH ×2 (09:19→20:27)
[2022-08-25] MEDS ORDERED: KCL 10MEQ/100ML SWI (KRUN) 10 MEQ in IV 1 EA IV ONE ×2 (12:45→13:45)
[2022-08-25 14:00] VITALS: BP 149/85
[2022-08-25 16:00] VITALS: O2SAT 91
[2022-08-25] MEDS: AMINO AC/ELECTROLYTE/DEX/CALC 1,000 ML IV SCH (17:21)
[2022-08-25] MEDS ORDERED: FAT EMULSION IV 250 ML IV ONE (18:00)
[2022-08-25 21:00] VITALS: O2SAT 91
[2022-08-25] MEDS: ALBUTEROL SULFATE 2.5 MG/0.5 ML INH NEB SOLN INH PRN (23:35)
[2022-08-26] MEDS: INSULIN LISPRO (NovoLOG) PER UNIT SC SCH ×4 (00:11→18:00)
[2022-08-26] MEDS: ALBUTEROL SULFATE 2.5 MG/0.5 ML INH NEB SOLN INH PRN ×2 (02:41→23:17)
[2022-08-26] MEDS: SODIUM CHLORIDE HYPERTONIC 3% 15ML NEB SOL INH SCH ×6 (02:41→23:18)
[2022-08-26] MEDS ORDERED: FUROSEMIDE 20MG/2ML VIAL (J1940) IV ONE ×3 (04:00→19:55)
[2022-08-26 05:37] VITALS: BP 148/88
[2022-08-26 06:44] LABS: HEMATOCRIT 37.1 % (42.0-52.0); HEMOGLOBIN 10.8 g/dl (13.5-17.5); MEAN CORPUSCULAR HEMOGLOBIN 25.1 pg (27.0-33.0); MEAN CORPUSCULAR HGB CONC 29.1 g/dl (32.0-36.5); MEAN CORPUSCULAR VOLUME 86.1 fl (80.0-96.0); RED BLOOD COUNT 4.31 10^6/uL (4.30-6.10); WHITE BLOOD COUNT 13.1 10^3/uL (4.0-10.0)
[2022-08-26 06:57] LABS: BLOOD UREA NITROGEN 14 MG/DL (7-18); CALCIUM LEVEL 8.9 MG/DL (8.8-10.2); CARBON DIOXIDE LEVEL 25 MEQ/L (21-32); CHLORIDE LEVEL 108 MEQ/L (98-107); CREATININE FOR GFR 0.63 MG/DL (0.70-1.30); GLOMERULAR FILTRATION RATE > 60.0 (>42); GLUCOSE, FASTING 128 MG/DL (70-100); PHOSPHORUS LEVEL 3.5 MG/DL (2.5-4.9); POTASSIUM SERUM 3.7 MEQ/L (3.5-5.1); SODIUM LEVEL 140 MEQ/L (136-145)
[2022-08-26 06:58] LABS: PLATELET COUNT, AUTOMATED 503 10^3/uL (150-450)
[2022-08-26] MEDS: IPRATROPIUM 0.5MG/ALBUTEROL 2.5MG INH SOL UD 3ML (DUONEB) NEB SCH ×4 (07:30→20:29)
[2022-08-26 08:51] LABS: ABG BASE EXCESS -0.4 (-2.0-2.0); ABG HCO3 23.3 MEQ/L (22.0-26.0); ABG O2 SATURATION 86.6 % (95.0-99.0); ABG PARTIAL PRESSURE CO2 35.3 mmHg (35.0-45.0); ABG PARTIAL PRESSURE O2 50.9 mmHg (75.0-100.0); ABG STANDARD HCO3 23.9 MEQ/L (22.0-26.0); ABG TOTAL CO2 24.4 MEQ/L (23.0-31.0); ABG pH (ARTERIAL) 7.438 UNITS (7.350-7.450)
[2022-08-26 08:59] LABS: NT-PRO BNP 1800 PG/ML (<450)
[2022-08-26] MEDS ORDERED: FUROSEMIDE 40MG/4ML VIAL (J1940) IV ONE (09:15)
[2022-08-26 09:23] LABS: CK-MB VALUE MASS 2.7 NG/ML (<3.6); MB/CK RELATIVE INDEX 1.33 (< OR =4)
[2022-08-26] MEDS: ENOXAPARIN 80MG/0.8ML SYRINGE (J1650 PER 10MG) SC SCH ×2 (10:28→22:15)
[2022-08-26] MEDS: PIPERACILLIN/TAZOBACTAM SOD 4.5 GM in D5W MINI-BAG PLUS 50 ML IV SCH ×3 (10:28→22:15)
[2022-08-26] MEDS: PANTOPRAZOLE 40MG VIAL IV SCH (10:29)
[2022-08-26] MEDS: NYSTATIN 100,000 UNITS/GM TOPICAL PWD 15 GM TOP SCH ×2 (10:29→22:16)
[2022-08-26] MEDS ORDERED: E-Z-PAQUE 96% w/w SUSP 176GM BTL As Ordered ONE (12:55)
[2022-08-26] MEDS ORDERED: VARIBAR PUDDING 40% w/v 230ML TUBE As Ordered ONE (12:55)
[2022-08-26] MEDS ORDERED: BARIUM SULFATE 700 MG TABLET (E-Z-DISK) As Ordered ONE (12:55)
[2022-08-26] MEDS ORDERED: VARIBAR NECTAR 40% w/v 240ML SUSP BTL As Ordered ONE (12:55)
[2022-08-26] MEDS ORDERED: FAT EMULSION IV 250 ML IV ONE (18:00)
[2022-08-26] MEDS: AMINO AC/ELECTROLYTE/DEX/CALC 1,000 ML IV SCH (18:36)
[2022-08-26 19:45] VITALS: O2SAT 82
[2022-08-26 19:50] VITALS: O2SAT 87
[2022-08-26] MEDS: ACETYLCYSTEINE 20% 4 ML VIAL (200MG/ML) INH SCH (20:00)
[2022-08-26] MEDS: BUDESONIDE 0.5 MG/2 ML INHALATION SUSPENSION INH SCH (20:29)
[2022-08-26 22:00] VITALS: BP 155/100
[2022-08-26 22:14] VITALS: BP 150/88
[2022-08-26 23:00] VITALS: O2SAT 92
[2022-08-27] VITALS (22 sets, daily range): BP systolic 139–159; BP diastolic 81–90; O2SAT 85–100
[2022-08-27] MEDS: INSULIN LISPRO (NovoLOG) PER UNIT SC SCH ×5 (00:26→23:22)
[2022-08-27 03:14] LABS: ABG BASE EXCESS 2.1 (-2.0-2.0); ABG HCO3 26.2 MEQ/L (22.0-26.0); ABG O2 SATURATION 99.8 % (95.0-99.0); ABG PARTIAL PRESSURE CO2 38.8 mmHg (35.0-45.0); ABG PARTIAL PRESSURE O2 277.8 mmHg (75.0-100.0); ABG STANDARD HCO3 26.4 MEQ/L (22.0-26.0); ABG TOTAL CO2 27.4 MEQ/L (23.0-31.0); ABG pH (ARTERIAL) 7.447 UNITS (7.350-7.450)
[2022-08-27] MEDS: SODIUM CHLORIDE HYPERTONIC 3% 15ML NEB SOL INH SCH ×6 (03:29→23:12)
[2022-08-27] MEDS: PIPERACILLIN/TAZOBACTAM SOD 4.5 GM in D5W MINI-BAG PLUS 50 ML IV SCH ×4 (04:37→21:48)
[2022-08-27 05:48] LABS: HEMATOCRIT 34.5 % (42.0-52.0); HEMOGLOBIN 10.3 g/dl (13.5-17.5); MEAN CORPUSCULAR HEMOGLOBIN 25.3 pg (27.0-33.0); MEAN CORPUSCULAR HGB CONC 29.9 g/dl (32.0-36.5); MEAN CORPUSCULAR VOLUME 84.8 fl (80.0-96.0); PLATELET COUNT, AUTOMATED 444 10^3/uL (150-450); RED BLOOD COUNT 4.07 10^6/uL (4.30-6.10); VENOUS BASE EXCESS 0.9 (-2.0-2.0); VENOUS HCO3 23.1 MEQ/L (23.0-27.0); VENOUS PARTIAL PRESSURE CO2 29.4 mmHg (38.0-50.0); VENOUS PH 7.513 UNITS (7.330-7.430); VENOUS STANDARD HCO3 25.3 MEQ/L; WHITE BLOOD COUNT 12.4 10^3/uL (4.0-10.0)
[2022-08-27 06:19] LABS: BLOOD UREA NITROGEN 21 MG/DL (7-18); CALCIUM LEVEL 8.6 MG/DL (8.8-10.2); CARBON DIOXIDE LEVEL 25 MEQ/L (21-32); CHLORIDE LEVEL 106 MEQ/L (98-107); CREATININE FOR GFR 0.82 MG/DL (0.70-1.30); GLOMERULAR FILTRATION RATE > 60.0 (>42); GLUCOSE, FASTING 124 MG/DL (70-100); MAGNESIUM LEVEL 2.1 MG/DL (1.8-2.4); SODIUM LEVEL 140 MEQ/L (136-145)
[2022-08-27] MEDS: BUDESONIDE 0.5 MG/2 ML INHALATION SUSPENSION INH SCH (07:31)
[2022-08-27] MEDS: ALBUTEROL SULFATE 2.5 MG/0.5 ML INH NEB SOLN INH PRN ×2 (07:31→23:12)
[2022-08-27] MEDS: ACETYLCYSTEINE 20% 4 ML VIAL (200MG/ML) INH SCH (07:32)
[2022-08-27] MEDS: IPRATROPIUM 0.5MG/ALBUTEROL 2.5MG INH SOL UD 3ML (DUONEB) NEB SCH (07:32)
[2022-08-27 08:23] LABS: CHOLESTEROL LEVEL 114 MG/DL (<200); CHOLESTEROL RISK RATIO 3.352 (<5); HDL CHOLESTEROL 34 MG/DL (>40); LDL CHOLESTEROL 50 MG/DL (<100); NON-HDL-C 80 MG/DL; TRIGLYCERIDES LEVEL 148 MG/DL (<150)
[2022-08-27] MEDS ORDERED: FUROSEMIDE 20MG/2ML VIAL (J1940) IV SCH (09:00)
[2022-08-27] MEDS: NYSTATIN 100,000 UNITS/GM TOPICAL PWD 15 GM TOP SCH ×2 (09:46→21:48)
[2022-08-27] MEDS: PANTOPRAZOLE 40MG VIAL IV SCH (09:47)
[2022-08-27] MEDS: ENOXAPARIN 80MG/0.8ML SYRINGE (J1650 PER 10MG) SC SCH ×2 (10:08→21:48)
[2022-08-27] MEDS: ALBUTEROL SULFATE 2.5 MG/0.5 ML INH NEB SOLN NEB SCH ×3 (11:23→20:40)
[2022-08-27] MEDS ORDERED: FAT EMULSION IV 250 ML IV ONE (18:00)
[2022-08-27] MEDS: AMINO AC/ELECTROLYTE/DEX/CALC 1,000 ML IV SCH (18:00)
[2022-08-28] VITALS (7 sets, daily range): BP systolic 131–151; BP diastolic 60–84; O2SAT 99
[2022-08-28] MEDS: PIPERACILLIN/TAZOBACTAM SOD 4.5 GM in D5W MINI-BAG PLUS 50 ML IV SCH ×4 (03:18→21:48)
[2022-08-28] MEDS: SODIUM CHLORIDE HYPERTONIC 3% 15ML NEB SOL INH SCH ×6 (03:51→23:46)
[2022-08-28] MEDS: ALBUTEROL SULFATE 2.5 MG/0.5 ML INH NEB SOLN INH PRN ×2 (03:51→23:47)
[2022-08-28] MEDS: INSULIN LISPRO (NovoLOG) PER UNIT SC SCH ×3 (04:59→19:09)
[2022-08-28 06:08] LABS: HEMATOCRIT 31.2 % (42.0-52.0); HEMOGLOBIN 9.4 g/dl (13.5-17.5); MEAN CORPUSCULAR HEMOGLOBIN 25.3 pg (27.0-33.0); MEAN CORPUSCULAR HGB CONC 30.1 g/dl (32.0-36.5); MEAN CORPUSCULAR VOLUME 83.9 fl (80.0-96.0); PLATELET COUNT, AUTOMATED 417 10^3/uL (150-450); RED BLOOD COUNT 3.72 10^6/uL (4.30-6.10); WHITE BLOOD COUNT 13.1 10^3/uL (4.0-10.0)
[2022-08-28 06:52] LABS: BLOOD UREA NITROGEN 21 MG/DL (7-18); CALCIUM LEVEL 8.5 MG/DL (8.8-10.2); CARBON DIOXIDE LEVEL 28 MEQ/L (21-32); CHLORIDE LEVEL 107 MEQ/L (98-107); GLOMERULAR FILTRATION RATE > 60.0 (>42); GLUCOSE, FASTING 142 MG/DL (70-100); MAGNESIUM LEVEL 2.1 MG/DL (1.8-2.4); PHOSPHORUS LEVEL 2.9 MG/DL (2.5-4.9); POTASSIUM SERUM 2.6 MEQ/L (3.5-5.1); SODIUM LEVEL 142 MEQ/L (136-145)
[2022-08-28] MEDS: NYSTATIN 100,000 UNITS/GM TOPICAL PWD 15 GM TOP SCH ×2 (08:39→21:48)
[2022-08-28] MEDS: PANTOPRAZOLE 40MG VIAL IV SCH (08:40)
[2022-08-28] MEDS: ENOXAPARIN 80MG/0.8ML SYRINGE (J1650 PER 10MG) SC SCH ×2 (08:40→21:48)
[2022-08-28] MEDS: KCL 10MEQ/100ML SWI (KRUN) 10 MEQ in IV 1 EA IV SCH ×4 (08:40→13:57)
[2022-08-28] MEDS: ALBUTEROL SULFATE 2.5 MG/0.5 ML INH NEB SOLN NEB SCH ×4 (08:59→20:38)
[2022-08-28] MEDS: AMINO AC/ELECTROLYTE/DEX/CALC 1,000 ML IV SCH (15:13)
[2022-08-28 18:51] LABS: BLOOD UREA NITROGEN 20 MG/DL (7-18); CALCIUM LEVEL 8.4 MG/DL (8.8-10.2); CARBON DIOXIDE LEVEL 29 MEQ/L (21-32); CHLORIDE LEVEL 107 MEQ/L (98-107); CREATININE FOR GFR 0.59 MG/DL (0.70-1.30); GLOMERULAR FILTRATION RATE > 60.0 (>42); GLUCOSE, FASTING 114 MG/DL (70-100); POTASSIUM SERUM 3.5 MEQ/L (3.5-5.1); SODIUM LEVEL 142 MEQ/L (136-145)
[2022-08-28] MEDS ORDERED: FAT EMULSION IV 250 ML IV ONE (21:00)
[2022-08-29] VITALS (8 sets, daily range): BP systolic 130–182; BP diastolic 62–90
[2022-08-29] MEDS: SODIUM CHLORIDE HYPERTONIC 3% 15ML NEB SOL INH SCH ×6 (03:34→23:34)
[2022-08-29] MEDS: ALBUTEROL SULFATE 2.5 MG/0.5 ML INH NEB SOLN INH PRN ×2 (03:34→23:34)
[2022-08-29] MEDS: PIPERACILLIN/TAZOBACTAM SOD 4.5 GM in D5W MINI-BAG PLUS 50 ML IV SCH ×4 (04:39→21:19)
[2022-08-29] MEDS: INSULIN LISPRO (NovoLOG) PER UNIT SC SCH ×4 (05:34→17:17)
[2022-08-29] MEDS: ALBUTEROL SULFATE 2.5 MG/0.5 ML INH NEB SOLN NEB SCH ×4 (08:32→19:31)
[2022-08-29] MEDS: PANTOPRAZOLE 40MG VIAL IV SCH (09:29)
[2022-08-29] MEDS: ENOXAPARIN 80MG/0.8ML SYRINGE (J1650 PER 10MG) SC SCH ×2 (09:29→21:20)
[2022-08-29] MEDS: NYSTATIN 100,000 UNITS/GM TOPICAL PWD 15 GM TOP SCH ×2 (09:30→21:19)
[2022-08-29] MEDS: AMINO AC/ELECTROLYTE/DEX/CALC 1,000 ML IV SCH (09:31)
[2022-08-29] MEDS ORDERED: FAT EMULSION IV 250 ML IV ONE (18:00)
[2022-08-30] VITALS (7 sets, daily range): BP systolic 150–175; BP diastolic 71–88; O2SAT 92
[2022-08-30] MEDS: INSULIN LISPRO (NovoLOG) PER UNIT SC SCH ×5 (00:13→23:45)
[2022-08-30] MEDS: ALBUTEROL SULFATE 2.5 MG/0.5 ML INH NEB SOLN INH PRN ×2 (03:42→23:15)
[2022-08-30] MEDS: SODIUM CHLORIDE HYPERTONIC 3% 15ML NEB SOL INH SCH ×6 (03:42→23:15)
[2022-08-30] MEDS: PIPERACILLIN/TAZOBACTAM SOD 4.5 GM in D5W MINI-BAG PLUS 50 ML IV SCH ×4 (04:56→21:35)
[2022-08-30] MEDS: AMINO AC/ELECTROLYTE/DEX/CALC 1,000 ML IV SCH (06:08)
[2022-08-30 06:52] LABS: HEMOGLOBIN 10.1 g/dl (13.5-17.5); MEAN CORPUSCULAR HEMOGLOBIN 25.4 pg (27.0-33.0); MEAN CORPUSCULAR HGB CONC 28.1 g/dl (32.0-36.5); MEAN CORPUSCULAR VOLUME 90.7 fl (80.0-96.0); PLATELET COUNT, AUTOMATED 347 10^3/uL (150-450); RED BLOOD COUNT 3.97 10^6/uL (4.30-6.10); WHITE BLOOD COUNT 4.5 10^3/uL (4.0-10.0)
[2022-08-30] MEDS: ALBUTEROL SULFATE 2.5 MG/0.5 ML INH NEB SOLN NEB SCH ×4 (07:15→19:44)
[2022-08-30 07:20] LABS: BLOOD UREA NITROGEN 17 MG/DL (7-18); CALCIUM LEVEL 8.5 MG/DL (8.8-10.2); CARBON DIOXIDE LEVEL 26 MEQ/L (21-32); CHLORIDE LEVEL 108 MEQ/L (98-107); CREATININE FOR GFR 0.56 MG/DL (0.70-1.30); GLOMERULAR FILTRATION RATE > 60.0 (>42); GLUCOSE, FASTING 110 MG/DL (70-100); POTASSIUM SERUM 3.2 MEQ/L (3.5-5.1); SODIUM LEVEL 142 MEQ/L (136-145)
[2022-08-30] MEDS: PANTOPRAZOLE 40MG VIAL IV SCH (09:09)
[2022-08-30] MEDS: ENOXAPARIN 80MG/0.8ML SYRINGE (J1650 PER 10MG) SC SCH ×2 (09:09→21:34)
[2022-08-30] MEDS: NYSTATIN 100,000 UNITS/GM TOPICAL PWD 15 GM TOP SCH ×2 (09:10→21:34)
[2022-08-30] MEDS ORDERED: FAT EMULSION IV 250 ML IV ONE (18:00)
[2022-08-31] VITALS (15 sets, daily range): BP systolic 140–174; BP diastolic 74–90; O2SAT 88–100
[2022-08-31] MEDS: AMINO AC/ELECTROLYTE/DEX/CALC 1,000 ML IV SCH ×2 (02:04→21:30)
[2022-08-31] MEDS: ALBUTEROL SULFATE 2.5 MG/0.5 ML INH NEB SOLN INH PRN (03:24)
[2022-08-31] MEDS: SODIUM CHLORIDE HYPERTONIC 3% 15ML NEB SOL INH SCH ×6 (03:24→23:39)
[2022-08-31] MEDS: PIPERACILLIN/TAZOBACTAM SOD 4.5 GM in D5W MINI-BAG PLUS 50 ML IV SCH ×4 (05:03→21:46)
[2022-08-31] MEDS ORDERED: FUROSEMIDE 20MG/2ML VIAL (J1940) IV ONE (05:50)
[2022-08-31] MEDS: INSULIN LISPRO (NovoLOG) PER UNIT SC SCH ×4 (06:25→23:43)
[2022-08-31] MEDS: ALBUTEROL SULFATE 2.5 MG/0.5 ML INH NEB SOLN NEB SCH ×4 (07:13→20:45)
[2022-08-31] MEDS: NYSTATIN 100,000 UNITS/GM TOPICAL PWD 15 GM TOP SCH ×2 (08:19→21:30)
[2022-08-31] MEDS: ENOXAPARIN 80MG/0.8ML SYRINGE (J1650 PER 10MG) SC SCH ×2 (08:19→21:30)
[2022-08-31] MEDS: PANTOPRAZOLE 40MG VIAL IV SCH (08:19)
[2022-08-31 08:40] LABS: HEMATOCRIT 32.7 % (42.0-52.0); HEMOGLOBIN 9.9 g/dl (13.5-17.5); MEAN CORPUSCULAR HEMOGLOBIN 25.5 pg (27.0-33.0); MEAN CORPUSCULAR HGB CONC 30.3 g/dl (32.0-36.5); MEAN CORPUSCULAR VOLUME 84.3 fl (80.0-96.0); PLATELET COUNT, AUTOMATED 396 10^3/uL (150-450); RED BLOOD COUNT 3.88 10^6/uL (4.30-6.10); WHITE BLOOD COUNT 4.1 10^3/uL (4.0-10.0)
[2022-08-31 09:11] LABS: BLOOD UREA NITROGEN 17 MG/DL (7-18); CALCIUM LEVEL 8.6 MG/DL (8.8-10.2); CARBON DIOXIDE LEVEL 29 MEQ/L (21-32); CHLORIDE LEVEL 107 MEQ/L (98-107); CREATININE FOR GFR 0.58 MG/DL (0.70-1.30); GLOMERULAR FILTRATION RATE > 60.0 (>42); GLUCOSE, FASTING 101 MG/DL (70-100); SODIUM LEVEL 141 MEQ/L (136-145)
[2022-08-31] MEDS ORDERED: FAT EMULSION IV 250 ML IV ONE (18:00)
[2022-09-01] VITALS (16 sets, daily range): BP systolic 140–170; BP diastolic 78–95; O2SAT 91–96
[2022-09-01] MEDS: SODIUM CHLORIDE HYPERTONIC 3% 15ML NEB SOL INH SCH ×6 (04:09→23:14)
[2022-09-01] MEDS: ALBUTEROL SULFATE 2.5 MG/0.5 ML INH NEB SOLN INH PRN ×2 (04:09→23:13)
[2022-09-01] MEDS: PIPERACILLIN/TAZOBACTAM SOD 4.5 GM in D5W MINI-BAG PLUS 50 ML IV SCH ×4 (04:33→22:30)
[2022-09-01 05:24] LABS: HEMATOCRIT 33.9 % (42.0-52.0); MEAN CORPUSCULAR HEMOGLOBIN 24.9 pg (27.0-33.0); MEAN CORPUSCULAR HGB CONC 29.5 g/dl (32.0-36.5); MEAN CORPUSCULAR VOLUME 84.5 fl (80.0-96.0); PLATELET COUNT, AUTOMATED 384 10^3/uL (150-450); RED BLOOD COUNT 4.01 10^6/uL (4.30-6.10); WHITE BLOOD COUNT 3.5 10^3/uL (4.0-10.0)
[2022-09-01 06:05] LABS: BLOOD UREA NITROGEN 19 MG/DL (7-18); CALCIUM LEVEL 8.5 MG/DL (8.8-10.2); CARBON DIOXIDE LEVEL 28 MEQ/L (21-32); CHLORIDE LEVEL 108 MEQ/L (98-107); CREATININE FOR GFR 0.58 MG/DL (0.70-1.30); GLOMERULAR FILTRATION RATE > 60.0 (>42); GLUCOSE, FASTING 116 MG/DL (70-100); POTASSIUM SERUM 2.9 MEQ/L (3.5-5.1); SODIUM LEVEL 143 MEQ/L (136-145)
[2022-09-01] MEDS: INSULIN LISPRO (NovoLOG) PER UNIT SC SCH ×3 (06:12→18:32)
[2022-09-01] MEDS: ALBUTEROL SULFATE 2.5 MG/0.5 ML INH NEB SOLN NEB SCH ×4 (07:34→20:42)
[2022-09-01] MEDS: PANTOPRAZOLE 40MG VIAL IV SCH (09:47)
[2022-09-01] MEDS: ENOXAPARIN 80MG/0.8ML SYRINGE (J1650 PER 10MG) SC SCH ×2 (09:47→21:20)
[2022-09-01] MEDS: NYSTATIN 100,000 UNITS/GM TOPICAL PWD 15 GM TOP SCH ×2 (09:49→21:21)
[2022-09-01] MEDS ORDERED: FAT EMULSION IV 250 ML IV ONE (18:00)
[2022-09-01] MEDS: AMINO AC/ELECTROLYTE/DEX/CALC 1,000 ML IV SCH (18:32)
[2022-09-01 20:53] LABS: POTASSIUM SERUM 2.9 MEQ/L (3.5-5.1)
[2022-09-01] MEDS: KCL 10MEQ/100ML SWI (KRUN) 10 MEQ in IV 1 EA IV SCH ×2 (21:21→23:48)
[2022-09-01 21:24] LABS: MAGNESIUM LEVEL 2.2 MG/DL (1.8-2.4)
[2022-09-02] VITALS (15 sets, daily range): BP systolic 138–155; BP diastolic 64–88; O2SAT 89–96
[2022-09-02] MEDS: KCL 10MEQ/100ML SWI (KRUN) 10 MEQ in IV 1 EA IV SCH ×5 (00:46→14:01)
[2022-09-02] MEDS: INSULIN LISPRO (NovoLOG) PER UNIT SC SCH ×4 (00:46→18:00)
[2022-09-02] MEDS: SODIUM CHLORIDE HYPERTONIC 3% 15ML NEB SOL INH SCH ×6 (03:52→23:45)
[2022-09-02] MEDS: PIPERACILLIN/TAZOBACTAM SOD 4.5 GM in D5W MINI-BAG PLUS 50 ML IV SCH ×4 (04:23→21:25)
[2022-09-02 05:10] LABS: HEMATOCRIT 32.9 % (42.0-52.0); HEMOGLOBIN 9.9 g/dl (13.5-17.5); MEAN CORPUSCULAR HEMOGLOBIN 25.6 pg (27.0-33.0); MEAN CORPUSCULAR HGB CONC 30.1 g/dl (32.0-36.5); PLATELET COUNT, AUTOMATED 377 10^3/uL (150-450); RED BLOOD COUNT 3.87 10^6/uL (4.30-6.10)
[2022-09-02 05:23] LABS: BLOOD UREA NITROGEN 19 MG/DL (7-18); CALCIUM LEVEL 8.3 MG/DL (8.8-10.2); CARBON DIOXIDE LEVEL 27 MEQ/L (21-32); CHLORIDE LEVEL 107 MEQ/L (98-107); CREATININE FOR GFR 0.62 MG/DL (0.70-1.30); GLOMERULAR FILTRATION RATE > 60.0 (>42); GLUCOSE, FASTING 119 MG/DL (70-100); POTASSIUM SERUM 3.4 MEQ/L (3.5-5.1); SODIUM LEVEL 140 MEQ/L (136-145)
[2022-09-02] MEDS: ALBUTEROL SULFATE 2.5 MG/0.5 ML INH NEB SOLN NEB SCH ×4 (07:39→19:32)
[2022-09-02] MEDS: PANTOPRAZOLE 40MG VIAL IV SCH (08:56)
[2022-09-02] MEDS: ENOXAPARIN 80MG/0.8ML SYRINGE (J1650 PER 10MG) SC SCH ×2 (08:56→21:25)
[2022-09-02] MEDS: NYSTATIN 100,000 UNITS/GM TOPICAL PWD 15 GM TOP SCH ×2 (08:57→21:26)
[2022-09-02] MEDS ORDERED: FAT EMULSION IV 250 ML IV ONE (18:00)
[2022-09-02] MEDS: AMINO AC/ELECTROLYTE/DEX/CALC 1,000 ML IV SCH (18:13)
[2022-09-02] MEDS: ALBUTEROL SULFATE 2.5 MG/0.5 ML INH NEB SOLN INH PRN (23:45)
[2022-09-03] MEDS: INSULIN LISPRO (NovoLOG) PER UNIT SC SCH ×5 (00:26→23:28)
[2022-09-03 01:36] VITALS: BP 149/87
[2022-09-03] MEDS: SODIUM CHLORIDE HYPERTONIC 3% 15ML NEB SOL INH SCH ×5 (03:27→19:49)
[2022-09-03] MEDS: PIPERACILLIN/TAZOBACTAM SOD 4.5 GM in D5W MINI-BAG PLUS 50 ML IV SCH ×2 (03:55→09:47)
[2022-09-03 06:00] VITALS: BP 151/86
[2022-09-03 06:30] LABS: HEMATOCRIT 34.2 % (42.0-52.0); HEMOGLOBIN 10.2 g/dl (13.5-17.5); MEAN CORPUSCULAR HEMOGLOBIN 25.1 pg (27.0-33.0); MEAN CORPUSCULAR HGB CONC 29.8 g/dl (32.0-36.5); MEAN CORPUSCULAR VOLUME 84.2 fl (80.0-96.0); PLATELET COUNT, AUTOMATED 378 10^3/uL (150-450); RED BLOOD COUNT 4.06 10^6/uL (4.30-6.10); WHITE BLOOD COUNT 5.8 10^3/uL (4.0-10.0)
[2022-09-03] MEDS: ALBUTEROL SULFATE 2.5 MG/0.5 ML INH NEB SOLN NEB SCH ×4 (06:47→19:49)
[2022-09-03 07:02] LABS: BLOOD UREA NITROGEN 17 MG/DL (7-18); CALCIUM LEVEL 8.3 MG/DL (8.8-10.2); CARBON DIOXIDE LEVEL 27 MEQ/L (21-32); CHLORIDE LEVEL 107 MEQ/L (98-107); CREATININE FOR GFR 0.62 MG/DL (0.70-1.30); GLOMERULAR FILTRATION RATE > 60.0 (>42); GLUCOSE, FASTING 108 MG/DL (70-100); POTASSIUM SERUM 3.6 MEQ/L (3.5-5.1); SODIUM LEVEL 141 MEQ/L (136-145)
[2022-09-03] MEDS: ENOXAPARIN 80MG/0.8ML SYRINGE (J1650 PER 10MG) SC SCH ×2 (09:47→20:40)
[2022-09-03] MEDS: PANTOPRAZOLE 40MG VIAL IV SCH (09:47)
[2022-09-03] MEDS: NYSTATIN 100,000 UNITS/GM TOPICAL PWD 15 GM TOP SCH ×2 (09:57→20:40)
[2022-09-03 14:00] VITALS: BP 141/88
[2022-09-03] MEDS: AMINO AC/ELECTROLYTE/DEX/CALC 1,000 ML IV SCH ×2 (14:41→14:42)
[2022-09-03 15:00] LABS: ABG O2 SATURATION 94.4 % (95.0-99.0); ABG PARTIAL PRESSURE CO2 39.6 mmHg (35.0-45.0); ABG PARTIAL PRESSURE O2 71.1 mmHg (75.0-100.0); ABG TOTAL CO2 29.2 MEQ/L (23.0-31.0); ABG pH (ARTERIAL) 7.467 UNITS (7.350-7.450)
[2022-09-03] MEDS ORDERED: FAT EMULSION IV 250 ML IV ONE (18:00)
[2022-09-03 22:58] VITALS: BP 151/86
[2022-09-04] VITALS (40 sets, daily range): BP systolic 62–190; BP diastolic 42–96; O2SAT 96
[2022-09-04] MEDS: SODIUM CHLORIDE HYPERTONIC 3% 15ML NEB SOL INH SCH ×5 (00:34→15:14)
[2022-09-04] MEDS: ALBUTEROL SULFATE 2.5 MG/0.5 ML INH NEB SOLN INH PRN ×2 (00:35→04:07)
[2022-09-04] MEDS: INSULIN LISPRO (NovoLOG) PER UNIT SC SCH ×3 (05:14→21:05)
[2022-09-04 06:54] LABS: HEMATOCRIT 33.3 % (42.0-52.0); HEMOGLOBIN 10.2 g/dl (13.5-17.5); MEAN CORPUSCULAR HEMOGLOBIN 25.1 pg (27.0-33.0); MEAN CORPUSCULAR HGB CONC 30.6 g/dl (32.0-36.5); MEAN CORPUSCULAR VOLUME 81.8 fl (80.0-96.0); PLATELET COUNT, AUTOMATED 349 10^3/uL (150-450); RED BLOOD COUNT 4.07 10^6/uL (4.30-6.10); WHITE BLOOD COUNT 4.8 10^3/uL (4.0-10.0)
[2022-09-04] MEDS: ALBUTEROL SULFATE 2.5 MG/0.5 ML INH NEB SOLN NEB SCH ×3 (07:24→15:14)
[2022-09-04 07:37] LABS: BLOOD UREA NITROGEN 16 MG/DL (7-18); CALCIUM LEVEL 8.3 MG/DL (8.8-10.2); CARBON DIOXIDE LEVEL 27 MEQ/L (21-32); CHLORIDE LEVEL 107 MEQ/L (98-107); CREATININE FOR GFR 0.52 MG/DL (0.70-1.30); GLOMERULAR FILTRATION RATE > 60.0 (>42); GLUCOSE, FASTING 100 MG/DL (70-100); POTASSIUM SERUM 3.5 MEQ/L (3.5-5.1); SODIUM LEVEL 141 MEQ/L (136-145)
[2022-09-04] MEDS: ENOXAPARIN 80MG/0.8ML SYRINGE (J1650 PER 10MG) SC SCH (09:00)
[2022-09-04] MEDS: AMINO AC/ELECTROLYTE/DEX/CALC 1,000 ML IV SCH (10:16)
[2022-09-04] MEDS: NYSTATIN 100,000 UNITS/GM TOPICAL PWD 15 GM TOP SCH ×2 (10:16→22:32)
[2022-09-04] MEDS: PANTOPRAZOLE 40MG VIAL IV SCH (10:17)
[2022-09-04] MEDS ORDERED: NOREPINEPHRINE BITARTRATE 16 MG in D5W 484 ML IV SCH (18:35)
[2022-09-04] MEDS ORDERED: LR 1,000 ML IV ONE (18:35)
[2022-09-04 19:01] LABS: ABG BASE EXCESS -8.2 (-2.0-2.0); ABG HCO3 19.5 MEQ/L (22.0-26.0); ABG O2 SATURATION 97.3 % (95.0-99.0); ABG PARTIAL PRESSURE CO2 48.4 mmHg (35.0-45.0); ABG PARTIAL PRESSURE O2 112.3 mmHg (75.0-100.0)
[2022-09-04 19:02] LABS: ABG pH (ARTERIAL) 7.224 UNITS (7.350-7.450)
[2022-09-04] MEDS ORDERED: MIDAZOLAM INJ 2MG/2ML VIAL (J2250 PER 1MG) As Ordered ONE (19:03)
[2022-09-04] MEDS ORDERED: MIDAZOLAM INJ 2MG/2ML VIAL (J2250 PER 1MG) IV STA (19:06)
[2022-09-04 19:09] LABS: BASO # 0.1 10^3/uL (0.0-0.2); BASO % 0.8 % (0.0-1.0); EOS # 0.1 10^3/uL (0.0-0.5); EOS % 0.8 % (0.0-3.0); HEMATOCRIT 35.7 % (42.0-52.0); HEMOGLOBIN 10.4 g/dl (13.5-17.5); MEAN CORPUSCULAR HEMOGLOBIN 25.3 pg (27.0-33.0); MEAN CORPUSCULAR HGB CONC 29.1 g/dl (32.0-36.5); MEAN CORPUSCULAR VOLUME 86.9 fl (80.0-96.0); MONO # 1.4 10^3/uL (0.0-0.8); MONO % 7.9 % (2.0-8.0); NEUTROPHILS # 7.9 10^3/uL (1.5-8.5); NEUTROPHILS % 45.8 % (36.0-66.0); PLATELET COUNT, AUTOMATED 408 10^3/uL (150-450); RED BLOOD COUNT 4.11 10^6/uL (4.30-6.10); WHITE BLOOD COUNT 17.3 10^3/uL (4.0-10.0)
[2022-09-04 19:44] LABS: LYMPH # 7.1 10^3/uL (1.5-5.0)
[2022-09-04 19:47] LABS: ALBUMIN 2.6 GM/DL (3.2-5.2); ALT/SGPT 17 U/L (12-78); BILIRUBIN,TOTAL 0.3 MG/DL (0.2-1.0); BLOOD UREA NITROGEN 18 MG/DL (7-18); CALCIUM LEVEL 8.6 MG/DL (8.8-10.2); CARBON DIOXIDE LEVEL 21 MEQ/L (21-32); CHLORIDE LEVEL 109 MEQ/L (98-107); CREATININE FOR GFR 0.77 MG/DL (0.70-1.30); GLOMERULAR FILTRATION RATE > 60.0 (>42); GLUCOSE, FASTING 162 MG/DL (70-100); MAGNESIUM LEVEL 2.6 MG/DL (1.8-2.4); NT-PRO BNP 2953 PG/ML (<450); POTASSIUM SERUM 4.1 MEQ/L (3.5-5.1); SODIUM LEVEL 140 MEQ/L (136-145); TOTAL PROTEIN 6.2 GM/DL (6.4-8.2)
[2022-09-04 20:31] LABS: CPK CREATINE PHOSPHOKINASE 93 U/L (39-308)
[2022-09-04] MEDS: MIDAZOLAM 100MG/100ML-0.9%NACL 100 MG in IV 1 EA IV PRN (20:31)
[2022-09-04 20:40] LABS: ABG BASE EXCESS -2.8 (-2.0-2.0); ABG HCO3 21.4 MEQ/L (22.0-26.0); ABG O2 SATURATION 98.5 % (95.0-99.0); ABG PARTIAL PRESSURE CO2 34.9 mmHg (35.0-45.0); ABG PARTIAL PRESSURE O2 118.3 mmHg (75.0-100.0); ABG STANDARD HCO3 22.2 MEQ/L (22.0-26.0); ABG TOTAL CO2 22.4 MEQ/L (23.0-31.0); ABG pH (ARTERIAL) 7.405 UNITS (7.350-7.450)
[2022-09-04] MEDS: MIDAZOLAM INJ 2MG/2ML VIAL (J2250 PER 1MG) IV PRN ×2 (20:42→22:43)
[2022-09-04] MEDS: IPRATROPIUM 0.5MG/ALBUTEROL 2.5MG INH SOL UD 3ML (DUONEB) NEB SCH (20:50)
[2022-09-04 21:22] LABS: COLLAGEN EPINEPHRINE 77 SECONDS (74-162); INR 1.06; PARTIAL THROMBOPLASTIN TIME 33.2 SECONDS (24.8-34.2)
[2022-09-04 21:38] LABS: ALBUMIN 2.5 GM/DL (3.2-5.2); ALT/SGPT 18 U/L (12-78); BILIRUBIN,TOTAL 0.5 MG/DL (0.2-1.0); BLOOD UREA NITROGEN 20 MG/DL (7-18); CALCIUM LEVEL 8.3 MG/DL (8.8-10.2); CARBON DIOXIDE LEVEL 22 MEQ/L (21-32); CHLORIDE LEVEL 109 MEQ/L (98-107); CHOLESTEROL LEVEL 145 MG/DL (< 200); CPK CREATINE PHOSPHOKINASE 113 U/L (39-308); CREATININE FOR GFR 0.68 MG/DL (0.70-1.30); GLOMERULAR FILTRATION RATE > 60.0 (>42); GLUCOSE, FASTING 201 MG/DL (70-100); LDH LACTATE DEHYDROGENASE 242 U/L (87-241); PHOSPHORUS LEVEL 3.5 MG/DL (2.5-4.9); POTASSIUM SERUM 3.1 MEQ/L (3.5-5.1); SODIUM LEVEL 142 MEQ/L (136-145); TOTAL PROTEIN 5.7 GM/DL (6.4-8.2); TRIGLYCERIDES LEVEL 220 MG/DL (<150)
[2022-09-04] MEDS ORDERED: KCL 20MEQ IN 100ML SWI (KRUN) 20 MEQ in IV 1 EA IV ONE ×2 (22:15)
[2022-09-04] MEDS: CHLORHEXIDINE GLUCONATE 0.12 % 15ML UDC (PERIDEX ORAL RINSE) MT SCH (22:30)
[2022-09-05] VITALS (66 sets, daily range): BP systolic 102–158; BP diastolic 45–66
[2022-09-05] MEDS: NOREPINEPHRINE 4MG IN D5 250ML 4 MG in IV 1 EA IV SCH ×4 (02:47→17:08)
[2022-09-05] MEDS: NS 1,000 ML IV SCH ×3 (02:48→15:49)
[2022-09-05 05:08] LABS: HEMATOCRIT 28.7 % (42.0-52.0); HEMOGLOBIN 9.1 g/dl (13.5-17.5); MEAN CORPUSCULAR HEMOGLOBIN 25.3 pg (27.0-33.0); MEAN CORPUSCULAR HGB CONC 31.7 g/dl (32.0-36.5); MEAN CORPUSCULAR VOLUME 79.9 fl (80.0-96.0); PLATELET COUNT, AUTOMATED 343 10^3/uL (150-450); RED BLOOD COUNT 3.59 10^6/uL (4.30-6.10)
[2022-09-05 05:29] LABS: ABG HCO3 21.8 MEQ/L (22.0-26.0); ABG O2 SATURATION 98.1 % (95.0-99.0); ABG PARTIAL PRESSURE CO2 29.5 mmHg (35.0-45.0); ABG PARTIAL PRESSURE O2 110.5 mmHg (75.0-100.0); ABG STANDARD HCO3 23.7 MEQ/L (22.0-26.0); ABG TOTAL CO2 22.7 MEQ/L (23.0-31.0); ABG pH (ARTERIAL) 7.486 UNITS (7.350-7.450)
[2022-09-05 05:43] LABS: ALBUMIN 2.3 GM/DL (3.2-5.2); BLOOD UREA NITROGEN 20 MG/DL (7-18); CALCIUM LEVEL 8.1 MG/DL (8.8-10.2); CARBON DIOXIDE LEVEL 23 MEQ/L (21-32); CHLORIDE LEVEL 110 MEQ/L (98-107); CREATININE FOR GFR 0.65 MG/DL (0.70-1.30); CREATININE FOR GFR 0.68 MG/DL (0.70-1.30); GLOMERULAR FILTRATION RATE > 60.0 (>42); GLUCOSE, FASTING 145 MG/DL (70-100); GLUCOSE, FASTING 146 MG/DL (70-100); PHOSPHORUS LEVEL 2.9 MG/DL (2.5-4.9); POTASSIUM SERUM 3.2 MEQ/L (3.5-5.1); SODIUM LEVEL 141 MEQ/L (136-145); SODIUM LEVEL 142 MEQ/L (136-145)
[2022-09-05] MEDS: INSULIN LISPRO (NovoLOG) PER UNIT SC SCH ×4 (05:54→17:41)
[2022-09-05] MEDS: AMINO AC/ELECTROLYTE/DEX/CALC 1,000 ML IV SCH (06:00)
[2022-09-05] MEDS: IPRATROPIUM 0.5MG/ALBUTEROL 2.5MG INH SOL UD 3ML (DUONEB) NEB SCH ×4 (07:19→20:00)
[2022-09-05] MEDS: PANTOPRAZOLE 40MG VIAL IV SCH (08:04)
[2022-09-05] MEDS: CHLORHEXIDINE GLUCONATE 0.12 % 15ML UDC (PERIDEX ORAL RINSE) MT SCH (08:04)
[2022-09-05] MEDS: NYSTATIN 100,000 UNITS/GM TOPICAL PWD 15 GM TOP SCH ×2 (08:05→20:58)
[2022-09-05] MEDS ORDERED: ASPIRIN 81 MG CHEW TABLET GT SCH (09:00)
[2022-09-05] MEDS ORDERED: FENTANYL DRIP LOCK BOX KEY 1 EACH XX PRN (09:20)
[2022-09-05] MEDS ORDERED: fentaNYL CITRATE/NaCl 1,000 MCG in IV 1 EA IV SCH (10:00)
[2022-09-05] MEDS: MIDAZOLAM 100MG/100ML-0.9%NACL 100 MG in IV 1 EA IV PRN (12:02)
[2022-09-05] MEDS: PIPERACILLIN/TAZOBACTAM SOD 3.375 GM in D5W MINI-BAG PLUS 50 ML IV SCH ×2 (13:03→17:09)
[2022-09-05 13:35] LABS: BLOOD UREA NITROGEN 20 MG/DL (7-18); CALCIUM LEVEL 8.1 MG/DL (8.8-10.2); CARBON DIOXIDE LEVEL 22 MEQ/L (21-32); CHLORIDE LEVEL 112 MEQ/L (98-107); CREATININE FOR GFR 0.68 MG/DL (0.70-1.30); GLOMERULAR FILTRATION RATE > 60.0 (>42); GLUCOSE, FASTING 129 MG/DL (70-100); POTASSIUM SERUM 2.9 MEQ/L (3.5-5.1); SODIUM LEVEL 143 MEQ/L (136-145)
[2022-09-05] MEDS: KCL 20MEQ IN 100ML SWI (KRUN) 20 MEQ in IV 1 EA IV SCH ×4 (14:11→15:50)
[2022-09-05] MEDS ORDERED: ONDANSETRON 4MG 2ML VIAL IV PRN (17:45)
[2022-09-05] MEDS ORDERED: SCOPOLAMINE 1MG TRANSDERMAL PATCH TOP PRN (17:45)
[2022-09-05] MEDS ORDERED: ENOXAPARIN 80MG/0.8ML SYRINGE (J1650 PER 10MG) SC SCH (18:00)
[2022-09-05] MEDS: MORPHINE 2 MG/ML 1ML VIAL IV PRN ×2 (18:23→20:46)
[2022-09-05] MEDS: LORazepam 2 MG/ML VIAL IV PRN ×2 (18:31→20:45)
[2022-09-06] MEDS: LORazepam 2 MG/ML VIAL IV PRN ×2 (02:50→06:48)
[2022-09-06] MEDS: MORPHINE 2 MG/ML 1ML VIAL IV PRN ×2 (02:50→06:59)
[2022-09-06 06:59] VITALS: BP 137/57
[2022-09-06] MEDS: IPRATROPIUM 0.5MG/ALBUTEROL 2.5MG INH SOL UD 3ML (DUONEB) NEB SCH (07:54)
[2022-09-06] MEDS: NYSTATIN 100,000 UNITS/GM TOPICAL PWD 15 GM TOP SCH (08:52)
== END 2022-09-06 11:15 | disposition expired | DRG 981 ==
LOC: M ED 19:01 → EDBD 19:01 → M ED INP 21:17 → EEVIPCON 21:17 → UNDOADMIN 21:17 → M MS5PR 21:17 → ENRESERV 23:20 → M PCU 07-24 02:00 → M MSPAV 07-26 14:30 → M ICU 08-18 08:54 → M MS5PR 08-23 12:45 → M PCU 08-27 02:51 → M MS5PR 09-03 01:46 → M ICU 09-04 18:20
PROVIDERS: ADMIT Internal Medicine; ATTEND Student in an Organized Health Care Education/Training Program
PROC: 30233N1 Transfusion of Nonautologous Red Blood Cells into Peripheral Vein, Percutaneous Approach (ICD-10-PCS; 2022-07-23)
PROC: B246ZZZ Ultrasonography of Right and Left Heart (ICD-10-PCS; 2022-07-24)
PROC: 0KBL0ZZ Excision of Left Abdomen Muscle, Open Approach (ICD-10-PCS; principal; 2022-07-26)
PROC: 0S9D3ZX Drainage of Left Knee Joint, Percutaneous Approach, Diagnostic (ICD-10-PCS; 2022-08-18)
PROC: 0DH63UZ Insertion of Feeding Device into Stomach, Percutaneous Approach (ICD-10-PCS; 2022-09-04)
PROC: 02HV33Z Insertion of Infusion Device into Superior Vena Cava, Percutaneous Approach (ICD-10-PCS; 2022-09-04)
PROC: 0W9930Z Drainage of Right Pleural Cavity with Drainage Device, Percutaneous Approach (ICD-10-PCS; 2022-09-04)
PROC: 04HK33Z Insertion of Infusion Device into Right Femoral Artery, Percutaneous Approach (ICD-10-PCS; 2022-09-04)
PROC: 0BH17EZ Insertion of Endotracheal Airway into Trachea, Via Natural or Artificial Opening (ICD-10-PCS; 2022-09-04)
PROC: 5A1945Z Respiratory Ventilation, 24-96 Consecutive Hours (ICD-10-PCS; 2022-09-04)
DX: K65.1 Peritoneal abscess (principal); J69.0 Pneumonitis due to inhalation of food and vomit; J96.01 Acute respiratory failure with hypoxia; A41.9 Sepsis, unspecified organism; G93.41 Metabolic encephalopathy; J15.1 Pneumonia due to Pseudomonas; T81.11XA Postprocedural cardiogenic shock, initial encounter; M96.A4 Flail chest associated with chest compression and cardiopulmonary resuscitation; E87.1 Hypo-osmolality and hyponatremia; N17.9 Acute kidney failure, unspecified; I31.39 Other pericardial effusion (noninflammatory); E87.20 Acidosis, unspecified; N39.0 Urinary tract infection, site not specified; E87.0 Hyperosmolality and hypernatremia; I97.121 Postprocedural cardiac arrest following other surgery; J95.811 Postprocedural pneumothorax; I10 Essential (primary) hypertension; I27.20 Pulmonary hypertension, unspecified; D50.9 Iron deficiency anemia, unspecified; K21.9 Gastro-esophageal reflux disease without esophagitis; E03.9 Hypothyroidism, unspecified; E11.9 Type 2 diabetes mellitus without complications; B34.8 Other viral infections of unspecified site; B95.8 Unspecified staphylococcus as the cause of diseases classified elsewhere; B96.20 Unspecified Escherichia coli [E. coli] as the cause of diseases classified elsewhere; F32.A Depression, unspecified; F41.9 Anxiety disorder, unspecified; Z66 Do not resuscitate; F79 Unspecified intellectual disabilities; Z79.01 Long term (current) use of anticoagulants; Z79.82 Long term (current) use of aspirin; Z79.890 Hormone replacement therapy; Z79.899 Other long term (current) drug therapy; Z90.49 Acquired absence of other specified parts of digestive tract; Z93.3 Colostomy status; Z20.822 Contact with and (suspected) exposure to COVID-19; J44.9 Chronic obstructive pulmonary disease, unspecified; E78.5 Hyperlipidemia, unspecified; N40.0 Benign prostatic hyperplasia without lower urinary tract symptoms; G47.33 Obstructive sleep apnea (adult) (pediatric); Z86.718 Personal history of other venous thrombosis and embolism; T84.028D Dislocation of other internal joint prosthesis, subsequent encounter; Z96.652 Presence of left artificial knee joint; D72.829 Elevated white blood cell count, unspecified; D69.6 Thrombocytopenia, unspecified; N31.9 Neuromuscular dysfunction of bladder, unspecified; K59.89 Other specified functional intestinal disorders; L89.152 Pressure ulcer of sacral region, stage 2; E86.0 Dehydration; B96.4 Proteus (mirabilis) (morganii) as the cause of diseases classified elsewhere; R26.89 Other abnormalities of gait and mobility; E87.6 Hypokalemia; R13.10 Dysphagia, unspecified; I95.9 Hypotension, unspecified